=== PATIENT | female | born 2000 | race Caucasian/White ===

== ENCOUNTER 2021-04-22 08:32 | Outpatient (RCR) | payer OTHER, SELFPAY ==
[2021-04-22 09:15] VITALS: BP 111/53; PULSE 95
== END 2021-05-01 10:15 | disposition home or self-care (01) ==
LOC: ANHOBOP 08:32
PROVIDERS: Referring Provider Obstetrics & Gynecology; Visit Provider Obstetrics & Gynecology
DX: O24.419 Gestational diabetes mellitus in pregnancy, unspecified control (principal); Z3A.38 38 weeks gestation of pregnancy
CPT/HCPCS: 59025

== ENCOUNTER 2021-04-24 10:55 | Inpatient (IN) | payer OTHER, SELFPAY ==
[2021-04-24] VITALS (23 sets, daily range): BP systolic 79–155; BP diastolic 45–93; PULSE 64–90; TEMP 36.7–37; BMI 42.5
[2021-04-24 12:07] LABS: Basophils Percent Auto 0.3 % (0.2-1.2); Eosinophils Absolute Auto 0.1 K/mm3 (0-0.3); Eosinophils Percent Auto 0.6 % (0-4.4); Hematocrit 31.8 % (37.0-47.0); Immature Granulocyte Absolute 0.12 K/mm3 (0.00-0.031); Lymphocytes Absolute Auto 2.47 K/mm3 (0.9-3.2); Lymphocytes Percent Auto 19.7 % (18.3-44.2); Mean Corpuscular HGB Conc 31.4 g/dl (32-36); Mean Corpuscular Volume 85.9 fl (80-100); Mean Platelet Volume 12.2 fl (7.4-10.4); Monocytes Absolute Auto 0.6 K/mm3 (0.1-0.6); Monocytes Percent Auto 4.9 % (2.6-8.5); Neutrophils Absolute Auto 9.2 K/mm3 (1.3-6.7); Neutrophils Percent Auto 73.5 % (45.5-73.1); Platelet Count Result 354 k/mm3 (150-375); Red Cell Distribution Width 14.5 % (11.5-14.5); White Blood Count 12.6 K/mm3 (4.5-10.0)
[2021-04-24] MEDS: OXYTOCIN 30 UNITS/NS 500 ML 30 UNITS/500 ML BAG 6 UNITS IV CONT (12:09)
[2021-04-24] MEDS: LACTATED RINGERS 1,000 ML 125 ML IV CONT ×2 (12:10→23:45)
--- NOTE | 2021-04-24 12:26 | LDADM ---
This patient, Verónica Tariq, was admitted to Labor/Delivery/Recovery 108 on 04/24/21 at 10:55. Plans for labor, pain management and were discussed with patient. Patient/family oriented to hospital policies and general routines including ID bracelet, bed and alarms, visiting hours, pain management, procedures, bathroom and other care routines, personal items, smoking policy, room service/diet and guest tray routines, infant security routines, and visiting hours. Patient/Family are encouraged to report perceived risks to care and to ask questions if they do not understand what they are told or what they should do. See OBIX for further documentation.
[2021-04-24 13:09] LABS: Glucose Point of Care 74 mg/dl (65-105)
[2021-04-24 17:15] LABS: Glucose Point of Care 75 mg/dl (65-105)
--- NOTE | 2021-04-24 17:30 | WPDANESEPP ---
Anes - Eval Pre Procedure Procedure: labor epidural Date/Time: 04/24/21 17:30 Surgeon: doreen Preop Diagnosis: pain during labor Pre Op Diagnosis: iol Patient Data Age: 20 Gender: F Height: 1.73 m Weight: 127 kg Last Vital Signs Temp 37.0 C 04/24/21 12:30 Pulse 75 04/24/21 17:00 BP 79/57 L 04/24/21 17:00 Allergies Allergy/AdvReac Type Severity Reaction Status Date / Time No Known Allergies Allergy Mild Verified 04/01/21 12:35 Home Medications Medication Instructions Recorded Confirmed Type ferrous sulfate 142 mg PO DAILY 04/01/21 04/01/21 History prenat.vits,venkat,egx-wixs-gdvew 1 tablet PO DAILY 04/01/21 04/01/21 History [ #2] insulin NPH isoph U-100 human 25 unit SUBCUT BID 04/24/21 04/24/21 History [Humulin N NPH U-100 Insulin] Laboratory Tests 04/24/21 04/24/21 04/24/21 11:58 11:58 11:58 WBC 12.6 K/mm3 H K/mm3 (4.5-10.0) RBC 3.70 M/mm3 L M/mm3 (4.2-5.4) Hgb 10.0 g/dL L g/dL (12.0-15.0) Hct 31.8 % L % (37.0-47.0) MCV 85.9 fl fl (80-100) MCH 27.0 pg pg (26-34) MCHC 31.4 g/dl L g/dl (32-36) RDW 14.5 % % (11.5-14.5) Plt Count 354 k/mm3 k/mm3 (150-375) MPV 12.2 fl H fl (7.4-10.4) Immature Gran % (Auto) 1.0 % H % (0-0.5) Neut % (Auto) 73.5 % H % (45.5-73.1) Lymph % (Auto) 19.7 % % (18.3-44.2) Craven % (Auto) 4.9 % % (2.6-8.5) Eos % (Auto) 0.6 % % (0-4.4) Baso % (Auto) 0.3 % % (0.2-1.2) Lymph # (Auto) 2.47 K/mm3 K/mm3 (0.9-3.2) Craven # (Auto) 0.6 K/mm3 K/mm3 (0.1-0.6) Eos # (Auto) 0.1 K/mm3 K/mm3 (0-0.3) Baso # (Auto) 0.0 K/mm3 K/mm3 (0.0-0.1) Abs Immat Gran (auto) 0.12 K/mm3 H K/mm3 (0.00-0.031) Absolute Neuts (auto) 9.2 K/mm3 H K/mm3 (1.3-6.7) Absolute Nucleated RBC 0.0 K/mm3 K/mm3 (0.0-0.012) Nucleated RBC % 0.0 % % (0.0-0.2) POC Capillary Glucose RPR Pending Blood Type O Positive Antibody Screen Negative 04/24/21 04/24/21 13:06 17:11 WBC RBC Hgb Hct MCV MCH MCHC RDW Plt Count MPV Immature Gran % (Auto) Neut % (Auto) Lymph % (Auto) Craven % (Auto) Eos % (Auto) Baso % (Auto) Lymph # (Auto) [place] # (Auto) Eos # (Auto) Baso # (Auto) Abs Immat Gran (auto) Absolute Neuts (auto) Absolute Nucleated RBC Nucleated RBC % POC Capillary Glucose 74 mg/dl mg/dl 75 mg/dl mg/dl (65-105) (65-105) RPR Blood Type Antibody Screen Patient hx anesthesia problems: none Family hx anesthesia problems: none [facility] Past Medical History Medical History (Updated 04/24/21 @ 17:31 by Violetta Modi CRNA) Intrauterine Morbid obesity with BMI of 40.0-44.9, adult Family History Family History (Updated 04/01/21 @ 14:16 by Jimmy Saucedo RN) Father Type 2 diabetes mellitus Mother Anemia Grandparent Type 2 diabetes mellitus Chronic obstructive pulmonary disease Pancreatic cancer Social History Social History Smoking status: Light tobacco smoker Tobacco type: cigarettes Second hand tobacco smoke exposure: Yes Substance use: never Spiritual care concerns: No Exam Day of Procedure 04/24/21 17:30
[2021-04-24 19:34] LABS: Glucose Point of Care 90 mg/dl (65-105)
[2021-04-24] MEDS: fentaNYL CITRATE INJ (*CRX) 100 MCG/2 ML VIAL 50 MCG IV PUSH (20:58)
[2021-04-24 21:42] LABS: Glucose Point of Care 77 mg/dl (65-105)
[2021-04-24] MEDS: fentaNYL CITRATE INJ (*CRX) 100 MCG/2 ML VIAL IV PUSH (22:41)
[2021-04-25] VITALS (168 sets, daily range): BP systolic 60–149; BP diastolic 31–125; PULSE 25–154; RESP 16–18; TEMP 36.7–37.7; O2SAT 78–100
[2021-04-25 00:53] LABS: Glucose Point of Care 94 mg/dl (65-105)
[2021-04-25] MEDS: LACTATED RINGERS 1,000 ML 125 ML IV CONT ×2 (01:22→03:52)
[2021-04-25] MEDS: ONDANSETRON INJ 4 MG/2 ML VIAL IV PUSH (03:50)
[2021-04-25 03:57] LABS: Glucose Point of Care 100 mg/dl (65-105)
[2021-04-25 06:21] LABS: Glucose Point of Care 98 mg/dl (65-105)
--- NOTE | 2021-04-25 08:15 | PM.OBPRVD ---
OB - Delivery Note Procedure Delivery date: 04/25/21 Procedure: events: Gestational Diabetes Intrapartal events: None Induction method: AROM and per pitocin protocol Delivery monitor: internal FHT and internal uterine Route of delivery: Laceration Description: Perineal - 2nd Degree and Vaginal - 2nd Degree Delivery repair: vicryl Quantitative Blood Loss (ml): 210 Anesthesia type: Epidural Disposition: floor [place] Baby Date of : 04/25/21 Time of : 07:53 Weeks of gestation at delivery: 39 gender: Male Weight (pounds): 7 presentation: vertex score one minute: 9 score ten minutes: 9
[2021-04-25] MEDS: OXYTOCIN 30 UNITS/NS 500 ML 30 UNITS/500 ML BAG 125 UNITS IV CONT (08:44)
[2021-04-25] MEDS: BENZOCAINE 20% AER SPR (*SP) 56 GM CAN 1 SPRAY TOPICAL (10:10)
[2021-04-25] MEDS: WITCH HAZEL 40 PADS 1 PAD TOPICAL (10:10)
[2021-04-25] MEDS: IBUPROFEN 600 MG TABLET PO ×2 (10:12→19:37)
--- NOTE | 2021-04-25 10:40 | PC.NURSE ---
Patient transferred to post room #282 via wheelchair. Support person present. Oriented to unit, room, information board, rooming in, admission packet and security measures. Patient verbalizes understanding.
--- NOTE | 2021-04-25 12:15 | PC.NURSE ---
Mother called out for assist with feeding, reporting did not latch for first feeding and was bottle fed. is able to freely thrust tongue past gum ridge and flange both lips, he does keep tongue up and not drop. Skin is intact on both nipples, no redness and bruising noted. Reviewed infant feeding cues, frequencies, duration of feedings, feeding elimination flow sheet, and signs of adequate intake. Demonstrated stimulation techniques to wake for feeding. Assisted with to breast. Reviewed positioning/alignment in football, holding breast in ?C? hold and guided asymmetrical latch on. Discussed rational for each. Several attempts made before infant was able to latch correctly. Reviewed signs of a correct latch, effective nursing and suck swallow ratio. nursed eagerly, with steady draws for a short burst and would release nipple and was sucking his tongue with nipple under tongue. Several time infant latched repeating short bursts and releasing latch. Reviewed the difference of effective vs ineffective nursing. Offered and explained the nipple shield. Mother is willing to attempt with shield. Discussed nipple shield precautions and possible complications. Instructions given on application and cleaning of shield. Patient able to return demonstration on proper application of shield. Discussed the need to initiate pumping if infant continues to nurse with the shield. Patient verbalizes understanding. With shield in place infant was able to latch correctly and made some effort to suckle on shield. Short bursts of suckling in 15 minutes of attempt. Feeding options discussed, mother will supplement 15 mls after each feeding until is able to latch and maintain effective suckling for 10-15 minutes. Nipple care reviewed of lanolin after feedings, warm compresses as needed. Instructed mother to call out for RN assistance if she is unable to latch for feeding or she has discomfort with nursing. Instructed feeding should be initiated three hours from start of last feeding or if feeding cues are noted before. Mother voiced understanding of information shared.
--- NOTE | 2021-04-25 13:00 | PC.NURSE ---
Breast pump provided due to nipple shield use/ineffective feeding. Instructions given on breast pump care and usage, pumping schedule, nipple care, and collection and storage of breast milk. Encouraged [id number], breast massage and manual expression to stimulate supply. Assessed patient for correct flange size, placement and draw. Patient verbalizes and demonstrates understanding of instructions.
[2021-04-26 04:05] VITALS: BP 111/55; PULSE 82; RESP 18; TEMP 36.6; O2SAT 100
[2021-04-26 05:04] LABS: Hematocrit 25.8 % (37.0-47.0); Hemoglobin 8.2 g/dL (12.0-15.0)
--- NOTE | 2021-04-26 07:53 | PM.OBPNVD ---
OB - PN: Subj Subjective Date/time seen: 04/26/21 07:53 Patient comments: no complaints, pain well controlled, incisional pain, tolerating diet and flatus present OB - PN: Obj Data Labs CBC & Chem 7: 04/26/21 04:30 Labs: Laboratory Results - last 24 hr 04/26/21 04:30 Hgb 8.2 L Hct 25.8 L OB - PN A/P Plan day: 2 Plan: routine care Comments: POD#2 LTCS - no problems, Time Spent With Patient Time: Total time spent is greater than 50% in coordination of care (as documented) at patient's floor/unit and/or counseling patient: Exam Const: General: comfortable, no acute distress and alert Resp: Effort & Inspection: normal respiratory effort Auscultation: no crackles, no rales and no rhonchi Cardio: Rate: regular rate Heart sounds: no click, no murmurs and no rubs GI: Inspection: non-distended GI Palp: No Tenderness to palpation present (GI) Auscultation: normal bowel sounds Other: Incision - CDI Extrem: General: normal to inspection, no pedal edema and no calf tenderness
[2021-04-26] MEDS: MULTIVIT/MIN/PREN/FOL AC/IRON TABLET 1 TAB PO (08:11)
[2021-04-26] MEDS: DOCUSATE SODIUM 100 MG CAPSULE PO ×2 (08:11→16:55)
[2021-04-26] MEDS: IBUPROFEN 600 MG TABLET PO ×2 (08:11→19:42)
[2021-04-26 08:25] VITALS: BP 126/55; PULSE 65; RESP 16; TEMP 36.8; O2SAT 100
--- NOTE | 2021-04-26 09:51 | WPDANLDPN2 ---
Anes-Prog Note L&D Date/Time: 04/26/21 09:51 Comfortable throughout: labor and delivery Neuraxial method: epidural Epidural/Spinal procedure site: clean & non-tender Neuro status: Neuro function grossly intact. Cardiovascular status: normal Respiratory status: normal Airway patency: baseline Mental status: baseline Post-Op hydration status: normal Vital Signs: Last Vital Signs Temp 36.8 C 04/26/21 08:25 Pulse 65 04/26/21 08:25 Resp 16 04/26/21 08:25 BP 126/55 L 04/26/21 08:25 Pulse Ox 100 04/26/21 08:25 Pain score (VAS): 08/26 Post-procedural complaints: none Patient feedback: Patient satisfied with anesthetic care.
--- NOTE | 2021-04-26 09:55 | PC.NURSE ---
Consult with pt., mother reports has had issues with latching and has decided to pump and bottle feed. Discussed infants may have issued first few days with latching, if she is interested in suggested she continue to attempt each feeding then pump and bottle feed. Mother states she does not wish to attempt to breast. . Mother has a pump set up at bedside and states she has not been pumping regularly. Discussed stimulation of milk supply and suggested to pump after each feeding. Instructions given on breast pump care and usage, pumping schedule, nipple care, and collection and storage of breast milk. Encouraged [id number], breast massage and manual expression to stimulate supply. Assessed patient for correct flange size, placement and draw. Patient verbalizes and demonstrates understanding of instructions.
[2021-04-26 10:40] LABS: Rapid Plasma Reagin Non-Reactive (NonReactive)
[2021-04-26] MEDS: POLYSACCHARIDE IRON COMPLEX 150 MG CAPSULE PO (16:55)
[2021-04-26 19:15] VITALS: BP 108/58; PULSE 88; RESP 18; TEMP 36.8; O2SAT 99
--- NOTE | 2021-04-26 19:45 | PC.NURSE ---
Patient viewed the discharge video Mother & Baby Care, The First Two Weeks online. Patient was given the opportunity and encouraged to ask questions. Patient verbalized understanding of information shared and has been given the mother/baby guide for home reference.
[2021-04-27 07:00] VITALS: BP 107/61; PULSE 84; RESP 18; TEMP 36.9
--- NOTE | 2021-04-27 07:33 | PCCCNOTE ---
Care Coordination Consult: Met with pt. today who reports she lives at home with NEIL Mendez and her grandparents. This is her first child, also first child for Andrea. Pt. has recently moved to this area from [place] and does not have a PMD, a list of PMD's and a clinic list was provided to her. Pt. plans to follow up with Dr. Gaston at discharge. Has all necessary equipment for the baby including a crib, carseat, clothing, bottles, and diapers. She plans to supplement breast feeding with bottle feeding. Was interested in WIC information, provided information as well. Pt. reports she has been diagnosed with PTSD, depression, and anxiety but has not been managing her diagnosis with any medication. Was offered a list of behavior health services in the area to establish if needed and she declined. Pt. anticipates discharge Thursday. Denies any further case management needs.
[2021-04-27] MEDS: IBUPROFEN 600 MG TABLET PO (10:33)
[2021-04-27] MEDS: MULTIVIT/MIN/PREN/FOL AC/IRON TABLET 1 TAB PO (10:33)
[2021-04-27] MEDS: DOCUSATE SODIUM 100 MG CAPSULE PO (10:33)
[2021-04-27] MEDS: POLYSACCHARIDE IRON COMPLEX 150 MG CAPSULE PO (10:34)
--- NOTE | 2021-04-27 13:35 | P.DS_ITS ---
DS: Admitting Diagnosis Discharge Date 04/27/2021 Admitting Diagnosis term DS: Discharge Diagnosis Discharge Diagnosis (1) Term delivered: Code(s): O80 - Encounter for full-term uncomplicated delivery Status: Acute OB - DS: Summary OB Procedures : None OB Procedures Intrapartum: Spontaneous Vag Delivery OB Procedures: : None Peripartum Data Delivery Method: Natural Vaginal Time Spent with Patient Time attestation: Total time spent providing and/or coordinating discharge services: Discharge Plan Discharge Discharging Clinician: Britney Gaston Patient Disposition: Home, Self-Care Activity: pelvic rest Diet: regular Patient Instructions: Antibiotic Form, How to Stop Smoking (GEN) Stand Alone Forms: General Discharge Information Follow-up/Referrals: Britney Gaston MD [Physician] - Discharge Medications: Continued #2 Tablet 1 tablet PO DAILY RF: 0 ferrous sulfate 142 mg (45 mg iron) Tablet Extended Release 142 mg PO DAILY RF: 0 Humulin N NPH U-100 Insulin 100 unit/mL Suspension 25 unit SUBCUT BID RF: 0 Date of admission: 04/24/21 10:55 Primary Care Provider: PHYSICIAN,ORNAMENTAL METAL WORKER HELPER Admitting Provider: Britney Gaston Attending physician on admission: Britney Gaston Condition: Stable
--- NOTE | 2021-04-27 13:35 | PM.OBPNVD ---
OB - PN: Subj Subjective Date/time seen: 04/27/21 13:35 Patient comments: no complaints, pain well controlled and tolerating diet OB - PN: Obj Data Labs CBC & Chem 7: 04/26/21 04:30 OB - PN A/P Plan day: 2 Plan: routine care and discharge home Time Spent With Patient Time: Total time spent is greater than 50% in coordination of care (as documented) at patient's floor/unit and/or counseling patient: Exam Const: General: comfortable and no acute distress Resp: Effort & Inspection: normal respiratory effort Auscultation: no rales, no rhonchi and no wheezes Cardio: Rate: regular rate Heart sounds: no click, no murmurs and no rubs GI: GI Palp: Yes Soft to palpation and No Tenderness to palpation present (GI) Auscultation: normal bowel sounds Extrem: General: normal to inspection, no pedal edema and no calf tenderness
--- NOTE | 2021-04-27 15:14 | PC.NURSE ---
Self care and infant care discharge instructions given to pt. including follow up visit date and time. Pt. verbalized understanding. No questions or concerns voiced. Very pleasant. Anxious for discharge.
== END 2021-04-27 16:20 | disposition home or self-care (01) | DRG 807 ==
LOC: ANHLDR 10:58 → ANHOB2 04-25 10:55
PROVIDERS: Admitting Provider Obstetrics & Gynecology; Visit Provider Obstetrics & Gynecology
DX: O24.429 Gestational diabetes mellitus in childbirth, unspecified control (principal); Z37.0 Single live birth; Z3A.39 39 weeks gestation of pregnancy; O36.8330 Maternal care for abnormalities of the fetal heart rate or rhythm, third trimester, not applicable or unspecified; O70.1 Second degree perineal laceration during delivery; O99.214 Obesity complicating childbirth; E66.01 Morbid (severe) obesity due to excess calories
CPT/HCPCS: 36415; 82948; 85014; 85018; 85025; 86592; 86850; 86900; 86901; A9270; J2405; J2590; J2795; J3010; J7120

== ENCOUNTER 2021-05-02 13:03 | Emergency (ER) | payer OTHER, SELFPAY ==
--- NOTE | ~2021-05-02 | US_ITS ---
EXAMINATION: US pelvic complete EXAM DATE: 05/02/2021 13:56 INDICATION: bleeding. TECHNIQUE: Pelvic transabdominal sonogram was performed. There are multiple grayscale and Doppler im ages available for interpretation. There is no prior study for comparison. FINDINGS: Uterus measures 13.1 x 7.4 x 9.8 cm, and is morphologically normal. There is mildly hetero geneous endometrial echogenicity with normal thickness of 11 mm. There is no free pelvic fluid. Right adnexa: The ovary measures 2.7 x 1.9 x 2.0 cm and is morphologically normal. Ovarian vascular f low confirmed. Left adnexa: The ovary measures 3.1 x 2.5 x 2.1 cm and is morphologically normal. Ovarian vascular fl ow confirmed. IMPRESSION: Mildly heterogeneous but endometrium with normal thickness. Probably within normal limits for recent status but follow-up if indicated clinically. Reviewed, dictated and finalized at location B. IMPRESSION: Mildly heterogeneous but endometrium with normal thickness. Probabl y within normal limits for recent status but follow-up if indicated clinically.
[2021-05-02 13:07] VITALS: BP 146/80; PULSE 124; RESP 20; TEMP 37.2; O2SAT 100
--- NOTE | 2021-05-02 13:35 | ED.GENADULT ---
HPI - General Adult General Chief complaint: Vaginal Bleeding Stated complaint: VAGINAL BLEEDING, S/P DELIVERY 1 WK Time Seen by Provider: 05/02/21 13:32 Source: RN notes reviewed History of Present Illness HPI narrative: Patient presents emergency department from home for vaginal bleeding. Patient states that she had a vaginal delivery by Dr. Gaston approximately 1 week today she states that approximate hour ago she passed a large blood clot and has been having vaginal bleeding since that time she notes mild lower abdominal cramping with the symptoms she denies any fevers or chills chest pain shortness of breath or any other symptoms denies any other complications with the Related Data Home Medications Medication Instructions Recorded Confirmed ferrous sulfate 142 mg PO DAILY 04/01/21 04/01/21 prenat.vits,venkat,pkr-mwmb-bpwun 1 tablet PO DAILY 04/01/21 04/01/21 Humulin N NPH U-100 Insulin 25 unit SUBCUT BID 04/24/21 04/24/21 Allergies Allergy/AdvReac Type Severity Reaction Status Date / Time No Known Allergies Allergy Mild Verified 05/02/21 14:07 Review of Systems Review of Systems: Gen.: Denies fevers or chills ENT: Denies congestion Respiratory: Denies shortness of breath or cough CV: Denies chest pain or palpitations GI: Reports lower abdominal cramping. Denies nausea, emesis or diarrhea see HPI Musculoskeletal: Denies back pain or muscle pain Neuro: Denies numbness, tingling, weakness or focal weakness Skin: Denies rash Except as documented, all other systems reviewed and negative [facility] Past Medical History Medical History Intrauterine Morbid obesity with BMI of 40.0-44.9, adult Family History Family History (Updated 04/01/21 @ 14:16 by Jimmy Saucedo RN) Father Type 2 diabetes mellitus Mother Anemia Grandparent Type 2 diabetes mellitus Chronic obstructive pulmonary disease Pancreatic cancer Social History Social History Smoking status: Light tobacco smoker Tobacco type: cigarettes Second hand tobacco smoke exposure: Yes Substance use: never Spiritual care concerns: No Exam Narrative: APPEARANCE: No acute distress, nontoxic, resting in bed EYES: EOMI HEENT: Normocephalic, atraumatic, OMM RESPIRATORY: No respiratory distress Clear to auscultation bilaterally with no rhonchi wheezing or rales. CARDIOVASCULAR: Regular rate and rhythm without murmurs rubs or gallops. ABDOMINAL: Soft, nontender, nondistended, no rebound or guarding MUSCULOSKELETAl: Moves all extremities. No clubbing, cyanosis or edema. NEURO: Awake and alert. Following commands, speech normal, no focal deficits SKIN:: Warm, dry. No rashes lesions or abrasions PSYCHIATRIC: Normal affect/mood, Course Course Emergency Course: Reviewed old records Called discussed with Dr. Gaston. Recommends no pelvic exam at this time. Agrees with plan for discharge to follow-up as an outpatient Patient states bleeding is improved in ED Discussed with patient results of workup and diagnosis. Discussed need for follow-up with primary care, proper use of medication, and reasons to return to the emergency department. Patient understands and agrees to current treatment plan Vital Signs Vital signs: Vital Signs Temperature 99 F 05/02/21 13:07 Pulse Rate 124 H 05/02/21 13:07 Respiratory Rate 05/02/21 13:07 Blood Pressure 146/80 H 05/02/21 13:07 Pulse Oximetry 100 05/02/21 13:07 Temperature 99 F 05/02/21 13:07 Pulse Rate 124 H 05/02/21 13:07 Respiratory Rate 05/02/21 13:07 Blood Pressure 146/80 H 05/02/21 13:07 Pulse Oximetry 100 05/02/21 13:07 Medical Decision Making Vital Signs Vital Signs: Vital Signs Temperature 99 F 05/02/21 13:07 Pulse Rate 124 H 05/02/21 13:07 Respiratory Rate 05/02/21 13:07 Blood Pressure 146/80 H 05/02/21 13:07 Pulse Oxi
[2021-05-02 14:23] LABS: Basophils Absolute Auto 0.1 K/mm3 (0.0-0.1); Basophils Percent Auto 0.4 % (0.2-1.2); Eosinophils Absolute Auto 0.2 K/mm3 (0-0.3); Eosinophils Percent Auto 1.5 % (0-4.4); Hematocrit 31.8 % (37.0-47.0); Hemoglobin 9.9 g/dL (12.0-15.0); Immature Granulocyte Absolute 0.16 K/mm3 (0.00-0.031); Immature Granulocyte Percent A 1.4 % (0-0.5); Lymphocytes Absolute Auto 2.86 K/mm3 (0.9-3.2); Lymphocytes Percent Auto 24.2 % (18.3-44.2); Mean Corpuscular HGB Conc 31.1 g/dl (32-36); Mean Corpuscular Volume 90.1 fl (80-100); Mean Platelet Volume 11.4 fl (7.4-10.4); Monocytes Absolute Auto 0.7 K/mm3 (0.1-0.6); Monocytes Percent Auto 5.7 % (2.6-8.5); Neutrophils Absolute Auto 7.9 K/mm3 (1.3-6.7); Neutrophils Percent Auto 66.8 % (45.5-73.1); Platelet Count Result 373 k/mm3 (150-375); Red Blood Count 3.53 M/mm3 (4.2-5.4); Red Cell Distribution Width 14.8 % (11.5-14.5); White Blood Count 11.8 K/mm3 (4.5-10.0)
[2021-05-02 14:39] LABS: Alanine Aminotransferase 15 U/L (4-35); Alkaline Phosphatase 117 U/L (45-116); Anion Gap 9 mmol/L (8-16); Aspartate Amino Transferase 23 U/L (14-36); Bilirubin,Total 0.1 mg/dL (0.2-1.3); Blood Urea Nitrogen 15 mg/dL (8-21); Calcium 9.5 mg/dL (8.9-10.7); Carbon Dioxide 27 mmol/L (22-30); Chloride 103 mmol/L (98-107); Estimated CRCL calculation 119 ml/min; Estimated Glomerular Filt Rate > 60; Glucose 94 mg/dL (65-110); Potassium 3.9 mmol/L (3.4-5.0); Sodium 139 mmol/L (134-143)
[2021-05-02] MEDS: SODIUM CHLORIDE 0.9% IV 1,000 ML 999 ML IV CONT (14:58)
[2021-05-02 15:51] VITALS: BP 130/72; PULSE 84; RESP 16; O2SAT 100
== END 2021-05-02 16:25 | disposition home or self-care (01) ==
PROVIDERS: Emergency Medicine; Emergency Provider Emergency Medicine
DX: O72.2 Delayed and secondary postpartum hemorrhage (principal); O99.335 Smoking (tobacco) complicating the puerperium; F17.210 Nicotine dependence, cigarettes, uncomplicated; O99.215 Obesity complicating the puerperium; E66.01 Morbid (severe) obesity due to excess calories
CPT/HCPCS: 36415; 76856; 80053; 85025; 86850; 86900; 86901; 96361; 96374; 99284; J0131; J7030

== ENCOUNTER 2021-07-03 23:48 | Emergency (ER) | payer OTHER, SELFPAY ==
--- NOTE | ~2021-07-03 | CT_ITS ---
EXAMINATION: CT brain wo con DATE: 07/04/2021 00:30 INDICATION: Unresponsiveness. Altered mental state. Neck pain. TECHNIQUE: Computed tomography (CT) of the head was performed without intravenous contrast. The mA wa s adjusted according to patient size. Iterative reconstruction technique was employed. Exam dose: 60 5.33 mGy-cm total exam DLP. COMPARISON: None FINDINGS: No intracranial mass lesion or hemorrhage or cerebrovascular accident. No midline shift or mass effect. Normal panchal-white matter differentiation. Normal ventricular size. No subdural or epidur al hematoma. There is some soft tissue thickening of the ethmoid air cells on the right. Small mucous retention cy st and minimal mucoperiosteal thickening of the right maxillary sinus. The paranasal sinuses and mast oid air cells are otherwise unremarkable. No fracture or bone destruction of the cranial vault. IMPRESSION: No significant intracranial abnormality Reviewed, dictated and finalized at Location A. Reviewed, dictated and finalized at location A. 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
--- NOTE | ~2021-07-03 | CT_ITS ---
EXAMINATION: CT cervical spine wo con DATE: 07/04/2021 00:30 INDICATION: Neck pain TECHNIQUE: Computed tomography (CT) of the cervical spine was performed without intravenous contrast. Automated exposure control and iterative reconstruction technique were employed. Exam dose: 411.10 mGy-cm total exam DLP. COMPARISON: None FINDINGS: There is reversal of cervical curvature which may be due to muscle spasm. No fracture or dislocation or locked facet or prevertebral soft tissue swelling. Cervical interspaces are preserved. Nonspecific patchy groundglass density in the included apical areas. IMPRESSION: Reversal cervical curvature; no fracture or dislocation or locked facet Nonspecific patchy groundglass lung density in the lung apices Reviewed, dictated and finalized at Location [facility]. Reviewed, dictated and finalized at location A. HT KITCHEN MANAGER
[2021-07-03 23:53] VITALS: BP 116/61; PULSE 97; RESP 15; TEMP 36.9; O2SAT 100
[2021-07-04] VITALS (60 sets, daily range): BP systolic 87–136; BP diastolic 50–76; PULSE 62–105; RESP 8–26; TEMP 36.7; O2SAT 92–100
--- NOTE | 2021-07-04 00:12 | PC.NURSE ---
Poison control contacted. Pt reports she ingested approx 10-12 hydroxyzine of an unknown dosage approx 1 hour. Per EDUARDO Ravi it peaks at 1-3 hours. Anticholinergic effects, prolonged QT, agitation and sedation. She suggests checking a mag level, and to rule out Tylenol and salicylate. She will fax over management information.
--- NOTE | 2021-07-04 00:16 | ECG_ITS ---
Measurements Intervals [place] Rate: 91 P: 46 RI: 154 QRS: 95 QRSD: 83 T: 55 QT: 348 QTc: 430 Interpretive Statements SINUS RHYTHM WITH SINUS ARRHYTHMIA RIGHT AXIS DEVIATION BASELINE ARTIFACT- I, II, III, AVR, AVL, AVF, V1-V6 BORDERLINE ECG Electronically Signed On 07-04-2021 6:06:28 SENIOR PROJECT ENGINEER by Luis Rosado D.O.
--- NOTE | 2021-07-04 00:17 | ED.GENADULT ---
HPI - General Adult General Chief complaint: Overdose Stated complaint: not feeling right Time Seen by Provider: 07/04/21 00:07 Source: patient, family and EMS Mode of arrival: EMS Limitations: no limitations History of Present Illness HPI narrative: Patient is a 20-year-old female brought in by EMS after being found unresponsive in front of her house by her . Family states that her administered Narcan and eventually reversed her symptom. Upon arrival to the emergency room patient's alert awake and oriented x4. Patient states that she took a handful of hydroxyzine, approximately 10 to 12 pills tonight, secondary to suicide attempt. Patient admits to feeling depressed lately. Patient has a history of depression. Denies any history of suicide times in the past. Patient recently gave 2 months ago. Denies any homicidal ideation. Related Data Home Medications Medication Instructions Recorded Confirmed ferrous sulfate 142 mg PO DAILY 04/01/21 04/01/21 prenat.vits,venkat,fzl-cpqt-bywal 1 tablet PO DAILY 04/01/21 04/01/21 Humulin N NPH U-100 Insulin 25 unit SUBCUT BID 04/24/21 04/24/21 Allergies Allergy/AdvReac Type Severity Reaction Status Date / Time No Known Allergies Allergy Mild Verified 07/04/21 00:47 Review of Systems Review of Systems: All systems reviewed & are unremarkable except as noted in HPI and below Constitutional: Constitutional: Denies body ache(s), Denies chills, Denies excessive sweating, Denies fatigue, Denies fever(s), Denies headache(s), Denies lethargy, Denies malaise, Denies weakness and Denies weight loss Eyes: Eyes: Denies blurry vision, Denies change in vision and Denies loss of vision ENT: Denies dizziness, Denies ear discharge, Denies headache(s), Denies lip swelling, Denies epistaxis, Denies nasal congestion, Denies neck pain, Denies throat swelling and Denies tongue swelling Cardiovascular: Cardiovascular: Denies chest pain, Denies chest pain at rest, Denies chest pain with activity, Denies diaphoresis, Denies rapid heart rate, Denies edema, Denies irregular heart rhythm, Denies lightheadedness, Denies palpitations, Denies dyspnea and Denies dyspnea on exertion Respiratory: Respiratory: Denies chest congestion, Denies cough, Denies hemoptysis, Denies dyspnea and Denies dyspnea on exertion Gastrointestinal: Gastrointestinal: Denies abdominal pain, Denies melena, Denies hematochezia, Denies diarrhea, Denies nausea, Denies vomiting and Denies hematemesis Musculoskeletal: Musculoskeletal: Denies abnormal gait, Denies deformity, Denies joint swelling, Denies limited range of motion, Denies neck pain and Denies numbness Neurologic: Denies Abnormal speech present, Denies abnormal gait, Denies confusion, Denies dizziness, Denies headache(s), Denies focal weakness, Denies loss of vision, Denies numbness, Denies Other visual disturbances, Denies Sensory deficit (Neuro) and Denies weakness Psychiatric: Psychiatric: Denies confusion, Denies auditory hallucinations and Denies homicidal ideation Endocrine: Endocrine: Denies cold intolerance, Denies excessive sweating, Denies fatigue, Denies heat intolerance and Denies palpitations Hematologic/Lymphatic: Hematologic/Lymphatic: Denies easy bleeding and Denies easy bruising Allergic/Immunologic: Allergic/Immunologic: Denies lip swelling, Denies throat swelling and Denies tongue swelling PMFSH Past Medical History Medical History Intrauterine Morbid obesity with BMI of 40.0-44.9, adult Family History Family History Father Type 2 diabetes mellitus Mother Anemia Grandparent Type 2 diabetes mellitus Chronic obstructive pulmonary disease Pancreatic cancer Social History Social History Smoking status: Light tobacco smoker Tobacco type: cigarettes Second hand t
--- NOTE | 2021-07-04 00:22 | PC.NURSE ---
pt to CT at this time.
[2021-07-04 00:27] LABS: Basophils Absolute Auto 0.1 K/mm3 (0.0-0.1); Basophils Percent Auto 0.6 % (0.2-1.2); Eosinophils Absolute Auto 0.4 K/mm3 (0-0.3); Eosinophils Percent Auto 2.6 % (0-4.4); Hematocrit 33.6 % (37.0-47.0); Hemoglobin 10.3 g/dL (12.0-15.0); Immature Granulocyte Absolute 0.07 K/mm3 (0.00-0.031); Immature Granulocyte Percent A 0.4 % (0-0.5); Lymphocytes Percent Auto 10.6 % (18.3-44.2); Mean Corpuscular HGB Conc 30.7 g/dl (32-36); Mean Corpuscular Hemoglobin 25.8 pg (26-34); Monocytes Absolute Auto 0.8 K/mm3 (0.1-0.6); Monocytes Percent Auto 5.2 % (2.6-8.5); Neutrophils Percent Auto 80.6 % (45.5-73.1); Platelet Count Result 340 k/mm3 (150-375); White Blood Count 16.1 K/mm3 (4.5-10.0)
[2021-07-04] MEDS: SODIUM CHLORIDE 0.9% IV 1,000 ML 999 ML IV CONT (00:33)
[2021-07-04 00:38] LABS: Acetaminophen < 10 ug/mL (10-30); Ethanol < 10 mg/dL (<10); Salicylate < 1.0 mg/dL (2-20)
[2021-07-04 00:39] LABS: Alanine Aminotransferase 29 U/L (4-35); Albumin Level 4.4 g/dL (3.7-5.6); Alkaline Phosphatase 65 U/L (45-116); Anion Gap 10 mmol/L (8-16); Aspartate Amino Transferase 39 U/L (14-36); Bilirubin,Total 0.4 mg/dL (0.2-1.3); Blood Urea Nitrogen 6 mg/dL (8-21); Calcium 9.1 mg/dL (8.9-10.7); Carbon Dioxide 25 mmol/L (22-30); Chloride 101 mmol/L (98-107); Estimated CRCL calculation 111 ml/min; Estimated Glomerular Filt Rate > 60; Glucose 129 mg/dL (65-110); Magnesium 1.7 mg/dL (1.6-2.3); Potassium 3.8 mmol/L (3.4-5.0); Sodium 136 mmol/L (134-143)
[2021-07-04 02:15] LABS: Amphetamine Screen Urine Negative (Negative); Barbiturate Screen Urine Negative (Negative); Benzodiazepines Screen Urine Negative (Negative); Cannabinoid Screen Urine Negative (Negative); Cocaine Screen Urine Negative (Negative); Methadone Screen Urine Negative (Negative); Opiate Screen Urine Negative (Negative); Phencyclidine Screen Urine Negative (Negative)
--- NOTE | 2021-07-04 02:16 | PC.NURSE ---
Per Tito, pt reports to her that she took 4-5 hydrocodone and that she did not want to kill herself. EDP made aware and pt is now going to be an involuntary admit.
[2021-07-04 02:56] LABS: EDCOVIDSCREEN Negative (Negative)
--- NOTE | 2021-07-04 03:24 | PC.NURSE ---
poison control called for update and this RN updated them on patient's condition.
--- NOTE | 2021-07-04 03:28 | PC.NURSE ---
Head and neck CT results normal. c-collar removed from pt.
--- NOTE | 2021-07-04 05:06 | PC.NURSE ---
Assumed care of pt, pt is resting on stretcher w/ equal chest rise and fall, pt is alert to verbal stimuli. Pt on tele monitor w/ VSS. Grandmother at bedside. Sitter remains at bedside.
--- NOTE | 2021-07-04 08:11 | PC.NURSE ---
Spoke with pt and family. Pt denies taking any pills last night and denies being suicidal. States I was out of my head when I talked to the counselor last night
--- NOTE | 2021-07-04 08:55 | PC.NURSE ---
Spoke with [facility] regarding pt is now voluntarily being admitted. They will have someone from crisis return call.
--- NOTE | 2021-07-04 09:49 | PC.NURSE ---
Patricia at [facility] reports that [facility] is reviewing chart and will call us.
--- NOTE | 2021-07-04 10:38 | PC.NURSE ---
Chart faxed to [facility].
--- NOTE | 2021-07-04 11:54 | PC.NURSE ---
EKG and CT reports faxed to [facility].
--- NOTE | 2021-07-04 12:52 | PC.NURSE ---
Pt refusing to go to [facility] due to distance. Pt informed that there are no beds at any facilities closer to this area. Grandmother at bedside on speaker phone with pt's significant other cursing and saying that they will not let her go there. Pt requesting to do outpatient treatment. Pt informed that her attempt at suicide last evening does not allow her for outpt treatment. Pt spoke with Patricia from [facility] on the phone and still refuses to go.
--- NOTE | 2021-07-04 13:08 | PC.NURSE ---
ERP in to speak with pt and family.
--- NOTE | 2021-07-04 13:56 | PC.NURSE ---
Approached pt again regarding transfer. Grandmother at bedside refusing for pt to go to [facility]. This nurse explained that it was up to the pt what we do because she is an adult. Grandmother cursing and yelling at nurse while pointing her finger to nurse. Grandmother refers to this nurse as head bitch and ERP as a prick . Pt says nothing and sits on the stretcher.
--- NOTE | 2021-07-04 16:00 | PC.NURSE ---
This nurse and ER director Donna in room to notify pt that an ambulance was on the way to pick pt up. Grandmother at bedside still refusing to have pt taken to facility this far away. Spoke with family at length explaining why this is necessary for proper treatment and that this is the only facility that has open beds.
--- NOTE | 2021-07-04 17:40 | PC.NURSE ---
After putting pt on EMS stretcher EMS received a phone call from their facilities maintenance supervisor stating that because the pt is A&0 x4 that pt can not be made to go to the facility. Pt returned to her pt room.
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
--- NOTE | 2021-07-04 19:01 | PC.NURSE ---
Voluntary admission form faxed to [facility].
--- NOTE | 2021-07-04 19:34 | PC.NURSE ---
spoke to Patricia from [facility], the current plan is to run a PCR tomorrow morning and send the patient to [facility] pending clearance. Patricia to call [facility] and have them hold a bed for her for tomorrow
--- NOTE | 2021-07-04 20:40 | PC.NURSE ---
chart faxed to [facility]
--- NOTE | 2021-07-05 04:46 | PC.NURSE ---
Called [facility] and cancelled transport scheduled for Thursday at 1:00 p.m. to [facility] in [place], [place].
[2021-07-05 07:35] VITALS: BP 126/70; PULSE 70; RESP 18; TEMP 36.6; O2SAT 97
--- NOTE | 2021-07-05 08:25 | PC.NURSE ---
Patient updated on plan of care. Pending COVID swab, patient agrees to be transported to [facility] for further psychiatric evaluation.
[2021-07-05 16:37] LABS: SARS-CoV-2 RNA PCR Negative
--- NOTE | 2021-07-05 18:39 | PC.NURSE ---
Still awaiting COVID swab result. Patient resting comfortably in bed.
[2021-07-05 19:14] VITALS: BP 135/78; PULSE 69; RESP 16; O2SAT 99
--- NOTE | 2021-07-05 19:44 | PC.NURSE ---
Care of pt assumed. Pt is calm and cooperative at this time. Susan from [facility] called for a pt update. This RN informed Susan that we are still waiting for PCR results and will call back when results are available. [phone]
--- NOTE | 2021-07-05 20:15 | PC.NURSE ---
Spoke with Aislinn, the call coordinator for [facility] to inform her of the negative PCR result. She requests sending over new updated chart, lab results, face sheet, and voluntary paperwork. She states that someone will be in contact with me regarding a room for this pt.
--- NOTE | 2021-07-05 20:22 | PC.NURSE ---
Updated chart and requested information faxed to [facility] at this time.
--- NOTE | 2021-07-06 01:17 | PC.NURSE ---
Spoke with Ben from [facility] who is requesting a new voluntary admit sheet and to reassess the pt. Pt has been re assessed over the phone at this time. New voluntary admit sheet faxed to [facility].
--- NOTE | 2021-07-06 01:19 | PC.NURSE ---
Number received from Ben at [facility] to call nurse to nurse report.
[2021-07-06 01:35] LABS: Glucose Point of Care 105 mg/dl (65-105)
--- NOTE | 2021-07-06 01:40 | PC.NURSE ---
called [facility] to request transport. ETA [id number]
--- NOTE | 2021-07-06 01:44 | PC.NURSE ---
Nurse to nurse report called to [facility]. EMS ETA around 0330.
--- NOTE | 2021-07-06 01:47 | PC.NURSE ---
called [facility] to request transport. [facility] accepted. ETA 35-40 minutes. cancelled [facility].
[2021-07-06 02:58] VITALS: BP 121/73; PULSE 61; RESP 16; O2SAT 99
== END 2021-07-06 02:32 ==
PROVIDERS: Emergency Provider Emergency Medicine
DX: T43.592A Poisoning by other antipsychotics and neuroleptics, intentional self-harm, initial encounter (principal); F32.A Depression, unspecified; Z20.822 Contact with and (suspected) exposure to COVID-19; E66.01 Morbid (severe) obesity due to excess calories; F17.210 Nicotine dependence, cigarettes, uncomplicated; Z79.4 Long term (current) use of insulin; R94.31 Abnormal electrocardiogram [ECG] [EKG]
CPT/HCPCS: 36415; 51701; 70450; 72125; 80053; 80307; 81025; 82948; 83735; 84443; 85025; 87426; 93005; 96360; 99285; C9803; J7030; U0003; U0005

== ENCOUNTER 2022-03-14 10:24 | Emergency (ER) | payer OTHER, SELFPAY ==
[2022-03-14 10:36] VITALS: BP 133/77; PULSE 96; RESP 18; TEMP 36.6; O2SAT 100
--- NOTE | 2022-03-14 11:08 | ED.FEMALEGU ---
HPI - Female Genitourinary General Chief complaint: Urogenital-Female Stated complaint: UTI Time Seen by Provider: 03/14/22 11:14 Source: patient and RN notes reviewed Mode of arrival: ambulatory Limitations: no limitations History of Present Illness HPI Narrative: 21-year-old female presents with concern for urinary tract infection. She reports several day history of frequency, burning, abdominal cramping, feeling feverish, bilateral mild back pain Reports she has been taking Azo without relief. She denies body aches, chills, sweats. MD elicited complaint: UTI Related Data Allergies Allergy/AdvReac Type Severity Reaction Status Date / Time No Known Allergies Allergy Mild Verified 03/14/22 10:44 Review of Systems Review of Systems: CONSTITUTIONAL: Denies malaise, chills, sweats. Reports feeling feverish CARDIOVASCULAR: Denies chest pain, palpitations, or edema. RESPIRATORY: Denies cough or dyspnea. GASTROINTESTINAL: Denies abdominal pain, nausea, vomiting, diarrhea GENITOURINARY: Reports dysuria, frequency, urgency, suprapubic pressure, flank pain SKIN: Denies rash or itching. MUSCULOSKELETAL: Reports bilateral lower back pain. Denies myalgia. All systems reviewed & are unremarkable except as noted in HPI and below PMFSH Past Medical History Medical History Intrauterine Morbid obesity with BMI of 40.0-44.9, adult Family History Family History Father Type 2 diabetes mellitus Mother Anemia Grandparent Type 2 diabetes mellitus Chronic obstructive pulmonary disease Pancreatic cancer Social History Social History Smoking status: Light tobacco smoker Tobacco type: cigarettes Second hand tobacco smoke exposure: Yes Substance use: never Substance use type: unknown Spiritual care concerns: No Comments At time of signature, agree with nursing past medical, surgical, social and family history. There is no relevant family history pertinent to the presenting complaint Exam Narrative: GENERAL: Well-appearing, well-nourished, and in no acute distress. HEAD: Normocephalic. EYES: PERRLA, conjunctivae clear. NECK: Supple. No lymphadenopathy CHEST: Clear to auscultation. No respiratory distress. HEART: Regular rate and rhythm. ABDOMEN: Mild left upper quadrant and suprapubic tenderness soft, nondistended, normal active bowel sounds, no palpable or pulsatile masses, no guarding. No CVA tenderness SKIN: Warm, dry, no rash. NEURO: Alert and oriented x3. PSYCH: Normal mood and affect Course Course Emergency Course: Patient is aware of diagnosis, understands and agrees to treatment plan. Anticipatory guidance given. Patient agrees to follow-up as directed and is aware of reasons to seek care at the emergency department. Portions of this record may have been created with voice recognition software Level of Care: Express Care Visit Vital Signs Vital signs: Vital Signs Temperature 97.9 F 03/14/22 10:36 Pulse Rate 96 03/14/22 10:36 Respiratory Rate 18 03/14/22 10:36 Blood Pressure 133/77 03/14/22 10:36 Pulse Oximetry 100 03/14/22 10:36 Oxygen Delivery Room Air 03/14/22 10:36 Temperature 97.9 F 03/14/22 10:36 Pulse Rate 96 03/14/22 10:36 Respiratory Rate 18 03/14/22 10:36 Blood Pressure 133/77 03/14/22 10:36 Pulse Oximetry 100 03/14/22 10:36 Oxygen Delivery Room Air 03/14/22 10:36 Reviewed. MDM - Female Genitourinary MDM Narrative Medical decision making narrative: Exam findings and UA show no acute concerns or changes; patient is non-toxic appearing and is in no distress. Patient is appropriate for outpatient treatment and follow-up. Differential Diagnosis Differential diagnosis: Likely urinary tract infection and cystitis Lab Data Labs: Urine Glucose
== END 2022-03-14 11:20 | disposition home or self-care (01) ==
PROVIDERS: Emergency Provider Nurse Practitioner
DX: R35.0 Frequency of micturition (principal); R30.0 Dysuria; R10.9 Unspecified abdominal pain; R50.9 Fever, unspecified; M54.6 Pain in thoracic spine
CPT/HCPCS: 81003; 87077; 87086; 87186; 99213; G0463

== ENCOUNTER 2022-04-22 10:49 | Emergency (ER) | payer OTHER, SELFPAY ==
[2022-04-22 10:59] VITALS: BP 132/82; PULSE 91; RESP 16; TEMP 36.3; O2SAT 100
--- NOTE | 2022-04-22 11:15 | ED.NAVMDI ---
HPI - Nausea/Vomiting/Diarrhea General Chief complaint: Nausea/Vomiting/Diarrhea Stated complaint: body aches/chills/fever/abd/diarrhea Time Seen by Provider: 04/22/22 11:15 Source: patient and RN notes reviewed Mode of arrival: ambulatory Limitations: no limitations History of Present Illness HPI Narrative: 21 y/o female presented for c/o n/v/d muscle aches, fever/chills for 4 days. Endorses last emesis and loose stool yesterday. Unable to tolerate food today due to nausea. Not taking anything for symptoms. Denies sick contacts. LMP 3 weeks. Smokes 1ppd, snorts Fentanyl last used 2 days ago. Related Data Home Medications Medication Instructions Recorded Confirmed No Home Medications 04/22/22 04/22/22 Allergies Allergy/AdvReac Type Severity Reaction Status Date / Time No Known Allergies Allergy Mild Verified 04/22/22 10:51 Review of Systems Review of Systems: CONSTITUTIONAL: reports body aches, fever, chills ENT: Denies rhinorrhea, congestion CARDIOVASCULAR: Denies chest pain, palpitations, or edema. RESPIRATORY: Denies cough or dyspnea. GASTROINTESTINAL: Endorses nausea, vomiting, diarrhea. Denies abdominal pain, hematochezia, melena, hematemesis GENITOURINARY: Denies dysuria, hematuria, or CVA tenderness. SKIN: Denies rash, itching, or wounds. MUSCULOSKELETAL: Denies back pain, joint pain, or myalgia. NEUROLOGIC: Denies headache, numbness, tingling, or weakness. All systems reviewed & are unremarkable except as noted in HPI and below PMFSH Past Medical History Medical History Intrauterine Morbid obesity with BMI of 40.0-44.9, adult Family History Family History Father Type 2 diabetes mellitus Mother Anemia Grandparent Type 2 diabetes mellitus Chronic obstructive pulmonary disease Pancreatic cancer Social History Social History Smoking status: Light tobacco smoker Tobacco type: cigarettes Second hand tobacco smoke exposure: Yes Substance use: never Substance use type: unknown Spiritual care concerns: No Comments At time of signature, I have reviewed and agree with nursing past medical, surgical, social and family history unless otherwise noted. Please see nursing chart for further information. There is no relevant family history pertinent to the presenting complaint Exam Narrative: GENERAL: ill-appearing, no acute distress. EYES: EOMI. Conjunctivae normal. ENT: Mucous membranes pink and moist. CHEST: No respiratory distress. Clear to auscultation. HEART: Regular rate and rhythm. No murmur appreciated. Normal peripheral pulses. ABDOMEN: abd soft, nondistended, normal active bowel sounds. generalized tender abdomen, no guarding SKIN: Warm, dry, no rash. Capillary refill normal. Normal skin turgor. NEURO: No focal deficits. Alert and oriented x3. PSYCH: flat affect. Course Course Emergency Course: Patient is aware of diagnosis, understands and agrees to treatment plan. Anticipatory guidance given. Portions of this record may have been created with voice recognition software Level of Care: Express Care Visit Vital Signs Vital signs: Vital Signs Temperature 97.3 F L 04/22/22 10:59 Pulse Rate 91 04/22/22 10:59 Respiratory Rate 16 04/22/22 10:59 Blood Pressure 132/82 04/22/22 10:59 Pulse Oximetry 100 04/22/22 10:59 Oxygen Delivery Room Air 04/22/22 10:59 Temperature 97.3 F L 04/22/22 10:59 Pulse Rate 91 04/22/22 10:59 Respiratory Rate 16 04/22/22 10:59 Blood Pressure 132/82 04/22/22 10:59 Pulse Oximetry 100 04/22/22 10:59 Oxygen Delivery Room Air 04/22/22 10:59 MDM - Nausea/Vomiting/Diarrhea MDM Narrative Medical decision making narrative: Preg negative. Pt given Zofran. She denied significant improvement. Her grandmother arrived
--- NOTE | 2022-04-22 11:28 | PC.NURSE ---
in br to obtain ua spec.
[2022-04-22] MEDS: ONDANSETRON HCL ODT 4 MG TABLET SUBLINGUAL (11:32)
--- NOTE | 2022-04-22 11:44 | PC.NURSE ---
\is here with stated spouse and aware spouse is to be transferred to er for further evaluation d/t different sx. spouse requested estrellita rosario to notify of status and pt requested to go in room with spouse before transferring to er. is now in room.
--- NOTE | 2022-04-22 11:53 | PC.NURSE ---
grandmother at bedside.
== END 2022-04-22 11:55 | disposition left against medical advice (07) ==
LOC: EXPCOLL 10:52
PROVIDERS: Emergency Provider Nurse Practitioner Family
DX: R11.2 Nausea with vomiting, unspecified (principal); F17.210 Nicotine dependence, cigarettes, uncomplicated; F11.90 Opioid use, unspecified, uncomplicated
CPT/HCPCS: 81025; 99213; A9270; G0463

== ENCOUNTER 2022-04-22 12:17 | Emergency (ER) | payer OTHER, SELFPAY ==
[2022-04-22] VITALS (7 sets, daily range): BP systolic 116–134; BP diastolic 67–76; PULSE 68–103; RESP 14–16; TEMP 36.4; O2SAT 97–100
--- NOTE | ~2022-04-22 | CT_ITS ---
EXAMINATION: CT abdomen pelvis w con DATE: 04/22/2022 16:00 INDICATION: diffuse abdominal pain with n/v TECHNIQUE: Computed tomography (CT) of the abdomen and pelvis was performed with 100 mL Omnipaque-350 intravenous contrast. Automated exposure control and iterative reconstruction technique were employe d. The dose-length product was 368.90 mGy-cm. COMPARISON: None. FINDINGS: Lower thorax: Unremarkable Liver: Mildly enlarged. Biliary/Gallbladder: Gallbladder is normal. No bile duct dilation. Pancreas: No mass or duct dilation. Spleen: Mildly enlarged. Adrenals:No mass. Kidneys: No mass, stone, or hydronephrosis. GI tract: No small or large bowel dilation. Normal appendix. Mesentery/Peritoneum: No ascites, mass, or free air. Retroperitoneum: No mass. Pelvis: Pelvic organs are within normal limits. Soft Tissues: Soft tissues and body wall unremarkable. Bones: No acute osseous finding. IMPRESSION: Mild hepatosplenomegaly. Otherwise, no acute abdominopelvic process detected Reviewed, dictated and finalized at location K.
[2022-04-22 12:32] LABS: Basophils Percent Auto 0.3 % (0.2-1.2); Eosinophils Percent Auto 0.1 % (0-4.4); Hematocrit 43.5 % (37.0-47.0); Immature Granulocyte Absolute 0.02 K/mm3 (0.00-0.031); Immature Granulocyte Percent A 0.3 % (0-0.5); Lymphocytes Absolute Auto 1.69 K/mm3 (0.9-3.2); Lymphocytes Percent Auto 21.5 % (18.3-44.2); Mean Corpuscular HGB Conc 32.2 g/dl (32-36); Mean Corpuscular Hemoglobin 27.7 pg (26-34); Mean Corpuscular Volume 86.1 fl (80-100); Mean Platelet Volume 11.5 fl (7.4-10.4); Monocytes Absolute Auto 0.3 K/mm3 (0.1-0.6); Monocytes Percent Auto 3.3 % (2.6-8.5); Neutrophils Absolute Auto 5.9 K/mm3 (1.3-6.7); Neutrophils Percent Auto 74.5 % (45.5-73.1); Platelet Count Result 256 k/mm3 (150-375); Red Blood Count 5.05 M/mm3 (4.2-5.4); Red Cell Distribution Width 14.5 % (11.5-14.5); White Blood Count 7.9 K/mm3 (4.5-10.0)
[2022-04-22 12:52] LABS: Alanine Aminotransferase 13 U/L (6-35); Albumin Level 4.8 g/dL (3.5-5.1); Alkaline Phosphatase 64 U/L (38-126); Anion Gap 16 mmol/L (8-16); Aspartate Amino Transferase 29 U/L (14-36); Bilirubin,Total 1.1 mg/dL (0.2-1.3); Blood Urea Nitrogen 12 mg/dL (7-17); Calcium 9.8 mg/dL (8.4-10.2); Carbon Dioxide 21 mmol/L (22-30); Chloride 103 mmol/L (98-107); Estimated CRCL calculation 107 ml/min; Estimated Glomerular Filt Rate > 60; Glucose 104 mg/dL (65-110); Potassium 3.9 mmol/L (3.4-5.0); Sodium 140 mmol/L (137-145)
--- NOTE | 2022-04-22 14:23 | ED.FEVER ---
HPI - Fever General Chief Complaint: Fever Stated Complaint: fever, chills, dehydration Time Seen by Provider: 04/22/22 13:37 History of Present Illness HPI Narrative: 21-year-old female presenting to the emergency department for evaluation of diffuse lower abdominal pain. Patient states she began having the symptoms yesterday. Patient does report nausea vomiting and diarrhea. Patient states she has also been running a low-grade fever at home. Related Data Allergies Allergy/AdvReac Type Severity Reaction Status Date / Time No Known Allergies Allergy Mild Verified 04/22/22 10:51 Review of Systems Review of Systems: CONSTITUTIONAL: Denies fever, chills, or sweats. EYES: Denies visual changes, redness, or discharge. ENT: Denies rhinorrhea, congestion, sore throat, or otalgia. CARDIOVASCULAR: Denies chest pain, palpitations, or edema. RESPIRATORY: Denies cough or dyspnea. GASTROINTESTINAL: See HPI GENITOURINARY: Denies dysuria or hematuria. SKIN: Denies rash or itching. MUSCULOSKELETAL: Denies back pain, joint pain, or myalgia. NEUROLOGIC: Denies headache, numbness, or weakness. [facility] Past Medical History Medical History Intrauterine Morbid obesity with BMI of 40.0-44.9, adult Family History Family History Father Type 2 diabetes mellitus Mother Anemia Grandparent Type 2 diabetes mellitus Chronic obstructive pulmonary disease Pancreatic cancer Social History Social History Smoking status: Light tobacco smoker Tobacco type: cigarettes Second hand tobacco smoke exposure: Yes Substance use: never Substance use type: unknown Spiritual care concerns: No Exam Narrative: APPEARANCE: Well appearing, no pain, no distress, well-nourished. HEAD: normocephalic, atraumatic. EYES: PERRLA/EOMI, conjunctivae clear. NOSE: Normal no drainageTHROAT: Pharynx clear, no exudate. NECK: Supple. No adenopathy, no masses. RESPIRATORY: Airway patent, respirations nonlabored. Clear to auscultation bilaterally, no rales, rhonchi, wheezing. CARDIOVASCULAR: Regular rate and rhythm without murmurs rubs or gallops. ABDOMINAL: Soft, nondistended, normal bowel sounds, left upper quadrant and bilateral lower abdominal pain MUSCULOSKELETAL: Moves all extremities. Strength/ROM intact, No edema, No calf tenderness. NEURO: Alert. Cranial nerves II through XII intact. Grossly intact SKIN: Warm, dry. Normal Color Course Course Emergency Course: Patient was afebrile with no leukocytosis. CMP within normal limits. No significant abnormalities on her CMP. UA showed no evidence of urinary tract infection. Patient did have elevated ketones but she was treated with IV fluids. Patient was negative for influenza, and COVID. Patient was updated on the results of her work-up. All questions and concerns were addressed. Patient was well-appearing at time of discharge. Vital Signs Vital signs: Vital Signs Temperature 97.5 F L 04/22/22 12:21 Pulse Rate 103 H 04/22/22 12:21 Respiratory Rate 14 04/22/22 12:21 Blood Pressure 125/76 04/22/22 12:21 Pulse Oximetry 100 04/22/22 12:21 Oxygen Delivery Room Air 04/22/22 12:21 Temperature 97.5 F L 04/22/22 12:21 Pulse Rate 68 04/22/22 17:26 Respiratory Rate 16 04/22/22 17:26 Blood Pressure 134/67 04/22/22 17:26 Pulse Oximetry 98 04/22/22 17:26 Oxygen Delivery Room Air 04/22/22 12:21 MDM - Fever Lab Data Attestation: I reviewed the patient's lab results. Result diagrams: 04/22/22 12:25 04/22/22 12:25 Labs: Lab Results 04/22/22 04/22/22 04/22/22 Range/Units 12:25 12:25 14:05 WBC 7.9 (4.5-10.0) K/mm3 RBC 5.05 (4.2-5.4) M/mm3 Hgb 14.0 D (12.0-15.0) g/dL Hct 43.5 (37.0-47.0) % MCV 86.1 (80-100) fl MCH 27.7 (
[2022-04-22] MEDS: SODIUM CHLORIDE 0.9% IV 1,000 ML 999 ML IV CONT (14:36)
[2022-04-22] MEDS: ONDANSETRON INJ 4 MG/2 ML VIAL IV PUSH (14:36)
[2022-04-22 14:47] LABS: Influenza A QL RT-PCR Negative (Negative); Influenza B QL RT-PCR Negative (Negative); SARS-CoV-2 RNA PCR Negative
[2022-04-22 17:07] LABS: Appearance Urine Slightly Cloudy (Clear); Bilirubin Urine 2+ (Negative); Color Urine Yellow (Yellow); Glucose Urine UA Negative (Negative); Ketones Urine 3+ mg/dL (Negative); Leukocyte Esterase Ur Negative LEU/UL (Negative); Nitrate Urine Negative (Negative); Protein Urine 1+ mg/dL (Negative); Specific Grav Ur 1.015 (1.001-1.035); Urobilinogen Urine 0.2 mg/dL (<2.0)
[2022-04-22 17:09] LABS: Add Urine Microscopic? YES; Blood Urine Trace-Intact (Negative)
[2022-04-22 17:14] LABS: RBC Urine 0-2 /hpf (0-2)
[2022-04-22 17:15] LABS: Squamous Epithelial Cell Urine Few /hpf (Few)
[2022-04-22 17:16] LABS: Bacteria Urine Trace /hpf
== END 2022-04-22 17:27 | disposition home or self-care (01) ==
PROVIDERS: Emergency Provider Emergency Medicine
DX: R10.30 Lower abdominal pain, unspecified (principal); R11.2 Nausea with vomiting, unspecified; Z20.822 Contact with and (suspected) exposure to COVID-19; E66.01 Morbid (severe) obesity due to excess calories; Z68.25 Body mass index [BMI] 25.0-25.9, adult; F17.210 Nicotine dependence, cigarettes, uncomplicated
CPT/HCPCS: 36415; 74177; 80053; 81001; 81025; 85025; 87502; 96361; 96374; 99213; 99284; A9270; C9803; G0463; J2405; J7030; Q9967; U0003; U0005

== ENCOUNTER 2024-07-12 19:19 | Emergency (ER) | payer BC, MEDICAID, SELFPAY ==
--- NOTE | ~2024-07-12 | XR_ITS ---
EXAMINATION: XR chest 2V Exam Date/Time: 07/12/2024 19:46 [facility] HISTORY: cp Comparison: None. RESULT: Lines, tubes, and devices: None. Lungs and pleura: Clear. Cardiomediastinal silhouette: Normal. Other: No acute osseous or upper abdominal finding. IMPRESSION: No acute cardiopulmonary process. Reviewed, dictated and finalized at location [facility]
--- NOTE | 2024-07-12 19:20 | ECG_ITS ---
Test Date: 2024-07-12 19:41:51 Measurements Intervals [place] Rate: 71 P: 18 NH: 150 QRS: 52 QRSD: 75 T: 24 QT: 389 QTc: 425 Interpretive Statements SINUS RHYTHM BASELINE ARTIFACT- II, III, AVL, AVF NORMAL ECG No previous ECG available for comparison Electronically Signed On 07-13-2024 06:15:24 [employer]EARCH AND DEVELOPMENT TESTER by Luis Rosado D.O.
[2024-07-12 19:21] VITALS: BP 150/90; PULSE 78; RESP 18; TEMP 36.3; O2SAT 100
--- NOTE | 2024-07-12 19:36 | ED_ITS ---
HPI - Chest Pain General Chief Complaint: Chest Pain Stated Complaint: epigastric pain/chest pain Time Seen by Provider: 07/12/24 19:30 Focused HPI: Patient is a 23-year-old female who presents to the ER with complaints of midsternal chest pain. She reports the chest pain started today and is worse when she lays flat. Pt also endorses shortness of breath. She denies any recent sick contacts. Patient has taken Tums, Zantac, and omeprazole but reports she has had no relief from her symptoms. Patient is tearful upon arrival to the ER. She denies any recent fevers, lower extremity swelling or coughing. GENERAL: Well-appearing, well-nourished, and in no acute distress. HEAD: Normocephalic, atraumatic. CHEST: Clear to auscultation. ?No respiratory distress. HEART: Regular rate and rhythm.? NEURO: ?Alert and oriented x3. Patient screened in triage and initial orders placed.? ?Additional care and disposition to be based upon?diagnostic testing and treatment. Related Data Home Medications Medication Instructions Recorded Confirmed No Home Medications 07/13/24 07/13/24 Allergies Allergy/AdvReac Type Severity Reaction Status Date / Time No Known Allergies Allergy Mild Verified 07/13/24 10:06 [facility] Past Medical History Medical History Intrauterine Morbid obesity with BMI of 40.0-44.9, adult Surgical History Surgical History No pertinent past surgical history Family History Family History Father Type 2 diabetes mellitus Mother Anemia Grandparent Type 2 diabetes mellitus Chronic obstructive pulmonary disease Pancreatic cancer Social History Social History Smoking status: Former smoker Tobacco type: cigarettes and e-cigarettes/vaping Second hand tobacco smoke exposure: Yes Additional smoking assessment comments: quit smoking cigarettes; vapes daily Alcohol intake: current Drinks per week: 6 Substance use: never Substance use type: unknown Do You Feel Safe in your Home?: Yes Lack of Transportation: No Lack of Food: Never True Current Housing: I Have Housing Concerned About Future Housing: No Difficulty Paying Gas/Electric Bills: No Difficulty Paying for Meds: No Currently Unemployed: No Education: High School Diploma/GED Difficulty w/ Childcare or Family Care: No Spiritual care concerns: No Course Vital Signs Vital signs: Vital Signs Temperature 36.3 C L 07/12/24 19:21 Pulse Rate 78 07/12/24 19:21 Respiratory Rate 18 07/12/24 19:21 Blood Pressure 150/90 H 07/12/24 19:21 Pulse Oximetry 100 07/12/24 19:21 Oxygen Delivery Room Air 07/12/24 19:21 Temperature 36.3 C L 07/12/24 19:21 Pulse Rate 78 07/12/24 19:21 Respiratory Rate 18 07/12/24 19:21 Blood Pressure 150/90 H 07/12/24 19:21 Pulse Oximetry 100 07/12/24 19:21 Oxygen Delivery Room Air 07/12/24 19:21 MDM - Chest Pain Lab Data 07/12/24 19:45 07/12/24 19:45 Labs: Lab Results 07/12/24 Range/Units 19:45 WBC 7.3 (4.5-10.0) K/mm3 RBC 3.99 L (4.2-5.4) M/mm3 Hgb 10.6 L D (12.0-15.0) g/dL Hct 34.4 L (37.0-47.0) % MCV 86.2 (80-100) fl MCH 26.6 (26-34) pg MCHC 30.8 L (32-36) g/dl RDW 14.6 H (11.5-14.5) % Plt Count 263 (150-375) k/mm3 MPV 11.0 H (7.4-10.4) fl Immature Gran % (Auto) 0.4 (0-0.5) % Neut % (Auto) 42.7 L (45.5-73.1) % Lymph % (Auto) 46.7 H (18.3-44.2) % [place] % (Auto) 7.3 (2.6-8.5) % Eos % (Auto) 2.5 (0-4.4) % Baso % (Auto) 0.4 (0.2-1.2) % Lymph # (Auto) 3.39 H (0.9-3.2) K/mm3 [place] # (Auto) 0.5 (0.1-0.6) K/mm3 Eos # (Auto) 0.2 (0-0.3) K/mm3 Baso # (Auto) 0.0 (0.0-0.1) K/mm3 Abs Immat Gran (auto) 0.03 (0.00-0.031) K/mm3 Absolute Neuts (auto) 3.1 (1.3-6.7) K/mm3 Absolute Nucleated RBC 0.000 (0.0-0.012) K/mm3 Nucleated RBC % 0.0 (0.0-0.2) % PT 13.0 (11.1-14.7) Seconds INR 1.0 APTT 29.9 (22.3-36.8) Seconds D-Dimer < 0.27 (<0.48) ug/mL Sodium 135 L (137-145) mmol/L Potassium 4.2 (3.4-5.0) mmol/L Chloride 103 (98-107) mmol/L Carbon Dioxide 28 (22-30) mmol/L Anion Gap 4 (4-12) mmol/L BUN 18 H (7-17) mg/dL Creatinine 0.80 (0.7-1.0) mg/dL Estim Creat Clear Calc 121 ml/min Estimated GFR > 60 (59 - ) Glucose 104 (65-110) mg/dL Calcium 8.8 (8.4-10.2) mg/dL Total Bilirubin 0.5 (0.2-1.3) mg/dL AST 24 (14-36) U/L ALT 12 (6-35) U/L Alkaline Phosphatase 64 (38-126) U/L Troponin I < 0.012 (0.000-0.034) ng/mL NT-Pro-B Natriuret Pep 191 H (19.9-100) pg/mL Total Protein 8.0 (6.3-8.2) g/dL Albumin 4.1 (3.5-5.1) g/dL Lipase 64 (23-300) U/L Influenza A (RT-PCR) Negative (Negative) Influenza B (RT-PCR) Negative (Negative) RSV (RT-PCR) Negative (Negative) SARS-CoV-2 RNA (RT-PCR) Negative (Negative) Discharge Plan Discharge Clinical Impression: Biliary colic, Chest pain Patient Disposition: Elopement After Seen by Prov Condition: Stable Instructions: Abdominal Pain (ED) Prescriptions: No Action No Home Medications Follow-up/Referrals: PHYSICIAN,SPANISH SPEAKING NANNY [Primary Care Provider] - Time of Disposition: 14:51
[2024-07-12 19:57] LABS: Basophils Percent Auto 0.4 % (0.2-1.2); Eosinophils Absolute Auto 0.2 K/mm3 (0-0.3); Eosinophils Percent Auto 2.5 % (0-4.4); Hematocrit 34.4 % (37.0-47.0); Hemoglobin 10.6 g/dL (12.0-15.0); Immature Granulocyte Absolute 0.03 K/mm3 (0.00-0.031); Immature Granulocyte Percent A 0.4 % (0-0.5); Lymphocytes Absolute Auto 3.39 K/mm3 (0.9-3.2); Lymphocytes Percent Auto 46.7 % (18.3-44.2); Mean Corpuscular HGB Conc 30.8 g/dl (32-36); Mean Corpuscular Hemoglobin 26.6 pg (26-34); Mean Corpuscular Volume 86.2 fl (80-100); Monocytes Absolute Auto 0.5 K/mm3 (0.1-0.6); Monocytes Percent Auto 7.3 % (2.6-8.5); Neutrophils Absolute Auto 3.1 K/mm3 (1.3-6.7); Neutrophils Percent Auto 42.7 % (45.5-73.1); Platelet Count Result 263 k/mm3 (150-375); Red Blood Count 3.99 M/mm3 (4.2-5.4); Red Cell Distribution Width 14.6 % (11.5-14.5); White Blood Count 7.3 K/mm3 (4.5-10.0)
[2024-07-12 20:08] LABS: Alanine Aminotransferase 12 U/L (6-35); Albumin Level 4.1 g/dL (3.5-5.1); Alkaline Phosphatase 64 U/L (38-126); Anion Gap 4 mmol/L (4-12); Aspartate Amino Transferase 24 U/L (14-36); Bilirubin,Total 0.5 mg/dL (0.2-1.3); Blood Urea Nitrogen 18 mg/dL (7-17); Calcium 8.8 mg/dL (8.4-10.2); Carbon Dioxide 28 mmol/L (22-30); Chloride 103 mmol/L (98-107); Estimated CRCL calculation 121 ml/min; Estimated Glomerular Filt Rate > 60; Glucose 104 mg/dL (65-110); Lipase 64 U/L (23-300); Potassium 4.2 mmol/L (3.4-5.0); Sodium 135 mmol/L (137-145)
[2024-07-12 20:09] LABS: Partial Thromboplastin Time 29.9 Seconds (22.3-36.8)
[2024-07-12 20:16] LABS: NT Pro B Type Natriuretic Pept 191 pg/mL (19.9-100)
[2024-07-12 20:18] LABS: Troponin I < 0.012 ng/mL (0.000-0.034)
[2024-07-12 20:28] LABS: D Dimer < 0.27 ug/mL (<0.48)
[2024-07-12 20:32] LABS: Influenza A QL RT-PCR Negative (Negative); Influenza B QL RT-PCR Negative (Negative); RSV RNA, RT-PCR Negative (Negative); SARS-CoV-2 RNA PCR Negative (Negative)
--- NOTE | 2024-07-12 21:27 | PC.NURSE ---
Pt ambulatory to triage desk stating she was going to leave d/t waiting time. Pt educated on risks of leaving and informed to return to nearest emergency facility if sx persist or worsened. Pt aox4 upon departure and ambulatory out of department.
== END 2024-07-12 21:20 | disposition left against medical advice (07) ==
PROVIDERS: Emergency Medicine; Emergency Provider Registered Nurse
DX: R07.2 Precordial pain (principal); K80.50 Calculus of bile duct without cholangitis or cholecystitis without obstruction; Z20.822 Contact with and (suspected) exposure to COVID-19; F17.290 Nicotine dependence, other tobacco product, uncomplicated
CPT/HCPCS: 36415; 71046; 80053; 83690; 83880; 84484; 85025; 85380; 85610; 85730; 87637; 93005; 99284

== ENCOUNTER 2024-07-13 01:14 | Observation (INO) | payer BC, MEDICAID, SELFPAY ==
[2024-07-13] VITALS (19 sets, daily range): BP systolic 114–148; BP diastolic 51–99; PULSE 60–96; RESP 12–20; TEMP 36.1–36.7; O2SAT 96–100; BMI 35.9
--- NOTE | ~2024-07-13 | CT_ITS ---
EXAMINATION: CT abdomen pelvis w con DATE: 07/13/2024 03:19 INDICATION: Abdominal pain. TECHNIQUE: Computed tomography (CT) of the abdomen and pelvis was performed with 100 mL Omnipaque 350 intravenous contrast. Automated exposure control and iterative reconstruction technique were employe d. The dose-length product was 1477.98 mGy-cm. COMPARISON: CT abdomen and pelvis 04/22/2022 FINDINGS: The visualized portions of the lung bases are clear without pneumonia or pleural effusion. The heart size is normal. No pericardial effusion. The liver is normal. There is chronic mild splenom egaly, which may be secondary to obesity. The gallbladder is distended and contains gallstones. Gallb ladder wall thickening is noted. The pancreas, adrenal glands, and kidneys are normal. There are no d ilated loops of bowel. The appendix is normal. There are no pathologically enlarged lymph nodes. Ther e is no free intraperitoneal fluid. There is mild thoracic and lumbar spondylosis. IMPRESSION: 1. Acute cholecystitis. Reviewed, dictated and finalized at location [facility]. [employer] IMPRESSION: 1. Acute cholecystitis.
--- NOTE | ~2024-07-13 | US_ITS ---
EXAMINATION: US right upper quadrant DATE: 07/13/2024 09:01 INDICATION: Right upper quadrant abdominal pain. Acute cholecystitis. TECHNIQUE: Multiple grayscale and Doppler ultrasound images of the abdomen were obtained. COMPARISON: CT abdomen and pelvis 07/13/2024 FINDINGS: The visualized portions of the head and body of the pancreas are normal. The liver is jesus manuel l without focal lesion. There is normal flow in main portal vein. The gallbladder is distended and co ntains gallstones. Gallbladder wall thickening is noted. There is a positive sonographic Saucedo sign. The common duct is normal and measures 5 mm. IMPRESSION: 1. Acute cholecystitis. Reviewed, dictated and finalized at location [facility]. [facility] IMPRESSION: 1. Acute cholecystitis.
[2024-07-13 01:40] LABS: Basophils Percent Auto 0.4 % (0.2-1.2); Eosinophils Absolute Auto 0.1 K/mm3 (0-0.3); Eosinophils Percent Auto 1.2 % (0-4.4); Hematocrit 34.8 % (37.0-47.0); Immature Granulocyte Absolute 0.04 K/mm3 (0.00-0.031); Immature Granulocyte Percent A 0.4 % (0-0.5); Lymphocytes Absolute Auto 2.75 K/mm3 (0.9-3.2); Lymphocytes Percent Auto 25.1 % (18.3-44.2); Mean Corpuscular HGB Conc 31.6 g/dl (32-36); Mean Corpuscular Hemoglobin 26.7 pg (26-34); Mean Corpuscular Volume 84.5 fl (80-100); Mean Platelet Volume 10.7 fl (7.4-10.4); Monocytes Absolute Auto 0.6 K/mm3 (0.1-0.6); Monocytes Percent Auto 5.1 % (2.6-8.5); Neutrophils Absolute Auto 7.4 K/mm3 (1.3-6.7); Neutrophils Percent Auto 67.8 % (45.5-73.1); Platelet Count Result 281 k/mm3 (150-375); Red Blood Count 4.12 M/mm3 (4.2-5.4); Red Cell Distribution Width 14.7 % (11.5-14.5)
[2024-07-13 01:50] LABS: Alanine Aminotransferase 13 U/L (6-35); Albumin Level 4.3 g/dL (3.5-5.1); Alkaline Phosphatase 72 U/L (38-126); Anion Gap 5 mmol/L (4-12); Aspartate Amino Transferase 24 U/L (14-36); Bilirubin,Total 0.7 mg/dL (0.2-1.3); Blood Urea Nitrogen 15 mg/dL (7-17); Calcium 8.9 mg/dL (8.4-10.2); Carbon Dioxide 25 mmol/L (22-30); Chloride 101 mmol/L (98-107); Estimated CRCL calculation 137 ml/min; Estimated Glomerular Filt Rate > 60; Glucose 118 mg/dL (65-110); Lipase 72 U/L (23-300); Potassium 4.5 mmol/L (3.4-5.0); Sodium 131 mmol/L (137-145)
[2024-07-13 02:42] LABS: BEDSIDEPREGUCG Negative (Negative)
[2024-07-13 02:49] LABS: Add Urine Microscopic? YES; Appearance Urine Clear (Clear); Bacteria Urine Rare /hpf; Bilirubin Urine Negative (Negative); Blood Urine Negative (Negative); Color Urine Yellow (Yellow); Glucose Urine UA Negative (Negative); Ketones Urine Negative (Negative); Leukocyte Esterase Ur 1+ LEU/UL (Negative); Nitrate Urine Negative (Negative); Non Pathogenic Casts 0-2; Protein Urine Negative (Negative); RBC Urine 0-2 /hpf (0-2); Specific Grav Ur 1.022 (1.001-1.035); Squamous Epithelial Cell Urine Occasional /hpf (Few); Urobilinogen Urine 0.2 mg/dL (<2.0)
[2024-07-13] MEDS: HYDROmorphone HCL INJ (*CRX) 1 MG/ML SYR IV PUSH ×4 (03:08→12:03)
--- NOTE | 2024-07-13 03:33 | ED_ITS ---
HPI - General Adult General Chief complaint: Abdominal Pain Stated complaint: epigastric/chest pain Time Seen by Provider: 07/13/24 03:00 History of Present Illness HPI narrative: Patient is a 23-year-old female who presents emergency department with chief complaint of abdominal pain. Patient reports that she started having severe pain in the right upper quadrant has had nausea and vomiting. Patient reports the pain started earlier this afternoon and reports the pain radiates to her back the patient reports pain is sharp reports worse with inspiration and moving. Patient reports no prior abdominal surgical history Related Data Allergies Allergy/AdvReac Type Severity Reaction Status Date / Time No Known Allergies Allergy Mild Verified 07/13/24 01:15 Review of Systems Review of Systems: A 10 system review of systems was completed on the patient and is negative except for what is stated in the HPI. Nursing and ancillary documentation was reviewed. [facility] Past Medical History Medical History Intrauterine Morbid obesity with BMI of 40.0-44.9, adult Family History Family History Father Type 2 diabetes mellitus Mother Anemia Grandparent Type 2 diabetes mellitus Chronic obstructive pulmonary disease Pancreatic cancer Social History Social History Smoking status: Light tobacco smoker Tobacco type: cigarettes Second hand tobacco smoke exposure: Yes Substance use: never Substance use type: unknown Spiritual care concerns: No Exam Narrative: GENERAL: Well-appearing, well-nourished, and in no acute distress. HEAD: Normocephalic, atraumatic. EYES: PERRLA and EOMI. ENT: Nares clear, no rhinorrhea or epistaxis. Mucous membranes moist. NECK: Supple. CHEST: Clear to auscultation. No respiratory distress. HEART: Regular rate and rhythm. No murmur heard. Normal peripheral pulses. ABDOMEN: Soft, tenderness to palpation in the epigastric and right upper quadrant, nondistended, normal active bowel sounds. EXTREMITIES: Normal range of motion. No edema. SKIN: Warm, dry, no rash. NEURO: No focal deficits. Alert and oriented x3. PSYCH: Normal mood and affect. Course Vital Signs Vital signs: Vital Signs Temperature 36.4 C L 07/13/24 01:15 Pulse Rate 73 07/13/24 01:15 Respiratory Rate 18 07/13/24 01:15 Blood Pressure 145/99 H 07/13/24 01:15 Pulse Oximetry 100 07/13/24 01:15 Oxygen Delivery Room Air 07/13/24 01:15 Temperature 36.6 C 07/13/24 03:25 Pulse Rate 69 07/13/24 03:25 Respiratory Rate 16 07/13/24 03:25 Blood Pressure 138/77 07/13/24 03:25 Pulse Oximetry 100 07/13/24 03:25 Oxygen Delivery Room Air 07/13/24 01:15 Medical Decision Making MDM Narrative Medical decision making narrative: Differential diagnosis includes intra-abdominal infection, diverticulitis, colitis, cholecystitis Laboratory studies were obtained on the patient showed white count 11.0 electrolytes showed normal liver enzymes normal renal function lipase was normal CT scan of the abdomen pelvis showed distended gallbladder with cholelithiasis wall edema unable to exclude cholecystitis Patient has required several doses of pain control in the emergency department The case was discussed with surgery who will admit the patient and ultrasound in the morning Vital Signs Vital Signs: Vital Signs Temperature 36.4 C L 07/13/24 01:15 Pulse Rate 73 07/13/24 01:15 Respiratory Rate 18 07/13/24 01:15 Blood Pressure 145/99 H 07/13/24 01:15 Pulse Oximetry 100 07/13/24 01:15 Oxygen Delivery Room Air 07/13/24 01:15 Temperature 36.6 C 07/13/24 03:25 Pulse Rate 69 07/13/24 03:25 Respiratory Rate 16 07/13/24 03:25 Blood Pressure 138/77 07/13/24 03:25 Pulse Oximetry 100 07/13/24 03:25 Oxygen Delivery Room Air 07/13/24 01:15 Lab Data 07/13/24 01:35 07/13/24 01:35 Labs: Lab Results 07/13/24 07/13/24 07/13/24 Range/Units 01:35 02:36 02:40 WBC 11.0 H (4.5-10.0) K/mm3 RBC 4.12 L (4.2-5.4) M/mm3 Hgb 11.0 L (12.0-15.0) g/dL Hct 34.8 L (37.0-47.0) % MCV 84.5 (80-100) fl MCH 26.7 (26-34) pg MCHC 31.6 L (32-36) g/dl RDW 14.7 H (11.5-14.5) % Plt Count 281 (150-375) k/mm3 MPV 10.7 H (7.4-10.4) fl Immature Gran % (Auto) 0.4 (0-0.5) % Neut % (Auto) 67.8 (45.5-73.1) % Lymph % (Auto) 25.1 (18.3-44.2) % [place] % (Auto) 5.1 (2.6-8.5) % Eos % (Auto) 1.2 (0-4.4) % Baso % (Auto) 0.4 (0.2-1.2) % Lymph # (Auto) 2.75 (0.9-3.2) K/mm3 [place] # (Auto) 0.6 (0.1-0.6) K/mm3 Eos # (Auto) 0.1 (0-0.3) K/mm3 Baso # (Auto) 0.0 (0.0-0.1) K/mm3 Abs Immat Gran (auto) 0.04 H (0.00-0.031) K/mm3 Absolute Neuts (auto) 7.4 H (1.3-6.7) K/mm3 Absolute Nucleated RBC 0.000 (0.0-0.012) K/mm3 Nucleated RBC % 0.0 (0.0-0.2) % Sodium 131 L (137-145) mmol/L Potassium 4.5 (3.4-5.0) mmol/L Chloride 101 (98-107) mmol/L Carbon Dioxide 25 (22-30) mmol/L Anion Gap 5 (4-12) mmol/L BUN 15 (7-17) mg/dL Creatinine 0.70 (0.7-1.0) mg/dL Estim Creat Clear Calc 137 ml/min Estimated GFR > 60 (59 - ) Glucose 118 H (65-110) mg/dL Calcium 8.9 (8.4-10.2) mg/dL Total Bilirubin 0.7 (0.2-1.3) mg/dL AST 24 (14-36) U/L ALT 13 (6-35) U/L Alkaline Phosphatase 72 (38-126) U/L Total Protein 8.0 (6.3-8.2) g/dL Albumin 4.3 (3.5-5.1) g/dL Lipase 72 (23-300) U/L Urine Color Yellow (Yellow) Urine Appearance Clear (Clear) Urine pH 6.0 (5.0-9.0) Ur Specific [place] 1.022 (1.001-1.035) Urine Protein Negative (Negative) mg/dL Urine Glucose (UA) Negative (Negative) mg/dL Urine Ketones Negative (Negative) mg/dL Ur Blood (Man) Negative (Negative) Urine Nitrate Negative (Negative) Urine Bilirubin Negative (Negative) Urine Urobilinogen 0.2 (<2.0) mg/dL Leukocyte Esterase Rfl 1+ H (Negative) BARBARA/UL Urine RBC 0-2 (0-2) /hpf Urine WBC 11-20 H (0-3) /hpf Ur Squamous Epith Cells Occasional (Few) /hpf Urine Bacteria Rare /hpf Urine Casts 0-2 POC Urine HCG, Qual Negative (Negative) Discharge Plan Discharge Clinical Impression: Biliary colic, Right upper quadrant abdominal pain Patient Disposition: Still a Patient Condition: Stable Instructions: Antibiotic Form Prescriptions: No Action ondansetron 4 mg tablet,disintegrating 4 mg PO Q8H PRN (Reason: nausea and vomiting) Qty: 14 0RF Follow-up/Referrals: PHYSICIAN,CNC MACHINIST [Primary Care Provider] - Time of Disposition: 04:57
[2024-07-13] MEDS: SODIUM CHLORIDE 0.9% IV 1,000 ML 125 ML IV CONT (05:09)
--- NOTE | 2024-07-13 05:29 | PC.NURSE ---
Patient admission completed with patient; grandmother at bedside. Patient denies past SI attempt and denies any thoughts of self harm at present. Patient denies taking home medications. Admission report provided to EDUARDO Walls.
--- NOTE | 2024-07-13 05:31 | ADMGEN ---
This patient, Verónica Tariq, was admitted to Medical Room 252-. Patient/family oriented to hospital policies and general routines including ID bracelet, bed and alarms, visiting hours, pain management, procedures, bathroom and other care routines, personal items, smoking policy, room service/diet, and visiting hours. Information on how to activate the Rapid Response Team has been discussed. Patient/Family are encouraged to report perceived risks to care and to ask questions if they do not understand what they are told or what they should do.
--- NOTE | 2024-07-13 10:06 | P.HP_ITS ---
H&P: HPI History of Present Illness Date/Time: 07/13/24 10:06 Chief Complaint: Right upper quadrant abdominal pain Narrative: This is a 23-year-old woman who presented to the ED for evaluation of right upper quadrant abdominal pain x1 day. She reports mild episodes of right upper quadrant pain intermittently in the past, which typically resolves spontaneously or with ibuprofen. Yesterday, she had a sudden onset of epigastric abdominal pain within a few hours after eating fried fish, cheeseburger, and fries. Her pain radiated into her mid back and over the next few hours localized into the right upper quadrant. She had associated nausea and vomiting. Her pain progressively got worse and she tried multiple modalities to help relieve her pain, which failed. She tried antacids, ibuprofen, Tylenol, aspirin, cold and warm compresses. She eventually came into the ER last last night. She was afebrile and vital signs stable. Labs showed a white blood cell count of 7300, normal LFTs, and troponin negative. EKG negative for any acute ischemic changes. CT scan of the abdomen and pelvis showed evidence of acute cholecystitis with gallstones noted on CT. Right upper quadrant ultrasound ordered this morning, which also shows acute calculous cholecystitis. Her pain persisted in the ER despite analgesics. She has been admitted for surgical evaluation. No previous abdominal surgeries. Review of Systems Review of Systems: All systems reviewed & are unremarkable except as noted in HPI and below PMFSH Past Medical History Medical History (Updated 07/13/24 @ 10:12 by VIELKA Camarillo) Intrauterine Morbid obesity with BMI of 40.0-44.9, adult Surgical History Surgical History No pertinent past surgical history Family History Family History Father Type 2 diabetes mellitus Mother Anemia Grandparent Type 2 diabetes mellitus Chronic obstructive pulmonary disease Pancreatic cancer Social History Social History Smoking status: Former smoker Tobacco type: cigarettes and e-cigarettes/vaping Second hand tobacco smoke exposure: Yes Additional smoking assessment comments: quit smoking cigarettes; vapes daily Alcohol intake: current Drinks per week: 6 Substance use: never Substance use type: unknown Do You Feel Safe in your Home?: Yes Lack of Transportation: No Lack of Food: Never True Current Housing: I Have Housing Concerned About Future Housing: No Difficulty Paying Gas/Electric Bills: No Difficulty Paying for Meds: No Currently Unemployed: No Education: High School Diploma/GED Difficulty w/ Childcare or Family Care: No Spiritual care concerns: No Meds Home Medications and Allergies Home Medications Medication Instructions Recorded Confirmed Type No Home Medications 07/13/24 07/13/24 History Allergies Allergy/AdvReac Type Severity Reaction Status Date / Time No Known Allergies Allergy Mild Verified 07/13/24 10:06 Vital Signs Vital Signs - 24 hr 07/13/24 01:15 07/13/24 01:39 07/13/24 03:25 Temperature 97.5 F L 98.1 F 97.9 F Pulse Rate 73 70 69 Respiratory Rate 18 18 16 Blood Pressure 145/99 H 148/88 H 138/77 Pulse Oximetry 100 97 100 Oxygen Delivery Room Air 07/13/24 05:18 07/13/24 05:39 07/13/24 08:32 Temperature 97.4 F L 97.6 F Pulse Rate 71 68 Respiratory Rate 12 14 14 Blood Pressure 122/90 131/77 Pulse Oximetry 98 99 99 Oxygen Delivery Room Air Exam Const: General: comfortable and no acute distress Nutritional Appearance: overweight Orientation/consciousness: patient oriented x3 HENMT: Head: normocephalic and atraumatic Ears: hearing grossly normal bilaterally Mouth: Yes moist mucous membranes Eyes: General: appearance normal, both eyes and all related structures Pupils: Equal, round and reactive pupils present Neck: Neck: normal visual inspection and full ROM Resp: Effort & Inspection: no respiratory distress Auscultation: clear to auscultation bilaterally Cardio: Rate: regular rate Rhythm: regular rhythm Heart sounds: S1 normal heart sound present and S2 normal heart sound present Peripheral pulses: Peripheral pulses 2+ throughout GI: Inspection: non-distended GI Palp: Yes Soft to palpation, Yes Tenderness to palpation present (GI) (Right upper quadrant), Yes Guarding due to palpation present (GI) (Right upper quadrant), Yes No hepatosplenomegaly present and No Rebound tenderness present Auscultation: normal bowel sounds Skin: General skin exam: normal color Neuro: General: moves all extremities and no focal motor deficits Speech: normal speech Motor exam (neuro): 5/5 motor strength present throughout Extrem: General: normal to inspection and no edema Psych: Mental Status: mental status grossly normal Attitude: cooperative Insight: Good insight present (Psych) Judgement: Good judgement present (Psych) H&P: Results Labs Labs: Short CBC 07/13/24 Range/Units 01:35 WBC 11.0 H (4.5-10.0) K/mm3 Hgb 11.0 L (12.0-15.0) g/dL Hct 34.8 L (37.0-47.0) % Plt Count 281 (150-375) k/mm3 BMP 07/13/24 01:35 Sodium 131 L Potassium 4.5 Chloride 101 Carbon Dioxide 25 BUN 15 Creatinine 0.70 Glucose 118 H Calcium 8.9 Liver Function 07/13/24 Range/Units 01:35 Total Bilirubin 0.7 (0.2-1.3) mg/dL AST 24 (14-36) U/L ALT 13 (6-35) U/L Alkaline Phosphatase 72 (38-126) U/L Albumin 4.3 (3.5-5.1) g/dL Urine 07/13/24 Range/Units 02:36 Urine Color Yellow (Yellow) Urine Appearance Clear (Clear) Urine pH 6.0 (5.0-9.0) Ur Specific [place] 1.022 (1.001-1.035) Urine Protein Negative (Negative) mg/dL Urine Glucose (UA) Negative (Negative) mg/dL Imaging CT scan - abdomen: Radiologist's impression: ITS Impressions Abdomen/Pelvis CT 07/13/24 06:14 IMPRESSION: 1. Acute cholecystitis. Upper Quadrant Ultrasound 07/13/24 09:01 IMPRESSION: 1. Acute cholecystitis. Assessment and Plan Assessment and plan (1) Acute calculous cholecystitis: Code(s): K80.00 - Calculus of gallbladder with acute cholecystitis without obstruction Status: Acute Assessment and Plan: * Workup c/w acute calculous cholecystitis. She also likely has an element of chronic cholecystitis. Discussed nonoperative vs surgical treatment options with the patient in detail. We discussed the option of a laparoscopic cholecystectomy by Dr. Maynard under general anesthesia. Description of the p rocedure, risks, benefits, expected outcomes, and expected recovery were discussed. We discussed the risks of bile leak and bile duct injury, liver/bowel injury, bleeding, and infection. Also discussed the possibility of having to convert to an open procedure if necessary. * The patient continues to have RUQ pain and wishes to proceed with surgery. Will keep her NPO with IV fluids and analgesics as needed. * Proceed to the OR today for cholecystectomy (2) Tobacco abuse: Code(s): Z72.0 - Tobacco use Status: Acute Assessment and Plan: * Encouraged cessation Plan I have discussed the patient's case and plan of care with Dr. Maynard.
--- NOTE | 2024-07-13 12:15 | WPDHPUPDATE1 ---
History and Physical Update Update Date/Time: 07/13/24 12:15 History and Physical has been reviewed, including an updated exam of the patient. There are NO changes in the patient's condition. Risks, benefits, and alternatives have been discussed and questions answered. Patient agrees to proceed with procedure.
--- NOTE | 2024-07-13 13:30 | PC.NURSE ---
To OR via wheelchair. Family at bedside.
[2024-07-13] MEDS: LACTATED RINGERS 1,000 ML 30 ML IV CONT ×2 (13:50→15:35)
--- NOTE | 2024-07-13 14:06 | P.PNAN_ITS ---
Anes - Initial Pre Proc Eval Procedure: Operation Date: 07/13/24 15:00 Proposed Procedures p Laparoscopic Cholecystectomy - Vanessa Maynard MD Date/Time: 07/13/24 14:06 Surgeon: Vanessa Maynard MD Pre Op Diagnosis: Biliary colic, Right upper quadrant abdominal pain Patient Data Age: 23 Gender: F Height: 1.7 m Weight: 104 kg Last Vital Signs Temp 97.8 F 07/13/24 13:50 Pulse 67 07/13/24 13:50 Resp 18 07/13/24 13:50 BP 119/65 07/13/24 13:50 Pulse Ox 99 07/13/24 13:50 O2 Del Method Room Air 07/13/24 13:50 Allergies Allergy/AdvReac Type Severity Reaction Status Date / Time No Known Allergies Allergy Mild Verified 07/13/24 10:06 Home Medications Medication Instructions Recorded Confirmed Type No Home Medications 07/13/24 07/13/24 History Laboratory Tests 07/13/24 07/13/24 07/13/24 01:35 02:36 02:40 WBC 11.0 H K/mm3 (4.5-10.0) RBC 4.12 L M/mm3 (4.2-5.4) Hgb 11.0 L g/dL (12.0-15.0) Hct 34.8 L % (37.0-47.0) MCV 84.5 fl (80-100) MCH 26.7 pg (26-34) MCHC 31.6 L g/dl (32-36) RDW 14.7 H % (11.5-14.5) Plt Count 281 k/mm3 (150-375) MPV 10.7 H fl (7.4-10.4) Immature Gran % (Auto) 0.4 % (0-0.5) Neut % (Auto) 67.8 % (45.5-73.1) Lymph % (Auto) 25.1 % (18.3-44.2) [place] % (Auto) 5.1 % (2.6-8.5) Eos % (Auto) 1.2 % (0-4.4) Baso % (Auto) 0.4 % (0.2-1.2) Lymph # (Auto) 2.75 K/mm3 (0.9-3.2) [place] # (Auto) 0.6 K/mm3 (0.1-0.6) Eos # (Auto) 0.1 K/mm3 (0-0.3) Baso # (Auto) 0.0 K/mm3 (0.0-0.1) Abs Immat Gran (auto) 0.04 H K/mm3 (0.00-0.031) Absolute Neuts (auto) 7.4 H K/mm3 (1.3-6.7) Absolute Nucleated RBC 0.000 K/mm3 (0.0-0.012) Nucleated RBC % 0.0 % (0.0-0.2) Sodium 131 L mmol/L (137-145) Potassium 4.5 mmol/L (3.4-5.0) Chloride 101 mmol/L (98-107) Carbon Dioxide 25 mmol/L (22-30) Anion Gap 5 mmol/L (4-12) BUN 15 mg/dL (7-17) Creatinine 0.70 mg/dL (0.7-1.0) Estim Creat Clear Calc 137 ml/min Estimated GFR > 60 (59 - ) Glucose 118 H mg/dL (65-110) Calcium 8.9 mg/dL (8.4-10.2) Total Bilirubin 0.7 mg/dL (0.2-1.3) AST 24 U/L (14-36) ALT 13 U/L (6-35) Alkaline Phosphatase 72 U/L (38-126) Total Protein 8.0 g/dL (6.3-8.2) Albumin 4.3 g/dL (3.5-5.1) Lipase 72 U/L (23-300) Urine Color Yellow (Yellow) Urine Appearance Clear (Clear) Urine pH 6.0 (5.0-9.0) Ur Specific [place] 1.022 (1.001-1.035) Urine Protein Negative mg/dL (Negative) Urine Glucose (UA) Negative mg/dL (Negative) Urine Ketones Negative mg/dL (Negative) Ur Blood (Man) Negative (Negative) Urine Nitrate Negative (Negative) Urine Bilirubin Negative (Negative) Urine Urobilinogen 0.2 mg/dL (<2.0) Leukocyte Esterase Rfl 1+ H BARBARA/UL (Negative) Urine RBC 0-2 /hpf (0-2) Urine WBC 11-20 H /hpf (0-3) Ur Squamous Epith Cells Occasional /hpf (Few) Urine Bacteria Rare /hpf Urine Casts 0-2 POC Urine HCG, Qual Negative (Negative) Blood Type Antibody Screen 07/13/24 10:50 WBC RBC Hgb Hct MCV MCH MCHC RDW Plt Count MPV Immature Gran % (Auto) Neut % (Auto) Lymph % (Auto) [place] % (Auto) Eos % (Auto) Baso % (Auto) Lymph # (Auto) [place] # (Auto) Eos # (Auto) Baso # (Auto) Abs Immat Gran (auto) Absolute Neuts (auto) Absolute Nucleated RBC Nucleated RBC % Sodium Potassium Chloride Carbon Dioxide Anion Gap BUN Creatinine Estim Creat Clear Calc Estimated GFR Glucose Calcium Total Bilirubin AST ALT Alkaline Phosphatase Total Protein Albumin Lipase Urine Color Urine Appearance Urine pH Ur Specific [place] Urine Protein Urine Glucose (UA) Urine Ketones Ur Blood (Man) Urine Nitrate Urine Bilirubin Urine Urobilinogen Leukocyte Esterase Rfl Urine RBC Urine WBC Ur Squamous Epith Cells Urine Bacteria Urine Casts POC Urine HCG, Qual Blood Type O Positive Antibody Screen Negative Patient hx anesthesia problems: none Family hx anesthesia problems: none Results Review: All pre-operative results and documents have been reviewed as part of the pre- operative evaluation. FOR[facility]LY [facility] Past Medical History Medical History Intrauterine Morbid obesity with BMI of 40.0-44.9, adult Surgical History Surgical History No pertinent past surgical history Family History Family History Father Type 2 diabetes mellitus Mother Anemia Grandparent Type 2 diabetes mellitus Chronic obstructive pulmonary disease Pancreatic cancer Social History Social History Smoking status: Former smoker Tobacco type: cigarettes and e-cigarettes/vaping Second hand tobacco smoke exposure: Yes Additional smoking assessment comments: quit smoking cigarettes; vapes daily Alcohol intake: current Drinks per week: 6 Substance use: never Substance use type: unknown Do You Feel Safe in your Home?: Yes Lack of Transportation: No Lack of Food: Never True Current Housing: I Have Housing Concerned About Future Housing: No Difficulty Paying Gas/Electric Bills: No Difficulty Paying for Meds: No Currently Unemployed: No Education: High School Diploma/GED Difficulty w/ Childcare or Family Care: No Spiritual care concerns: No Anes - Eval Final PreProcedure Day of Procedure 07/13/24 14:06 Patient weight: obese Heart: regular rate and rhythm Lungs: clear to auscultation Airway: Mallampati scale class II Neurological: alert and oriented Last oral intake: >/= 8 hours ASA classification: II Emergent: no Anesthetic plan: proceed Anesthesia type and monitoring: general ETT and standard monitoring Results Review: All pre-operative results and documents have been reviewed as part of the pre- operative evaluation. Smoker, 10 pack years, now vapes, most recently 2-3 days ago. Informed Consent: The patient's anesthetic plan and its attendant risks and benefits were discussed with the patient/family/POA. Questions were solicited and answers provided to the satisfaction of the patient/family/POA.
[2024-07-13] MEDS: ACETAMINOPHEN 500 MG TABLET 1000 MG PO (14:10)
[2024-07-13] MEDS: ceFAZolin 2 GM/D5W 50 ML 2 GM/50 ML BAG IVPB (14:36)
[2024-07-13] MEDS: BUPIVACAINE/EPINEPHRINE 0.5% 50 ML VIAL 30 ML INFILTRATE (15:02)
[2024-07-13] MEDS: diphenhydrAMINE HCl INJ 50 MG/ML VIAL 12.5 MG IV PUSH (15:53)
[2024-07-13] MEDS: fentaNYL CITRATE INJ (*CRX) 100 MCG/2 ML VIAL 25 MCG IV PUSH ×2 (15:55→16:02)
--- NOTE | 2024-07-13 15:55 | W.PM.PROC2 ---
Procedure Note - Detailed Date of Procedure 07/13/24 Pre-op Diagnosis Acute cholecystitis, cholelithiasis Post-op Diagnosis Same Procedure Performed Laparoscopic cholecystectomy Surgeon Vanessa Maynard MD Anesthesia General and Local Indications 23-year-old female presenting to the emergency department complaining of severe right upper quadrant, epigastric abdominal pain. Workup including imaging significant for cholecystitis, cholelithiasis. Findings acute cholecystitis with cholelithiasis Description of Procedure The patient was taken to the operating room placed in the supine position. After adequate induction of general anesthesia, the patient was prepped and draped in normal sterile fashion. A time-out was then performed to verify the patient's identity as well as the procedure being performed. I then made a 5 mm incision in the infraumbilical region. Through this, a Veress needle was placed into the peritoneal cavity and CO2 gas was then insufflated. After adequate pneumoperitoneum was achieved, the Veress needle was removed and a 5 mm optiview trocar was placed through this incision under direct visualization. I then placed the laparoscope through this trocar site and under direct visualization placed a further 12 mm subxiphoid port as well as 2 additional 5 mm ports in the right upper abdomen. The gallbladder was then identified and was noted to be inflamed, distended, and full of gallstones. Given the amount of inflammation and distention, the gallbladder was decompressed. At this point, the patient was noted to have some hydrops cholecystitis. I was then able to place a grasper at the dome of the gallbladder and this was retracted anterior and cephalad up over the liver. A 2nd retractor was then placed at the infundibulum and retracted laterally, this allowed visualization of the triangle of Calot. I then was able to visualize the cystic duct in its entirety from its proximal insertion into the gallbladder, to its distal junction with the common hepatic/common bile duct junction. At this point, I carefully skeletonized the proximal cystic duct with the [place] dissector. I then clipped and transected the proximal cystic duct. Next I visualized the cystic artery. Again the artery was skeletonized, clipped, and transected. I then used the Bovie cautery to take down the peritoneal attachments of the gallbladder off the liver bed. This was somewhat difficult given the amount of inflammation in the posterior space. Once the gallbladder specimen was completely detached, an endo-pouch was placed through the 12 mm port site. I then placed the gallbladder specimen into the Endo pouch and removed the endo-pouch from the 12 mm port site. The specimen will now be sent to pathology for further review. I then copiously irrigated the right upper quadrant. Hemostasis was noted in the liver bed, the clips were noted to be in good position on both the cystic duct stump and the cystic artery stump. No other pathology was noted in the right upper quadrant. I then moved the laparoscope to the subxiphoid port. No iatrogenic injury or other pathology was noted in the lower abdomen. I then closed the 12 mm trocar site under direct visualization using the Irshi cone and 0 Vicryl suture. At this point, the abdomen was desufflated and all ports removed. All port sites were then closed with 4.O Monocryl subcuticular sutures. Dermabond was placed on each incision. The patient tolerated the procedure well, was extubated in the operating room postoperative and will be transferred to the recovery room in stable condition Estimated Blood Loss 10 Drains No Packing No Pathology Yes Complications No immediate complications Condition Stable Disposition PACU [facility] Billing Surgery - Charge Forward: Surgery Billing
[2024-07-13] MEDS: HYDROmorphone HCL INJ (*CRX) 1 MG/ML SYR 0.25 MG IV PUSH (16:12)
[2024-07-13] MEDS: KETOROLAC 15 MG/ML VIAL (*BKC) IV PUSH (16:51)
--- NOTE | 2024-07-13 17:15 | PC.NURSE ---
Returned from OR via stretcher. Family at bedside.
[2024-07-13] MEDS: HYDROmorphone HCL INJ (*CRX) 1 MG/ML SYR 0.5 MG IV PUSH ×2 (19:50→23:51)
[2024-07-14] VITALS: BP 136/67; PULSE 79; RESP 18; TEMP 36.3; O2SAT 100
[2024-07-14] MEDS: HYDROmorphone HCL INJ (*CRX) 1 MG/ML SYR 0.5 MG IV PUSH ×5 (03:57→21:41)
[2024-07-14 04:00] VITALS: BP 124/61; PULSE 70; RESP 18; TEMP 36.2; O2SAT 100
[2024-07-14] MEDS: HYDROcodone/acetaminophen (*CRX) 5-325 MG TABLET 1 TAB PO ×2 (08:13→12:27)
[2024-07-14] MEDS: ONDANSETRON INJ 4 MG/2 ML VIAL IV PUSH ×2 (08:16→18:04)
[2024-07-14 08:39] LABS: Basophils Percent Auto 0.4 % (0.2-1.2); Eosinophils Percent Auto 0.4 % (0-4.4); Hematocrit 33.2 % (37.0-47.0); Hemoglobin 10.3 g/dL (12.0-15.0); Immature Granulocyte Absolute 0.02 K/mm3 (0.00-0.031); Immature Granulocyte Percent A 0.3 % (0-0.5); Lymphocytes Absolute Auto 2.11 K/mm3 (0.9-3.2); Lymphocytes Percent Auto 29.3 % (18.3-44.2); Mean Corpuscular Volume 86.9 fl (80-100); Monocytes Absolute Auto 0.5 K/mm3 (0.1-0.6); Monocytes Percent Auto 6.8 % (2.6-8.5); Neutrophils Absolute Auto 4.5 K/mm3 (1.3-6.7); Neutrophils Percent Auto 62.8 % (45.5-73.1); Platelet Count Result 233 k/mm3 (150-375); Red Blood Count 3.82 M/mm3 (4.2-5.4); Red Cell Distribution Width 14.7 % (11.5-14.5); White Blood Count 7.2 K/mm3 (4.5-10.0)
[2024-07-14 09:02] LABS: Alanine Aminotransferase 21 U/L (6-35); Alkaline Phosphatase 107 U/L (38-126); Anion Gap 7 mmol/L (4-12); Aspartate Amino Transferase 60 U/L (14-36); Bilirubin,Total 1.2 mg/dL (0.2-1.3); Blood Urea Nitrogen 7 mg/dL (7-17); Calcium 8.6 mg/dL (8.4-10.2); Carbon Dioxide 28 mmol/L (22-30); Chloride 101 mmol/L (98-107); Estimated CRCL calculation 135 ml/min; Estimated Glomerular Filt Rate > 60; Glucose 103 mg/dL (65-110); Potassium 3.9 mmol/L (3.4-5.0); Sodium 136 mmol/L (137-145)
--- NOTE | 2024-07-14 09:41 | P.DS_ITS ---
DS: Admitting Diagnosis Discharge Date July 14, 2024 Admitting Diagnosis Acute cholecystitis secondary to cholelithiasis DS: Discharge Diagnosis Discharge Diagnosis (1) Acute calculous cholecystitis: Code(s): K80.00 - Calculus of gallbladder with acute cholecystitis without obstruction Status: Acute Assessment and Plan: Postop day 1 status post laparoscopic cholecystectomy. Doing well. Can discharge home later today home after tolerating solid food. DS: Summary Hospital Course Reason for hospitalization: Acute cholecystitis due to gallstones. Hospital Course: Patient was admitted [facility] with a history of severe right upper quadrant abdominal pain after eating fried foods. Workup in the emergency room showed acute cholecystitis secondary to gallstones on CT scan. She was admitted to the hospital and given IV antibiotics. She was then taken to the operating room she underwent uncomplicated laparoscopic cholecystectomy. Post surgically in the recovery room she was doing well. She was then transferred to surgical floor for routine postoperative care. Will on surgical floor pain was well controlled with the combination of IV and oral pain medications. No nausea or vomiting. Tolerated clear liquids today after surgery and then was advanced to solid food which she tolerated. She was then discharged home in improved condition with instructions to follow-up Dr. Maynard in the office in 1 to 2 weeks. Discharge instructions for activity and diet are as per Dr. Maynard's discharge instructions. Status at Discharge Functional status at discharge: independent ambulation Overall status at discharge: patient is back to baseline Time Spent with Patient Time attestation: Total time spent providing and/or coordinating discharge services: Time spent: Less than 30 minutes Exam GI: Other: Abdomen is soft and nondistended. Port site incisions healing well. No redness or drainage. Expected mild tenderness to palpation around just the port sites. Prior right upper quadrant tenderness the area the gallbladder has resolved. DS: Data Data Completed and Pending Pending studies at discharge: Pending at discharge 07/13/24 14:58 Surgical [PTH] Routine Labs on day of discharge: Labs from last 24 hours 07/14/24 07/13/24 08:32 10:50 WBC 7.2 RBC 3.82 L Hgb 10.3 L Hct 33.2 L MCV 86.9 MCH 27.0 MCHC 31.0 L RDW 14.7 H Plt Count 233 MPV 11.0 H Immature Gran % (Auto) 0.3 Neut % (Auto) 62.8 Lymph % (Auto) 29.3 [place] % (Auto) 6.8 Eos % (Auto) 0.4 Baso % (Auto) 0.4 Lymph # (Auto) 2.11 [place] # (Auto) 0.5 Eos # (Auto) 0.0 Baso # (Auto) 0.0 Abs Immat Gran (auto) 0.02 Absolute Neuts (auto) 4.5 Absolute Nucleated RBC 0.000 Nucleated RBC % 0.0 Sodium 136 L Potassium 3.9 Chloride 101 Carbon Dioxide 28 Anion Gap 7 BUN 7 D Creatinine 0.70 Estim Creat Clear Calc 135 Estimated GFR > 60 Glucose 103 Calcium 8.6 Total Bilirubin 1.2 AST 60 H ALT 21 Alkaline Phosphatase 107 Total Protein 8.0 Albumin 4.0 Blood Type O Positive Antibody Screen Negative Discharge Plan Discharge Attending physician on discharge: Vanessa Maynard Discharging Clinician: Vanessa Maynard Patient Disposition: Home, Self-Care Activity: may shower and as tolerated Diet: as tolerated Wound Care Instructions: incision open to air Discharge Instructions: DISCHARGE INSTRUCTION SHEET FOR HERNIA, GALLBLADDER AND APPENDIX SURGERIES DR. MAYNARD PATIENT TO TAKE HOME 1. May shower in 24 hours, no soaking in bath x 2weeks. 2. Call office for: * Wound increasingly painful or bleeding * Vomiting * Fever of greater than 101 degrees 3. If no bowel movement for three days, take 1 oz. (30 ml) Milk of Magnesia or MiraLax 17g 1 to 2 times daily. 4. No heavy lifting > 10-15 pounds x 6 weeks for hernia repairs and 2 weeks for laparoscopic cholecystectomy or appendectomy. 5. No driving for 3 days or while taking narcotic pain medications. 6. Ice to surgical site for 48 hours (30 min on, then 30 min off). 7. Up walking 10-30 minutes three times per day. 8. Resume previous home medications. 9. Follow-up 10-14 days in office for wound check or as previously scheduled. ([phone]) 10. Oral pain medications prescription to be sent to pharmacy. Take Tylenol 500mg every 6 hours and Ibuprofen 600mg every 6 hours for the first 2 days, then as needed. 11. NUTRITION: Start out by drinking fluids and increase your diet as tolerated. If you experience nausea, try dry toast, crackers, and 7-UP. If nausea or vomiting persists, contact your surgeon?s office. 12. Gallbladders-Low Fat Diet for 2 weeks (send care note of low fat diet) 13. Inguinal Hernias-wear scrotal support for 48 hours 14. Abdominal Hernias-if sent home with abdominal binder, wear for the first 2 weeks (may remove to shower or at night to sleep). Revised 08/2020 Patient Instructions: Antibiotic Form Stand Alone Forms: General Discharge Information Follow-up/Referrals: Vanessa Maynard MD [Physician] - 2 Weeks Discharge Medications: New hydrocodone-acetaminophen 5-325 mg tablet 1 tablet PO Q6H PRN (Reason: pain) Qty: 30 0RF Date of admission: 07/13/24 04:55 Primary Care Provider: PHYSICIAN,HYDRO OPERATOR Admitting Provider: Vanessa Maynard Attending physician on admission: Vanessa Maynard Condition: Stable
--- NOTE | 2024-07-14 09:59 | WPDANESPN ---
Anes - Prog Note Post-Op Date/Time: 07/14/24 09:59 Cardiovascular status: normal Respiratory status: normal Airway patency: baseline Mental status: baseline Post-Op hydration status: normal Vital Signs: Last Vital Signs Temp 36.2 C L 07/14/24 04:00 Pulse 70 07/14/24 04:00 Resp 18 07/14/24 04:00 BP 124/61 07/14/24 04:00 Pulse Ox 100 07/14/24 04:00 O2 Del Method Room Air 07/13/24 20:00 O2 Flow Rate 8 07/13/24 16:05 Pain Score (VAS): 10/24 I/O: Intake & Output 07/13/24 07/14/24 07/14/24 23:59 07:59 15:59 Intake Total 750 200 Balance 750 200 Laboratory Tests 07/14/24 08:32 07/14/24 08:32 07/13/24 07/14/24 10:50 08:32 WBC 7.2 RBC 3.82 L Hgb 10.3 L Hct 33.2 L MCV 86.9 MCH 27.0 MCHC 31.0 L RDW 14.7 H Plt Count 233 MPV 11.0 H Immature Gran % (Auto) 0.3 Neut % (Auto) 62.8 Lymph % (Auto) 29.3 [place] % (Auto) 6.8 Eos % (Auto) 0.4 Baso % (Auto) 0.4 Lymph # (Auto) 2.11 [place] # (Auto) 0.5 Eos # (Auto) 0.0 Baso # (Auto) 0.0 Abs Immat Gran (auto) 0.02 Absolute Neuts (auto) 4.5 Absolute Nucleated RBC 0.000 Nucleated RBC % 0.0 Sodium 136 L Potassium 3.9 Chloride 101 Carbon Dioxide 28 Anion Gap 7 BUN 7 D Creatinine 0.70 Estim Creat Clear Calc 135 Estimated GFR > 60 Glucose 103 Calcium 8.6 Total Bilirubin 1.2 AST 60 H ALT 21 Alkaline Phosphatase 107 Total Protein 8.0 Albumin 4.0 Blood Type O Positive Antibody Screen Negative Microbiology 07/13/24 02:36 Urine Clean Catch Urine Culture - Final Post-procedural complaints: nausea Patient Feedback: Patient satisfied with anesthetic care.
[2024-07-14 10:25] VITALS: BP 125/60; PULSE 76; RESP 16; TEMP 36.2; O2SAT 100
[2024-07-14 14:18] VITALS: BP 123/54; PULSE 84; RESP 16; TEMP 36.5; O2SAT 100
[2024-07-14] MEDS: KETOROLAC 30 MG/ML VIAL (*BKC) IV PUSH (17:20)
[2024-07-14] MEDS: polyethylene glycoL 3350 17 GM POWD.PACK PO (18:24)
[2024-07-15] MEDS: HYDROcodone/acetaminophen (*CRX) 5-325 MG TABLET 1 TAB PO ×3 (02:38→12:20)
[2024-07-15 04:52] VITALS: BP 118/70; PULSE 67; RESP 18; TEMP 36.7; O2SAT 100
[2024-07-15] MEDS: polyethylene glycoL 3350 17 GM POWD.PACK PO (07:47)
[2024-07-15 09:50] VITALS: O2SAT 100
[2024-07-15 10:19] VITALS: BP 107/50; PULSE 76; RESP 16; TEMP 36.6; O2SAT 100
--- NOTE | 2024-07-15 11:40 | WPDPN ---
Progress Note: A&P Assessment and Plan (1) Acute calculous cholecystitis: Code(s): K80.00 - Calculus of gallbladder with acute cholecystitis without obstruction Status: Acute Assessment and Plan: Patient was initially going to be discharged yesterday but complained of having some worsening pain after I saw her. She was then kept in the hospital for another day and given pain medication as needed. Today she feels much better and feels that she can be discharged home without need for any IV pain medications. She tolerated regular diet. Abdominal exam is benign. Subjective Date/time seen: 07/15/24 11:40 Interval history: Patient is feeling well today. No longer need any IV pain medications. Tolerating diet. Exam GI: Other: Abdomen is soft and nondistended. Port site incisions are healing well. No redness or drainage. Final expected soreness around the incisions. Objective Data Vital Signs Vital Signs: Vital Signs - 24 hr 07/14/24 14:18 07/14/24 20:00 07/15/24 04:52 Temperature 36.5 C 36.7 C Pulse Rate 84 67 Respiratory Rate 16 18 Blood Pressure 123/54 L 118/70 Pulse Oximetry 100 100 Oxygen Delivery Room Air Fraction of Inspired Oxygen 07/15/24 07:53 07/15/24 10:19 07/15/24 09:50 Temperature 36.6 C Pulse Rate 76 Respiratory Rate 16 Blood Pressure 107/50 L Pulse Oximetry 100 100 Oxygen Delivery Room Air Room Air Fraction of Inspired Oxygen 21 Intake/Output Intake/Output: Intake & Output 07/12/24 07/13/24 07/14/24 07/15/24 23:59 23:59 23:59 23:59 Intake Total 1766.6 740 360 Balance 1766.6 740 360 Meds/Results Medications: Active Medications Generic Name Dose Route Start Last Admin Trade Name Freq PRN Reason Stop Dose Admin Hydrocodone Bitart/Acetaminophen 1 tab 07/13/24 17:04 07/15/24 07:47 Hydrocodone/Acetaminophen (*Crx) 5-325 Mg Tablet PO 1 tab Q4H PRN Administration Pain Rated 4-6 Hydromorphone HCl 0.5 mg 07/13/24 17:04 07/14/24 21:41 Hydromorphone Hcl Inj (*Crx) 1 Mg/Ml Syr IV PUSH 0.5 mg Q3H PRN Administration Pain Rated 7-10 Ketorolac Tromethamine 30 mg 07/14/24 14:10 07/14/24 17:20 Ketorolac 30 Mg/Ml Vial (*Bkc) IV PUSH 30 mg Q12HR PRN Administration Pain Rated 4-6 Ondansetron HCl 4 mg 07/13/24 04:54 07/14/24 18:04 Ondansetron Inj 4 Mg/2 Ml Vial IV PUSH 4 mg Q4H PRN Administration Nausea Polyethylene Glycol 17 gm 07/14/24 18:13 07/15/24 07:47 Polyethylene Glycol 3350 17 Gm Powd.Pack PO 17 gm QAM ARIELA Administration Radiology Results: ITS Impressions Abdomen/Pelvis CT 07/13/24 06:14 IMPRESSION: 1. Acute cholecystitis. Upper Quadrant Ultrasound 07/13/24 09:01 IMPRESSION: 1. Acute cholecystitis.
--- NOTE | 2024-07-15 11:44 | WPDAMENDMENT ---
Record Amendment Report Amendment Initial discharge summary was dated for July 14, 2024. However patient had some pain after she was seen and discharged was retained in the hospital for additional day. Her official date of discharge now was July 15, 2024. All other documentation and postoperative instructions are unchanged. Refer to my progress note of July 15, 2024 for exam details of the additional night of admission.
== END 2024-07-15 13:05 | disposition home or self-care (01) ==
LOC: ANHED 04:57 → ANH2MED 09:02
PROVIDERS: Admitting Provider Surgery; Emergency Provider Emergency Medicine; Visit Provider Surgery
PROC: 0FT44ZZ Resection of Gallbladder, Percutaneous Endoscopic Approach (ICD-10-PCS; CPT 47562; principal; 2024-07-13 15:00)
DX: K80.10 Calculus of gallbladder with chronic cholecystitis without obstruction (principal); K82.1 Hydrops of gallbladder; R52 Pain, unspecified; E66.9 Obesity, unspecified; Z68.35 Body mass index [BMI] 35.0-35.9, adult; F17.210 Nicotine dependence, cigarettes, uncomplicated
CPT/HCPCS: 47562; 36415; 74177; 76705; 80053; 81001; 81025; 83690; 85025; 86850; 86900; 86901; 87086; 88304; 96374; 96375; 99285; A9270; G0378; J0690; J1100; J1171; J1200; J1885; J2250; J2405; J2704; J3010; J7030; J7120; Q9967

== ENCOUNTER 2024-08-01 04:09 | Inpatient (IN) | payer BC, MEDICAID, SELFPAY ==
[2024-08-01] VITALS (14 sets, daily range): BP systolic 103–141; BP diastolic 61–106; PULSE 58–128; RESP 11–25; TEMP 36.6–36.7; O2SAT 97–100; BMI 34.9
--- NOTE | ~2024-08-01 | XR_ITS ---
EXAMINATION: XR ERCP DATE: 08/02/2024 12:13 INDICATION: Choledocholithiasis. TECHNIQUE: 3 spot fluoroscopic images of the right upper quadrant were obtained during endoscopic ret rograde cholangiopancreatography (ERCP). Fluoroscopy exposure time was 105 seconds. COMPARISON: MRCP 08/01/24 FINDINGS: The endoscope is in the second portion of the duodenum. There are surgical clips from cali cystectomy. There is contrast opacification of the common duct. Images demonstrate balloon sweeping o f the common duct. IMPRESSION: 1. Balloon sweeping of the common duct. Please refer to the ERCP procedure note for additional detail s. Reviewed, dictated and finalized at location A. 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 Balloon sweeping of the common duct. Please refer to the ERCP procedure note for additional details.
--- NOTE | ~2024-08-01 | CT_ITS ---
CT of the Abdomen and Pelvis: Indication: Pain, status post recent left-sided cholecystectomy Technique: 2.5 mm axial scans were obtained through the abdomen and pelvis following intravenous adm inistration of 100 cc of Omnipaque 350. Dose reduction technique was used on this scan by utilizing a utomated exposure control and iterative reconstruction technique. The dose-length product (DLP) was 1 045.85 mGy-cm. Comparison: 07/13/2024 Findings: Scans through the lung bases are unremarkable. The liver, pancreas, adrenals and kidneys are within normal limits. Dilated common bile duct is proba ashu related to prior cholecystectomy. Spleen is mildly enlarged, measuring 14.2 cm in length. No evid ence of aortic aneurysm. No lymphadenopathy. No bowel obstruction or bowel wall thickening. There is no evidence to suggest acute appendicitis. Images through the pelvis were performed. Urinary bladder unremarkable. No pelvic mass seen. No ascit es. Impression: No acute abnormality. Mildly dilated common bile duct is probably related to prior cholecystectomy. Splenomegaly, of uncertain etiology. Reviewed, dictated and finalized at location . 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 Mildly dilated common bile duct is probably related to pr ior cholecystectomy. Splenomegaly, of uncertain etiology.
--- NOTE | ~2024-08-01 | MR_ITS ---
EXAMINATION: MR MRCP wo/w con/w 3D wo ind DATE: 08/02/2024 08:32 INDICATION: Right upper cord and abdominal pain. Retained gallstone. TECHNIQUE: Magnetic resonance imaging (MRI) of the abdomen was performed without and with 20 mL Multi anita intravenous contrast. Sequences included coronal T2-weighted SS-FSE, coronal T2-weighted FS SS- FSE, coronal T2-weighted FS FIESTA, axial T2-weighted FS FIESTA, axial T2-weighted FIESTA, sagittal T 2-weighted SS-FSE, axial T1-weighted dual-echo FSPGR, axial T2-weighted SS-FSE, axial T1-weighted LAV A, axial T2-weighted STIR FSE. Thick-slab T2-weighted FRFSE-XL images were obtained for magnetic reso nance cholangiopancreatography (MRCP). Rotating maximum intensity projection 3-D reconstructions of t he volumetric data were created by the technologist. Postcontrast sequences included a time course of axial T1-weighted LAVA. COMPARISON: CT dated 08/01/2024 FINDINGS: ABDOMEN MRI: Heart size is normal. No pericardial or pleural effusion. Magnetic field artifact associated with cho lecystectomy clips the gallbladder fossa. Liver, pancreas, bilateral adrenal glands and kidneys are n ormal. Splenomegaly measuring up to 15.3 cm. Visualized portions of bowels are unremarkable. No patho logically enlarged abdominal lymphadenopathy. Bones are unremarkable. ABDOMEN MRCP: There is a mobile 6 mm stone which changes position within the mid to distal common bile duct. Border line dilation of the common bile duct which measures up to 6 mm with 9 mm dilation of the proximal co mmon hepatic duct. No dilation of the intrahepatic biliary tree or of the main pancreatic duct. IMPRESSION: 1. 6 mm, mobile and likely intermittently obstructing gallstone within the common bile duct with dila tion of the common hepatic duct to 9 mm. Reviewed, dictated and finalized at location A. OLE MANAGER IMPRESSION: 1. 6 mm, mobile and likely intermittently obstructing gallstone within the comm on bile duct with dilation of the common hepatic duct to 9 mm.
--- NOTE | 2024-08-01 04:33 | ED.ABDPAIN ---
HPI - Abdominal Pain General Chief Complaint: Abdominal Pain Stated Complaint: gal bladder surgery issue bile thing Time Seen by Provider: 08/01/24 04:19 History of Present Illness HPI narrative: 23-year-old female presenting to the emergency department for evaluation of epigastric abdominal pain. Patient underwent a laparoscopic cholecystectomy procedure at [facility] General surgery on 07/13/2024. She presents today as she is having epigastric pain and discomfort as well as nauseousness and vomiting for the last 2-3 days. She states she has been retching and having multiple episodes of emesis that is clear. Denies any chest pain shortness a breath. Endorses but epigastric pain and back pain. States it feels similar to the time she had her gallbladder attacks. Patient denies any history of GERD or any kind of pancreas issues such as pancreatitis or significant drinking history. She denies any new injuries or illnesses. Her surgery was uncomplicated she was discharged home after several days and pain control here in the hospital. Patient otherwise has been recovering well and her port sites are clean, dry, intact without any signs of infection. Related Data Home Medications ?Medication ?Instructions ?Recorded ?Confirmed ?Last Taken ?Type No Home Medications 07/20/24 07/20/24 Unknown History Allergies Allergy/AdvReac Type Severity Reaction Status Date / Time No Known Allergies Allergy Mild Verified 07/20/24 10:10 Review of Systems Review of Systems: As reviewed above in HPI [facility] Past Medical History Medical History Intrauterine Morbid obesity with BMI of 40.0-44.9, adult Surgical History Surgical History History of laparoscopic cholecystectomy 07/13/[address] Vanessa Maynard No pertinent past surgical history Family History Family History Father Type 2 diabetes mellitus Mother Anemia Grandparent Type 2 diabetes mellitus Chronic obstructive pulmonary disease Pancreatic cancer Social History Social History Smoking status: Former smoker Tobacco type: cigarettes and e-cigarettes/vaping Second hand tobacco smoke exposure: Yes Additional smoking assessment comments: quit smoking cigarettes; vapes daily Alcohol intake: current Drinks per week: 6 Substance use: never Substance use type: unknown Do You Feel Safe in your Home?: Yes Lack of Transportation: No Lack of Food: Never True Current Housing: I Have Housing Concerned About Future Housing: No Difficulty Paying Gas/Electric Bills: No Difficulty Paying for Meds: No Currently Unemployed: No Education: High School Diploma/GED Difficulty w/ Childcare or Family Care: No Spiritual care concerns: No Exam Narrative: GENERAL: Retching, tearful, uncomfortable appearing HEAD: [Normocephalic, atraumatic.] EYES: [PERRLA and EOMI.] ENT: Nares clear, no rhinorrhea or epistaxis. Mucous membranes moist. NECK: Supple. CHEST: [Clear to auscultation. No respiratory distress.] HEART: [Regular rate and rhythm]. No murmur heard. [Normal peripheral pulses.] ABDOMEN: [Soft, nondistended], [nontender], [No rigidity or guarding] no signs of peritonitis. Laparoscopic port sites are clean, dry, intact without any drainage or overlying skin changes EXTREMITIES: Normal range of motion. [No edema.] SKIN: Warm, dry, no rash. NEURO: [No focal deficits]. Alert and oriented [x3.] Course Vital Signs Vital signs: Vital Signs Temperature 36.7 C 08/01/24 04:11 Pulse Rate 102 H 08/01/24 04:11 Respiratory Rate 19 08/01/24 04:11 Blood Pressure 141/88 H 08/01/24 04:11 Pulse Oximetry 100 08/01/24 04:11 Oxygen Delivery Room Air 08/01/24 04:11 Temperature 36.7 C 08/01/24 04:11 Pulse Rate 58 L 08/01/24 07:19 Respiratory Rate 13 08/01/24 07:19 Blood Pressure 108/62 08/01/24 07:19 Pulse Oximetry 100 08/01/24 07:19 Oxygen Delivery Room Air 08/01/24 04:11 MDM - Abdominal Pain MDM Narrative Medical decision making narrative: 23-year-old female that is status post laparoscopic cholecystectomy for acute cholecystitis 3 weeks prior. Presents to the emergency room today with nausea vomiting epigastric pain and retching. She is uncomfortable appearing but not in any acute distress, her abdomen is very soft nontender nondistended and has no signs of active infection or any kind of hernias. No incisional hernias or signs of peritonitis. She does retch several times during the examination but does not vomit. No diarrhea, fever, chills. No other recent injuries or illnesses. Patient did states several days after procedure for IV pain control. Considerations presently a for gastritis, pancreatitis, retained gallstone, less likely bile leak or new intra-abdominal process such as appendicitis. Will obtain laboratory studies including CBC, CMP, lipase, lactic acid, PT, PTT, urinalysis and test. She was provided haloperidol for her retching and nausea and vomiting. She was also given Dilaudid for pain control as well as a fluid bolus of lactated Ringer. Patient was re-evaluated for medications as significant improvement her nausea vomiting abdominal pain. Her laboratory studies are concerning as she has a significant rise in her liver function panel including ALT AST and alk-phos in the 500s. Total bilirubin also elevated 1.7. Her CT scan shows a common bile duct dilatation of 1.2 cm. No acute abscess formation or any other concerning features. I discussed the case with General surgery over the phone and informed them of patient's LFTs and imaging results with my concern for potential retained gallstone in the bile duct system. I discussed this with the family members as well in her plans will be to keep the patient admitted to medicine and have GI consult as well as MRCP evaluation. I spoke to Gastroenterology Dr. Whitley over the phone who agreed for MRCP evaluation and will be on consult. Patient's other workup does show a urinary tract infection she was started on Rocephin. Otherwise no leukocytosis, anemia at baseline. Normal platelets. Electrolyte panel within normal limits, normal renal function panel. Negative lactic acid. Spoke to Dr. Pizarro the hospitalist who accepted the patient to admission to the hospital after we went over patient's imaging studies, laboratory assessment and plan of care with MRCP and GI evaluation. Medical Records Attestation: I reviewed the patient's medical records. Lab Data Attestation: I reviewed the patient's lab results. 08/01/24 04:41 08/01/24 04:41 Labs: Lab Results 08/01/24 08/01/24 08/01/24 Range/Units 04:41 04:49 05:19 WBC 8.8 (4.5-10.0) K/mm3 RBC 4.21 (4.2-5.4) M/mm3 Hgb 11.5 L (12.0-15.0) g/dL Hct 36.1 L (37.0-47.0) % MCV 85.7 (80-100) fl MCH 27.3 (26-34) pg MCHC 31.9 L (32-36) g/dl RDW 14.6 H (11.5-14.5) % Plt Count 379 H D (150-375) k/mm3 MPV 12.4 H (7.4-10.4) fl Immature Gran % (Auto) 0.3 (0-0.5) % Neut % (Auto) 64.1 (45.5-73.1) % Lymph % (Auto) 27.6 (18.3-44.2) % [place] % (Auto) 6.4 (2.6-8.5) % Eos % (Auto) 1.1 (0-4.4) % Baso % (Auto) 0.5 (0.2-1.2) % Lymph # (Auto) 2.43 (0.9-3.2) K/mm3 [place] # (Auto) 0.6 (0.1-0.6) K/mm3 Eos # (Auto) 0.1 (0-0.3) K/mm3 Baso # (Auto) 0.0 (0.0-0.1) K/mm3 Abs Immat Gran (auto) 0.03 (0.00-0.031) K/mm3 Absolute Neuts (auto) 5.6 (1.3-6.7) K/mm3 Absolute Nucleated RBC 0.000 (0.0-0.012) K/mm3 Nucleated RBC % 0.0 (0.0-0.2) % PT 12.9 (11.1-14.7) Seconds INR 0.9 APTT 25.4 (22.3-36.8) Seconds Sodium 137 (137-145) mmol/L Potassium 4.1 (3.4-5.0) mmol/L Chloride 104 (98-107) mmol/L Carbon Dioxide 24 (22-30) mmol/L Anion Gap 9 (4-12) mmol/L BUN 14 D (7-17) mg/dL Creatinine 0.80 (0.7-1.0) mg/dL Estim Creat Clear Calc 118 ml/min Estimated GFR > 60 (59 - ) Glucose 154 H (65-110) mg/dL Lactic Acid 1.2 (0.7-2.0) mmol/L Calcium 9.2 (8.4-10.2) mg/dL Total Bilirubin 1.7 H (0.2-1.3) mg/dL AST 406 H (14-36) U/L ALT 501 H (6-35) U/L Alkaline Phosphatase 561 H (38-126) U/L Total Protein 9.0 H (6.3-8.2) g/dL Albumin 4.6 (3.5-5.1) g/dL Lipase 87 (23-300) U/L Urine Color Dark yellow (Yellow) Urine Appearance Cloudy H (Clear) Urine pH 5.5 (5.0-9.0) Ur Specific [place] 1.019 (1.001-1.035) Urine Protein 1+ H (Negative) mg/dL Urine Glucose (UA) Negative (Negative) mg/dL Urine Ketones Negative (Negative) mg/dL Ur Blood (Man) Negative (Negative) Urine Nitrate Negative (Negative) Urine Bilirubin 2+ H (Negative) Urine Urobilinogen 4.0 H (<2.0) mg/dL Leukocyte Esterase Rfl 3+ H (Negative) BARBARA/UL Urine RBC 3-5 H (0-2) /hpf Urine WBC >100 H (0-3) /hpf Ur Squamous Epith Cells Moderate (Few) /hpf Urine Bacteria 2+ H /hpf Urine Casts 0-2 POC Urine HCG, Qual (Negative) Blood Type O Positive Antibody Screen Negative 08/01/24 Range/Units 05:20 WBC (4.5-10.0) K/mm3 RBC (4.2-5.4) M/mm3 Hgb (12.0-15.0) g/dL Hct (37.0-47.0) % MCV (80-100) fl MCH (26-34) pg MCHC (32-36) g/dl RDW (11.5-14.5) % Plt Count (150-375) k/mm3 MPV (7.4-10.4) fl Immature Gran % (Auto) (0-0.5) % Neut % (Auto) (45.5-73.1) % Lymph % (Auto) (18.3-44.2) % [place] % (Auto) (2.6-8.5) % Eos % (Auto) (0-4.4) % Baso % (Auto) (0.2-1.2) % Lymph # (Auto) (0.9-3.2) K/mm3 [place] # (Auto) (0.1-0.6) K/mm3 Eos # (Auto) (0-0.3) K/mm3 Baso # (Auto) (0.0-0.1) K/mm3 Abs Immat Gran (auto) (0.00-0.031) K/mm3 Absolute Neuts (auto) (1.3-6.7) K/mm3 Absolute Nucleated RBC (0.0-0.012) K/mm3 Nucleated RBC % (0.0-0.2) % PT (11.1-14.7) Seconds INR APTT (22.3-36.8) Seconds Sodium (137-145) mmol/L Potassium (3.4-5.0) mmol/L Chloride (98-107) mmol/L Carbon Dioxide (22-30) mmol/L Anion Gap (4-12) mmol/L BUN (7-17) mg/dL Creatinine (0.7-1.0) mg/dL Estim Creat Clear Calc ml/min Estimated GFR (59 - ) Glucose (65-110) mg/dL Lactic Acid (0.7-2.0) mmol/L Calcium (8.4-10.2) mg/dL Total Bilirubin (0.2-1.3) mg/dL AST (14-36) U/L ALT (6-35) U/L Alkaline Phosphatase (38-126) U/L Total Protein (6.3-8.2) g/dL Albumin (3.5-5.1) g/dL Lipase (23-300) U/L Urine Color (Yellow) Urine Appearance (Clear) Urine pH (5.0-9.0) Ur Specific [place] (1.001-1.035) Urine Protein (Negative) mg/dL Urine Glucose (UA) (Negative) mg/dL Urine Ketones (Negative) mg/dL Ur Blood (Man) (Negative) Urine Nitrate (Negative) Urine Bilirubin (Negative) Urine Urobilinogen (<2.0) mg/dL Leukocyte Esterase Rfl (Negative) BARBARA/UL Urine RBC (0-2) /hpf Urine WBC (0-3) /hpf Ur Squamous Epith Cells (Few) /hpf Urine Bacteria /hpf Urine Casts POC Urine HCG, Qual Negative (Negative) Blood Type Antibody Screen Imaging Data Attestation: I personally reviewed and interpreted this imaging study as follows: Radiologist's impression: ITS Impressions Abdomen/Pelvis CT 08/01/24 06:23 Impression: No acute abnormality. Mildly dilated common bile duct is probably related to prior cholecystectomy. Splenomegaly, of uncertain etiology. Discharge Plan Discharge Clinical Impression: Abdominal pain, Common bile duct dilation, LFT elevation, History of laparoscopic cholecystectomy Patient Disposition: Still a Patient Condition: Stable Instructions: Antibiotic Form Patient Language: Persian Prescriptions: No Action No Home Medications Follow-up/Referrals: UNKNOWN,DOCTOR [Primary Care Provider] - Time of Disposition: 07:09
[2024-08-01] MEDS: LACTATED RINGERS 1,000 ML 999 ML IV CONT (04:35)
[2024-08-01] MEDS: HALOPERIDOL LACTATE 5 MG/ML VIAL IV PUSH (04:35)
[2024-08-01] MEDS: HYDROmorphone HCL INJ (*CRX) 1 MG/ML SYR 0.5 MG IV PUSH ×5 (04:35→20:57)
[2024-08-01 04:56] LABS: Basophils Percent Auto 0.5 % (0.2-1.2); Eosinophils Absolute Auto 0.1 K/mm3 (0-0.3); Eosinophils Percent Auto 1.1 % (0-4.4); Hematocrit 36.1 % (37.0-47.0); Hemoglobin 11.5 g/dL (12.0-15.0); Immature Granulocyte Absolute 0.03 K/mm3 (0.00-0.031); Immature Granulocyte Percent A 0.3 % (0-0.5); Lymphocytes Absolute Auto 2.43 K/mm3 (0.9-3.2); Lymphocytes Percent Auto 27.6 % (18.3-44.2); Mean Corpuscular HGB Conc 31.9 g/dl (32-36); Mean Corpuscular Hemoglobin 27.3 pg (26-34); Mean Corpuscular Volume 85.7 fl (80-100); Mean Platelet Volume 12.4 fl (7.4-10.4); Monocytes Absolute Auto 0.6 K/mm3 (0.1-0.6); Monocytes Percent Auto 6.4 % (2.6-8.5); Neutrophils Absolute Auto 5.6 K/mm3 (1.3-6.7); Neutrophils Percent Auto 64.1 % (45.5-73.1); Platelet Count Result 379 k/mm3 (150-375); Red Blood Count 4.21 M/mm3 (4.2-5.4); Red Cell Distribution Width 14.6 % (11.5-14.5); White Blood Count 8.8 K/mm3 (4.5-10.0)
[2024-08-01 05:03] LABS: INR 0.9; Partial Thromboplastin Time 25.4 Seconds (22.3-36.8); Prothrombin Time 12.9 Seconds (11.1-14.7)
[2024-08-01 05:13] LABS: Lactic Acid Reflex 1.2 mmol/L (0.7-2.0)
[2024-08-01 05:22] LABS: BEDSIDEPREGUCG Negative (Negative)
[2024-08-01 05:30] LABS: Add Urine Microscopic? YES; Appearance Urine Cloudy (Clear); Bacteria Urine 2+ /hpf; Bilirubin Urine 2+ (Negative); Blood Urine Negative (Negative); Color Urine Dark Yellow (Yellow); Glucose Urine UA Negative (Negative); Ketones Urine Negative (Negative); Leukocyte Esterase Ur 3+ LEU/UL (Negative); Nitrate Urine Negative (Negative); Non Pathogenic Casts 0-2; Protein Urine 1+ mg/dL (Negative); Specific Grav Ur 1.019 (1.001-1.035); Squamous Epithelial Cell Urine Moderate /hpf (Few); WBC Urine >100 /hpf (0-3); pH Urine 5.5 (5.0-9.0)
[2024-08-01 05:37] LABS: Alanine Aminotransferase 501 U/L (6-35); Albumin Level 4.6 g/dL (3.5-5.1); Alkaline Phosphatase 561 U/L (38-126); Anion Gap 9 mmol/L (4-12); Aspartate Amino Transferase 406 U/L (14-36); Bilirubin,Total 1.7 mg/dL (0.2-1.3); Blood Urea Nitrogen 14 mg/dL (7-17); Calcium 9.2 mg/dL (8.4-10.2); Carbon Dioxide 24 mmol/L (22-30); Chloride 104 mmol/L (98-107); Estimated CRCL calculation 118 ml/min; Estimated Glomerular Filt Rate > 60; Glucose 154 mg/dL (65-110); Lipase 87 U/L (23-300); Potassium 4.1 mmol/L (3.4-5.0); Sodium 137 mmol/L (137-145)
--- NOTE | 2024-08-01 07:08 | PC.NURSE ---
This RN asked EDP about blood cultures. EDP stated he did not want to order blood cultures
[2024-08-01] MEDS: LACTATED RINGERS 1,000 ML 125 ML IV CONT (09:06)
--- NOTE | 2024-08-01 09:10 | ADMGEN ---
This patient, Verónica Tariq, was admitted to [facility] Surg Room 301-01. Patient/family oriented to hospital policies and general routines including ID bracelet, bed and alarms, visiting hours, pain management, procedures, bathroom and other care routines, personal items, smoking policy, room service/diet, and visiting hours. Information on how to activate the Rapid Response Team has been discussed. Patient/Family are encouraged to report perceived risks to care and to ask questions if they do not understand what they are told or what they should do.
--- NOTE | 2024-08-01 09:33 | P.CONGI_ITS ---
<Statement entered by Juice Castillo MD - 08/01/24 13:29> I, Juice Castillo MD, have provided a substantive portion of the care of this patient and discussed the patient with my Nurse Practitioner. I have reviewed any new relevant radiographic and laboratory results including medications. I agree with her documentation as noted below.?I personally performed the medical decision making and much of the history and exam for this encounter. briefly, she recently underwent lap cali without complications because chronic cholecystitis and cholelithiasis, here with new onset of severe upper abdominal pain, noted to have elevated liver enzymes, CT scan noted mild dilated bile duct but could be from post cholecystectomy. She is still having pain. Plan is to get MRCP to assess bile duct and decide if may need ercp, will follow along. Assessment and Plan Assessment and plan (1) LFT elevation: Code(s): R79.89 - Other specified abnormal findings of blood chemistry Status: Acute (2) Dilated cbd, acquired: Code(s): K83.8 - Other specified diseases of biliary tract Status: Acute (3) Epigastric pain: Code(s): R10.13 - Epigastric pain Status: Acute (4) Right upper quadrant abdominal pain: Code(s): R10.11 - Right upper quadrant pain Status: Acute (5) Nausea & vomiting: Qualifiers: Vomiting type: bilious vomiting Qualified Code(s): R11.14 - Bilious vomiting Code(s): R11.2 - Nausea with vomiting, unspecified Status: Inactive (6) Chronic anemia: Code(s): D64.9 - Anemia, unspecified Status: Acute Plan 1. Epigastric pain/RUQ pain/nausea/vomiting/elevated LFT's/dilated CBD: S/P laparoscopic cholecystectomy performed by Dr. Maynard 07/13/2024, pathology showed severe chronic cholecystitis with cholelithiasis. Patient presented to the ER with complaints for epigastric and RUQ pain since midnight. The pain was sharp and severe at times. Patient was groggy from after receiving pain medication so most of the subjective information was provided by the patients grandmother Irene who the patient also lives with. since her cholecystectomy she has been having intermittent episodes of nausea and vomiting typically after meals along with increased flatulence. Denies any recent change in bowel habits. No prior history of chronic LFT elevation. Following her cholecystectomy labs were done 07/14/2024 which showed normal LFTs except mildly elevated AST at 60. Labs today show total bilirubin 1.7, AST 406, ALT 501, alkaline phosphatase 561, albumin 4.6, lipase 87, lactic acid 1.2 , calcium 9.2. Nausea and vomiting has decreased Since admission the use of p.r.n. Zofran. CT scan today showed no acute abnormality. Mildly dilated common bile duct probably related to prior cholecystectomy and splenomegaly of uncertain etiology. Mild Splenomegaly also noted on prior imaging performed a few years ago. Pain has improved but not resolved with pain medications. DDX: Ductal dilation vs acute infectious/inflammatory condition vs bile leak * MRCP pending * continue to monitor LFT's * Continue supportive care with pain management and antiemetics * NPO * further recommendations to follow MRCP 2. Chronic anemia: Patient with chronic anemia dating back to 2020. On admission WBC is 9, HGB 12, HCT 36, MCV 86, platelets 379, INR 0.9. No signs of active GI bleeding. Patient has never had an EGD or colonoscopy. Unknown if this has ever been worked up or if the patient has a Hx of heavy menses. * Anemia work up ordered * Primary care team to continue monitoring H/H and transfuse as needed Thank you very much for allowing me to share in the care of this very nice patient This report may have been done utilizing a voice recognition system. Attempts have been made to correct errors. However, there may be uncorrected grammatical, spelling, and recognition errors present. GI Consult Note Consult date/time: 08/01/24 09:33 Reason for consult: Elevated LFT's HPI: This is a 23 year old female with PMSH of recent laparoscopic cholecystectomy but otherwise unremarkable medical surgical history. Patient presented to the ER today for complaints of epigastric and RUQ pain that was sharp and severe at times, this pain got worse after midnight. S/P Laparoscopic cholecystectomy performed July 13. GI consulted for elevated LFTs and CBD dilation. patient was accompanied by her grandmother Irene throughout the entire visit who the patient lives with and she provided most of the medical Hx. Patient started having severe sharp epigastric/right upper quadrant pain since midnight last night. Since her cholecystectomy she has been experiencing intermittent nausea and vomiting that is worse after meals along with increased flatulence. She is having a bowel movement every 2-3 days and has been taking supplemental fiber to help regulate bowels. She denies any bloating, odynophagia, dysphagia, reflux, regurgitation, early satiety, unexplained weight loss, appetite loss, diarrhea, hematochezia, or melena. She uses ibuprofen on an as-needed basis. Denies aspirin or anticoagulant use. Paternal grandmother had pancreatic cancer. patient denies alcohol use and uses electronic cigarettes. No known history of marijuana use. ENDOSCOPY HISTORY: EGD: Patient has never had an EGD COLONOSCOPY: Patient has never had a colonoscopy LABS AND STOOL STUDIES: Labs 08/01/2024: Sodium 137, potassium 4.1, BUN 14, creatinine 0.80, GFR > 60. BC is 9, HGB 12, HCT 36, MCV 86, platelets 379, INR 0.9 Total bilirubin 1.7, AST 406, ALT 501, alkaline phosphatase 561, albumin 4.6. Lactic acid 1.2, calcium 9.2, lipase 87. Labs 07/14/2024: Total bilirubin 1.2, AST 60, ALT 21, alkaline phosphatase 107. IMAGING: CT abd/pelvis w/contrast 08/01/2024 Findings: Scans through the lung bases are unremarkable. The liver, pancreas, adrenals and kidneys are within normal limits. Dilated common bile duct is probably related to prior cholecystectomy. Spleen is mildly enlarged, measuring 14.2 cm in length. No evidence of aortic aneurysm. No lymphadenopathy. No bowel obstruction or bowel wall thickening. There is no evidence to suggest acute appendicitis. Images through the pelvis were performed. Urinary bladder unremarkable. No pelvic mass seen. No ascites. Impression: No acute abnormality. Mildly dilated common bile duct is probably related to prior cholecystectomy. Splenomegaly, of uncertain etiology. Abdominal Ultrasound 07/13/2024 IMPRESSION: 1. Acute cholecystitis. CT abd/pelvis w/contrast 07/13/2024 IMPRESSION: 1. Acute cholecystitis. CT abd/pelvis w/contrast 04/22/2022 IMPRESSION: Mild hepatosplenomegaly. Otherwise, no acute abdominopelvic process detected Review of Systems 2 Constitutional: Constitutional: Reports as per HPI ENT: Reports as per HPI Cardiovascular: Cardiovascular: Reports as per HPI, Denies chest pain and Denies dyspnea Respiratory: Respiratory: Denies cough and Denies dyspnea Gastrointestinal: Gastrointestinal: Reports as per HPI Musculoskeletal: Musculoskeletal: Reports as per HPI Integumentary/Breasts: Skin/Breast: Reports as per HPI Psychiatric: Psychiatric: Reports as per HPI Endocrine: Endocrine: Reports no additional endocrine complaints Hematologic/Lymphatic: Hematologic/Lymphatic: Reports no additional hematologic/lymphatic complaints [facility] Past Medical History Medical History Intrauterine Morbid obesity with BMI of 40.0-44.9, adult Surgical History Surgical History History of laparoscopic cholecystectomy 07/13/[address] Vanessa Maynard No pertinent past surgical history Family History Family History Father Type 2 diabetes mellitus Mother Anemia Grandparent Type 2 diabetes mellitus Chronic obstructive pulmonary disease Pancreatic cancer Social History Social History Smoking status: Former smoker Second hand tobacco smoke exposure: Yes Additional smoking assessment comments: quit smoking cigarettes; vapes daily Alcohol intake: current Drinks per week: 6 Substance use: never Do You Feel Safe in your Home?: Yes Lack of Transportation: No Lack of Food: Never True Current Housing: I Have Housing Concerned About Future Housing: No Difficulty Paying Gas/Electric Bills: No Difficulty Paying for Meds: No Currently Unemployed: No Education: High School Diploma/GED Difficulty w/ Childcare or Family Care: No Spiritual care concerns: No Meds Home Medications and Allergies Home Medications ?Medication ?Instructions ?Recorded ?Confirmed ?Type No Home Medications 07/20/24 07/20/24 History Allergies Allergy/AdvReac Type Severity Reaction Status Date / Time No Known Allergies Allergy Mild Verified 07/20/24 10:10 Vital Signs Vital Signs - 24 hr 08/01/24 04:11 08/01/24 04:14 08/01/24 04:15 Temperature 98.1 F Pulse Rate 102 H 100 91 Respiratory Rate 19 25 H 18 Blood Pressure 141/88 H Pulse Oximetry 100 99 100 Oxygen Delivery Room Air 08/01/24 04:30 08/01/24 04:31 08/01/24 04:45 Temperature Pulse Rate 128 H 117 H 93 Respiratory Rate 18 24 H 18 Blood Pressure 138/106 H Pulse Oximetry 100 100 97 Oxygen Delivery 08/01/24 05:00 08/01/24 05:20 08/01/24 07:19 Temperature Pulse Rate 66 73 58 L Respiratory Rate 11 L 13 13 Blood Pressure 108/62 Pulse Oximetry 99 99 100 Oxygen Delivery 08/01/24 07:50 08/01/24 08:04 08/01/24 08:21 Temperature 98 F 97.9 F Pulse Rate 67 82 75 Respiratory Rate 13 12 16 Blood Pressure 108/62 118/72 116/64 Pulse Oximetry 100 100 98 Oxygen Delivery Exam 2 Const: General: cooperative, healthy appearing, comfortable, no acute distress and well developed Orientation/consciousness: oriented to person, oriented to place, oriented to time and patient oriented x3 HENMT: Head: normal to inspection, normocephalic and atraumatic Mouth: Yes Normal oral and palatal mucosa present and Yes moist mucous membranes Eyes: General: appearance normal, both eyes and all related structures C onjunctivae: conjunctivae normal Sclera: sclerae normal Pupils: Equal, round and reactive pupils present Neck: Neck: normal visual inspection Chest: Chest palpation & inspection: normal inspection of the chest Resp: Effort & Inspection: normal respiratory effort and able to speak in complete sentences Auscultation: clear to auscultation bilaterally Cardio: Jugular venous distension: no JVD Rate: regular rate Rhythm: r egular rhythm Heart sounds: S1 normal heart sound present and S2 normal heart sound present GI: Inspection: normal to inspection GI Palp: Yes Tenderness to palpation present (GI) (upper abdominal tenderness with mild palpation), Yes Guarding due to palpation present (GI) and Yes No hepatosplenomegaly present Auscultation: normal bowel sounds Rectal Exam: deferred Skin: General skin exam: normal color and no rashes or lesions noted Neuro: General: oriented to person, oriented to place, oriented to time and patient oriented x3 Cranial nerves: Yes Equal, round and reactive pupils present Speech: normal speech Extrem: General: normal to inspection and no clubbing, cyanosis or edema Psych: Appearance: grossly normal and well kempt Affect: normal affect Results Labs 08/01/24 04:41 08/01/24 04:41 Labs: Short CBC 08/01/24 Range/Units 04:41 WBC 8.8 (4.5-10.0) K/mm3 Hgb 11.5 L (12.0-15.0) g/dL Hct 36.1 L (37.0-47.0) % Plt Count 379 H D (150-375) k/mm3 BMP 08/01/24 04:41 Sodium 137 Potassium 4.1 Chloride 104 Carbon Dioxide 24 BUN 14 D Creatinine 0.80 Glucose 154 H Calcium 9.2 Liver Function 08/01/24 Range/Units 04:41 Total Bilirubin 1.7 H (0.2-1.3) mg/dL AST 406 H (14-36) U/L ALT 501 H (6-35) U/L Alkaline Phosphatase 561 H (38-126) U/L Albumin 4.6 (3.5-5.1) g/dL Urine 08/01/24 Range/Units 05:19 Urine Color Dark yellow (Yellow) Urine Appearance Cloudy H (Clear) Urine pH 5.5 (5.0-9.0) Ur Specific [place] 1.019 (1.001-1.035) Urine Protein 1+ H (Negative) mg/dL Urine Glucose (UA) Negative (Negative) mg/dL
--- NOTE | 2024-08-01 11:19 | PM.IMHP ---
H&P: HPI History of Present Illness Date/Time: 08/01/24 11:19 Chief Complaint: Abdominal pain nausea vomiting Narrative: 23-year-old female presenting to the emergency department for evaluation of epigastric abdominal pain. Patient underwent a laparoscopic cholecystectomy procedure at [facility] General surgery on 07/13/2024. She presents today as she is having epigastric pain and discomfort as well as nauseousness and vomiting for the last 2-3 days. She states she has been retching and having multiple episodes of emesis that is clear. Denies any chest pain shortness a breath. Endorses but epigastric pain and back pain. States it feels similar to the time she had her gallbladder attacks. Patient denies any history of GERD or any kind of pancreas issues such as pancreatitis or significant drinking history. She denies any new injuries or illnesses. Her surgery was uncomplicated she was discharged home after several days and pain control here in the hospital. Patient otherwise has been recovering well and her port sites are clean, dry, intact without any signs of infection. Review of Systems Review of Systems: - CONSTITUTIONAL: Denies weight loss, fever and chills. - HEENT: Denies changes in vision and hearing - RESPIRATORY: Denies SOB and cough. - CV: Denies palpitations and CP. - GI: Reports abdominal pain, nausea, vomiting and denies diarrhea. - : Denies dysuria and urinary frequency. - MSK: Denies myalgia and joint pain. - SKIN: Denies rash and pruritus. - NEUROLOGICAL: Denies headache and syncope. - PSYCHIATRIC: Denies recent changes in mood. Denies anxiety and depression. [facility] Past Medical History Medical History Intrauterine Morbid obesity with BMI of 40.0-44.9, adult Surgical History Surgical History History of laparoscopic cholecystectomy 07/13/[address] Vanessa Maynard No pertinent past surgical history Family History Family History Father Type 2 diabetes mellitus Mother Anemia Grandparent Type 2 diabetes mellitus Chronic obstructive pulmonary disease Pancreatic cancer Social History Social History Smoking status: Former smoker Second hand tobacco smoke exposure: Yes Additional smoking assessment comments: quit smoking cigarettes; vapes daily Alcohol intake: current Drinks per week: 6 Substance use: never Do You Feel Safe in your Home?: Yes Lack of Transportation: No Lack of Food: Never True Current Housing: I Have Housing Concerned About Future Housing: No Difficulty Paying Gas/Electric Bills: No Difficulty Paying for Meds: No Currently Unemployed: No Education: High School Diploma/GED Difficulty w/ Childcare or Family Care: No Spiritual care concerns: No Meds Home Medications and Allergies Home Medications ?Medication ?Instructions ?Recorded ?Confirmed ?Type No Home Medications 07/20/24 07/20/24 History Allergies Allergy/AdvReac Type Severity Reaction Status Date / Time No Known Allergies Allergy Mild Verified 07/20/24 10:10 Vital Signs Vital Signs - 24 hr 08/01/24 04:11 08/01/24 04:14 08/01/24 04:15 Temperature 98.1 F Pulse Rate 102 H 100 91 Respiratory Rate 19 25 H 18 Blood Pressure 141/88 H Pulse Oximetry 100 99 100 Oxygen Delivery Room Air 08/01/24 04:30 08/01/24 04:31 08/01/24 04:45 Temperature Pulse Rate 128 H 117 H 93 Respiratory Rate 18 24 H 18 Blood Pressure 138/106 H Pulse Oximetry 100 100 97 Oxygen Delivery 08/01/24 05:00 08/01/24 05:20 08/01/24 07:19 Temperature Pulse Rate 66 73 58 L Respiratory Rate 11 L 13 13 Blood Pressure 108/62 Pulse Oximetry 99 99 100 Oxygen Delivery 08/01/24 07:50 08/01/24 08:04 08/01/24 08:21 Temperature 98 F 97.9 F Pulse Rate 67 82 75 Respiratory Rate 13 12 16 Blood Pressure 108/62 118/72 116/64 Pulse Oximetry 100 100 98 Oxygen Delivery Exam Narrative: GENERAL: The patient is well developed, not in acute distress HEENT: Nonicteric sclerae, PERRLA, EOMI. Oropharynx clear. Moist mucous membranes. Conjunctivae appear well perfused. CHEST: Chest wall is nontender. HEART: Regular rate and rhythm without murmur, rubs, or gallops LUNGS: Clear to auscultation bilaterally. no respiratory distress ABDOMEN: Soft, positive bowel sounds, tender epigastric and right upper quadrant surgical incision sites are clean dry and intact, no organomegaly. SKIN: No rash, no excessive bruising, petechiae, or purpura. NEUROLOGIC: Cranial nerves II-XII intact, alert and oriented x 3, no gross motor deficits EXTREMITIES: no edema, cyanosis or clubbing H&P: Results Labs Labs: Short CBC 08/01/24 Range/Units 04:41 WBC 8.8 (4.5-10.0) K/mm3 Hgb 11.5 L (12.0-15.0) g/dL Hct 36.1 L (37.0-47.0) % Plt Count 379 H D (150-375) k/mm3 BMP 08/01/24 04:41 Sodium 137 Potassium 4.1 Chloride 104 Carbon Dioxide 24 BUN 14 D Creatinine 0.80 Glucose 154 H Calcium 9.2 Liver Function 08/01/24 Range/Units 04:41 Total Bilirubin 1.7 H (0.2-1.3) mg/dL AST 406 H (14-36) U/L ALT 501 H (6-35) U/L Alkaline Phosphatase 561 H (38-126) U/L Albumin 4.6 (3.5-5.1) g/dL Urine 08/01/24 Range/Units 05:19 Urine Color Dark yellow (Yellow) Urine Appearance Cloudy H (Clear) Urine pH 5.5 (5.0-9.0) Ur Specific Crucible 1.019 (1.001-1.035) Urine Protein 1+ H (Negative) mg/dL Urine Glucose (UA) Negative (Negative) mg/dL Assessment and Plan Assessment and plan (1) Dilated cbd, acquired: Code(s): K83.8 - Other specified diseases of biliary tract Status: Acute (2) Epigastric pain: Code(s): R10.13 - Epigastric pain Status: Acute (3) History of laparoscopic cholecystectomy: Code(s): Z90.49 - Acquired absence of other specified parts of digestive tract Status: Acute (4) LFT elevation: Code(s): R79.89 - Other specified abnormal findings of blood chemistry Status: Acute Plan 23-year-old female presenting to the emergency department for evaluation of epigastric abdominal pain. Patient underwent a laparoscopic cholecystectomy procedure at [facility] surgery on 07/13/2024. She presents today as she is having epigastric pain and discomfort as well as nauseousness and vomiting for the last 2-3 days. She states she has been retching and having multiple episodes of emesis that is clear. Denies any chest pain shortness a breath. Endorses but epigastric pain and back pain. States it feels similar to the time she had her gallbladder attacks. Patient denies any history of GERD or any kind of pancreas issues such as pancreatitis or significant drinking history. She denies any new injuries or illnesses. Her surgery was uncomplicated she was discharged home after several days and pain control here in the hospital. Patient otherwise has been recovering well and her port sites are clean, dry, intact without any signs of infection. Line ED evaluation vitals were stable. Laboratory workup revealed elevated AST ALT and alkaline phosphatase T4 106 ALT 501 Gerardo phosphorus 561 with bilirubin total of 1.7. Lipase was normal at 87. Analysis revealed the UTI. CT abdomen pelvis showed no acute abnormality. Mildly dilated common bile duct probably related to prior cholecystectomy. Splenomegaly of uncertain etiology. MRCP has been ordered to further evaluate elevated LFTs GI has been consulted. Place on PPI analgesics and antiemetics remain NPO IV fluids UTI ceftriaxone follow urine culture Recent cholecystectomy Chronic anemia continue to monitor no signs of bleeding DVT Prophylaxis SCDs Code status full code Hospitalist [facility] Advance Care Plan I have confirmed that the patient's Advanced Care Plan is present, code status is documented, or surrogate decision maker is listed in patient medical record.: Yes Medication Reconciliation I have utilized all available resources to obtain, update and review the patients current medications (includes all prescriptions, OTC, herbals, cannabis, and nutritional supplements).: Yes
[2024-08-01 11:48] LABS: Iron 47 ug/dL (37-170)
[2024-08-01 11:59] LABS: Percent Iron Saturation 10 % (20-50)
--- NOTE | 2024-08-01 13:34 | P.CONGS_ITS ---
Assessment and Plan Assessment and plan (1) LFT elevation: Code(s): R79.89 - Other specified abnormal findings of blood chemistry Status: Acute Assessment and Plan: ? CBD stone, agree c MRCP, NPO for now History of Present Illness Consult details Consult date: 08/01/24 Reason for consult: abdominal pain Requesting physician: Abrahna Willis MD Narrative: The patient is a 23-year-old female presenting to the emergency department complaining epigastric right upper quadrant pain. Patient reports the episode started acutely and was severe and constant in nature. She reports associated nausea and bloating. Of note, the patient underwent cholecystectomy on 07/13 for severe cholecystitis, cholelithiasis. Patient reports that she has been having intermittent symptoms since surgery although not as severe or constant. Review of Systems 2 Review of Systems: All systems reviewed & are unremarkable except as noted in HPI and below PMFSH Past Medical History Medical History Intrauterine Morbid obesity with BMI of 40.0-44.9, adult Surgical History Surgical History History of laparoscopic cholecystectomy 07/13/[address] Vanessa Maynard No pertinent past surgical history Family History Family History Father Type 2 diabetes mellitus Mother Anemia Grandparent Type 2 diabetes mellitus Chronic obstructive pulmonary disease Pancreatic cancer Social History Social History Smoking status: Former smoker Second hand tobacco smoke exposure: Yes Additional smoking assessment comments: quit smoking cigarettes; vapes daily Alcohol intake: current Drinks per week: 6 Substance use: never Do You Feel Safe in your Home?: Yes Lack of Transportation: No Lack of Food: Never True Current Housing: I Have Housing Concerned About Future Housing: No Difficulty Paying Gas/Electric Bills: No Difficulty Paying for Meds: No Currently Unemployed: No Education: High School Diploma/GED Difficulty w/ Childcare or Family Care: No Spiritual care concerns: No Meds Home Medications and Allergies Home Medications ?Medication ?Instructions ?Recorded ?Confirmed ?Type No Home Medications 07/20/24 07/20/24 History Allergies Allergy/AdvReac Type Severity Reaction Status Date / Time No Known Allergies Allergy Mild Verified 07/20/24 10:10 Vital Signs Vital Signs - 24 hr 08/01/24 04:11 08/01/24 04:14 08/01/24 04:15 Temperature 36.7 C Pulse Rate 102 H 100 91 Respiratory Rate 19 25 H 18 Blood Pressure 141/88 H Pulse Oximetry 100 99 100 Oxygen Delivery Room Air 08/01/24 04:30 08/01/24 04:31 08/01/24 04:45 Temperature Pulse Rate 128 H 117 H 93 Respiratory Rate 18 24 H 18 Blood Pressure 138/106 H Pulse Oximetry 100 100 97 Oxygen Delivery 08/01/24 05:00 08/01/24 05:20 08/01/24 07:19 Temperature Pulse Rate 66 73 58 L Respiratory Rate 11 L 13 13 Blood Pressure 108/62 Pulse Oximetry 99 99 100 Oxygen Delivery 08/01/24 07:50 08/01/24 08:04 08/01/24 08:21 Temperature 36.6 C 36.6 C Pulse Rate 67 82 75 Respiratory Rate 13 12 16 Blood Pressure 108/62 118/72 116/64 Pulse Oximetry 100 100 98 Oxygen Delivery 08/01/24 09:00 Temperature Pulse Rate Respiratory Rate Blood Pressure Pulse Oximetry Oxygen Delivery Room Air Exam 2 Const: General: cooperative, no acute distress, tired appearing, uncomfortable and obese Resp: Auscultation: clear to auscultation bilaterally Cardio: Rate: regular rate Rhythm: regular rhythm GI: Inspection: normal to inspection, distended and incision GI Palp: Yes abdominal tenderness, Yes Soft to palpation, Yes Tenderness to palpation present (GI), No Guarding due to palpation present (GI) and No Rigid due to palpation Results Labs 08/01/24 04:41 08/01/24 04:41 Labs: Abnormal lab results 08/01/24 08/01/24 08/01/24 Range/Units 04:41 05:19 11:06 Hgb 11.5 L (12.0-15.0) g/dL Hct 36.1 L (37.0-47.0) % MCHC 31.9 L (32-36) g/dl RDW 14.6 H (11.5-14.5) % Plt Count 379 H D (150-375) k/mm3 MPV 12.4 H (7.4-10.4) fl Glucose 154 H (65-110) mg/dL % Saturation 10 L (20-50) % Total Bilirubin 1.7 H (0.2-1.3) mg/dL AST 406 H (14-36) U/L ALT 501 H (6-35) U/L Alkaline Phosphatase 561 H (38-126) U/L Total Protein 9.0 H (6.3-8.2) g/dL Urine Appearance Cloudy H (Clear) Urine Protein 1+ H (Negative) mg/dL Urine Bilirubin 2+ H (Negative) Urine Urobilinogen 4.0 H (<2.0) mg/dL Leukocyte Esterase Rfl 3+ H (Negative) BARBARA/UL Urine RBC 3-5 H (0-2) /hpf Urine WBC >100 H (0-3) /hpf Urine Bacteria 2+ H /hpf Diabetes panel 08/01/24 Range/Units 04:41 Sodium 137 (137-145) mmol/L Potassium 4.1 (3.4-5.0) mmol/L Chloride 104 (98-107) mmol/L Carbon Dioxide 24 (22-30) mmol/L BUN 14 D (7-17) mg/dL Creatinine 0.80 (0.7-1.0) mg/dL Glucose 154 H (65-110) mg/dL Calcium 9.2 (8.4-10.2) mg/dL AST 406 H (14-36) U/L ALT 501 H (6-35) U/L Alkaline Phosphatase 561 H (38-126) U/L Total Protein 9.0 H (6.3-8.2) g/dL Albumin 4.6 (3.5-5.1) g/dL Calcium panel 08/01/24 Range/Units 04:41 Calcium 9.2 (8.4-10.2) mg/dL Albumin 4.6 (3.5-5.1) g/dL Pituitary panel 08/01/24 Range/Units 04:41 Sodium 137 (137-145) mmol/L Potassium 4.1 (3.4-5.0) mmol/L Chloride 104 (98-107) mmol/L Carbon Dioxide 24 (22-30) mmol/L BUN 14 D (7-17) mg/dL Creatinine 0.80 (0.7-1.0) mg/dL Glucose 154 H (65-110) mg/dL Calcium 9.2 (8.4-10.2) mg/dL Adrenal panel 08/01/24 Range/Units 04:41 Sodium 137 (137-145) mmol/L Potassium 4.1 (3.4-5.0) mmol/L Chloride 104 (98-107) mmol/L Carbon Dioxide 24 (22-30) mmol/L BUN 14 D (7-17) mg/dL Creatinine 0.80 (0.7-1.0) mg/dL Glucose 154 H (65-110) mg/dL Calcium 9.2 (8.4-10.2) mg/dL Total Bilirubin 1.7 H (0.2-1.3) mg/dL AST 406 H (14-36) U/L ALT 501 H (6-35) U/L Alkaline Phosphatase 561 H (38-126) U/L Total Protein 9.0 H (6.3-8.2) g/dL Albumin 4.6 (3.5-5.1) g/dL All other labs normal. Imaging Abdomen CT scan report/results: report reviewed and image reviewed
[2024-08-01 13:55] LABS: Hepatitis B Surface Antigen Negative (Negative)
[2024-08-01 14:01] LABS: HAV RESULT Negative (Negative); Hepatitis B Core IgM Result Negative (Negative)
[2024-08-01 14:13] LABS: Hepatitis C Virus Antibody Negative (Negative)
[2024-08-01 16:02] LABS: Folic Acid 11.9 ng/mL (2.76->20)
[2024-08-02] VITALS (11 sets, daily range): BP systolic 103–126; BP diastolic 49–84; PULSE 60–76; RESP 13–25; TEMP 36.3–36.5; O2SAT 97–100
[2024-08-02] MEDS: LACTATED RINGERS 1,000 ML 125 ML IV CONT ×3 (02:02→23:06)
[2024-08-02] MEDS: HYDROmorphone HCL INJ (*CRX) 1 MG/ML SYR 0.5 MG IV PUSH ×4 (05:12→23:08)
[2024-08-02 06:16] LABS: Basophils Percent Auto 0.5 % (0.2-1.2); Eosinophils Absolute Auto 0.1 K/mm3 (0-0.3); Eosinophils Percent Auto 2.8 % (0-4.4); Hemoglobin 9.9 g/dL (12.0-15.0); Immature Granulocyte Absolute 0.01 K/mm3 (0.00-0.031); Immature Granulocyte Percent A 0.2 % (0-0.5); Immature Platelet Fraction Pct 11.1 % (0.9-11.2); Lymphocytes Absolute Auto 1.98 K/mm3 (0.9-3.2); Lymphocytes Percent Auto 46.3 % (18.3-44.2); Mean Corpuscular HGB Conc 30.9 g/dl (32-36); Mean Corpuscular Hemoglobin 27.8 pg (26-34); Mean Corpuscular Volume 89.9 fl (80-100); Mean Platelet Volume 13.4 fl (7.4-10.4); Monocytes Absolute Auto 0.3 K/mm3 (0.1-0.6); Neutrophils Absolute Auto 1.9 K/mm3 (1.3-6.7); Neutrophils Percent Auto 43.2 % (45.5-73.1); Platelet Count Result 216 k/mm3 (150-375); Red Blood Count 3.56 M/mm3 (4.2-5.4); Red Cell Distribution Width 14.6 % (11.5-14.5); White Blood Count 4.3 K/mm3 (4.5-10.0)
[2024-08-02 06:24] LABS: Albumin Level 3.8 g/dL (3.5-5.1); Alkaline Phosphatase 397 U/L (38-126); Anion Gap 4 mmol/L (4-12); Aspartate Amino Transferase 261 U/L (14-36); Blood Urea Nitrogen 8 mg/dL (7-17); Calcium 8.7 mg/dL (8.4-10.2); Carbon Dioxide 27 mmol/L (22-30); Chloride 105 mmol/L (98-107); Estimated CRCL calculation 133 ml/min; Estimated Glomerular Filt Rate > 60; Glucose 89 mg/dL (65-110); Potassium 4.5 mmol/L (3.4-5.0); Sodium 136 mmol/L (137-145)
[2024-08-02 06:34] LABS: Alanine Aminotransferase 428 U/L (6-35)
[2024-08-02] MEDS: LACTATED RINGERS 1,000 ML 150 ML IV CONT (10:36)
--- NOTE | 2024-08-02 10:54 | P.PNAN_ITS ---
Anes - Initial Pre Proc Eval Procedure: Operation Date: 08/02/24 12:00 Proposed Procedures p Endoscopic Retro Cholangiopancreatogram - Juice Castillo MD Date/Time: 08/02/24 10:54 Surgeon: Yasir Gallowya MD Pre Op Diagnosis: Abdominal pain common bile duct dilation LFT eleva Patient Data Age: 23 Gender: F Height: 1.7 m Weight: 101.4 kg Last Vital Signs Temp 36.4 C 08/02/24 10:25 Pulse 68 08/02/24 10:25 Resp 20 08/02/24 10:25 BP 126/59 L 08/02/24 10:25 Pulse Ox 99 08/02/24 10:25 O2 Del Method Room Air 08/02/24 10:25 Allergies Allergy/AdvReac Type Severity Reaction Status Date / Time No Known Allergies Allergy Mild Verified 08/02/24 10:20 Home Medications ?Medication ?Instructions ?Recorded ?Confirmed ?Type No Home Medications 07/20/24 07/20/24 History Laboratory Tests 08/01/24 08/01/24 08/01/24 04:41 11:03 11:06 WBC RBC Hgb Hct MCV MCH MCHC RDW Plt Count MPV Immature Gran % (Auto) Neut % (Auto) Lymph % (Auto) Lanier % (Auto) Eos % (Auto) Baso % (Auto) Lymph # (Auto) Lanier # (Auto) Eos # (Auto) Baso # (Auto) Abs Immat Gran (auto) Absolute Neuts (auto) Absolute Nucleated RBC Nucleated RBC % % Immature Plt Fraction Sodium Potassium Chloride Carbon Dioxide Anion Gap BUN Creatinine Estim Creat Clear Calc Estimated GFR Glucose Calcium Magnesium Iron 47 ug/dL (37-170) TIBC 448 ug/dL (261-462) % Saturation 10 L % (20-50) Ferritin 35.70 ng/mL (6.24-137) Total Bilirubin AST ALT Alkaline Phosphatase Total Protein Albumin Vitamin B12 871.0 pg/mL (239-931) Folate 11.9 ng/mL (2.76->20) Hepatitis A IgM Ab Negative (Negative) Hep Bs Antigen Negative (Negative) Hep B Core IgM Ab Negative (Negative) Hepatitis C Ab Screen Negative (Negative) 08/02/24 05:32 WBC 4.3 L K/mm3 (4.5-10.0) RBC 3.56 L M/mm3 (4.2-5.4) Hgb 9.9 L g/dL (12.0-15.0) Hct 32.0 L % (37.0-47.0) MCV 89.9 fl (80-100) MCH 27.8 pg (26-34) MCHC 30.9 L g/dl (32-36) RDW 14.6 H % (11.5-14.5) Plt Count 216 k/mm3 (150-375) MPV 13.4 H fl (7.4-10.4) Immature Gran % (Auto) 0.2 % (0-0.5) Neut % (Auto) 43.2 L % (45.5-73.1) Lymph % (Auto) 46.3 H % (18.3-44.2) Lanier % (Auto) 7.0 % (2.6-8.5) Eos % (Auto) 2.8 % (0-4.4) Baso % (Auto) 0.5 % (0.2-1.2) Lymph # (Auto) 1.98 K/mm3 (0.9-3.2) Lanier # (Auto) 0.3 K/mm3 (0.1-0.6) Eos # (Auto) 0.1 K/mm3 (0-0.3) Baso # (Auto) 0.0 K/mm3 (0.0-0.1) Abs Immat Gran (auto) 0.01 K/mm3 (0.00-0.031) Absolute Neuts (auto) 1.9 K/mm3 (1.3-6.7) Absolute Nucleated RBC 0.000 K/mm3 (0.0-0.012) Nucleated RBC % 0.0 % (0.0-0.2) % Immature Plt Fraction 11.1 % (0.9-11.2) Sodium 136 L mmol/L (137-145) Potassium 4.5 mmol/L (3.4-5.0) Chloride 105 mmol/L (98-107) Carbon Dioxide 27 mmol/L (22-30) Anion Gap 4 mmol/L (4-12) BUN 8 D mg/dL (7-17) Creatinine 0.70 mg/dL (0.7-1.0) Estim Creat Clear Calc 133 ml/min Estimated GFR > 60 (59 - ) Glucose 89 mg/dL (65-110) Calcium 8.7 mg/dL (8.4-10.2) Magnesium 2.0 mg/dL (1.6-2.3) Iron TIBC % Saturation Ferritin Total Bilirubin 1.0 mg/dL (0.2-1.3) AST 261 H U/L (14-36) ALT 428 H U/L (6-35) Alkaline Phosphatase 397 H U/L (38-126) Total Protein 7.0 g/dL (6.3-8.2) Albumin 3.8 g/dL (3.5-5.1) Vitamin B12 Folate Hepatitis A IgM Ab Hep Bs Antigen Hep B Core IgM Ab Hepatitis C Ab Screen Patient hx anesthesia problems: none Family hx anesthesia problems: none Results Review: All pre-operative results and documents have been reviewed as part of the pre- operative evaluation. [facility] Past Medical History Medical History (Updated 08/02/24 @ 10:54 by Fernando Garcia MD) Obesity Intrauterine Surgical History Surgical History History of laparoscopic cholecystectomy 07/13/[address] Vanessa Maynard No pertinent past surgical history Family History Family History Father Type 2 diabetes mellitus Mother Anemia Grandparent Type 2 diabetes mellitus Chronic obstructive pulmonary disease Pancreatic cancer Social History Social History Smoking status: Former smoker Second hand tobacco smoke exposure: Yes Additional smoking assessment comments: quit smoking cigarettes; vapes daily Alcohol intake: current Drinks per week: 6 Substance use: never Do You Feel Safe in your Home?: Yes Lack of Transportation: No Lack of Food: Never True Current Housing: I Have Housing Concerned About Future Housing: No Difficulty Paying Gas/Electric Bills: No Difficulty Paying for Meds: No Currently Unemployed: No Education: High School Diploma/GED Difficulty w/ Childcare or Family Care: No Spiritual care concerns: No Anes - Eval Final PreProcedure Day of Procedure 08/02/24 10:54 Patient weight: obese Heart: regular rate and rhythm Lungs: clear to auscultation Airway: Mallampati scale class II Neurological: alert and oriented Last oral intake: >/= 8 hours ASA classification: II Emergent: no Anesthetic plan: proceed Anesthesia type and monitoring: general ETT and standard monitoring Results Review: All pre-operative results and documents have been reviewed as part of the pre- operative evaluation. Informed Consent: The patient's anesthetic plan and its attendant risks and benefits were discussed with the patient/family/POA. Questions were solicited and answers provided to the satisfaction of the patient/family/POA.
--- NOTE | 2024-08-02 11:06 | PM.PNGS ---
Progress Note: A&P Assessment and Plan (1) Choledocholithiasis: Code(s): K80.50 - Calculus of bile duct without cholangitis or cholecystitis without obstruction Status: Acute Assessment and Plan: MRCP reviewed, labs and exam improved, ERCP today Subjective Subjective Date/Time Seen: 08/02/24 11:06 Interval history: feels ok, pain improved Review of Systems Review of Systems: All systems reviewed & are unremarkable except as noted in HPI and below Exam Const: General: cooperative, comfortable and no acute distress Resp: Auscultation: clear to auscultation bilaterally Cardio: Rate: regular rate Rhythm: regular rhythm GI: Inspection: normal to inspection and non-distended GI Palp: Yes abdominal tenderness and Yes Soft to palpation Objective Data Vital Signs Vital Signs: Vital Signs - 24 hr 08/01/24 14:00 08/01/24 21:22 08/02/24 05:57 Temperature 36.6 C 36.6 C 36.3 C L Pulse Rate 63 64 75 Respiratory Rate 18 20 20 Blood Pressure 103/63 135/61 123/75 Pulse Oximetry 98 100 100 Oxygen Delivery 08/02/24 08:00 08/02/24 08:32 08/02/24 10:25 Temperature 36.4 C Pulse Rate 68 Respiratory Rate 20 Blood Pressure 126/59 L Pulse Oximetry 100 97 99 Oxygen Delivery Room Air Room Air Room Air Intake/Output Intake/Output: Intake & Output 07/30/24 07/31/24 08/01/24 08/02/24 23:59 23:59 23:59 23:59 Intake Total 2049 Balance 2049 Meds/Results Medications: Active Medications Generic Name Dose Route Start Last Admin Trade Name Freq PRN Reason Stop Dose Admin Acetaminophen 650 mg 08/01/24 07:19 Acetaminophen 325 Mg Tablet PO Q4H PRN Mild Pain (1-3) or Fever Hydrocodone Bitart/Acetaminophen 1 tab 08/01/24 07:19 Hydrocodone/Acetaminophen (*Crx) 5-325 Mg Tablet PO Q4H PRN Pain Rated 4-6 Hydromorphone HCl 0.5 mg 08/01/24 07:19 08/02/24 08:44 Hydromorphone Hcl Inj (*Crx) 1 Mg/Ml Syr IV PUSH 0.5 mg Q4H PRN Administration Pain Rated 7-10 Lactated Ringer's 1,000 mls @ 125 mls/hr 08/01/24 07:30 08/02/24 02:02 Lr - Lactated Ringers Iv IV CONT 125 mls/hr .Q8H ARIELA Administration Ceftriaxone Sodium 1 gm in 50 mls @ 100 mls/hr 08/02/24 09:00 08/02/24 08:44 Rocephin 1 Gm/Ns 50 Ml IVPB 100 mls/hr Q24H ARIELA Administration Lactated Ringer's 1,000 mls @ 150 mls/hr 08/02/24 10:25 08/02/24 10:36 Lr - Lactated Ringers Iv IV CONT 150 mls/hr .Q6H40M ARIELA Administration Ketorolac Tromethamine 30 mg 08/01/24 07:19 Ketorolac 30 Mg/Ml Vial (*Bkc) IV PUSH 08/06/24 07:18 Q6H PRN Pain Rated 4-6 Ondansetron HCl 4 mg 08/01/24 07:19 Ondansetron Inj 4 Mg/2 Ml Vial IV PUSH Q4H PRN Nausea Radiology Results: ITS Impressions Abdomen/Pelvis CT 08/01/24 06:23 Impression: No acute abnormality. Mildly dilated common bile duct is probably related to prior cholecystectomy. Splenomegaly, of uncertain etiology. MRCP 08/02/24 08:42 IMPRESSION: 1. 6 mm, mobile and likely intermittently obstructing gallstone within the common bile duct with dilation of the common hepatic duct to 9 mm. Labs Labs: Laboratory Results - last 24 hr 08/01/24 08/01/24 08/01/24 04:41 11:03 11:06 WBC RBC Hgb Hct MCV MCH MCHC RDW Plt Count MPV Immature Gran % (Auto) Neut % (Auto) Lymph % (Auto) [place] % (Auto) Eos % (Auto) Baso % (Auto) Lymph # (Auto) [place] # (Auto) Eos # (Auto) Baso # (Auto) Abs Immat Gran (auto) Absolute Neuts (auto) Absolute Nucleated RBC Nucleated RBC % % Immature Plt Fraction Sodium Potassium Chloride Carbon Dioxide Anion Gap BUN Creatinine Estim Creat Clear Calc Estimated GFR Glucose Calcium Magnesium Iron 47 TIBC 448 % Saturation 10 L Ferritin 35.70 Total Bilirubin AST ALT Alkaline Phosphatase Total Protein Albumin Vitamin B12 871.0 Folate 11.9 Hepatitis A IgM Ab Negative Hep Bs Antigen Negative Hep B Core IgM Ab Negative Hepatitis C Ab Screen Negative 08/02/24 05:32 WBC 4.3 L RBC 3.56 L Hgb 9.9 L Hct 32.0 L MCV 89.9 MCH 27.8 MCHC 30.9 L RDW 14.6 H Plt Count 216 MPV 13.4 H Immature Gran % (Auto) 0.2 Neut % (Auto) 43.2 L Lymph % (Auto) 46.3 H [place] % (Auto) 7.0 Eos % (Auto) 2.8 Baso % (Auto) 0.5 Lymph # (Auto) 1.98 [place] # (Auto) 0.3 Eos # (Auto) 0.1 Baso # (Auto) 0.0 Abs Immat Gran (auto) 0.01 Absolute Neuts (auto) 1.9 Absolute Nucleated RBC 0.000 Nucleated RBC % 0.0 % Immature Plt Fraction 11.1 Sodium 136 L Potassium 4.5 Chloride 105 Carbon Dioxide 27 Anion Gap 4 BUN 8 D Creatinine 0.70 Estim Creat Clear Calc 133 Estimated GFR > 60 Glucose 89 Calcium 8.7 Magnesium 2.0 Iron TIBC % Saturation Ferritin Total Bilirubin 1.0 AST 261 H ALT 428 H Alkaline Phosphatase 397 H Total Protein 7.0 Albumin 3.8 Vitamin B12 Folate Hepatitis A IgM Ab Hep Bs Antigen Hep B Core IgM Ab Hepatitis C Ab Screen
[2024-08-02] MEDS: INDOMETHACIN 50 MG SUPP.RECT RECTAL (11:47)
--- NOTE | 2024-08-02 15:15 | PM.IMPN ---
Progress Note: A&P Assessment and Plan (1) Dilated cbd, acquired: Code(s): K83.8 - Other specified diseases of biliary tract Status: Acute (2) Epigastric pain: Code(s): R10.13 - Epigastric pain Status: Acute (3) History of laparoscopic cholecystectomy: Code(s): Z90.49 - Acquired absence of other specified parts of digestive tract Status: Acute (4) LFT elevation: Code(s): R79.89 - Other specified abnormal findings of blood chemistry Status: Acute Plan 23-year-old female presenting to the emergency department for evaluation of epigastric abdominal pain. Patient underwent a laparoscopic cholecystectomy procedure at [facility] on 07/13/2024. She presents today as she is having epigastric pain and discomfort as well as nauseousness and vomiting for the last 2-3 days. She states she has been retching and having multiple episodes of emesis that is clear. Denies any chest pain shortness a breath. Endorses but epigastric pain and back pain. States it feels similar to the time she had her gallbladder attacks. Patient denies any history of GERD or any kind of pancreas issues such as pancreatitis or significant drinking history. She denies any new injuries or illnesses. Her surgery was uncomplicated she was discharged home after several days and pain control here in the hospital. Patient otherwise has been recovering well and her port sites are clean, dry, intact without any signs of infection. Line ED evaluation vitals were stable. Laboratory workup revealed elevated AST ALT and alkaline phosphatase T4 106 ALT 501 Gerardo phosphorus 561 with bilirubin total of 1.7. Lipase was normal at 87. Analysis revealed the UTI. CT abdomen pelvis showed no acute abnormality. Mildly dilated common bile duct probably related to prior cholecystectomy. Splenomegaly of uncertain etiology. MRCP revealed 6 mm mobile and likely into obstructing gallstone within the common bile duct with dilatation of the common hepatic duct to 9 mm. She underwent ERCP with findings of stone impacted within the major papilla S. speaking to her tummy was performed. Stone extraction was performed. UTI ceftriaxone follow urine culture which is growing E coli sensitivity pending Recent cholecystectomy Chronic anemia continue to monitor no signs of bleeding DVT Prophylaxis SCDs Code status full code Subjective Date/time seen: 08/02/24 15:15 Interval history: She is seen after ERCP. Doing well. Eating well. No abdominal pain nausea vomiting Review of Systems Review of Systems: All systems reviewed & are unremarkable except as noted in HPI and below Exam Narrative: GENERAL: The patient is well developed, not in acute distress HEENT: Nonicteric sclerae, PERRLA, EOMI. Oropharynx clear. Moist mucous membranes. Conjunctivae appear well perfused. CHEST: Chest wall is nontender. HEART: Regular rate and rhythm without murmur, rubs, or gallops LUNGS: Clear to auscultation bilaterally. no respiratory distress ABDOMEN: Soft, positive bowel sounds, nontender, surgical incision sites are clean dry and intact, no organomegaly. SKIN: No rash, no excessive bruising, petechiae, or purpura. NEUROLOGIC: Cranial nerves II-XII intact, alert and oriented x 3, no gross motor deficits EXTREMITIES: no edema, cyanosis or clubbing Objective Data Vital Signs Vital Signs: Vital Signs - 24 hr 08/01/24 21:22 08/02/24 05:57 08/02/24 08:00 Temperature 97.9 F 97.4 F L Pulse Rate 64 75 Respiratory Rate 20 20 Blood Pressure 135/61 123/75 Pulse Oximetry 100 100 100 Oxygen Delivery Room Air 08/02/24 08:32 08/02/24 10:25 08/02/24 12:11 Temperature 97.6 F 97.3 F L Pulse Rate 68 60 Respiratory Rate 20 13 Blood Pressure 126/59 L 103/49 L Pulse Oximetry 97 99 100 Oxygen Delivery Room Air Room Air Room Air 08/02/24 12:21 08/02/24 12:31 08/02/24 12:41 Temperature Pulse Rate 71 71 69 Respiratory Rate 25 H 20 22 H Blood Pressure 108/84 114/69 104/61 Pulse Oximetry 100 100 100 Oxygen Delivery Room Air Room Air Room Air 08/02/24 12:51 08/02/24 13:01 Temperature Pulse Rate 62 61 Respiratory Rate 23 H 23 H Blood Pressure 112/73 117/60 Pulse Oximetry 100 100 Oxygen Delivery Room Air Room Air Intake/Output Intake/Output: Intake & Output 07/30/24 07/31/24 08/01/24 08/02/24 23:59 23:59 23:59 23:59 Intake Total 2049 999 Balance 2049 999 Meds/Results Medications: Active Medications Generic Name Dose Route Start Last Admin Trade Name Freq PRN Reason Stop Dose Admin Acetaminophen 650 mg 08/01/24 07:19 Acetaminophen 325 Mg Tablet PO Q4H PRN Mild Pain (1-3) or Fever Hydrocodone Bitart/Acetaminophen 1 tab 08/01/24 07:19 Hydrocodone/Acetaminophen (*Crx) 5-325 Mg Tablet PO Q4H PRN Pain Rated 4-6 Hydromorphone HCl 0.5 mg 08/01/24 07:19 08/02/24 13:26 Hydromorphone Hcl Inj (*Crx) 1 Mg/Ml Syr IV PUSH 0.5 mg Q4H PRN Administration Pain Rated 7-10 Lactated Ringer's 1,000 mls @ 125 mls/hr 08/01/24 07:30 08/02/24 14:02 Lr - Lactated Ringers Iv IV CONT Not Given .Q8H ARIELA Ceftriaxone Sodium 1 gm in 50 mls @ 100 mls/hr 08/02/24 09:00 08/02/24 08:44 Rocephin 1 Gm/Ns 50 Ml IVPB 100 mls/hr Q24H ARIELA Administration Ketorolac Tromethamine 30 mg 08/01/24 07:19 Ketorolac 30 Mg/Ml Vial (*Bkc) IV PUSH 08/06/24 07:18 Q6H PRN Pain Rated 4-6 Ondansetron HCl 4 mg 08/01/24 07:19 Ondansetron Inj 4 Mg/2 Ml Vial IV PUSH Q4H PRN Nausea Radiology Results: ITS Impressions Abdomen/Pelvis CT 08/01/24 06:23 Impression: No acute abnormality. Mildly dilated common bile duct is probably related to prior cholecystectomy. Splenomegaly, of uncertain etiology. MRCP 08/02/24 08:42 IMPRESSION: 1. 6 mm, mobile and likely intermittently obstructing gallstone within the common bile duct with dilation of the common hepatic duct to 9 mm. Labs Labs: Laboratory Results - last 24 hr 08/01/24 08/02/24 04:41 05:32 WBC 4.3 L RBC 3.56 L Hgb 9.9 L Hct 32.0 L MCV 89.9 MCH 27.8 MCHC 30.9 L RDW 14.6 H Plt Count 216 MPV 13.4 H Immature Gran % (Auto) 0.2 Neut % (Auto) 43.2 L Lymph % (Auto) 46.3 H [place] % (Auto) 7.0 Eos % (Auto) 2.8 Baso % (Auto) 0.5 Lymph # (Auto) 1.98 [place] # (Auto) 0.3 Eos # (Auto) 0.1 Baso # (Auto) 0.0 Abs Immat Gran (auto) 0.01 Absolute Neuts (auto) 1.9 Absolute Nucleated RBC 0.000 Nucleated RBC % 0.0 % Immature Plt Fraction 11.1 Sodium 136 L Potassium 4.5 Chloride 105 Carbon Dioxide 27 Anion Gap 4 BUN 8 D Creatinine 0.70 Estim Creat Clear Calc 133 Estimated GFR > 60 Glucose 89 Calcium 8.7 Magnesium 2.0 Total Bilirubin 1.0 AST 261 H ALT 428 H Alkaline Phosphatase 397 H Total Protein 7.0 Albumin 3.8 Vitamin B12 871.0 Folate 11.9
[2024-08-03 06:07] VITALS: BP 130/68; PULSE 67; RESP 20; TEMP 36.4; O2SAT 99
[2024-08-03 07:10] LABS: Basophils Percent Auto 0.5 % (0.2-1.2); Eosinophils Absolute Auto 0.1 K/mm3 (0-0.3); Eosinophils Percent Auto 2.3 % (0-4.4); Hematocrit 30.2 % (37.0-47.0); Hemoglobin 9.4 g/dL (12.0-15.0); Immature Granulocyte Absolute 0.01 K/mm3 (0.00-0.031); Immature Granulocyte Percent A 0.3 % (0-0.5); Immature Platelet Fraction Pct 8.4 % (0.9-11.2); Lymphocytes Absolute Auto 2.03 K/mm3 (0.9-3.2); Lymphocytes Percent Auto 51.8 % (18.3-44.2); Mean Corpuscular HGB Conc 31.1 g/dl (32-36); Mean Corpuscular Hemoglobin 27.6 pg (26-34); Mean Corpuscular Volume 88.6 fl (80-100); Mean Platelet Volume 12.9 fl (7.4-10.4); Monocytes Absolute Auto 0.3 K/mm3 (0.1-0.6); Monocytes Percent Auto 7.4 % (2.6-8.5); Neutrophils Absolute Auto 1.5 K/mm3 (1.3-6.7); Neutrophils Percent Auto 37.7 % (45.5-73.1); Platelet Count Result 233 k/mm3 (150-375); Red Blood Count 3.41 M/mm3 (4.2-5.4); Red Cell Distribution Width 14.5 % (11.5-14.5); White Blood Count 3.9 K/mm3 (4.5-10.0)
[2024-08-03 07:15] LABS: Alanine Aminotransferase 286 U/L (6-35); Albumin Level 3.7 g/dL (3.5-5.1); Alkaline Phosphatase 295 U/L (38-126); Anion Gap 6 mmol/L (4-12); Aspartate Amino Transferase 110 U/L (14-36); Bilirubin,Total 0.6 mg/dL (0.2-1.3); Blood Urea Nitrogen 6 mg/dL (7-17); Calcium 8.9 mg/dL (8.4-10.2); Carbon Dioxide 28 mmol/L (22-30); Chloride 104 mmol/L (98-107); Estimated CRCL calculation 133 ml/min; Estimated Glomerular Filt Rate > 60; Glucose 85 mg/dL (65-110); Magnesium 1.8 mg/dL (1.6-2.3); Sodium 138 mmol/L (137-145)
[2024-08-03] MEDS: LACTATED RINGERS 1,000 ML 125 ML IV CONT (07:28)
[2024-08-03 08:00] VITALS: O2SAT 99
[2024-08-03] MEDS: SULFAMETHOXAZOLE/TRIMETHOPRIM 800/160 MG DS TABLET 1 TAB PO (08:50)
--- NOTE | 2024-08-03 11:29 | P.PNGS_ITS ---
Progress Note: A&P Assessment and Plan (1) Choledocholithiasis: Code(s): K80.50 - Calculus of bile duct without cholangitis or cholecystitis without obstruction Status: Acute Assessment and Plan: s/p removal and ERCP, doing well, ok to dc home from surgical standpoint, f/u prn Subjective Subjective Date/Time Seen: 08/03/24 11:29 Interval history: feels much better, [place] diet, no further pain Review of Systems Review of Systems: All systems reviewed & are unremarkable except as noted in HPI and below Exam Const: General: cooperative, comfortable and no acute distress Resp: Auscultation: clear to auscultation bilaterally Cardio: Rate: regular rate Rhythm: regular rhythm GI: Inspection: normal to inspection Objective Data Vital Signs Vital Signs: Vital Signs - 24 hr 08/02/24 12:11 08/02/24 12:21 08/02/24 12:31 Temperature 36.3 C L Pulse Rate 60 71 71 Respiratory Rate 13 25 H 20 Blood Pressure 103/49 L 108/84 114/69 Pulse Oximetry 100 100 100 Oxygen Delivery Room Air Room Air Room Air 08/02/24 12:41 08/02/24 12:51 08/02/24 13:01 Temperature Pulse Rate 69 62 61 Respiratory Rate 22 H 23 H 23 H Blood Pressure 104/61 112/73 117/60 Pulse Oximetry 100 100 100 Oxygen Delivery Room Air Room Air Room Air 08/02/24 22:06 08/03/24 06:07 08/03/24 08:00 Temperature 36.5 C 36.4 C Pulse Rate 76 67 Respiratory Rate 20 20 Blood Pressure 110/66 130/68 Pulse Oximetry 100 99 99 Oxygen Delivery Room Air Intake/Output Intake/Output: Intake & Output 07/31/24 08/01/24 08/02/24 08/03/24 23:59 23:59 23:59 23:59 Intake Total 2049 3459 1736 Output Total Balance 20499 1736 Meds/Results Medications: Active Medications Generic Name Dose Route Start Last Admin Trade Name Freq PRN Reason Stop Dose Admin Acetaminophen 650 mg 08/01/24 07:19 Acetaminophen 325 Mg Tablet PO Q4H PRN Mild Pain (1-3) or Fever Hydrocodone Bitart/Acetaminophen 1 tab 08/01/24 07:19 Hydrocodone/Acetaminophen (*Crx) 5-325 Mg Tablet PO Q4H PRN Pain Rated 4-6 Hydromorphone HCl 0.5 mg 08/01/24 07:19 08/02/24 23:08 Hydromorphone Hcl Inj (*Crx) 1 Mg/Ml Syr IV PUSH 0.5 mg Q4H PRN Administration Pain Rated 7-10 Ondansetron HCl 4 mg 08/01/24 07:19 Ondansetron Inj 4 Mg/2 Ml Vial IV PUSH Q4H PRN Nausea Trimethoprim/Sulfamethoxazole 1 tab 08/03/24 09:00 08/03/24 08:50 Sulfamethoxazole/Trimethoprim 800/160 Mg Ds Tablet PO 08/05/24 21:01 1 tab Q12HR ARIELA Administration Radiology Results: ITS Impressions Abdomen/Pelvis CT 08/01/24 06:23 Impression: No acute abnormality. Mildly dilated common bile duct is probably related to prior cholecystectomy. Splenomegaly, of uncertain etiology. MRCP 08/02/24 08:42 IMPRESSION: 1. 6 mm, mobile and likely intermittently obstructing gallstone within the common bile duct with dilation of the common hepatic duct to 9 mm. Endo Retro Cholangiopancreatogram 08/02/24 15:49 IMPRESSION: 1. Balloon sweeping of the common duct. Please refer to the ERCP procedure note for additional details. Labs Labs: Laboratory Results - last 24 hr 08/03/24 05:51 WBC 3.9 L RBC 3.41 L Hgb 9.4 L Hct 30.2 L MCV 88.6 MCH 27.6 MCHC 31.1 L RDW 14.5 Plt Count 233 MPV 12.9 H Immature Gran % (Auto) 0.3 Neut % (Auto) 37.7 L Lymph % (Auto) 51.8 H [place] % (Auto) 7.4 Eos % (Auto) 2.3 Baso % (Auto) 0.5 Lymph # (Auto) 2.03 [place] # (Auto) 0.3 Eos # (Auto) 0.1 Baso # (Auto) 0.0 Abs Immat Gran (auto) 0.01 Absolute Neuts (auto) 1.5 Absolute Nucleated RBC 0.000 Nucleated RBC % 0.0 % Immature Plt Fraction 8.4 Sodium 138 Potassium 4.0 Chloride 104 Carbon Dioxide 28 Anion Gap 6 BUN 6 L Creatinine 0.70 Estim Creat Clear Calc 133 Estimated GFR > 60 Glucose 85 Calcium 8.9 Magnesium 1.8 Total Bilirubin 0.6 AST 110 H ALT 286 H Alkaline Phosphatase 295 H Total Protein 7.0 Albumin 3.7
--- NOTE | 2024-08-03 12:16 | WPDGIPROGNO ---
Progress Note: A&P Assessment and Plan (1) Choledocholithiasis: Code(s): K80.50 - Calculus of bile duct without cholangitis or cholecystitis without obstruction Status: Acute Assessment and Plan: treated with ercp, no complications liver enzymes already trending down, this can be checked again by pcp in few more weeks, if remain elevated then we can see her again in office she can go home, low fat diet (2) Right upper quadrant abdominal pain: Code(s): R10.11 - Right upper quadrant pain Status: Acute Assessment and Plan: resolved (3) LFT elevation: Code(s): R79.89 - Other specified abnormal findings of blood chemistry Status: Acute Subjective Date/time seen: 08/03/24 12:16 Interval history: ercp with successful removal of stone, she denies any more pain and tolerated diet she is ready to go home later today Review of Systems Review of Systems: All systems reviewed & are unremarkable except as noted in HPI and below Exam Const: General: comfortable and no acute distress HENMT: Face/Nose/Sinus: Normal nares present Eyes: General: appearance normal, both eyes and all related structures Neck: Neck: no JVD Resp: Auscultation: clear to auscultation bilaterally Cardio: Rate: regular rate Rhythm: regular rhythm GI: Inspection: non-distended GI Palp: Yes Soft to palpation and No Tenderness to palpation present (GI) Auscultation: normal bowel sounds Skin: General skin exam: normal color Neuro: Speech: normal speech Motor exam (neuro): 5/5 motor strength present throughout Extrem: General: normal to inspection Psych: Mental Status: mental status grossly normal Objective Data Vital Signs Vital Signs: Vital Signs - 24 hr 08/02/24 12:21 08/02/24 12:31 08/02/24 12:41 Temperature Pulse Rate 71 71 69 Respiratory Rate 25 H 20 22 H Blood Pressure 108/84 114/69 104/61 Pulse Oximetry 100 100 100 Oxygen Delivery Room Air Room Air Room Air 08/02/24 12:51 08/02/24 13:01 08/02/24 22:06 Temperature 97.7 F Pulse Rate 62 61 76 Respiratory Rate 23 H 23 H 20 Blood Pressure 112/73 117/60 110/66 Pulse Oximetry 100 100 100 Oxygen Delivery Room Air Room Air 08/03/24 06:07 08/03/24 08:00 Temperature 97.6 F Pulse Rate 67 Respiratory Rate 20 Blood Pressure 130/68 Pulse Oximetry 99 99 Oxygen Delivery Room Air Intake/Output Intake/Output: Intake & Output 07/31/24 08/01/24 08/02/24 08/03/24 23:59 23:59 23:59 23:59 Intake Total 2049 3460 1736 Output Total 1 Balance 2049 3459 1736 Meds/Results Medications: Active Medications Generic Name Dose Route Start Last Admin Trade Name Freq PRN Reason Stop Dose Admin Acetaminophen 650 mg 08/01/24 07:19 Acetaminophen 325 Mg Tablet PO Q4H PRN Mild Pain (1-3) or Fever Hydrocodone Bitart/Acetaminophen 1 tab 08/01/24 07:19 Hydrocodone/Acetaminophen (*Crx) 5-325 Mg Tablet PO Q4H PRN Pain Rated 4-6 Hydromorphone HCl 0.5 mg 08/01/24 07:19 08/02/24 23:08 Hydromorphone Hcl Inj (*Crx) 1 Mg/Ml Syr IV PUSH 0.5 mg Q4H PRN Administration Pain Rated 7-10 Ondansetron HCl 4 mg 08/01/24 07:19 Ondansetron Inj 4 Mg/2 Ml Vial IV PUSH Q4H PRN Nausea Trimethoprim/Sulfamethoxazole 1 tab 08/03/24 09:00 08/03/24 08:50 Sulfamethoxazole/Trimethoprim 800/160 Mg Ds Tablet PO 08/05/24 21:01 1 tab Q12HR ARIELA Administration Radiology Results: ITS Impressions Abdomen/Pelvis CT 08/01/24 06:23 Impression: No acute abnormality. Mildly dilated common bile duct is probably related to prior cholecystectomy. Splenomegaly, of uncertain etiology. MRCP 08/02/24 08:42 IMPRESSION: 1. 6 mm, mobile and likely intermittently obstructing gallstone within the common bile duct with dilation of the common hepatic duct to 9 mm. Endo Retro Cholangiopancreatogram 08/02/24 15:49 IMPRESSION: 1. Balloon sweeping of the common duct. Please refer to the ERCP procedure note for additional details. Labs Labs: Laboratory Results - last 24 hr 08/03/24 05:51 WBC 3.9 L RBC 3.41 L Hgb 9.4 L Hct 30.2 L MCV 88.6 MCH 27.6 MCHC 31.1 L RDW 14.5 Plt Count 233 MPV 12.9 H Immature Gran % (Auto) 0.3 Neut % (Auto) 37.7 L Lymph % (Auto) 51.8 H [place] % (Auto) 7.4 Eos % (Auto) 2.3 Baso % (Auto) 0.5 Lymph # (Auto) 2.03 [place] # (Auto) 0.3 Eos # (Auto) 0.1 Baso # (Auto) 0.0 Abs Immat Gran (auto) 0.01 Absolute Neuts (auto) 1.5 Absolute Nucleated RBC 0.000 Nucleated RBC % 0.0 % Immature Plt Fraction 8.4 Sodium 138 Potassium 4.0 Chloride 104 Carbon Dioxide 28 Anion Gap 6 BUN 6 L Creatinine 0.70 Estim Creat Clear Calc 133 Estimated GFR > 60 Glucose 85 Calcium 8.9 Magnesium 1.8 Total Bilirubin 0.6 AST 110 H ALT 286 H Alkaline Phosphatase 295 H Total Protein 7.0 Albumin 3.7
--- NOTE | 2024-08-03 13:18 | P.DS_ITS ---
DS: Admitting Diagnosis Discharge Date 08/03/24 Admitting Diagnosis Abdominal pain. DS: Discharge Diagnosis Discharge Diagnosis (1) Choledocholithiasis: Code(s): K80.50 - Calculus of bile duct without cholangitis or cholecystitis without obstruction Status: Acute (2) Dilated cbd, acquired: Code(s): K83.8 - Other specified diseases of biliary tract Status: Acute (3) Epigastric pain: Code(s): R10.13 - Epigastric pain Status: Acute (4) History of laparoscopic cholecystectomy: Code(s): Z90.49 - Acquired absence of other specified parts of digestive tract Status: Acute (5) LFT elevation: Code(s): R79.89 - Other specified abnormal findings of blood chemistry Status: Acute (6) Leukopenia: Code(s): D72.819 - Decreased white blood cell count, unspecified Status: Acute (7) Chronic anemia: Code(s): D64.9 - Anemia, unspecified Status: Acute (8) Splenomegaly: Code(s): R16.1 - Splenomegaly, not elsewhere classified Status: Acute DS: Summary Hospital Course Reason for hospitalization: 23yo healthy female who is s/p laparoscopic cholecystectomy that presented to the emergency department for evaluation of epigastric abdominal pain. Please see H&P for details. Hospital Course: In the ED, her vital signs were stable. Laboratory workup revealed elevated AST, ALT, TBili and alkaline phosphatase. Lipase was normal. UA was concerning for UTI and UCx grew EColi that was relatively samuel-sensitive. Glucose was elevated but normal on re-check so probably related to stress response. Bedside test was negative. CT abdomen pelvis showed no acute abnormality but with a mildly dilated common bile duct and splenomegaly of uncertain etiology. No lymphadenopathy noted. CBC was normal except for anemia with Hgb 11.5. WBC was normal with normal differential but repeat values showing leukopenia with rightward shift. Monospot negative. Hepatitis panel negative. B12 and folate levels normal. Iron studies showing normal iron and TIBC but with low saturation at 10% with ferritin low-normal at 36. MRCP revealed 6 mm mobile and likely intermittently obstructing gallstone within the common bile duct with dilatation of the common hepatic duct to 9 mm. She underwent ERCP with findings of stone impacted within the major papilla and noted was edematous. A sphincterotomy was performed and bile duct was dilated. Stones were present in the CBD and were extracted with balloon catheter. Cholangiogram showed no more stones and no bile duct leak. She toelrated the procedure well. She was treated with ceftriaxone for the UTI and changed to oral abx once sensitivities known. She was tolerating a low-fat diet. She did well and was able to be discharged home on 08/03/24. Status at Discharge Cognitive/behavioral status at discharge: stable. Time Spent with Patient Time attestation: Total time spent providing and/or coordinating discharge services: 34 minutes Time spent: Greater than 30 minutes Exam Narrative: AF 97.6 130/68 67 20 99% ra Gen - NARD Chest - CTA bilaterally, nml RR CV - RRR S1/S2 Abd - Soft, NT/ND, Positive BS, No HSM Ext - No pedal edema Neuro - Alert and oriented. Nonfocal exam. Psych - Nml mood and affect Skin - Warm and dry DS: Data Data Completed and Pending Labs on day of discharge: Labs from last 24 hours 08/03/24 05:51 WBC 3.9 L RBC 3.41 L Hgb 9.4 L Hct 30.2 L MCV 88.6 MCH 27.6 MCHC 31.1 L RDW 14.5 Plt Count 233 MPV 12.9 H Immature Gran % (Auto) 0.3 Neut % (Auto) 37.7 L Lymph % (Auto) 51.8 H [place] % (Auto) 7.4 Eos % (Auto) 2.3 Baso % (Auto) 0.5 Lymph # (Auto) 2.03 [place] # (Auto) 0.3 Eos # (Auto) 0.1 Baso # (Auto) 0.0 Abs Immat Gran (auto) 0.01 Absolute Neuts (auto) 1.5 Absolute Nucleated RBC 0.000 Nucleated RBC % 0.0 % Immature Plt Fraction 8.4 Sodium 138 Potassium 4.0 Chloride 104 Carbon Dioxide 28 Anion Gap 6 BUN 6 L Creatinine 0.70 Estim Creat Clear Calc 133 Estimated GFR > 60 Glucose 85 Calcium 8.9 Magnesium 1.8 Total Bilirubin 0.6 AST 110 H ALT 286 H Alkaline Phosphatase 295 H Total Protein 7.0 Albumin 3.7 Discharge Plan Discharge Attending physician on discharge: Steve Alvarez Consulting providers: Juice Castillo Discharging Clinician: Steve Alvarez Anticipated Discharge Date/Time: 08/03/24 13:37 Patient Disposition: Home, Self-Care Activity: as tolerated and other - see discharge instructions Diet: low fat Discharge Instructions: Do not participate in high intensity physical activity until seen by your doctor Please complete your antibiotic course even if you are starting to feel well. Contact your doctor or call 911 and come to the Emergency Room if you have abdominal pain, fevers or other worrisome symptoms. Follow-up with your primary care provider in 1-2 weeks. Please call for appointment. -- Talk with your doctor about having a repeat scan to assess the size of the spleen Thank you for using [facility] for your health care needs. Patient Instructions: Antibiotic Form Patient Language: Maori Stand Alone Forms: General Discharge Information, Work/School Release IP Follow-up/Referrals: UNKNOWN,DOCTOR [Primary Care Provider] - Discharge Medications: New ferrous sulfate 325 mg (65 mg iron) tablet 325 mg PO DAILY Qty: 30 0RF ciprofloxacin HCl 250 mg tablet 250 mg PO Q12H Qty: 5 0RF Continued No Home Medications Other Ambulatory Orders: Complete Blood Count with Diff (Routine) Timeframe: 2 Weeks Location: Determined by Patient Ordered By: Steve Alvarez Comprehensive Metabolic Panel (Routine) Timeframe: 2 Weeks Location: Determined by Patient Ordered By: Steve Alvarez Date of admission: 08/01/24 07:26 Primary Care Provider: UNKNOWN,DOCTOR Admitting Provider: Yasir Galloway Attending physician on admission: Yasir Galloway Condition: Stable Hospitalist MIPS Heart Failure (Exclusion) Patient has history of Heart Transplant or Left Ventricular Assistive Device?: No IF YES, STOP HERE Heart Failure (Qualifier) Patient has current or prior documentation of LVEF less than or equal to 40%, or mod/servere depressed LVSF?: No IF NO, STOP HERE
[2024-08-03 13:43] LABS: Monoscreen Negative (Negative); Negative Monotest Control Negative (Negative); Positive Monotest Control Positive (Positive)
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
--- OUTSIDE RECORDS SUMMARY | 2024-08-06 11:50 | XMS_ITS | Encounter Summary ---
Author Organization [facility] Address [address] [place] [address] Care Team Providers Care Electrical Calibrator Name Role Phone Mamie Hill MD Primary Care Provider [phone] Chrissie Dos Santos RN Unavailable Unavailable Reason for Visit * Reason Comments Initial Visit Encounter Details Date Type Department Care Team (Late st Contact Info) Description 10/19/2020 1:30 PM REFERRAL SPECIALIST visit [facility] Medical [facility] - DIRECTOR MOBILE [address] [place] [address] Hilary Brizuela DO [address] [place] [id number] GA: 12w0d Social History Tobacco Use Types Packs/Day Years Used Date Smoking Tobacco: Former Cigarettes 0.5 10.1 S tarted: 06/2014 Smokeless Tobacco: Never Comments:quit with Alcohol Use Standard Drinks/Week Comments No 0 (1 standard drink = 0.6 oz pur e alcohol) Comments Yes Sex and Gender Information Value Date Recorded Sex Assigned at Not on file Gender Identity Not on file Sexual Orientation Not on file COVID-19 Exposure Response Date Recorded In the last month, have you been in contact with someone who was confirmed or suspected to have Coronavirus / COVID-19? No / Unsure 10/19/2020 1:25 PM REFERRAL SPECIALIST documented as of this encounter Last Filed Vital Signs Vital Sign Reading Time Taken Comments Blood Pressure 120/70 10/19/2020 1:32 PM REFERRAL SPECIALIST Pulse - - Temperature - - Respiratory Rate - - Oxygen Saturation - - Inhaled Oxygen Concentration - - Weight 102.5 kg (226 lb) 10/19/2020 1:32 PM REFERRAL SPECIALIST Height - - Body Mass Index 35.4 09/21/2020 11:07 AM REFERRAL SPECIALIST documented in this encounter Progress Notes * Hilary Brizuela DO - 10/19/2020 1:46 PM CST ROUTINE CARE : Baby active, doing well. NO VB, LOF or cramping. lab - wnl Dizzy spell - while standing more than 30 min, supportive care RRAL SPECIALIST documented in this encounter Plan of Treatment Not on file documented as of this encounter Visit Diagnoses Diagnosis Obesity affecting , antepartum (HCC)- Primary 12 weeks gestation of (HCC) state, incidental Supervision of normal first , antepartum (HCC) documented in this encounter Care Teams Electrical Calibrator Relationship Specialty Start Date End Date Mamie Hill MD [address] [place] [address] PCP - General Family Medicine 12/09/18 Chrissie Dos Santos, RN Registered Nurse 04/15/19 documented as of this encounter
--- OUTSIDE RECORDS SUMMARY | 2024-08-06 11:50 | XMS_ITS | Encounter Summary ---
Author Organization [facility] Address [address] [facility] [place] [address] Care Team Providers Care Quality Assurance Practice Manager Name Role Phone Mamie Hill MD Primary Care Provider [phone] Chrissie Dos Santos RN Unavailable Unavailable Reason for Visit * Reason Onset Date Comments Scheduling 01/23/2023 Encounter Details Date Type Department Care Team (Late st Contact Info) Description 01/23/2023 Telephone [facility] - CONSTRUCTION IRONWORKER HELPER [address] [place] [address] Addy BrizuelapablitoDO tracy [address] [place] [phone] Scheduling Social History Tobacco Use Types Packs/Day Years Used Date Smoking Tobacco: Former Cigarettes 0.5 10.1 S tarted: 06/2014 Smokeless Tobacco: Never Comments:quit with Alcohol Use Standard Drinks/Week Comments No 0 (1 standard drink = 0.6 oz pur e alcohol) PHQ-2 Answer Date Recorded PHQ2 TOTAL SCORE 0 12/14/2020 Sex and Gender Information Value Date Recorded Sex Assigned at Not on file Gender Identity Not on file Sexual Orientation Not on file documented as of this encounter Miscellaneous Notes * Telephone Encounter - Kiana Arauz MA - 01/23/2023 3:31 PM CDT Attempted to reach Verónica Tariq to schedule appointment for annual Well Woman Exam. Unable to leave message, mailed letter to home address. documented in this encounter Plan of Treatment Not on file documented as of this encounter Visit Diagnoses Not on filedocumented in this encounter Care Teams Quality Assurance Practice Manager Relationship Specialty Start Date End Date Mamie Hill MD [address] [phone] PCP - General Family Medicine 12/09/18 Chrissie Dos Santos, RN Registered Nurse 04/15/19 documented as of this encounter
--- OUTSIDE RECORDS SUMMARY | 2024-08-06 11:50 | XMS_ITS | Encounter Summary ---
Author Organization [facility] Address [address] [place] [address] Care Team Providers Care Insole And Heel Stiffener Name Role Phone Mamie Hill MD Primary Care Provider [phone] Chrissie Dos Santos RN Unavailable Unavailable Reason for Visit * Reason Comments Routine Visit No issues or comp laints. Encounter Details Date Type Department Care Team (Late st Contact Info) Description 12/14/2020 3:30 PM CDT visit [facility] Medical [facility] - AEROLOGIST [address] [place] [address] Hilary Brizuela, DO [address] [place] [id number] GA: [id number] Social History Tobacco Use Types Packs/Day Years Used Date Smoking Tobacco: Former Cigarettes 0.5 10.1 S tarted: 06/2014 Smokeless Tobacco: Never Comments:quit with Alcohol Use Standard Drinks/Week Comments No 0 (1 standard drink = 0.6 oz pur e alcohol) PHQ-2 Answer Date Recorded PHQ2 TOTAL SCORE 0 12/14/2020 Comments Yes Sex and Gender Information Value Date Recorded Sex Assigned at Not on file Gender Identity Not on file Sexual Orientation Not on file COVID-19 Exposure Response Date Recorded In the last month, have you been in contact with someone who was confirmed or suspected to have Coronavirus / COVID-19? No / Unsure 11/16/2020 2:16 PM CDT documented as of this encounter Last Filed Vital Signs Vital Sign Reading Time Taken Comments Blood Pressure 122/70 12/14/2020 3:47 PM CDT Pulse - - Temperature - - Respiratory Rate - - Oxygen Saturation - - Inhaled Oxygen Concentration - - Weight 111.1 kg (245 lb) 12/14/2020 3:47 PM CDT Height 170.2 cm (5' 7 ) 12/14/2020 3:47 PM CDT Body Mass Index 38.37 12/14/2020 3:47 PM CDT documented in this encounter Progress Notes * Hilary Brizuela DO - 12/14/2020 4:14 PM CDT ROUTINE CARE : Baby active, doing well. NO VB, LOF or cramping. Cont ASA documented in this encounter Plan of Treatment Not on file documented as of this encounter Visit Diagnoses Diagnosis Supervision of normal first , antepartum (HCC)- Primary 20 weeks gestation of (HCC) state, incidental documented in this encounter Care Teams Insole And Heel Stiffener Relationship Specialty Start Date End Date Mamie Hill MD [address] [place] [phone] PCP - General Family Medicine 12/09/18 Chrissie Dos Santos, RN Registered Nurse 04/15/19 documented as of this encounter
--- OUTSIDE RECORDS SUMMARY | 2024-08-06 11:50 | XMS_ITS | Encounter Summary ---
Author Organization [facility] Address [address] [facility] [place] [address] Care Team Providers Care Revival Clerk Name Role Phone Mamie Hill MD Primary Care Provider [phone] Reason for Visit * Reason Comments Imm Inj Encounter Details Date Type Department Care Team (Latest Contact Info) Description 01/25/2019 1:00 PM CDT Clinical Support [facility] - Family Medicine [address] [place] [id number] Encounter for initial prescription of injectable contraceptive ; Bladder infection Social History Tobacco Use Types Packs/Day Years Used Date Smoking Tobacco: Every Day Cigarettes 0.5 10.1 Started: 06/2014 Smokeless Tobacco: Never Alcohol Use Standard Drinks/Week Comments No 0 (1 standard drink = 0.6 oz pur e alcohol) Sex and Gender Information Value Date Recorded Sex Assigned at Not on file Gender Identity Not on file Sexual Orientation Not on file documented as of this encounter Progress Notes * Volodymyr De La O - 01/25/2019 1:33 PM CDT While patient was here, mom and patient stated that patient is having frequency/urgency with urination, pressure, she is urinating very little, no temp, no low back pain, clear discharge, no itching.I did do a urine dip with collecting cx to send out. Patient states that she has been taking AZO caps as well as Cran Caps. * Volodymyr De La O - 01/25/2019 1:23 PM CDT Patient here for a urine dip to r/o after her HCG blood test. Test was negative. Denies unprotected intercourse. Depo was given. Educated that patient needs to make sure she stays in her window of getting her Depo shots to stay on track. Verbalized understanding. documented in this encounter Miscellaneous Notes * Addendum Note - Volodymyr De La O - 01/25/2019 1:54 PM CDTAddended by: VOLODYMYR DE LA O on: 01/25/2019 01:54 PM Modules accepted: Orders * Addendum Note - Volodymyr De La O - 01/25/2019 1:44 PM CDTAddended by: VOLODYMYR DE LA O on: 01/25/2019 01:44 PM Modules accepted: Orders documented in this encounter Plan of Treatment Not on file documented as of this encounter Procedures Procedure Name Priority Date/Time Associated Diagnosis Comments CULTURE URINE Routine 01/25/2019 1:54 PM CDT Bladder infection URINALYSIS - POINT OF CARE (IP) [facility] Routine 01/25/2019 Bladder infection HCG URINE QUALITATIVE - POINT OF CARE (AMB) Routine 01/25/2019 Encounter for initial prescription of injectable contraceptive documented in this encounter Results * CULTURE URINE (01/25/2019 1:54 PM CDT) Urine Culture Routine Final report [facility] INSURANCE BILL Result 1 [facility] INSURANCE BILL Comment: Mixed urogenital terry Less than 10,000 colonies/mL Urine URINE SPECIMEN OBTAINED BY CLEAN CATCH PROCEDURE / Unknown 01/25/2019 1:54 PM CDT 01/25/2019 Narrative Resulting Agency Comment Lab Testing performed at: [facility] ??[facility] [id number] Mamie Hill MD LAB - MICROBIOLOGY O RDERABLES [facility] INSURANCE BILL [address] [place] [address] * URINALYSIS - POINT OF CARE (IP) [facility] (01/25/2019) Color UA POCT Arline Appearance UA POCT Clear Glucose UA Negative Negative Bilirubin UA POCT Negative Negative Ketone UA Negative Negative Specific [place] UA POCT 1.015 1.015 - 1.025 Blood UA POCT Negative Negative pH UA POCT 6.5 4.0 - 8.0 pH Protein UA POCT Negative Negative Urobilinogen UA 0.2 0.2, 1.0 Nitrite UA POCT Negative Negative Leukocyte UA Negative Negative QC Verified Yes Yes Urine URINE / Unknown 01/25/2019 Mamie Hill MD LAB - POINT OF CARE ORDERABLES * HCG URINE QUALITATIVE - POINT OF CARE (AMB) (01/25/2019) HCG Qual Urine Negative Negative QC Verified Yes Yes Urine URINE / Unknown 01/25/2019 Mamie Hill MD LAB - POINT OF CARE ORDERABLES documented in this encounter Visit Diagnoses Diagnosis Encounter for initial prescription of injectable contraceptive- Primary General counseling for initiation of other contraceptive measures Bladder infection Cystitis, unspecified documented in this encounter Administered Medications Inactive Administered Medications - up to 3 most recent administrations Medication Order MAR Action Action Date Dose Rate Site medroxyPROGESTERone (DEPO-PROVERA) prefilled syringe 150 mg 150 mg, Intramuscular, ONCE, 1 dose, On Thu01/25/19 at 1400, Shake well before using. $ Given 01/25/2019 1:31 PM CDT 150 mg Right Deltoid documented in this encounter Care Teams Revival Clerk Relationship Specialty Start Date End Date Mamie Hill MD [address] [phone] PCP - General Family Medicine 12/09/18 documented as of this encounter
--- OUTSIDE RECORDS SUMMARY | 2024-08-06 11:50 | XMS_ITS | Encounter Summary ---
Author Organization [facility] Address [address] [facility] [place] [address] Care Team Providers Care Artificial Flower Maker Name Role Phone Mamie Hill MD Primary Care Provider Chrissie Dos Santos RN Unavailable Unavailable Encounter Details Date Type Department Care Team (Latest Contact Info) Description 09/13/2020 Travel Social History Tobacco Use Types Packs/Day Years [...] have Coronavirus / COVID-19? No / Unsure 09/13/2020 11:38 AM ENGINEER BOOSTER AND EXHAUSTER documented as of this encounter Plan of Treatment Not on file documented as of this encounter Visit Diagnoses Not on filedocumented in this encounter Care Teams Artificial Flower Maker Relationship Specialty Start Date End Date Mamie Hill MD [address] [phone] PCP - General Family Medicine 12/09/18 Chrissie Dos Santos, RN Registered Nurse 04/15/19 documented as of this encounter
--- OUTSIDE RECORDS SUMMARY | 2024-08-06 11:50 | XMS_ITS | Encounter Summary ---
Author Organization [facility] Address [address] [place] [address] Care Team Providers Care Clam Digger Name Role Phone Mamie Hill MD Primary Care Provider [phone] Encounter Details Date Type Department Care Team (Late st Contact Info) Description 01/12/2019 Orders Only [facility] - Family Medicine [address] [place] [address] Mamie Hill MD [address] [place] [phone] Encounter for initial prescription of injectable contraceptive Social History Tobacco Use Types Packs/Day Years [...] on file documented as of this encounter Plan of Treatment Not on file documented as of this encounter Procedures Procedure Name Priority Date/Time Associated Diagnosis Comments HCG BETA BLOOD QUANTITATIVE Routine 01/12/2019 11:17 AM CDT Encounter for initial prescription of injectable contraceptive documented in this encounter Results * HCG BETA BLOOD QUANTITATIVE (01/12/2019 11:17 AM CDT) hCG Value <1.20 mIU/mL [facility] INSURANCE BILL Comment: ? hCG Reference Range, mIU/mL: ? Males ? 0-2.0 ? Non Females ? 0-6.0 ? Perimenopausal Females ages 41-55* ?0-7.7 ? Postmenopausal Females age >55* ? 0-14 ? Females, Weeks after Last Menstrual Period ?0.2-1 week ? 5-50 ?1 - 2 weeks ?50-500 ?2 - 3 weeks ?100-5000 ?3 - 4 weeks ?500-10,000 ?4 - 5 weeks ?1000-50,000 ?5 - 6 weeks ?10,000-100,000 ?6 - 8 weeks ?15,000-200,000 ?2 - 3 months ? 10,000-100,000 ?Trophoblastic Disease ?>100,000 *In higher than expected hCG in females > age 40, a serum FSH >20 IU/L makes unlikely. Blood BLOOD SPECIMEN / Unknown 01/12/2019 11:17 AM CDT 01/12/2019 Narrative Resulting Agency Comment Lab Testing performed at: [facility] [address] ?? [place] [id number] Mamie Hill MD LAB - CHEMISTRY JESSA VELAZQUEZ [facility] INSURANCE BILL [address] [place] [address] documented in this encounter Visit Diagnoses Diagnosis Encounter for initial prescription of injectable contraceptive General counseling for initiation of other contraceptive measures documented in this encounter Care Teams Clam Digger Relationship Specialty Start Date End Date Mamie Hill MD [address] [phone] PCP - General Family Medicine 12/09/18 documented as of this encounter
--- OUTSIDE RECORDS SUMMARY | 2024-08-06 11:50 | XMS_ITS | Encounter Summary ---
Author Organization [facility] Address [address] [facility] [place] [address] Care Team Providers Care Customer Project Manager Name Role Phone Mamie Hill MD Primary Care Provider [phone] Chrissie Dos Santos RN Unavailable Unavailable Encounter Details Date Type Department Care Team (Latest Contact Info) Description 11/16/2020 Travel Social History Tobacco Use Types Packs/Day [...] PM CDT documented as of this encounter Plan of Treatment Not on file documented as of this encounter Visit Diagnoses Not on filedocumented in this encounter Care Teams Customer Project Manager Relationship Specialty Start Date End Date Mamie Hill MD [address] [phone] PCP - General Family Medicine 12/09/18 Chrissie Dos Santos, RN Registered Nurse 04/15/19 documented as of this encounter
--- OUTSIDE RECORDS SUMMARY | 2024-08-06 11:50 | XMS_ITS | Encounter Summary ---
Author Organization [facility] Address [address] [place] [address] Care Team Providers Care Glucose And Syrup Weigher Name Role Phone Mamie Hill MD Primary Care Provider [phone] Chrissie Dos Santos RN Unavailable Unavailable Reason for Visit * Reason Comments Contraceptive management General Close to Pre-DM, dis cuss metformin Menstrual Problem Encounter Details Date Type Department Care Team (Late st Contact Info) Description 04/15/2019 7:00 AM CDT Office Visit [facility] Medical [facility] - Family Medicine [address] [facility] [place] [address] Gloria Herrera PA [address] [place] [phone] Menorrhagia with regular cycle (Primary Dx); Pre-diabetes; Encounter for initial prescription of contraceptive pills; Anxiety; Severe obesity (BMI >= 40) ([facility]) Social History Tobacco Use Types Packs/Day Years Used Date Smoking Tobacco: Every Day Cigarettes 0.5 10.1 Started: 06/2014 Smokeless Tobacco: Never Tobacco Cessation:Ready to Q uit: No; Counseling Given: Yes Alcohol Use Standard Drinks/Week Comments No 0 (1 standard drink = 0.6 oz pur e alcohol) Sex and Gender Information Value Date Recorded Sex Assigned at Not on file Gender Identity Not on file Sexual Orientation Not on file documented as of this encounter Last Filed Vital Signs Vital Sign Reading Time Taken Comments Blood Pressure 102/82 04/15/2019 7:16 AM CDT Pulse 78 04/15/2019 7:16 AM CDT Temperature 36.8 ??C (98.2 ??F) 04/15/2019 7:16 AM CD T Respiratory Rate - - Oxygen Saturation 98% 04/15/2019 7:16 AM CDT Inhaled Oxygen Concentration - - Weight 112.4 kg (247 lb 12. 8 oz) 04/15/2019 7:16 AM CDT Height 167.6 cm (5' 6 ) 04/15/2019 7:16 AM CDT Body Mass Index 40 04/15/2019 7:16 AM CDT Body Mass Index Percentile 99.22% 04/15/2019 7:1 6 AM CDT Growth Chart: CDC (Girls, 2- 20 Years) documented in this encounter Progress Notes * Gloria Herrera PA - 04/15/2019 7:03 AM CDT Verónica Tariq is a 18 year old female Chief Complaint Patient presents with ??? Contraceptive management ??? General Close to Pre-DM, discuss metformin ??? Menstrual Problem Here with step-mom regarding menstrual problem. Step mom called yesterday: What is the reason for call? Patient's mom (Zuleyka) called. Verónica has been on her cycle on and off for 2 weeks. She has been bleeding through the super plus tampons. Clotting is very pad. She has been to the [place] ER about 2 weeks ago. They said is was a huge clots. Verónica would like to changeher control form the depo shot to control pills. Pt's last Depo injection was done here on 01/25/19. Also follows at [facility], was prescribed 3 medications yesterday, has not started them yet. Had A1C of 5.6, advised needed follow up, that was near pre diabetic Has FH diabetes on father's side. Has been with dad and step mom since about November Finished on line high school program Currently not working or going to school due to anxiety issues Had very poor nutrition and eating habits for years prior to living with dad Food not available a lot of the time and would binge eat when food available. Had heavy clots as above, periods were not heavy in the past, and were regular Sexually active. Used condoms prior to depo, but has only had one depo shot. Has not had CBC, had other labs through psych No results for input(s): HGBA1C, A1C, [id number], EAG in the last [id number] hours. Past Medical History: Diagnosis Date ??? Bipolar 1 disorder ??? MDD (major depressive disorder) Past Surgical History: Procedure Laterality Date ??? NEGATIVE SURGICAL HISTORY Family History Problem Relation Age of Onset ??? Diabetes - Type 2 Father ??? Cancer - Pancreatic Paternal Grandmother ??? Diabetes - Type 2 Paternal Grandmother ??? COPD - Chronic Obstructive Pulmonary Disease Paternal Grandmother Past Medical History: Diagnosis Date ??? Bipolar 1 disorder ??? MDD (major depressive disorder) There is no problem list on file for this patient. Current Outpatient Medications on File Prior to Visit Medication Sig Dispense Refill ??? DULoxetine (CYMBALTA) 30 MG capsule Take 30 mg by mouth once daily 30mg daily for 14 days, thenincrease to 60mg ??? hydrOXYzine hcl (ATARAX) 25 MG tablet Take 25 mg by mouth 4 times daily as needed for Itching ??? traZODone (DESYREL) 150 MG tablet Take 150 mg by mouth at bedtime No current facility-administered medications on file prior to visit. BP 102/82 (BP SITE: LEFT ARM, BP POSITION: SITTING, BP CUFF SIZE: 12) Pulse 78 Temp 98.2 ??F (36.8 ??C) (Oral) Ht 1.676 m (5' 6 ) Wt 112.4 kg (247 lb 12.8 oz) SpO2 98% BMI 40 kg/m2 General appearance: alert, well appearing, and in no distress. Anxious Step mom does most of the talking for her. CVS exam: normal rate, regular rhythm, normal S1, S2, no murmurs, rubs, clicks or gallops. Chest: clear to auscultation, no wheezes, rales or rhonchi, symmetric air entry. Abdomen- obese, non tender Exam of extremities: no pedal edema, no clubbing or cyanosis Neurological exam reveals alert, oriented, normal speech, no focal findings or movement disorder noted. ASSESSMENT/PLAN: Menorrhagia with regular cycle - Plan: norgestimate-ethinyl estradiol (ORTHO- CYCLEN; MONONESSA; PREVIFEM; SPRINTEC) 0.25-35 MG-MCG tablet, CBC WITH DIFFERENTIAL Pre-diabetes - Plan: metFORMIN ER 24hr (GLUCOPHAGE XR) 500 MG tablet, COMPREHENSIVE METABOLIC PANEL Encounter for initial prescription of contraceptive pills - Plan: norgestimate- ethinyl estradiol (ORTHO-CYCLEN; MONONESSA; PREVIFEM; SPRINTEC) 0.25-35 MG-MCG tablet Anxiety Severe obesity (BMI >= 40) - Plan: metFORMIN ER 24hr (GLUCOPHAGE XR) 500 MG tablet Will need follow up A1C, lipids in 3 months Discussed need for other forms of contraception for first month. F/U with PCP documented in this encounter Plan of Treatment Not on file documented as of this encounter Procedures Procedure Name Priority Date/Time Associated Diagnosis Comments CBC W AUTO DIFFERENTIAL Routine 04/15/2019 8:05 AM CDT Menorrhagia with regular cycle COMPREHENSIVE METABOLIC PANEL Routine 04/15/2019 8:05 AM CDT Pre-diabetes documented in this encounter Results * COMPREHENSIVE METABOLIC PANEL (04/15/2019 8:05 AM CDT) Glucose 104 74 - 106 mg/dL [facility] INSURANCE BILL BUN 11 7 - 18.7 mg/dL [facility] INSURANCE BILL Creatinine 0.89 0.55 - 1.02 mg/dL [facility] INSURANCE BILL Sodium 137 136 - 145 mmol/L [facility] INSURANCE BILL Potassium 4.8 3.5 - 5.1 mmol/L [facility] INSURANCE BILL Chloride 104 98 - 107 mmol/L [facility] INSURANCE BILL CO2 23 20 - 28 mmol/L [facility] INSURANCE BILL Calcium 10.2 8.4 - 10.2 mg/dL [facility] INSURANCE BILL Protein Total 8.2 6.4 - 8.3 gm/dL [facility] INSURANCE BILL Albumin 4.4 3.4 - 5.0 gm/dL [facility] INSURANCE BILL Bilirubin Total 0.5 0.2 - 1.0 mg/dL [facility] INSURANCE BILL Alkaline Phosphatase 84 40 - 150 U/L [facility] INSURANCE BILL AST 20 5 - 34 U/L [facility] INSURANCE BILL ALT 23 13 - 61 U/L [facility] INSURANCE BILL Comment:FASTING Blood BLOOD SPECIMEN / Unknown 04/15/2019 8:05 AM CDT 04/15/2019 Narrative Resulting Agency Comment Lab Testing performed at: [facility] [address] ?? [facility] [id number] Gloria REED LAB - CHEMISTRY JESSA VELAZQUEZ [facility] INSURANCE BILL [address] [place] [address] * (ABNORMAL) CBC WITH DIFFERENTIAL (04/15/2019 8:05 AM CDT) WBC 11.0 4.5 - 11.0 x10E9/L [facility] INSURANCE BILL RBC 4.73 4.10 - 5.10 x10E12/L [facility] INSURANCE BILL Hemoglobin 12.8 12.0 - 16.0 gm/dL [facility] INSURANCE BILL Hematocrit 43.4 36.0 - 47.0 % [facility] INSURANCE BILL MCV 91.8 78.0 - 102.0 fl [facility] INSURANCE BILL MCH 27.1 25.0 - 35.0 pg [facility] INSURANCE BILL MCHC 29.5(L) 31.0 - 37.0 gm/dL [facility] INSURANCE BILL RDW 13.6 11.5 - 14.0 % [facility] INSURANCE BILL Platelet Count 398 100 - 400 x10E9/L [facility] INSURANCE BILL Comment:MPV FL BLOOD ([facility]) 1 2.3 fl 6.0-9.5 H Granulocytes % 65.0 31.0 - 78.0 % [facility] INSURANCE BILL Lymphocytes % 27.3 13.0 - 54.0 % [facility] INSURANCE BILL Monocytes % 5.0 4.0 - 13.0 % [facility] INSURANCE BILL Eosinophils % 1.6 0.0 - 8.0 % [facility] INSURANCE BILL Basophils % 0.6 % [facility] INSURANCE BILL Granulocytes Absolute 7.15 1.4 - 8.58 x10E9/L [facility] INSURANCE BILL Lymphocytes Absolute 3.01 0.59 - 5.94 x10E9/L [facility] INSURANCE BILL Monocytes Absolute 0.55 0.18 - 1.43 x10E9/L [facility] INSURANCE BILL Eosinophils Absolute 0.18 0 - 0.88 x10E9/L [facility] INSURANCE BILL Basophils Absolute 0.07 0 - 0.22 x10E9/L [facility] INSURANCE BILL Immature Granulocytes 0.5 % [facility] INSURANCE BILL Immature Granulocytes Absolute 0.05 0 - 0.11 x10E9/L [facility] INSURANCE BILL nRBC 0 /100 WBC [facility] INSURANCE BILL Comment:FASTING Blood BLOOD SPECIMEN / Unknown 04/15/2019 8:05 AM CDT 04/15/2019 Narrative Resulting Agency Comment Lab Testing performed at: [facility] [address] ?? [facility] [id number] Gloria REED LAB - HEMATOLOGY ORD ERABLES [facility] INSURANCE BILL [address] [place] [address] documented in this encounter Visit Diagnoses Diagnosis Menorrhagia with regular cycle- Primary Excessive or frequent menstruation Pre-diabetes Other abnormal glucose Encounter for initial prescription of contraceptive pills General counseling for prescription of oral contraceptives Anxiety Anxiety state, unspecified Severe obesity (BMI >= 40) (HCC) Morbid obesity documented in this encounter Care Teams Glucose And Syrup Weigher Relationship Specialty Start Date End Date Mamie Hill MD [address] [phone] PCP - General Family Medicine 12/09/18 Chrissie Dos Santos, RN Registered Nurse 04/15/19 documented as of this encounter
--- OUTSIDE RECORDS SUMMARY | 2024-08-06 11:50 | XMS_ITS | Encounter Summary ---
Author Organization [facility] Address [address] [place] [address] Care Team Providers Care Beef Lugger Name Role Phone Mamie Hill MD Primary Care Provider [phone] Chrissie Dos Santos RN Unavailable Unavailable Reason for Visit * Reason Comments Confirmation Of Encounter Details Date Type Department Care Team (Late st Contact Info) Description 09/11/2020 1:00 PM POSTAL SUPERINTENDENT Office Visit [facility] Medical [facility] - Family Medicine [address] [facility] [place] [address] Mamie Hill MD [address] [facility] [place] [address] Less than 8 weeks gestation of (HCC) (Primary Dx); Irregular menses Social History Tobacco Use Types Packs/Day Years [...] have Coronavirus / COVID-19? No / Unsure 08/31/2020 1:39 PM POSTAL SUPERINTENDENT documented as of this encounter Last Filed Vital Signs Vital Sign Reading Time Taken Comments Blood Pressure 138/76 09/11/2020 1:12 PM POSTAL SUPERINTENDENT Pulse - - Temperature 36.4 ??C (97.5 ??F) 09/11/2020 1:12 PM CS T Respiratory Rate - - Oxygen Saturation - - Inhaled Oxygen Concentration - - Weight 99.6 kg (219 lb 9.6 oz) 09/11/2020 1:12 P M POSTAL SUPERINTENDENT Height 167.6 cm (5' 6 ) 09/11/2020 1:12 PM POSTAL SUPERINTENDENT Body Mass Index 35.44 09/11/2020 1:12 PM POSTAL SUPERINTENDENT documented in this encounter Progress Notes * Mamie Hill MD - 09/11/2020 1:16 PM CST S: Verónica Tariq is a 20 year old female who presents today for acute visit for concerns of . Pt states that her last menses started 07/27/20. Has not had a period since. Pt was actively tryingto get . Pt took one 09/01/20 and it was positive and then 2 days ago she took another one and it was positive. Pt states she has duron some nausea in the morning. No bleeding. Pt states family and significant other is aware and happy as well. Very supportive Review of Systems - History obtained from the patient General ROS: negative for - chills, fatigue or fever Respiratory ROS: no cough, shortness of breath, or wheezing Cardiovascular ROS: no chest pain or dyspnea on exertion Gastrointestinal ROS: positive for - nausea Musculoskeletal ROS: negative for - joint stiffness Social History Socioeconomic History ??? Marital status: Single Spouse name: Not on file ??? Number of children: Not on file ??? Years of education: Not on file ??? Highest education level: Not on file Occupational History ??? Not on file Social Needs ??? Financial resource strain: Not on file ??? Food insecurity Worry: Not on file Inability: Not on file ??? Transportation needs Medical: Not on file Non-medical: Not on file Tobacco Use ??? Smoking status: Current Every Day Smoker Packs/day: 0.50 Start date: 06/2014 ??? Smokeless tobacco: Never Used Substance and Sexual Activity ??? Alcohol use: No ??? Drug use: Yes Types: Marijuana Comment: hx crack use ??? Sexual activity: Yes Partners: Male control/protection: Condom Lifestyle ??? Physical activity Days per week: Not on file Minutes per session: Not on file ??? Stress: Not on file Relationships ??? Social connections Talks on phone: Not on file Gets together: Not on file Attends temple service: Not on file Active member of club or organization: Not on file Attends meetings of clubs or organizations: Not on file Relationship status: Not on file ??? Intimate partner violence Fear of current or ex partner: Not on file Emotionally abused: Not on file Physically abused: Not on file Forced sexual activity: Not on file Other Topics Concern ??? Not on file Social History Narrative ??? Not on file Current Outpatient Medications Medication ??? Vit-DSS-Fe Cbn-FA ( AD PO) No current facility-administered medications for this visit. Labs: Urine hcg Physical Exam: BP 138/76 (BP SITE: LEFT ARM, BP POSITION: SITTING, BP CUFF SIZE: 12) Temp 97.5 ??F (36.4 ??C) (Temporal) Ht 1.676 m (5' 6 ) Wt 99.6 kg (219 lb 9.6 oz) BMI 35.44 kg/m2 GEN: well appearing, obese female in NAD HEENT: PERRL, normal conjunctivae, eyelids normal, external ears wnl, patent nares, m.m.m, CV: RRR no m.r.g RESP: CTAB, no wheezes, rales, or rhonchi, normal respiratory effort GI: soft NT/ND EXT: no c/c/e SKIN: normal, no lesions/rashes PSYCH: appropriate insight and judgement, AAOx3 Assessment and Plan: 1. Less than 8 weeks gestation of Comment: test here positive, discussed with pt, she is taking PNV. Discussed to eat well,good rest, referred to correctional sergeant, pt desires female OB - AMB REFERRAL TO OB-RADIOLOGIC TECHNOLOGY TEACHER; Future 2. Irregular menses - AMB REFERRAL TO OB-RADIOLOGIC TECHNOLOGY TEACHER; Future AL SUPERINTENDENT documented in this encounter Miscellaneous Notes * Addendum Note - Ranjana Majano, NURY - 09/11/2020 1:31 PM CSTAddended by: RANJANA MAJANO on: 09/11/2020 01:31 PM Modules accepted: Orders AL SUPERINTENDENT documented in this encounter Plan of Treatment Not on file documented as of this encounter Procedures Procedure Name Priority Date/Time Associated Diagnosis Comments HCG URINE QUALITATIVE - POINT OF CARE (AMB) STL Routine 09/11/2020 1:30 PM POSTAL SUPERINTENDENT Irregular menses documented in this encounter Results * (ABNORMAL) HCG URINE QUALITATIVE - POINT OF CARE (AMB) STL (09/11/2020 1:30 PM POSTAL SUPERINTENDENT) HCG Qual Urine Positive(A) Negative [facility] [place] HCG Urine QC NEG present NEGATIVE - POSITIVE [facility] HCG Urine QC POS present NEGATIVE - POSITIVE [facility] Expiration Date 06/16/2021 [facility] Lot # [id number] [facility] Urine URINE / Unknown 09/11/2020 1 :30 PM POSTAL SUPERINTENDENT Mamie Hill MD LAB - POINT OF CARE ORDERABLES MAKSIM HUFF [address] [address] [phone] documented in this encounter Visit Diagnoses Diagnosis Less than 8 weeks gestation of (HCC)- Primary state, incidental Irregular menses Irregular menstrual cycle documented in this encounter Care Teams Beef Lugger Relationship Specialty Start Date End Date Mamie Hill MD [address] [facility] [place] [address] PCP - General Family Medicine 12/09/18 Chrissie Dos Santos, RN Registered Nurse 04/15/19 documented as of this encounter
--- OUTSIDE RECORDS SUMMARY | 2024-08-06 11:50 | XMS_ITS | Encounter Summary ---
Author Organization [facility] Address [address] [place] [address] Care Team Providers Care Heavy Equipment Service Technician Name Role Phone Mamie Hill MD Primary Care Provider Reason for Visit * Reason Onset Date Comments Contraceptive management 01/13/2019 Encounter Details Date Type Department Care Team (Late st Contact Info) Description 01/13/2019 Telephone [facility] - Family Medicine [address] [facility] [place] [address] Mamie Hill MD [address] [facility] [place] [address] Contraceptive management Social History Tobacco Use Types Packs/Day Years [...] encounter Miscellaneous Notes * Telephone Encounter - Jessie Greer - 01/13/2019 1:31 PM CDT Patient's step mom notified that medication was sent to pharmacy. appt made for tomorrow. * Telephone Encounter - Donna Obando MA - 01/13/2019 12:35 PM CDT Step Mom calling and would like to get started on Depo Provera. BHCG Negative 01/14/2019 Needs script sent to [facility] today so she can come in. On the last days of her cycle now. Appt scheduled for nurse visit 01/14/2019 Pended medication documented in this encounter Plan of Treatment Not on file documented as of this encounter Visit Diagnoses Not on filedocumented in this encounter Care Teams Heavy Equipment Service Technician Relationship Specialty Start Date End Date Mamie Hill MD [address] [place] [phone] PCP - General Family Medicine 12/09/18 documented as of this encounter
--- OUTSIDE RECORDS SUMMARY | 2024-08-06 11:50 | XMS_ITS | Encounter Summary ---
Author Organization [facility] Address [address] [facility] [place] [address] Care Team Providers Care Bark Grinder Name Role Phone Mamie Hill MD Primary Care Provider [phone] Chrissie Dos Santos RN Unavailable Unavailable Reason for Visit * Reason Comments Refill Request Encounter Details Date Type Department Care Team (Late st Contact Info) Description 05/24/2019 Refill [facility] - Family Medicine [address] [place] [address] Gloria Herrera PA [address] [facility] [place] [phone] Refill Request Social History Tobacco Use Types Packs/Day Years [...] encounter Miscellaneous Notes * Telephone Encounter - Sloane Otto - 05/24/2019 10:19 AM CDT Mamie Hill MD Last Office Visit with PCP-(Mamie Hill MD): 12/09/18 Last Fill date for requested medication: 04/15/19 Next office visit with Mamie Hill MD: Visit date not found Other information: documented in this encounter Plan of Treatment Not on file documented as of this encounter Visit Diagnoses Diagnosis Menorrhagia with regular cycle Excessive or frequent menstruation Encounter for initial prescription of contraceptive pills General counseling for prescription of oral contraceptives documented in this encounter Care Teams Bark Grinder Relationship Specialty Start Date End Date Mamie Hill MD [address] [place] [phone] PCP - General Family Medicine 12/09/18 Chrissie Dos Santos, RN Registered Nurse 04/15/19 documented as of this encounter
--- OUTSIDE RECORDS SUMMARY | 2024-08-06 11:50 | XMS_ITS | Encounter Summary ---
Author Organization [facility] Address [address] [place] [address] Care Team Providers Care Asbestos Siding Installer Name Role Phone Mamie Hill MD Primary Care Provider [phone] Chrissie Dos Santos RN Unavailable Unavailable Encounter Details Date Type Department Care Team (Latest Contact Info) Description 12/14/2020 Travel Social History Tobacco Use Types Packs/Day [...] on filedocumented in this encounter Care Teams Asbestos Siding Installer Relationship Specialty Start Date End Date Mamie Hill MD [address] [place] [address] PCP - General Family Medicine 12/09/18 Chrissie Dos Santos, RN Registered Nurse 04/15/19 documented as of this encounter
--- OUTSIDE RECORDS SUMMARY | 2024-08-06 11:50 | XMS_ITS | Encounter Summary ---
Author Organization [facility] Address [address] [facility] [address] Care Team Providers Care Alteration Workroom Supervisor Name Role Phone Mamie Hill MD Primary Care Provider [phone] Chrissie Dos Santos RN Unavailable Unavailable Reason for Visit * Reason Comments Routine Visit Encounter Details Date Type Department Care Team (Late st Contact Info) Description 11/16/2020 2:15 PM CDT visit [facility] Medical [facility] - OPERATIONS SUPERVISOR [address] [place] [address] Hilary Brizuela DO [address] [place] [phone] GA: 16w0d Social History Tobacco Use Types Packs/Day Years [...] Sign Reading Time Taken Comments Blood Pressure 118/70 11/16/2020 2:29 PM CDT Pulse - - Temperature - - Respiratory Rate - - Oxygen Saturation - - Inhaled Oxygen Concentration - - Weight 106.1 kg (234 lb) 11/16/2020 2:29 PM CDT Height - - Body Mass Index 36.65 09/21/2020 11:07 AM TELETYPESETTER MONITOR documented in this encounter Progress Notes * Hilary Brizuela DO - 11/16/2020 3:16 PM CDT ROUTINE CARE : Doing well. NO VB, LOF or cramping. ROUND LIGAMENT PAIN documented in this encounter Plan of Treatment Scheduled Orders Name Type Priority Associated Diagnoses Orde r Schedule ALPHA FETOPROTEIN BLOOD MATERNAL QUAD PANEL Lab Routine Supervision of normal first , antepartum (HCC) 16 weeks gestation of (HCC) Ordered: 11/16/2020 documented as of this encounter Results * SONOGRAM - COMPLETE (12/14/2020 2:19 PM CDT) Anatomical Region Laterality Modality Other 12/14/2020 2:19 PM CDT Narrative 12/14/2020 4:05 PM CDT ? [facility] ? MATERNAL MEDICINE ?FAX: Mar. Name: ?VERÓNICA GORDON No: ?[id number] Study Date: ?? 12/14/2020 ??2:19pm , Age: ? 2000, 20 Pregnancies: ?? 1 Height: ? 67 in Weight: ? 220 lb LMP: ?07/27/2020 GA by LMP: ?20w0d GA by US: ? 20w6d ?? FREEDOM: 04/27/2021 GA Selected: ??20w0d (LMP) FREEDOM: ?05/03/2021 Referring MD: Hilary Brizuela DO Services Host: ??Taylor Marsh RDMS CPT4: ? 37462,[address] BMI: ?34.45 Hist/Ind: ? anatomic survey ?Class I obesity MEASUREMENTS & AGE ? GROWTH EVALUATION Measurement ??GA ? Range ? Srce %for GA Ratios ----- ---- ------- BPD ??4.8 cm 20w3d (76y9o-07a3w) Hadl BPD 69% FL/BPD 0.73 HC ??17.9 cm 20w2d (58u9l-26h1l) Hadl HC ??57% FL/AC ??0.23 AC ??15.0 cm 20w2d (56q5f-45a0h) Hadl AC ??52% HC/AC ??1.19 (1.06 - 1.24) FL ?? 3.5 cm 21w0d (16u9o-22s0y) Hadl FL ??76% CI ? 0.75 (0.70 - 0.86) HL ?? 3.5 cm 21w6d (47x2l-82x2c) Manuelito HL ??80% Cere 2.2 cm 21w0d (84c1y-86x1b) Hill Cere75% GA for sonogram 20w6d (57b8h-44v0f) ?? Weight Estimate: based on (HL,BPD,HC,AC,FL,Cere) Avg ??Weight: 362 gm (309-415gm) Hadloc ? : 0lbs, 12oz ? Normal: 331 gm (248-414gm) Hadloc ? Wt% ? 77% for 20w0d Cervix: ??Length: 3.2 cm ??Approach: transvaginal ??Funneling: not present Heart Rate: 146 bpm Amniotic Fluid Index: 06.7cm (Deepest Pocket) EVAL, PLACENTA Presentation: breech Umbilical Cord: 3 Vessels Placenta: anterior Heart Rate: 146 bpm Amniotic Fluid Volume: normal Anatomy!Normal!Abnormal!Suboptimal!Prev. Seen!Comments Cranium ?! ?? x ??! ?! ?! ?! Mdl (CSP/Thal! ?? x ??! ?! ?! ?! Ventricles ?? ! ?? x ??! ?! ?! ?! Choroid Plexu! ?? x ??! ?! ?! ?! Cerebellum ?? ! ?? x ??! ?! ?! ?! Cerebellar Ve! ?? x ??! ?! ?! ?! Cisterna M. ??! ?? x ??! ?! ?! ?! Nuchal Fold ??! ?? x ??! ?! ?! ?! Orbits ? ! ?? x ??! ?! ?! ?! Profile ?! ?! ?! ? x ?! ?!Imaging of the ?chin is suboptimal Nasal Bone ?? ! ?? x ??! ?! ?! ?! Lip ?! ?? x ??! ?! ?! ?! Maxilla ?! ?! ?! ? x ?! ?! Mandible ? ! ?! ?! ? x ?! ?! Neck ? ! ?! ?! ? x ?! ?! Spine ?! ?? x ??! ?! ?! ?! Lungs ?! ?! ?! ? x ?! ?! 4 Chamber Hea! ?! ?! ? x ?! ?! LVOT ? ! ?! ?! ? x ?! ?! RVOT ? ! ?! ?! ? x ?! ?! 3 Vessel View! ?! ?! ? x ?! ?! 3 Vessel Trac! ?! ?! ? x ?! ?! Cross-over ?? ! ?! ?! ? x ?! ?! Ductal Arch ??! ?! ?! ? x ?! ?! Aortic Arch ??! ?? x ??! ?! ?! ?! Caval View ?? ! ?? x ??! ?! ?! ?! Situs ?! ?? x ??! ?! ?! ?! Diaphragm ?! ?? x ??! ?! ?! ?! Stomach ?! ?? x ??! ?! ?! ?! Liver ?! ?? x ??! ?! ?! ?! Bowel ?! ?? x ??! ?! ?! ?! Kidneys ?! ?? x ??! ?! ?! ?! Bladder ?! ?? x ??! ?! ?! ?! 3 Vessel Cord! ?? x ??! ?! ?! ?! Cord In! ?? x ??! ?! ?! ?! Upper Extremi! ?! ?! ? x ?! ?! Hands ?! ?! ?! ? x ?! ?! Lower Extremi! ?? x ??! ?! ?! ?! Feet ? ! ?? x ??! ?! ?! ?! External Marlene! ?? x ??! ?! ?! ?!Male Placental Cor! ?? x ??! ?! ?! ?! CLINICAL SUMMARY Study Number: 1 ?? IMPRESSION: 1) Abdul gestation, 20w0d. ?? 2) Biometry is consistent with the LMP -based FREEDOM of 05/03/2021. 3) No abnormalities were detected on anatomic survey. ?? 4) Imaging of a portion of the anatomy (see table above) was suboptimal secondary to positioning. ?? 5) Transvaginal ultrasound reveals a minimum cervical length of 3.2 cm. ?? NOTE: The patient was advised that ultrasound does not allow detection of all structural or chromosomal abnormalities. ?? RECOMMEND: Follow up ultrasound in 4 weeks to complete the anatomic survey and reevaluate growth Thank you for allowing us the opportunity to care for your patient. Janiya Stevens MD <Electronic Signature> ??12/14/2020 04:04pm Hilary WHATLEY ORDERABLES documented in this encounter Visit Diagnoses Diagnosis Obesity affecting , antepartum (HCC)- Primary Supervision of normal first , antepartum ([facility]) 16 weeks gestation of ([facility]) state, incidental Supervision of normal first , antepartum (HCC) Obesity affecting , antepartum ([facility]) Screening, , for anatomic survey ([facility]) Encounter for anatomic survey Encounter for screening for malformations ([facility]) 20 weeks gestation of ([facility]) state, incidental documented in this encounter Care Teams Alteration Workroom Supervisor Relationship Specialty Start Date End Date Mamie Hill MD [address] [place] [phone] PCP - General Family Medicine 12/09/18 Chrissie Dos Santos, RN Registered Nurse 04/15/19 documented as of this encounter
--- OUTSIDE RECORDS SUMMARY | 2024-08-06 11:50 | XMS_ITS | Encounter Summary ---
Author Organization [facility] Address [address] [place] [address] Care Team Providers Care Spanish Teacher Name Role Phone Mamie Hill MD Primary Care Provider [phone] Chrissie Dos Santos RN Unavailable Unavailable Reason for Visit * Radiology Services (Routine) - Closed Specialty Diagnoses / Procedures Referred By Yanet t Referred To Contact Diagnoses Absence of menstruation Procedures OB LESS THAN 14 WKS W Hilary Pardo, [address] [place] [address] Referral ID Status Reason Start Date Expiration Date Visits Re quested Visits Authorized [id number] Closed 09/20/2020 09/20/2021 1 1 Encounter Details Date Type Department Care Team (Latest Contact Info) Description 09/21/2020 10:20 AM SIGHTER Ancillary Procedure [facility] Medical [facility] - LITHOGRAPHIC PHOTOGRAPHER [address] [place] [address] Absence of menstruation Social History Tobacco Use Types Packs/Day Years [...] have Coronavirus / COVID-19? No / Unsure 09/21/2020 10:12 AM SIGHTER documented as of this encounter Plan of Treatment Not on file documented as of this encounter Procedures Procedure Name Priority Date/Time Associated Diagnosis Comments US OB LESS THAN 14 WKS W TRANSVAG Routine 09/21/2020 10:51 AM SIGHTER Absence of menstruation documented in this encounter Results * US OB LESS THAN 14 WKS W TRANSVAG (09/21/2020 10:51 AM SIGHTER) Anatomical Region Laterality Modality Abdomen Ultrasound Study GA Study Date Study FREEDOM Working FREEDOM (Source) Feta l Weight (Method) Narrative 09/24/2020 9:42 AM SIGHTER [facility] Department of LITHOGRAPHIC PHOTOGRAPHER Obstetric Ultrasound, Early Pt. Name: Verónica Tariq : ??2000 : No obstetric history on file. Exam Date: ??09/21/2020 LMP: ?? 07/27/2020 Study Number: 1 Reason for Exam: ??Confirm viability Admitted Attorneys: ??No ?? Transabdominal ultrasound: ??Yes Transvaginal ultrasound: ??Yes ?? Gestational age by (LMP): ? 8 wks 0 days; ??FREEDOM: ??05/03/2021 GA (by today's ultrasound): ?? 8 wks 3 days; ??FREEDOM: ??04/30/2021 CRL: ??1.91 cm Gestational Sac: ??3.30 ??cm Yolk Sac: 0.56 cm FHT seen: ??Yes, 178 bpm ? Number of Fetuses: ??1 ? Uterine Orientation: ?? Anteverted Uterine Size: ??9.11 x 6.42 x 7.56 cm. ? Fibroids: ??None Ovaries: ?? Right: ??3.55 x 2.85 x 3.50 cm Left: ??2.88 x 2.08 x 2.54 cm Fluid in Cul de Sac: none ?? Assigned FREEDOM: 05/03/2021, based off LMP Speech And Language Assistant Comments: ??A single IUP with yolk sac is identified; CRL=8w3d, HRG=191 bpm. No evidence of subchorionic hemorrhage. No free fluid or adnexal mass. Both maternal ovaries are identified. Patient LMP is consistent with CRL. FREEDOM by LMP is 05/03/2021. Physician Impression: ??Transabdominal : ??Single viable IUP. ??FHR 178 BPM. ?? Transvaginal : Single viable IUP. ?? Speech And Language Assistant: ?? Elizabeth Camara, RDMS Interpreted By: ??Hilary Brizuela, DO Hilary Brizuela DO US ORDERABLES documented in this encounter Visit Diagnoses Diagnosis Absence of menstruation documented in this encounter Care Teams Spanish Teacher Relationship Specialty Start Date End Date Mamie Hill MD [address] [place] [phone] PCP - General Family Medicine 12/09/18 Chrissie Dos Santos, RN Registered Nurse 04/15/19 documented as of this encounter
--- OUTSIDE RECORDS SUMMARY | 2024-08-06 11:50 | XMS_ITS | Referral Summary ---
Author Organization [facility] Address [address] [place] [address] Care Team Providers Care Green Plumber Name Role Phone Mamie Hill MD Primary Care Provider [phone] Chrissie Dos Santos RN Unavailable Unavailable Source Comments [facility],non-owned Affiliates and Associated Physician Practices is amultiple site organization consisting of ambulatory clinics and hospital sitesin [place], [place], [place] and [place]. This disclosure is being madepursuant to the Care Everywhere program and may not contain all information available regarding this patient. Last updated 18.[facility] Allergies No known active allergies Medications * Be aware that medications may not be up to date on this document. Alwaysverify current medications with the patient. Medication Sig Dispensed Refills Start Date End Date Status Vit-DSS-Fe Cbn-FA ( AD PO) Active MV-Min-Fe Fum-FA-DHA ( MULTIVITAMIN PLUS DHA) 27-0.8-250 MG CAPSIndications:Absenc e of menstruation Take 1 tablet by mouth once daily 90 capsule 3 09/21/2020 Active Calcium Carb-Cholecalciferol (CALCIUM-VITAMIN D) 500-400 MG-UNITIndications:Abs ence of menstruation Take 1 tablet by mouth once daily 90 tablet 2 09/21/2020 Active aspirin (ASPIRIN) 81 MG chew tablet Take 1 (one) tablet by mouth once daily 100 tablet 4 10/19/2020 Active Active Problems Problem Noted Date Diagnosed Date Screening, , for anatomic survey 12/14/2020 Obesity affecting , antepartum 10/20/19 21 Supervision of normal first , antepartu m 10/19/2020 Immunizations Name Administration Dates Next Due DTaP VACCINE IM (6wk-6yrs) 02/05/2007,,03/11/2002,01/12,2001 HEP A PEDS 2 DOSE 02/05/2007,09/27/2003 HEP B VACCINE, PED/ADOL 03/11/2002,2001, Hib,HISTORIC VACCINE 03/11/2002,01/12/2002,11/10 Human Papilloma Virus Clay valent Vaccine 08/26/2011 INFLUENZA 08/15/2003 INFLUENZA VACCINE, QUADR. (F LUZONE; FLULAVAL; FLUARIX; AFLURIA QUADRIVALENT; 6MO+), 0.5 ML (IIV4) 09/21/2020 MENINGOCOCCAL CONJUGATE (MCV4P) 03/21/2013 MMR 02/05/2007,09/13/2002 PNEUMOCOCCAL PCV7 CONJ, PEDS 08/15/2003, 05/10/2003,03/11/2002,01/12 POLIO IPV 02/05/2007, 3,01/12/2002,11/10 TDAP (7yrs+) 03/21/2013 VARICELLA 02/05/2007,09/13/2002 Social History Tobacco Use Types Packs/Day Years Used Date Smoking Tobacco: Former Cigarettes 0.5 10.1 S tarted: 06/2014 Smokeless Tobacco: Never Tobacco Cessation:Ready to Q uit: No; Counseling Given: Yes Comments:quit with Alcohol Use Standard Drinks/Week Comments No 0 (1 standard drink = 0.6 oz pur e alcohol) PHQ-2 Answer Date Recorded PHQ2 TOTAL SCORE 0 12/14/2020 Sex and Gender Information Value Date Recorded Sex Assigned at Not on file Gender Identity Not on file Sexual Orientation Not on file Last Filed Vital Signs Vital Sign Reading Time Taken Comments Blood Pressure 122/70 12/14/2020 3:47 PM CDT Pulse 78 04/15/2019 7:16 AM CDT Temperature 36.4 ??C (97.5 ??F) 09/11/2020 1:12 PM CS T Respiratory Rate - - Oxygen Saturation 98% 04/15/2019 7:16 AM CDT Inhaled Oxygen Concentration - - Weight 111.1 kg (245 lb) 12/14/2020 3:47 PM CDT Height 170.2 cm (5' 7 ) 12/14/2020 3:47 PM CDT Body Mass Index 38.37 12/14/2020 3:47 PM CDT Plan of Treatment Not on file Procedures Procedure Name Priority Date/Time Associated Diagnosis Comments CHLAMYDIA + GC + TRICH DNA AMPL Routine 09/21/2020 2:26 PM MAINTENANCE AND ENGINEERING MANAGER Absence of menstruation HEPATITIS C ANTIBODY Routine 09/21/2020 11:45 AM MAINTENANCE AND ENGINEERING MANAGER Absence of menstruation PROFILE W T PALLIDUM W HIV Routine 09/21/2020 11:45 AM MAINTENANCE AND ENGINEERING MANAGER Absence of menstruation from Last 3 Months or Most Recently Relevant to Health Maintenance Results * CHLAMYDIA + GC + TRICH DNA AMPL (09/21/2020 2:26 PM MAINTENANCE AND ENGINEERING MANAGER) Chlamydia trachomatis AFSHAN Negative Negative [facility] INSURANCE BILL GC DNA Probe Negative Negative [facility] INSURANCE BILL Trichomonas vaginalis by AFSHAN Negative Negative [facility] INSURANCE BILL Microbiology URINE / Unknown 09/21/2020 2 :26 PM MAINTENANCE AND ENGINEERING MANAGER 09/21/2020 Narrative Resulting Agency Comment Lab Testing performed at: [facility] ??[place] [id number] Hilary Brizuela DO LAB - MICROBIOLOGY O RDERABLES Performing Organization Address City/State/[facility] Co de Phone Number [facility] INSURANCE BILL [address] [place] [address] * (ABNORMAL) PROFILE W T PALLIDUM W HIV (09/21/2020 11:45 AM MAINTENANCE AND ENGINEERING MANAGER) Hepatitis B Virus Surface Antigen Negative Negative [facility] INSURANCE BILL T pallidum Antibody (TP-PA) Non Reactive Non Reactive [facility] INSURANCE BILL Rubella Antibody 2.42 Immune >0.99 index [facility] INSURANCE BILL Comment: ? Non-immune ? <0.90 ? Equivocal ??0.90 - 0.99 ? Immune ? >0.99 ABO O [facility] INSURANCE BILL Rh Type Positive [facility] INSURANCE BILL Comment: Please note: Prior records for this patient's ABO / Rh type are not available for additional verification. Antibody Screen Negative Negative [facility] INSURANCE BILL HIV Screen 4th Generation w Reflex Non Reactive Non Reactive [facility] INSURANCE BILL WBC 13.3(H) 3.4 - 10.8 x10E3/uL [facility] INSURANCE BILL RBC 4.03 3.77 - 5.28 x10E6/uL [facility] INSURANCE BILL Hemoglobin 11.9 11.1 - 15.9 g/dL [facility] INSURANCE BILL Hematocrit 35.5 34.0 - 46.6 % [facility] INSURANCE BILL MCV 88 79 - 97 fL [facility] INSURANCE BILL MCH 29.5 26.6 - 33.0 pg [facility] INSURANCE BILL MCHC 33.5 31.5 - 35.7 g/dL [facility] INSURANCE BILL RDW 14.8 11.7 - 15.4 % [facility] INSURANCE BILL Platelet Count 295 150 - 450 x10E3/uL [facility] INSURANCE BILL Granulocytes % 68 Not Estab. % [facility] INSURANCE BILL Lymphocytes % 26 Not Estab. % [facility] INSURANCE BILL Monocytes % 5 Not Estab. % [facility] INSURANCE BILL Eosinophils % 1 Not Estab. % [facility] INSURANCE BILL Basophils % 0 Not Estab. % [facility] INSURANCE BILL Immature Cells NOT NEEDED [facility] INSURANCE BILL Comment:Ancillary determined the test is not needed. Granulocytes Absolute 8.9(H) 1.4 - 7.0 x10E3/uL [facility] INSURANCE BILL Lymphocytes Absolute 3.5(H) 0.7 - 3.1 x10E3/uL [facility] INSURANCE BILL Monocytes Absolute 0.7 0.1 - 0.9 x10E3/uL [facility] INSURANCE BILL Eosinophils Absolute 0.2 0.0 - 0.4 x10E3/uL [facility] INSURANCE BILL Basophils Absolute 0.0 0.0 - 0.2 x10E3/uL [facility] INSURANCE BILL Immature Granulocytes 0 Not Estab. % [facility] INSURANCE BILL Immature Granulocytes Absolute 0.0 0.0 - 0.1 x10E3/uL [facility] INSURANCE BILL nRBC NOT NEEDED [facility] INSURANCE BILL Comment:Ancillary determined the test is not needed. Comment Hematology NOT NEEDED [facility] INSURANCE BILL Comment:Ancillary determined the test is not needed. Blood BLOOD SPECIMEN / Unknown 09/21/2020 11:45 AM MAINTENANCE AND ENGINEERING MANAGER 09/21/2020 Narrative Resulting Agency Comment Lab Testing performed at: [facility] ??[facility] [id number] Hilary Brizuela DO LAB - SEROLOGY ORDER TRACY Performing Organization Address City/[facility]/ZIP Co de Phone Number [facility] INSURANCE BILL [address] [place] [address] * HEPATITIS C ANTIBODY (09/21/2020 11:45 AM MAINTENANCE AND ENGINEERING MANAGER) Hepatitis C Antibody Non Reactive Non Reactive [facility] INSURANCE BILL Comment: Non Reactive - Antibodies to Hepatitis C virus (HCV) were no t detected, result does not exclude early acute HCV infection. Blood BLOOD SPECIMEN / Unknown 09/21/2020 11:45 AM MAINTENANCE AND ENGINEERING MANAGER 09/21/2020 Narrative Resulting Agency Comment Lab Testing performed at: [facility] [address] [place] [address] ??[facility] [id number] Hilary Brizuela DO LAB - CHEMISTRY ORDE RABLES Performing Organization Address City/[facility]/ZIP Co de Phone Number [facility] INSURANCE BILL [address] [place] [address] from Last 3 Months or Most Recently Relevant to Health Maintenance Care Teams Green Plumber Relationship Specialty Start Date End Date Mamie Hill MD [address] [phone] PCP - General Family Medicine 12/09/18 Chrissie Dos Santos, RN Registered Nurse 04/15/19
--- OUTSIDE RECORDS SUMMARY | 2024-08-06 11:50 | XMS_ITS | Encounter Summary ---
Author Organization [facility] Address [address] [place] [address] Care Team Providers Care Battery Parts Assembler Name Role Phone Mamie Hill MD Primary Care Provider [phone] Chrissie Dos Santos RN Unavailable Unavailable Reason for Visit * Reason Comments Ultrasound Encounter Details Date Type Department Care Team (Latest Contact Info) Description 01/11/2021 1:59 PM CDT - 01/11/2021 11:59 PM CDT Hospital Encounter [facility] at [facility] [address] [place] [address] Janiya Stevens MD [address] [address] Discharge Disposition: Home or Self Care Social History Tobacco Use Types Packs/Day Years [...] on file documented as of this encounter Medications at Time of Discharge Medication Sig Dispensed Refills Start Date End Date aspirin (ASPIRIN) 81 MG chew tablet Take 1 (one) tablet by mouth once daily 100 tablet 4 10/19/2020 Calcium Carb-Cholecalciferol (CALCIUM-VITAMIN D) 500-400 MG-UNITIndications:Absenc e of menstruation Take 1 tablet by mouth once daily 90 tablet 2 09/21/2020 MV-Min-Fe Fum-FA-DHA ( MULTIVITAMIN PLUS DHA) 27-0.8-250 MG CAPSIndications:Absence of menstruation Take 1 tablet by mouth once daily 90 capsule 3 09/21/2020 Vit-DSS-Fe Cbn-FA ( AD PO) documented as of this encounter Plan of Treatment Not on file documented as of this encounter Procedures Procedure Name Priority Date/Time Associated Diagnosis Comments SONOGRAM - COMPLETE Routine 01/11/2021 2 :42 PM CDT Screening, , for anatomic survey (HCC) Supervision of normal first , antepartum (HCC) documented in this encounter Results * SONOGRAM - COMPLETE (01/11/2021 2:42 PM CDT) Anatomical Region Laterality Modality Other 01/11/2021 2:42 PM CDT Narrative 01/11/2021 4:56 PM CDT ? [facility] ? - [facility] ? MATERNAL MEDICINE ?FAX: Pat. Name: ?VERÓNICA GORDON No: ?[id number] Study Date: ?? 01/11/2021 ??2:42pm , Age: ? 2000, 20 Pregnancies: ?? 1 Height: ? 67 in Weight: ? 220 lb LMP: ?07/27/2020 GA by LMP: ?24w0d GA by Base: ?? 24w0d ?? FREEDOM: 05/03/2021 GA by US: ? 25w0d ?? FREEDOM: 04/26/2021 GA Selected: ??24w0d (LMP) FREEDOM: ?05/03/2021 Referring MD: Hilary Brizuela DO Poultry Field Service Technician: ??Guera Hinson, SERJIO/MS CPT4: ? [address] BMI: ?34.45 Hist/Ind: ? Follow up anatomy screen ?Class I obesity MEASUREMENTS & AGE ? GROWTH EVALUATION Measurement ??GA ? Range ? Srce %for GA Ratios ----- ---- ------- BPD ??6.1 cm 24w4d (75e1q-93z4o) Hadl BPD 66% FL/BPD 0.74 (0.71 - 0.87) HC ??23.3 cm 25w3d (08z5h-18q6x) Hadl HC ??82% FL/AC ??0.21 (0.20 - 0.24) AC ??20.8 cm 25w2d (91f8t-84u9e) Hadl AC ??80% HC/AC ??1.12 (1.02 - 1.21) FL ?? 4.5 cm 24w5d (04w4x-01a9f) Hadl FL ??59% CI ? 0.73 (0.70 - 0.86) HL ?? 4.3 cm 25w6d (21a0w-26j3r) Manuelito HL ??81% GA for sonogram 25w0d (33z0n-16d0h) ?? Weight Estimate: based on (BPD,HC,AC,FL) Avg ?Weight: 765 gm (653-877gm) Hadloc ? : 1lbs, 10oz ? Normal: 671 gm (503-838gm) Hadloc ? Wt% ? 86% for 24w0d Heart Rate: 137 bpm Amniotic Fluid Index: 05.6cm (Deepest Pocket) EVAL, PLACENTA Presentation: cephalic Placenta: anterior Heart Rate: 137 bpm Anatomy!Normal!Abnormal!Suboptimal!Prev. Seen!Comments Cranium ?! ?! ?! ?! ? x ?! Mdl (CSP/Thal! ?! ?! ?! ? x ?! Ventricles ?? ! ?! ?! ?! ? x ?! Choroid Plexu! ?! ?! ?! ? x ?! Cerebellum ?? ! ?! ?! ?! ? x ?! Cerebellar Ve! ?! ?! ?! ? x ?! Cisterna M. ??! ?! ?! ?! ? x ?! Nuchal Fold ??! ?! ?! ?! ? x ?! Orbits ? ! ?! ?! ?! ? x ?! Profile ?! ?? x ??! ?! ?! ?! Nasal Bone ?? ! ?? x ??! ?! ?! ? x ?! Lip ?! ?! ?! ?! ? x ?! Maxilla ?! ?? x ??! ?! ?! ?! Mandible ? ! ?? x ??! ?! ?! ?! Neck ? ! ?? x ??! ?! ?! ?! Spine ?! ?! ?! ?! ? x ?! Lungs ?! ?? x ??! ?! ?! ?! 4 Chamber Hea! ?? x ??! ?! ?! ?! LVOT ? ! ?? x ??! ?! ?! ?! RVOT ? ! ?? x ??! ?! ?! ?! 3 Vessel View! ?? x ??! ?! ?! ?! 3 Vessel Trac! ?? x ??! ?! ?! ?! Cross-over ?? ! ?? x ??! ?! ?! ?! Ductal Arch ??! ?? x ??! ?! ?! ?! Aortic Arch ??! ?? x ??! ?! ?! ? x ?! Caval View ?? ! ?! ?! ?! ? x ?! Situs ?! ?! ?! ?! ? x ?! Diaphragm ?! ?! ?! ?! ? x ?! Stomach ?! ?? x ??! ?! ?! ? x ?! Liver ?! ?! ?! ?! ? x ?! Bowel ?! ?? x ??! ?! ?! ? x ?! Kidneys ?! ?? x ??! ?! ?! ? x ?! Bladder ?! ?? x ??! ?! ?! ? x ?! 3 Vessel Cord! ?! ?! ?! ? x ?! Cord In! ?! ?! ?! ? x ?! Upper Extremi! ?? x ??! ?! ?! ?! Hands ?! ?? x ??! ?! ?! ?! Lower Extremi! ?! ?! ?! ? x ?! Feet ? ! ?! ?! ?! ? x ?! External Marlene! ?! ?! ?! ? x ?! Placental Cor! ?! ?! ?! ? x ?! CLINICAL SUMMARY Study Number: 2 ?? IMPRESSION: 1) Abdul gestation, 24w0d 2) Biometry is consistent with appropriate growth 3) No abnormalities have been detected on the, now complete, anatomic survey NOTE: The patient was advised that ultrasound does not allow detection of all structural or chromosomal abnormalities. ?? RECOMMEND: ??Follow up ultrasound only if clinically indicated Thank you for allowing us the opportunity to care for your patient. Janiya Stevens MD <Electronic Signature> ??01/11/2021 04:55pm Janiya Stevens MD [facility] ORDERABLES documented in this encounter Visit Diagnoses Diagnosis Supervision of normal first , antepartum (HCC)- Primary Screening, , for anatomic survey ([facility]) Encounter for anatomic survey Obesity affecting , antepartum (HCC) Encounter for other screening follow-up (HCC) 24 weeks gestation of (HCC) state, incidental documented in this encounter Care Teams Battery Parts Assembler Relationship Specialty Start Date End Date Mamie Hill MD [address] [phone] PCP - General Family Medicine 12/09/18 Chrissie Dos Santos, RN Registered Nurse 04/15/19 documented as of this encounter
--- OUTSIDE RECORDS SUMMARY | 2024-08-06 11:50 | XMS_ITS | Patient Health Summary ---
Author Organization [facility] Address [address] [place] [address] Care Team Providers Care Crossband Layer Name Role Phone Mamie Hill MD Primary Care Provider [phone] Chrissie Dos Santos RN Unavailable Unavailable Note from [facility],non-owned Affiliates and Associated Physician Practices is amultiple site organization consisting of ambulatory clinics and hospital sitesin [place], [place], [place] and [place]. This disclosure is being madepursuant to the Care Everywhere program and may not contain all information available regarding this patient. Last updated 18.[facility] Allergies No known active allergies Medications * Be aware that medications may not be up to date on this document. Alwaysverify current medications with the patient. * Vit-DSS-Fe Cbn-FA ( AD PO) * MV-Min-Fe Fum-FA-DHA ( MULTIVITAMIN PLUS DHA) 27-0.8-250 MG CAPS(Started 09/21/2020) Take 1 tablet by mouth once daily 3 refills by 09/21/2021 * Calcium Carb-Cholecalciferol (CALCIUM-VITAMIN D) 500-400 MG-UNIT(Started 09/21/2020) Take 1 tablet by mouth once daily 2 refills by 09/21/2021 * aspirin (ASPIRIN) 81 MG chew tablet(Started 10/19/2020) Take 1 (one) tablet by mouth once daily 4 refills by 10/19/2021 Active Problems Problem Noted Date Diagnosed Date Screening, , for anatomic survey 12/14/2020 Obesity affecting , antepartum 03/05/20 21 Supervision of normal first , antepartu 10/19/2020 Immunizations * DTaP VACCINE IM (6wk-6yrs)(Given 02/05/2007, 05/10/2003, 03/11/2002, 01/12/2002, 2001) * HEP A PEDS 2 DOSE(Given 02/05/2007, 09/27/2003) * HEP B VACCINE, PED/ADOL(Given 03/11/2002, 2001, 2001) * Hib,HISTORIC VACCINE(Given 03/11/2002, 01/12/2002, 2001) * Human Papilloma Virus Quadrivalent Vaccine(Given 08/26/2011) * INFLUENZA(Given 08/15/2003) * INFLUENZA VACCINE, QUADR. (FLUZONE; FLULAVAL; FLUARIX; AFLURIA QUADRIVALENT; 6MO+), 0.5 ML (IIV4)(Given 09/21/2020) * MENINGOCOCCAL CONJUGATE (MCV4P)(Given 03/21/2013) * MMR(Given 02/05/2007, 09/13/2002) * PNEUMOCOCCAL PCV7 CONJ, PEDS(Given 08/15/2003, 05/10/2003, 03/11/2002, 01/12/2002) * POLIO IPV(Given 02/05/2007, 05/10/2003, 01/12/2002, 2001) * TDAP (7yrs+)(Given 03/21/2013) * VARICELLA(Given 02/05/2007, 09/13/2002) Social History Tobacco Use Types Packs/Day Years [...] Mass Index 38.37 12/14/2020 3:47 PM CDT Procedures * SONOGRAM - COMPLETE(Performed 01/11/2021) Performed for Screening, , for anatomic survey (HCC), Supervision of normal first , antepartum ([facility]) * SONOGRAM - COMPLETE(Performed 12/14/2020) Performed for Supervision of normal first , antepartum ([facility]) * CHLAMYDIA + GC + TRICH DNA AMPL(Performed 09/21/2020) Performed for Absence of menstruation * CULTURE URINE(Performed 09/21/2020) Performed for Absence of menstruation * HEMOGLOBIN A1C(Performed 09/21/2020) Performed for Absence of menstruation * HEPATITIS C ANTIBODY(Performed 09/21/2020) Performed for Absence of menstruation * PROFILE W T PALLIDUM W HIV(Performed 09/21/2020) Performed for Absence of menstruation * US OB LESS THAN 14 WKS W TRANSVAG(Performed 09/21/2020) Performed for Absence of menstruation * HCG URINE QUALITATIVE - POINT OF CARE (AMB) STL(Performed 09/11/2020) Performed for Irregular menses * COMPREHENSIVE METABOLIC PANEL(Performed 04/15/2019) Performed for Pre-diabetes * CBC W AUTO DIFFERENTIAL(Performed 04/15/2019) Performed for Menorrhagia with regular cycle * CULTURE URINE(Performed 01/25/2019) Performed for Bladder infection * URINALYSIS - POINT OF CARE (IP) [facility](Performed 01/25/2019) Performed for Bladder infection * HCG URINE QUALITATIVE - POINT OF CARE (AMB)(Performed 01/25/2019) Performed for Encounter for initial prescription of injectable contraceptive * HCG BETA BLOOD QUANTITATIVE(Performed 01/12/2019) Performed for Encounter for initial prescription of injectable contraceptive * LIPID PROFILE(Performed 12/23/2018) Performed for Lipid screening * CHLAMYDIA + GC AMPLIFIED PROBE(Performed 12/09/2018) Performed for Unprotected sex Results * SONOGRAM - COMPLETE (01/11/2021 2:42 PM CDT) Only the most recent of2 resultswithin the time period is included. Anatomical Region Laterality Modality Other 01/11/2021 2:42 PM CDT Narrative 01/11/2021 4:56 PM CDT ? [facility] ? - [facility] ? MATERNAL MEDICINE ?FAX: Pat. Name: ?VERÓNICA GORDON. No: ?[id number] Study Date: ?? 01/11/2021 ??2:42pm , Age: ? 2000, 20 Pregnancies: ?? 1 Height: ? 67 in Weight: ? 220 lb LMP: ?07/27/2020 GA by LMP: ?24w0d GA by Base: ?? 24w0d ?? FREEDOM: 05/03/2021 GA by US: ? 25w0d ?? FREEDOM: 04/26/2021 GA Selected: ??24w0d (LMP) FREEDOM: ?05/03/2021 Referring MD: Hilary Brizuela DO Civil Preparedness Coordinator: ??Guera Hinson RDMS/ CPT4: ? 28554 BMI: ?34.45 Hist/Ind: ? Follow up anatomy screen ?Class I obesity MEASUREMENTS & AGE ? GROWTH EVALUATION Measurement ??GA ? Range ? Srce %for GA Ratios ----- ---- ------- BPD ??6.1 cm 24w4d (20v5k-06m4w) Hadl BPD 66% FL/BPD 0.74 (0.71 - 0.87) HC ??23.3 cm 25w3d (04o1t-30k0x) Hadl HC ??82% FL/AC ??0.21 (0.20 - 0.24) AC ??20.8 cm 25w2d (63l9c-60f8g) Hadl AC ??80% HC/AC ??1.12 (1.02 - 1.21) FL ?? 4.5 cm 24w5d (23x3i-77f8q) Hadl FL ??59% CI ? 0.73 (0.70 - 0.86) HL ?? 4.3 cm 25w6d (95z9z-22u2j) Manuelito HL ??81% GA for sonogram 25w0d (35p3d-18a1n) ?? Weight Estimate: based on (BPD,HC,AC,FL) Avg ?Weight: 765 gm (653-877gm) Hadloc ? : 1lbs, 10oz ? Normal: 671 gm (503-238gm) Hadloc ? Wt% ? 86% for 24w0d [...] <Electronic Signature> ??01/11/2021 04:55pm Janiya Stevens MD [facility] ORDERABLES * CHLAMYDIA + GC + TRICH DNA AMPL (09/21/2020 2:26 PM HEAD TELLER) Chlamydia trachomatis AFSHAN Negative Negative [facility] INSURANCE BILL GC DNA Probe Negative Negative [facility] INSURANCE BILL Trichomonas vaginalis by AFSHAN Negative Negative [facility] INSURANCE BILL Microbiology URINE / Unknown 09/21/2020 2 :26 PM HEAD TELLER 09/21/2020 Narrative Resulting Agency Comment Lab Testing performed at: [address] ??[place] [phone] Hilary Brizuela DO LAB - MICROBIOLOGY O RDERABLES [facility] INSURANCE BILL [address] [place] [address] * CULTURE URINE (09/21/2020 2:26 PM HEAD TELLER) Only the most recent of2 resultswithin the time period is included. Urine Culture Routine Final report [facility] INSURANCE BILL Result 1 [facility] INSURANCE BILL Comment: Culture shows less than 10,000 colony forming units of bacteria per milliliter of urine. This colony count is not generally considered to be clinically significant. Urine URINE SPECIMEN OBTAINED BY CLEAN CATCH PROCEDURE / Unknown 09/21/2020 2:26 PM HEAD TELLER 09/21/2020 Narrative Resulting Agency Comment [facility]: [facility] [address] [place] [address] ??[facility] [phone] Hilary Brziuela DO LAB - MICROBIOLOGY O RDERABLES [facility] INSURANCE BILL [address] [place] [address] * (ABNORMAL) PROFILE W T PALLIDUM W HIV (09/21/2020 11:45 AM HEAD TELLER) Pathologist [facility] Hepatitis B Virus Surface Antigen Negative Negative [...] BLOOD SPECIMEN / Unknown 09/21/2020 11:45 AM HEAD TELLER 09/21/2020 Narrative Resulting Agency Comment Lab Testing performed at: [employer] [address] ??[facility] [phone] Hilary Brizuela DO LAB - SEROLOGY ORDER TRACY [facility] INSURANCE BILL [address] [place] [address] * HEMOGLOBIN A1C (09/21/2020 11:45 AM HEAD TELLER) Hemoglobin A1c 5.0 4.2 - 5.6 % [facility] INSURANCE BILL Comment: AVERAGE GLUCOSE MG/DL BLOOD ??97 ? mg/dL The following cutoff levels are recommended by [place] [employer]. A1c ??> 6.5% : considered as diabetes if two separate tests > 6.5% or in an appropriate clinical setting. A1c ??5.7% - 6.4% : considered as prediabetes (suggest increa sed risk for diabetes and cardiovascular disease) Control target level: ??Should be individualized. ??< 7 ??for g eneral (non-) , ??< 8% less stringent goal, ??< 6.5 ??more stringent g Hemoglobin A1c measurements are used as an aid in the diagno sis of diabetic mellitus, as an aid to identify patients who may be at the disease. ?? This method may yield falsely low results when fe maria isabel hemoglobin (HbF) exceeds 5% in the specimen. Blood BLOOD SPECIMEN / Unknown 09/21/2020 11:45 AM HEAD TELLER 09/21/2020 Narrative Resulting Agency Comment Lab Testing performed at: [address] [place] ?? [place] [id number] Hilary Brizuela DO LAB - CHEMISTRY ORDE RABLES [facility] INSURANCE BILL [address] [place] [address] * HEPATITIS C ANTIBODY (09/21/2020 11:45 AM HEAD TELLER) Hepatitis C Antibody Non Reactive Non Reactive [facility] INSURANCE BILL Comment: Non Reactive - Antibodies to Hepatitis C virus (HCV) were no t detected, result does not exclude early acute HCV infection. Blood BLOOD SPECIMEN / Unknown 09/21/2020 11:45 AM HEAD TELLER 09/21/2020 Narrative Resulting Agency Comment Lab Testing performed at: [facility] [address] [place] [address] ??[facility] [phone] Hilary Brizuela DO LAB - CHEMISTRY JESSA VELAZQUEZ [facility] INSURANCE BILL [address] [place] [address] * US OB LESS THAN 14 WKS W TRANSVAG (09/21/2020 10:51 AM HEAD TELLER) Anatomical Region Laterality Modality Abdomen Ultrasound Study GA Study Date Study FREEDOM Working FREEDOM (Source) Feta l Weight (Method) Narrative 09/24/2020 9:42 AM HEAD TELLER [facility] Medical Group Department of AIRPLANE FLIGHT ATTENDANT Obstetric Ultrasound, Early Pt. Name: Verónica Gordon : ??2000 : No obstetric history on file. Exam Date: ??09/21/2020 LMP: ?? 07/27/2020 Study Number: 1 Reason for Exam: ??Confirm viability Freight Coordinator: ??No ?? Transabdominal ultrasound: ??Yes Transvaginal ultrasound: [...] ?? Assigned FREEDOM: 05/03/2021, based off LMP Civil Preparedness Coordinator Comments: ??A single IUP with yolk sac is identified; CRL=8w3d, EBN=495 bpm. No evidence of subchorionic hemorrhage. No free fluid or adnexal mass. Both maternal ovaries are identified. Patient LMP is consistent with CRL. FREEDOM by LMP is 05/03/2021. Physician Impression: ??Transabdominal : ??Single viable IUP. ??FHR 178 BPM. ?? Transvaginal : Single viable IUP. ?? Civil Preparedness Coordinator: ?? Elizabeth Camara RDMS Interpreted By: ??Hilary Brizeula, DO Hilary Brizuela DO US ORDERABLES * (ABNORMAL) HCG URINE QUALITATIVE - POINT OF CARE (AMB) STL (09/11/2020 1:30 PM HEAD TELLER) HCG Qual Urine Positive(A) Negative [facility] HCG Urine QC NEG present NEGATIVE - POSITIVE [facility] HCG Urine QC POS present NEGATIVE - POSITIVE [facility] Expiration Date 06/16/2021 [facility] Lot # [id number] [facility] Urine URINE / Unknown 09/11/2020 1 :30 PM HEAD TELLER Mamie Hill MD LAB - POINT OF CARE ORDERABLES [facility] [address] [phone] * (ABNORMAL) CBC WITH DIFFERENTIAL (04/15/2019 8:05 [...] x10E9/L [facility] INSURANCE BILL Comment:MPV FL BLOOD ([facility]) 1 2.3 fl 6.0-9.5 H Granulocytes % [...] Resulting Agency Comment Lab Testing performed at: [facility] [address] [place] ?? [facility] [id number] [facility] LAB - HEMATOLOGY ORD ERABLES [facility] INSURANCE BILL [address] [place] [address] * COMPREHENSIVE METABOLIC PANEL (04/15/2019 8:05 AM [...] Resulting Agency Comment Lab Testing performed at: [address] ?? [facility] [phone] [facility] - CHEMISTRY JESSA VELAZQUEZ [facility] INSURANCE BILL [address] [place] [address] * URINALYSIS - POINT OF CARE (IP) [facility] (01/25/2019) Color UA POCT Arline Appearance UA POCT Clear Glucose UA Negative Negative Bilirubin UA POCT Negative Negative Ketone UA Negative Negative Specific [place] UA POCT 1.015 1.015 - 1.025 Blood [...] - POINT OF CARE ORDERABLES * HCG BETA BLOOD QUANTITATIVE (01/12/2019 11:17 [...] Resulting Agency Comment Lab Testing performed at: [facility] [address] ?? [place] [phone] Mamie Hill MD LAB - CHEMISTRY JESSA VELAZQUEZ Performing Organization Address [facility] de Phone Number [facility] INSURANCE BILL [address] [place] [address] * (ABNORMAL) LIPID PROFILE (12/23/2018 11:26 AM CDT) Cholesterol 136 <200 mg/dL [facility] INSURANCE BILL Triglycerides 129 <150 mg/dL [facility] INSURANCE BILL HDL Cholesterol 43 >40 mg/dL [facility] INSURANCE BILL VLDL Calculated 26(L) >=30 mg/dL [facility] INSURANCE BILL Comment:Not calculated LDL Calculated 67 <130 mg/dL [facility] INSURANCE BILL Comment: Not calculated FASTING Blood BLOOD SPECIMEN / Unknown 12/23/2018 11:26 AM CDT 12/23/2018 Narrative Resulting Agency Comment Lab Testing performed at: [facility] [address] ?? [place] [id number] Mamie Hill MD LAB - CHEMISTRY JESSA VELAZQUEZ Performing Organization Address [facility] de Phone Number [facility] INSURANCE BILL [address] [place] [address] * CHLAMYDIA + GC AMPLIFIED PROBE (12/09/2018 2:30 PM CDT) Chlamydia AFSHAN Urine Negative Negative [facility] INSURANCE BILL GC AFSHAN Urine Negative Negative [facility] INSURANCE BILL Microbiology URINE / Unknown 12/09/2018 2 :30 PM CDT 12/09/2018 Narrative Resulting Agency Comment [facility] [address] [facility] ??[facility] [id number] Mamie Hill MD LAB - MICROBIOLOGY O RDERABLES [facility] INSURANCE BILL [address] [place] [address] Care Teams Crossband Layer Relationship Specialty Start Date End Date Mamie Hill MD [address] [address] PCP - General Family Medicine 12/09/18 Chrissie Dos Santos, RN Registered Nurse 04/15/19
--- OUTSIDE RECORDS SUMMARY | 2024-08-06 11:50 | XMS_ITS | Encounter Summary ---
Author Organization [facility] Health Address [address] [facility] [place] [address] Care Team Providers Care Car Greaser Name Role Phone Mamie Hill MD Primary Care Provider [phone] Chrissie Dos Santos RN Unavailable Unavailable Encounter Details Date Type Department Care Team (Latest Contact Info) Description 09/21/2020 Travel Social History Tobacco Use Types Packs/Day [...] COVID-19? No / Unsure 09/21/2020 10:12 AM PEDIATRIC ORTHODONTIST documented as of this encounter Plan of Treatment Not on file documented as of this encounter Visit Diagnoses Not on filedocumented in this encounter Care Teams Car Greaser Relationship Specialty Start Date End Date Mamie Hill MD [address] [phone] PCP - General Family Medicine 12/09/18 Chrissie Dos Santos, RN Registered Nurse 04/15/19 documented as of this encounter
--- OUTSIDE RECORDS SUMMARY | 2024-08-06 11:50 | XMS_ITS | Encounter Summary ---
Author Organization [facility] Health Address [address] [facility] [place] [address] Care Team Providers Care Licensed Customs Broker Name Role Phone Mamie Hill MD Primary Care Provider [phone] Chrissie Dos Santos RN Unavailable Unavailable Encounter Details Date Type Department Care Team (Latest Contact Info) Description 10/19/2020 Travel Social History Tobacco Use Types Packs/Day [...] COVID-19? No / Unsure 10/19/2020 1:25 PM QUOTATION CHECKER documented as of this encounter Plan of Treatment Not on file documented as of this encounter Visit Diagnoses Not on filedocumented in this encounter Care Teams Licensed Customs Broker Relationship Specialty Start Date End Date Mamie Hill MD [address] [phone] PCP - General Family Medicine 12/09/18 Chrissie Dos Santos, RN Registered Nurse 04/15/19 documented as of this encounter
--- OUTSIDE RECORDS SUMMARY | 2024-08-06 11:50 | XMS_ITS | Encounter Summary ---
Author Organization [facility] Address [address] [facility] [place] [address] Care Team Providers Care Permastone Applicator Name Role Phone Mamie Hill MD Primary Care Provider [phone] Chrissie Dos Santos RN Unavailable Unavailable Reason for Referral * Radiology Services (Routine) - Closed Specialty Diagnoses / Procedures Referred By Yanet hogue Referred To Contact Diagnoses Absence of menstruation Procedures US OB LESS THAN 14 WKS W TRANSVAG Hilary Brizuela DO [address] [address] Referral ID Status Reason Start Date Expiration Date Visits Re quested Visits Authorized [id number] Closed 09/20/2020 09/20/2021 1 1 E SHOE EXAMINER Encounter Details Date Type Department Care Team (Late st Contact Info) Description 09/20/2020 Orders Only [facility] Medical Group - SENIOR AUDIT MANAGER [address] [address] Hilary Brizuela DO [address] [phone] Absence of menstruation Social History Tobacco Use [...] COVID-19? No / Unsure 09/21/2020 10:12 AM WHITE SHOE EXAMINER documented as of this encounter Plan of Treatment Not on file documented as of this encounter Results * US OB LESS THAN 14 WKS W TRANSVAG (09/21/2020 10:51 AM WHITE SHOE EXAMINER) Anatomical Region Laterality Modality Abdomen Ultrasound Study GA Study Date Study FREEDOM Working FREEDOM (Source) Feta l Weight (Method) Narrative 09/24/2020 9:42 AM WHITE SHOE EXAMINER [facility] Medical [facility] Department of SENIOR AUDIT MANAGER Obstetric Ultrasound, Early Pt. Name: Verónica Tariq : ??2000 : No obstetric history on file. Exam Date: ??09/21/2020 LMP: ?? 07/27/2020 Study Number: 1 Reason for Exam: ??Confirm viability Feeder Operator Automatic: ??No ?? Transabdominal ultrasound: ??Yes Transvaginal ultrasound: [...] ?? Assigned FREEDOM: 05/03/2021, based off LMP Cyber Incident Handler Comments: ??A single IUP with yolk sac is identified; CRL=8w3d, WYK=459 bpm. No evidence of subchorionic hemorrhage. No free fluid or adnexal mass. Both maternal ovaries are identified. Patient LMP is consistent with CRL. FREEDOM by LMP is 05/03/2021. Physician Impression: ??Transabdominal : ??Single viable IUP. ??FHR 178 BPM. ?? Transvaginal : Single viable IUP. ?? Cyber Incident Handler: ?? Elizabeth Camara, RDMS Interpreted By: ??Hilary Brizuela, DO Hilary Brizuela DO US ORDERABLES documented in this encounter Visit Diagnoses Diagnosis Absence of menstruation- Primary Absence of menstruation documented in this encounter Care Teams Permastone Applicator Relationship Specialty Start Date End Date Mamie Hill MD [address] [phone] PCP - General Family Medicine 12/09/18 Chrissie Dos Santos, RN Registered Nurse 04/15/19 documented as of this encounter
--- OUTSIDE RECORDS SUMMARY | 2024-08-06 11:50 | XMS_ITS | Encounter Summary ---
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 No / Unsure 09/21/2020 10:12 AM CLINIC ADMINISTRATOR documented as of this encounter Last Filed Vital Signs Vital Sign Reading Time Taken Comments Blood Pressure 122/78 09/21/2020 11:07 AM CLINIC ADMINISTRATOR Pulse - - Temperature - - Respiratory Rate - - Oxygen Saturation - - Inhaled Oxygen Concentration - - Weight 99.8 kg (220 lb) 09/21/2020 11:07 AM CLINIC ADMINISTRATOR Height 170.2 cm (5' 7 ) 09/21/2020 11:07 AM CLINIC ADMINISTRATOR Body Mass Index 34.46 09/21/2020 11:07 AM CLINIC ADMINISTRATOR documented in this encounter Progress Notes * Hilary Brizuela, - 09/21/2020 11:21 AM CST New OB Verónica Tariq is being seen today for her first obstetrical visit. She is a . She is at 8 weeks gestation Her obstetrical history is significant for negative. Pt considering genetic carrier testing. Patient considering CF Screening Relationship with FOB: Andrea Smith, 27 yo Menstrual cycle - regular I had a discussion with the patient of what to expect in . Verónica Tariq will see me every 4 weeks until 28 weeks, then she will start seeing me every 2 weeks until 36 weeks at which point she will see me weekly. If any concerns arise during , she will need to visit me more frequently. Basic labs including panel, HIV, cervical cultures,etc were discussed along with later labs including GCT and GBS. Verbal consent for HIV testing obtained after counseling pt. I reviewed the option for Quad screen, Sequential screen, or NIPT as a screening test for chromosomal abnormalities. I reviewed the need for Anatomy US at 18-20 weeks. Reviewed CF screen. LMP Patient's last menstrual period was 07/27/2020 (exact date). 8 weeks 0 days- FREEDOM of 05/03/2021 09/21/2020 8weeks 3days by US - FREEDOM of 04/30/2021 Final FREEDOM 05/03/2021 OB History 1 Para Term AB Living SAB TAB Ectopic Multiple Live Births Past Medical History: Diagnosis Date ??? Bipolar 1 disorder ??? MDD (major depressive disorder) Past Surgical History: Procedure Laterality Date ??? NEGATIVE SURGICAL HISTORY Family History Problem Relation Name Age of Onset ??? Diabetes - Type 2 Father ??? Cancer - Pancreatic Paternal Grandmother ??? Diabetes - Type 2 Paternal Grandmother ??? COPD - Chronic Obstructive Pulmonary Disease Paternal Grandmother Social History Socioeconomic History ??? Marital status: [...] on file Tobacco Use ??? Smoking status: Former Smoker Packs/day: 0.50 Start date: 06/2014 ??? Smokeless tobacco: Never Used ??? Tobacco comment: quit with Substance and Sexual Activity ??? Alcohol use: No ??? Drug use: Yes Types: Marijuana Comment: hx crack use ??? Sexual activity: Yes Partners: Male Comment: boyfriend - Andrea Lifestyle ??? Physical activity Days per week: Not on file Minutes per session: Not on file ??? Stress: Not on file Relationships ??? Social connections Talks on phone: Not on file Gets together: Not on file Attends cheondoism service: Not on file Active member of [...] Social History Narrative ??? Not on file sexually transmitted disease none ROS General: Denies fever, chills, weight loss HEENT: Denies headache, changes in vision Chest: Denies chest pain, palpitations Respiratory: Denies shortness of breath, cough GI: Denies diarrhea, constipation, c/o nausea, vomiting : Denies irregular bleeding, dysuria, dyspareunia Breast: Denies lumps, nipple discharge, c/o tenderness Endocrine: Denies hot flushes Musculoskeletal: Denies leg pain, edema Neurologic: Denies numbness/tingling in extremities Physical Exam BP 122/78 Ht 5' 7 Wt 220 lb BMI 34.46 kg/m2 Body mass index is 34.46 kg/m??. General: alert, cooperative, no distress Skin: Normal. and no rash or abnormalities Head: normocephalic, without trauma Dentition: normal dentition for age Abdomen: Pelvis: Extremities: extremities normal, atraumatic, no cyanosis or edema Neurologic: AOx3. Gait normal. Psychiatric: non focal Assessment: 1 and 8 weeks Encounter Diagnoses Name Primary? Need for influenza vaccination ??? Absence of menstruation Yes Plan: Initial labs drawn. vitamins and calcium ordered Mood stable - no medication since 08/2019 ASA - will start from 14 Orders Placed This Encounter ??? CULTURE URINE ??? CHLAMYDIA + GC + TRICH DNA AMPL ??? FLU VACCINE QUAD IIV4 SPLIT PF IM ??? PROFILE W T PALLIDUM W HIV ??? HEPATITIS C ANTIBODY ??? HEMOGLOBIN A1C ??? MV-Min-Fe Fum-FA-DHA ( MULTIVITAMIN PLUS DHA) 27-0.8-250 MG CAPS ??? Calcium Carb-Cholecalciferol (CALCIUM-VITAMIN D) 500-400 MG-UNIT Hilary Brizuela DO IC ADMINISTRATOR documented in this encounter Plan of Treatment Not on file documented as of this encounter Procedures Procedure Name Priority Date/Time Associated Diagnosis Comments CHLAMYDIA + GC + TRICH DNA AMPL Routine 09/21/2020 2:26 PM CLINIC ADMINISTRATOR Absence of menstruation CULTURE URINE Routine 09/21/2020 2:26 PM CLINIC ADMINISTRATOR Absence of menstruation PROFILE W T PALLIDUM W HIV Routine 09/21/2020 11:45 AM CLINIC ADMINISTRATOR Absence of menstruation HEMOGLOBIN A1C Routine 09/21/2020 11:45 AM CLINIC ADMINISTRATOR Absence of menstruation HEPATITIS C ANTIBODY Routine 09/21/2020 11:45 AM CLINIC ADMINISTRATOR Absence of menstruation documented in this encounter Results * CHLAMYDIA + GC + TRICH DNA AMPL (09/21/2020 2:26 PM CLINIC ADMINISTRATOR) Chlamydia trachomatis AFSHAN Negative Negative [facility] INSURANCE BILL GC DNA Probe Negative Negative [facility] INSURANCE BILL Trichomonas vaginalis by AFSHAN Negative Negative [facility] INSURANCE BILL Microbiology URINE / Unknown 09/21/2020 2 :26 PM CLINIC ADMINISTRATOR 09/21/2020 Narrative Resulting Agency Comment [facility] [place] ??David WARD [id number] Hilary Brizuela DO LAB - MICROBIOLOGY O RDERABLES [facility] INSURANCE BILL [address] [place] [address] * CULTURE URINE (09/21/2020 2:26 PM CLINIC ADMINISTRATOR) Pathologist [facility] Urine Culture Routine Final report [facility] BILL [facility] Comment: Culture shows less than 10,000 colony forming units of bacteria per milliliter of urine. This colony count is not generally considered to be clinically significant. Urine URINE SPECIMEN OBTAINED BY CLEAN CATCH PROCEDURE / Unknown 09/21/2020 2:26 PM CLINIC ADMINISTRATOR 09/21/2020 Narrative Resulting Agency Comment Lab Testing performed at: [facility] ??[facility] [id number] Hilary Brizuela LAB - MICROBIOLOGY O RDERABLES Performing Organization Address [facility] Co de Phone Number [facility] INSURANCE BILL [address] [place] [address] * HEMOGLOBIN A1C (09/21/2020 11:45 AM CLINIC ADMINISTRATOR) Pathologist [facility] Hemoglobin A1c 5.0 4.2 - 5.6 % [facility] INSURANCE BILL Comment: AVERAGE GLUCOSE MG/DL BLOOD ??97 ? mg/dL The following cutoff levels are recommended by [employer] [employer]. A1c ??> 6.5% : [...] BLOOD SPECIMEN / Unknown 09/21/2020 11:45 AM CLINIC ADMINISTRATOR 09/21/2020 Narrative Resulting Agency Comment Lab Testing performed at: [facility] [address] ?? [facility] [id number] Hilary Brizuela DO LAB - CHEMISTRY ORDJackie CAROLINE Performing Organization Address City/[facility]/ZIP Co de Phone Number [facility] INSURANCE BILL [address] [place] [address] * HEPATITIS C ANTIBODY (09/21/2020 11:45 AM CLINIC ADMINISTRATOR) Hepatitis C Antibody Non Reactive Non Reactive [facility] INSURANCE BILL Comment: Non Reactive - Antibodies to Hepatitis C virus (HCV) were no t detected, result does not exclude early acute HCV infection. Blood BLOOD SPECIMEN / Unknown 09/21/2020 11:45 AM CLINIC ADMINISTRATOR 09/21/2020 Narrative Resulting Agency Comment Lab Testing performed at: [facility] [address] [facility] ??[facility] [id number] Hilary Brizuela DO LAB - CHEMISTRY YOLISJackie CAROLINE Performing Organization Address City/[facility] Co de Phone Number [facility] INSURANCE BILL [address] [place] [address] * (ABNORMAL) PROFILE W T PALLIDUM W HIV (09/21/2020 11:45 AM CLINIC ADMINISTRATOR) Hepatitis B Virus Surface Antigen Negative Negative [...] BLOOD SPECIMEN / Unknown 09/21/2020 11:45 AM CLINIC ADMINISTRATOR 09/21/2020 Narrative Resulting Agency Comment Lab Testing performed at: [facility] [address] ??[facility] [id number] Hilary Brizuela DO LAB - SEROLOGY ORDER TRACY [facility] INSURANCE BILL [address] [place] [address] documented in this encounter Visit Diagnoses Diagnosis Absence of menstruation- Primary Need for influenza vaccination Need for prophylactic vaccination and inoculation against influenza documented in this encounter Care Teams Barrel Line Operator Relationship Specialty Start Date End Date Mamie Hill MD [address] [phone] PCP - General Family Medicine 12/09/18 Chrissie Dos Santos, RN Registered Nurse 04/15/19 documented as of this encounter
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
--- OUTSIDE RECORDS SUMMARY | 2024-08-06 11:50 | XMS_ITS | Encounter Summary ---
Author Organization [facility] Address [address] [place] [address] Care Team Providers Care Manager Operations And Procurement Name Role Phone Mamie Hill MD Primary Care Provider [phone] Reason for Visit * Reason Onset Date Comments Patient Requested Call 04/12/2019 Med Question 04/12/2019 Encounter Details Date Type Department Care Team (Late st Contact Info) Description 04/12/2019 Telephone [facility] - Family Medicine [address] [address] [place] [address] Mamie Hill MD [address] [place] [phone] Patient Requested Call; Med Question Social History Tobacco Use Types Packs/Day Years [...] * Telephone Encounter - Jessie Greer - 04/13/2019 12:17 PM CDT appt made for 04/15/19 with * Telephone Encounter - Mamie Hill MD - 04/13/2019 12:10 PM CDT We need to get her in [place] with someone here to discuss OCP options * Telephone Encounter - Radha Damian - 04/12/2019 1:07 PM CDT Pt's last Depo injection was done here on 01/25/19. What direction would you like to give? * Telephone Encounter - Lupe Torres - 04/12/2019 12:20 PM CDT Who is calling? Mother If other than self is caller listed on the HIPAA? yes What is the reason for call? Patient's mom (Zuleyka) called. Verónica has been on her cycle on and off for 2 weeks. She has been bleeding through the super plus tampons. Clotting is very pad. She has been to the [facility] about 2 weeks ago. They said is was a huge clots. Verónica would like to changeher control form the depo shot to control pills. Pharmacy verified. Expected Response from the Clinic? Mom requesting a call back. documented in this encounter Plan of Treatment Not on file documented as of this encounter Visit Diagnoses Not on filedocumented in this encounter Care Teams Manager Operations And Procurement Relationship Specialty Start Date End Date Mamie Hill MD [address] [phone] PCP - General Family Medicine 12/09/18 documented as of this encounter
--- OUTSIDE RECORDS SUMMARY | 2024-08-06 11:50 | XMS_ITS | Encounter Summary ---
Author Organization [facility] Address [address] [place] [address] Care Team Providers Care Internal Control Manager Name Role Phone Mamie Hill MD Primary Care Provider [phone] Reason for Visit * Reason Comments Establish Care Contraceptive management Encounter Details Date Type Department Care Team (Late st Contact Info) Description 12/09/2018 1:30 PM CDT Office Visit [facility] Medical [facility] - Family Medicine [address] [place] [place] [address] Mamie Hill MD [address] [place] [phone] Encounter for initial prescription of injectable contraceptive (Primary Dx); Mood disorder (HCC); Unprotected sex; Lipid screening Social History Tobacco Use Types Packs/Day Years Used Date Smoking Tobacco: Every Day Cigarettes 0.5 10.1 Started: 06/2014 Smokeless Tobacco: Never Tobacco Cessation:Counseling Given: Yes Alcohol Use Standard Drinks/Week Comments No 0 (1 standard drink = 0.6 oz pur e alcohol) Sex and Gender Information Value Date Recorded Sex Assigned at Not on file Gender Identity Not on file Sexual Orientation Not on file documented as of this encounter Last Filed Vital Signs Vital Sign Reading Time Taken Comments Blood Pressure 134/62 12/09/2018 1:34 PM CDT Pulse - - Temperature - - Respiratory Rate - - Oxygen Saturation - - Inhaled Oxygen Concentration - - Weight 114.2 kg (251 lb 12. 8 oz) 12/09/2018 1:34 PM CDT Height 167.6 cm (5' 6 ) 12/09/2018 1:34 PM CDT Body Mass Index 40.64 12/09/2018 1:34 PM CDT Body Mass Index Percentile 99.42% 12/09/2018 1:3 4 PM CDT Growth Chart: [facility] (Girls, 2- 20 Years) documented in this encounter Progress Notes * Mamie Hill MD - 12/09/2018 1:41 PM CDT New Patient H&P HPI: Verónica Tariq is a 18 year old female who presents today to establish care. her current concerns are establish care. she last saw a physician awhile ago. Father recently was given full custody of patient, mother does not have rights, can see mother if she wants. Mother cannot get medical information. 1. Bipolar/MDD: Pt is following with psychiatry in [place]. She is getting est with Geraldine here. Pt is following with counseling. They have been following her labs (TSH, LFTs, etc). They feel a lot of this was situational and dad now has custody. Pt is happy he has custody. They now feel ZOYA/MDD and feel meds may be switching. 2. Contraception: Pt has never been on control. Pt first started menses age 11-12. They are regular every 30 days. Pt is currently with 1 partner, boy. Pt has had 4 sexual partners. Pt last LMP was 2 weeks ago. Pt has not always used condoms every time. Pt has never been checked STD. Pt states with current partner using condoms 85% of the time. PMH: Past Medical History: Diagnosis Date ??? Bipolar 1 disorder ??? MDD (major depressive disorder) Family History: Family History Problem Relation Age of Onset ??? Diabetes - Type 2 Father ??? Cancer - Pancreatic Paternal Grandmother ??? Diabetes - Type 2 Paternal Grandmother ??? COPD - Chronic Obstructive Pulmonary Disease Paternal Grandmother Past Surgical History: Procedure Laterality Date ??? NEGATIVE SURGICAL HISTORY Social History Social History ??? Marital status: Single Spouse name: N/A ??? Number of children: N/A ??? Years of education: N/A Occupational History ??? Not on file. Social History Main Topics ??? Smoking status: Current Every Day Smoker Packs/day: 0.50 Start date: 06/2014 ??? Smokeless tobacco: Never Used ??? Alcohol use No ??? Drug use: Yes Special: Marijuana Comment: hx crack use ??? Sexual activity: Yes Partners: Male control/ protection: Condom Other Topics Concern ??? Not on file Social History Narrative ??? No narrative on file Pt is a smoker and smokes cigarettes. H/o of smoking crack but was 1-2 years ago. Last smoked marijuana 09/04-10/05. Not allowed to do thisin her father and step mothers home. Pt is going to school online, has month left and then graduating. Pt will be going to [place] after this. Current Outpatient Prescriptions Medication ??? lithium carbonate (LITHOTABS) 300 MG tablet No current facility-administered medications for this visit. Previous Physician: (Records have not been requested) Current Preventative Screening: Need vaccinations Current Specialist: Psychiatry Review of Systems - History obtained from the patient General ROS: negative for - chills, fatigue or fever Psychological ROS: positive for - mood swings Respiratory ROS: no cough, shortness of breath, or wheezing Cardiovascular ROS: no chest pain or dyspnea on exertion Gastrointestinal ROS: no abdominal pain, change in bowel habits, or black or bloody stools Musculoskeletal ROS: negative for - joint pain Physical Exam: BP 134/62 (BP SITE: RIGHT ARM, BP POSITION: SITTING, BP CUFF SIZE: 12) Ht 1.676 m (5' 6 ) Wt 114.2 kg (251 lb 12.8 oz) BMI 40.64 kg/m2 GEN: well appearing, obese female in NAD HEENT: PERRL, normal conjunctivae, eyelids normal, external ears wnl, patent nares, m.m.mnormal pharynx, supple neck, no lymphadenopathy, good dentition CV: RRR no m.r.g RESP: CTAB, no wheezes, rales, or rhonchi, normal respiratory effort GI: soft NT/ND EXT: no c/c/e SKIN: normal, no lesions/rashes PSYCH: appropriate insight and judgement, AAOx3 A/P: 1. Encounter for initial prescription of injectable contraceptive Comment: Discussed options including, OCPs, patch, DEPO, IUD, nexplanon. Pt wants to try Depo. Willget hcg blood x 2 and will start depo after next menses. Discussed with pt side effects to watch for. Discussed with patient that needs to always have partner wear condom with intercourse/STD risks, etc. Pt voiced understanding. Since she had unprotected sex will get Urine STD. All questions answered. - HCG BETA BLOOD QUANTITATIVE; Future 2. Mood disorder Comment: Cont with psychiatry, ? Bipolar, now looking at MDD/ZOYA per pt and step mother from specialist. ? If mood was related to environment she was in. Will see what they recommend regarding medical management 3. Unprotected sex - CHLAMYDIA + GC AMPLIFIED PROBE 4. Lipid screening - LIPID PROFILE documented in this encounter Plan of Treatment Not on file documented as of this encounter Procedures Procedure Name Priority Date/Time Associated Diagnosis Comments LIPID PROFILE Routine 12/23/2018 11:26 AM CDT Lipid screening CHLAMYDIA + GC AMPLIFIED PROBE Routine 12/09/2018 2:30 PM CDT Unprotected sex documented in this encounter Results * HCG [...] Resulting Agency Comment Lab Testing performed at: [facility] [address] ?? [facility] [phone] Mamie Hill MD LAB - CHEMISTRY JESSA VELAZQUEZ [facility] INSURANCE BILL [address] [place] [address] * (ABNORMAL) LIPID PROFILE (12/23/2018 11:26 AM [...] Resulting Agency Comment Lab Testing performed at: [facility] [address] ?? [place] [id number] Mamie Hill MD LAB - CHEMISTRY ORDE CAROLINE [facility] INSURANCE BILL [address] [place] [address] * CHLAMYDIA + GC AMPLIFIED PROBE (12/09/2018 2:30 PM CDT) Chlamydia AFSHAN Urine Negative Negative [facility] INSURANCE BILL GC AFSHAN Urine Negative Negative [facility] INSURANCE BILL Microbiology URINE / Unknown 12/09/2018 2 :30 PM CDT 12/09/2018 Narrative Resulting Agency Comment [facility]: [facility] [address] ??[place] [id number] Mamie Hill MD LAB - MICROBIOLOGY O RDERAEDDIE [facility] INSURANCE BILL [address] [place] [address] documented in this encounter Visit Diagnoses Diagnosis Encounter for initial prescription of injectable contraceptive- Primary General counseling for initiation of other contraceptive measures Mood disorder (HCC) Unspecified episodic mood disorder Unprotected sex Problems related to high-risk sexual behavior Lipid screening Screening for lipoid disorders documented in this encounter Care Teams Internal Control Manager Relationship Specialty Start Date End Date Mamie Hill MD [address] [phone] PCP - General Family Medicine 12/09/18 documented as of this encounter
--- OUTSIDE RECORDS SUMMARY | 2024-08-06 11:50 | XMS_ITS | Encounter Summary ---
Author Organization [facility] Address [address] [place] [address] Care Team Providers Care Collet Driller Name Role Phone Mamie Hill MD Primary Care Provider [phone] Chrissie Dos Santos RN Unavailable Unavailable Encounter Details Date Type Department Care Team (Latest Contact Info) Description 08/31/2020 Travel Social History Tobacco Use Types Packs/Day Years Used Date Smoking Tobacco: Never Assessed Sex and Gender Information Value Date Recorded Sex Assigned at Not on file Gender Identity Not on file Sexual Orientation Not on file COVID-19 Exposure Response Date Recorded In the last month, have you been in contact with someone who was confirmed or suspected to have Coronavirus / COVID-19? No / Unsure 08/31/2020 1:39 PM [facility] documented as of this encounter Plan of Treatment Not on file documented as of this encounter Visit Diagnoses Not on filedocumented in this encounter Care Teams Collet Driller Relationship Specialty Start Date End Date Mamie Hill MD [address] [place] [phone] PCP - General Family Medicine 12/09/18 Chrissie Dos Santos, RN Registered Nurse 04/15/19 documented as of this encounter
--- OUTSIDE RECORDS SUMMARY | 2024-08-06 11:50 | XMS_ITS | Encounter Summary ---
Author Organization [facility] Address [address] [place] [place] [address] Care Team Providers Care Party Host Name Role Phone Mamie Hill MD Primary Care Provider [phone] Chrissie Dos Santos RN Unavailable Unavailable Reason for Visit * Reason Comments Ultrasound Encounter Details Date Type Department Care Team (Latest Contact Info) Description 12/14/2020 2:00 PM CDT - 12/14/2020 11:59 PM CDT Hospital Encounter [facility] & Care at [facility] [address] [place] [address] Janiya Stevens MD [address] [address] Discharge Disposition: Home or Self Care Social [...] PM CDT documented as of this encounter Medications at [...] Associated Diagnosis Comments SONOGRAM - COMPLETE Routine 12/14/2020 2 :19 PM CDT Supervision of normal first , antepartum (HCC) documented in this encounter Results * SONOGRAM - COMPLETE (12/14/2020 2:19 PM CDT) Anatomical Region Laterality Modality Other 12/14/2020 2:19 PM CDT Narrative 12/14/2020 4:05 PM CDT ? [facility] ? MATERNAL MEDICINE ?FAX: Pat. Name: ?VERÓNICA GORDON No: ?[id number] Study Date: ?? 12/14/2020 ??2:19pm , Age: ? 2000, 20 Pregnancies: ?? 1 Height: ? 67 in Weight: ? 220 lb LMP: ?07/27/2020 GA by LMP: ?20w0d GA by US: ? 20w6d ?? FREEDOM: 04/27/2021 GA Selected: ??20w0d (LMP) FREEDOM: ?05/03/2021 Referring MD: Hilary Brizuela DO Garbage Person: ??Taylor Marsh RDMS CPT4: ? 19548,57107 BMI: ?34.45 Hist/Ind: ? anatomic survey ?Class I obesity MEASUREMENTS & AGE ? GROWTH EVALUATION Measurement ??GA ? Range ? Srce %for GA Ratios ----- ---- ------- BPD ??4.8 cm 20w3d (98o9x-38d8i) Hadl BPD 69% FL/BPD 0.73 HC ??17.9 cm 20w2d (85w9d-46n6m) Hadl HC ??57% FL/AC ??0.23 AC ??15.0 cm 20w2d (78b4t-59b9h) Hadl AC ??52% HC/AC ??1.19 (1.06 - 1.24) FL ?? 3.5 cm 21w0d (26y8r-08s1k) Hadl FL ??76% CI ? 0.75 (0.70 - 0.86) HL ?? 3.5 cm 21w6d (13g5i-74a5b) Manuelito HL ??80% Cere 2.2 cm 21w0d (43n4k-75j0x) Hill Cere75% GA for sonogram 20w6d (29r1o-88m0l) ?? Weight Estimate: based on (HL,BPD,HC,AC,FL,Cere) Avg [...] Janiya Stevens MD <Electronic Signature> ??12/14/2020 04:04pm Addypablitotracy Brizuela DO MFM ORDERABLES documented in this encounter Visit Diagnoses Diagnosis Supervision of normal first , antepartum (HCC) Obesity affecting , antepartum (HCC) Screening, , for anatomic survey (HCC) Encounter for anatomic survey Encounter for screening for malformations (HCC) 20 weeks gestation of (HCC) state, incidental documented in this encounter Care Teams Party Host Relationship Specialty Start Date End Date Mamie Hill MD [address] [phone] PCP - General Family Medicine 12/09/18 Chrissie Dos Santos, RN Registered Nurse 04/15/19 documented as of this encounter
--- OUTSIDE RECORDS SUMMARY | 2024-08-06 11:50 | XMS_ITS | Encounter Summary ---
Author Organization [facility] Address [address] [place] [address] Care Team Providers Care Compliance Review Specialist Name Role Phone Mamie Hill MD Primary Care Provider Chrissie Dos Santos RN Unavailable Unavailable Reason for Visit * Reason Onset Date Comments Psychiatric Problem 07/04/2021 Encounter Details Date Type Department Care Team (Late st Contact Info) Description 07/04/2021 Telephone AM BED PLANNING [address] [place] [address] Isabella Paige RN Psychiatric Problem Social History Tobacco Use Types Packs/Day Years [...] on filedocumented in this encounter Care Teams Compliance Review Specialist Relationship Specialty Start Date End Date Mamie Hill MD [address] [phone] PCP - General Family Medicine 12/09/18 Chrissie Dos Santos, RN Registered Nurse 04/15/19 documented as of this encounter
--- OUTSIDE RECORDS SUMMARY | 2024-08-06 11:50 | XMS_ITS | Clinical Summary ---
Author Organization [facility] Address [address] [place] [address] Care Team Providers Care Buckle Sewer Machine Name Role Phone Mamie Hill MD Primary Care Provider [phone] Chrissie Dos Santos RN Unavailable Unavailable Source Comments [facility],non-owned Affiliates and Associated Physician Practices is amultiple site organization consisting of ambulatory clinics and hospital sitesin [place], [place], [place] and [place]. This disclosure is being madepursuant to the Care Everywhere program and may not contain all information available regarding this patient. Last updated 18.[facility] [employer] Allergies No known active allergies Medications * [...] 02/05/2007, 3,01/12/2002,11/10 TDAP (7yrs+) 03/21/2013 VARICELLA 02/05/2007,09/13/2002 Family History Medical History Relation Name Comments Diabetes - Type 2 Father COPD - Chronic Obstructive Pulmonary Disease Paternal Grandmother Cancer - Pancreatic Paternal Grandmother Diabetes - Type 2 Paternal Grandmother Relation Name Status Comments Brother Alive Father Alive Maternal Grandfather Alive Maternal Grandmother Alive Mother Alive Paternal Grandfather Alive Paternal Grandmother Alive half-sister 1 Alive half-sister 2 Alive Social History Tobacco Use Types Packs/Day Years [...] 12/14/2020 3:47 PM CDT Plan of Treatment Health Maintenance Due Date Last Done Comments PAP SMEAR 2001 HPV VACCINE (2 - 2-dose series) 02/24/2012 08/26/2011 CHLAMYDIA/GONORRHEA SCREENING 09/21/2021 09/21/2020, 12/09/2018 DTAP/TDAP/TD VACCINES (7 - Td or Tdap) 03/21/2023 03/21/2013, 02/05/2007, 05/10/2003, Additional history exists DEPRESSION SCREENING 08/17/2023 COVID-19 VACCINE ( season) 2024 INFLUENZA VACCINE (#1) 2024 09/21/2020, 2002 ZOSTER VACCINE (1 of 2) 2051 HEPATITIS B VACCINE Completed 03/11/2002, 2001, 2001 HIB VACCINE Aged Out 03/11/2002, 12/16, 2001 No longer eligible based on patient's age to complete this topic PNEUMOCOCCAL VACCINE Completed 08/15/2003, 05/10/2003, 03/11/2002, Additional history exists MENINGOCOCCAL VACCINE Aged Out 03/21/2013 No ernesto haresh eligible based on patient's age to complete this topic HEPATITIS C SCREENING Completed 09/21/2020 HIV SCREENING Completed 09/21/2020 Procedures Procedure Name Priority Date/Time Associated Diagnosis Comments CHLAMYDIA + GC + TRICH DNA AMPL Routine 09/21/2020 2:26 PM RESIDENT MEDICAL OFFICER Absence of menstruation HEPATITIS C ANTIBODY Routine 09/21/2020 11:45 AM RESIDENT MEDICAL OFFICER Absence of menstruation PROFILE W T PALLIDUM W HIV Routine 09/21/2020 11:45 AM RESIDENT MEDICAL OFFICER Absence of menstruation from Last 3 Months or Most Recently Relevant to Health Maintenance Results * CHLAMYDIA + GC + TRICH DNA AMPL (09/21/2020 2:26 PM RESIDENT MEDICAL OFFICER) Chlamydia trachomatis AFSHAN Negative Negative [facility] INSURANCE BILL GC DNA Probe Negative Negative [facility] INSURANCE BILL Trichomonas vaginalis by AFSHAN Negative Negative [facility] INSURANCE BILL Microbiology URINE / Unknown 09/21/2020 2 :26 PM RESIDENT MEDICAL OFFICER 09/21/2020 Narrative Resulting Agency Comment Lab Testing performed at: [facility] ??[place] [id number] Hilary Brizuela DO LAB - MICROBIOLOGY O RDERABLES [facility] INSURANCE BILL [address] [place] [address] * (ABNORMAL) PROFILE W T PALLIDUM W HIV (09/21/2020 11:45 AM RESIDENT MEDICAL OFFICER) Hepatitis B Virus Surface Antigen Negative Negative [...] BLOOD SPECIMEN / Unknown 09/21/2020 11:45 AM RESIDENT MEDICAL OFFICER 09/21/2020 Narrative Resulting Agency Comment Lab Testing performed at: [facility] [address] [facility] ??[facility] [phone] Hilary Birzuela DO LAB - SEROLOGY ORDER TRACY [facility] INSURANCE BILL [address] [place] [address] * HEPATITIS C ANTIBODY (09/21/2020 11:45 AM RESIDENT MEDICAL OFFICER) Hepatitis C Antibody Non Reactive Non Reactive [facility] INSURANCE BILL Comment: Non Reactive - Antibodies to Hepatitis C virus (HCV) were no t detected, result does not exclude early acute HCV infection. Blood BLOOD SPECIMEN / Unknown 09/21/2020 11:45 AM RESIDENT MEDICAL OFFICER 09/21/2020 Narrative Resulting Agency Comment Lab Testing performed at: [facility] [address] [place] [address] ??[facility] [id number] Hilary Brizuela DO LAB - CHEMISTRY ORDE RABLES [facility] INSURANCE BILL [address] [place] [address] from Last 3 Months or Most Recently Relevant to Health Maintenance Care Teams Buckle Sewer Machine Relationship Specialty Start Date End Date Mamie Hill MD [address] [phone] PCP - General Family Medicine 12/09/18 Chrissie Dos Santos, RN Registered Nurse 04/15/19
--- OUTSIDE RECORDS SUMMARY | 2024-08-06 11:51 | XMS_ITS | Encounter Summary ---
Author Organization [facility] Address [address] [place] [address] Care Team Providers Care Stone Setter Apprentice Name Role Phone Unavailable Primary Care Provider Unavailabl e Encounter Details Date Type Department Care Team (Late st Contact Info) Description 04/19/2024 External Device Data [facility] ABSTRACTION Provider, Abstract NO ADDRESS ON FILE Social History Tobacco Use Types Packs/Day Years Used Date Smoking Tobacco: Every Day Cigarettes Smokeless Tobacco: Never Alcohol Use Standard Drinks/Week Comments Yes 14 (1 standard drink = 0.6 oz pu re alcohol) Sex and Gender Information Value Date Recorded Sex Assigned at Not on file Gender Identity Not on file Sexual Orientation Not on file documented as of this encounter Plan of Treatment Not on file documented as of this encounter Visit Diagnoses Not on filedocumented in this encounter
--- OUTSIDE RECORDS SUMMARY | 2024-08-06 11:51 | XMS_ITS | Data Portability ---
Author Organization [facility] [place] Address [address] [place] [address] [place] [address] Assessment No assessment recorded. Plan of Treatment Reminders Order Date Submit Date Provider Last Modified By Organization Details Last Modified Time Details Appointments None recorded. Lab urinalysis, dipstick 2023 024 [facility], [address], [address], [place], [address], 4 16:29:57 CMP, serum or plasma 2023 024 [facility] (Lab), [address], [place], [address], 4 07:08:59 lipid panel, blood 2023 024 [facility] (Lab), [address], [place], [address], 4 07:08:59 HbA1c (hemoglobin A1c), blood 2023 024 [facility] (Lab), [address], [place], [address], 4 07:08:58 CBC w/ auto diff 2023 024 [facility] (Lab), [address], [place], [address], 4 07:08:58 TSH, serum or plasma 2023 024 [facility] (Lab), [address], [place], [address], 4 07:09:00 25-hydroxyv itamin D2 + 25-hydroxyv itamin D3, QN, serum or plasma 2023 024 [facility] (Lab), [address], [place], [address], 4 07:09:00 Referral psychiatris t referral 2023 024 [facility], [address], [place], [address], 4 04:11:52 Procedures None recorded. Surgeries None recorded. Imaging non-stress test [address], [facility] [address], [place], [address], 1 18:09:01 non-stress test [address], [facility] [address], [place], [address], 1 20:47:29 Medication Orders Loestrin Fe 09/05 (28-Day) 1 mg-20 mcg (21)/75 mg (7) tablet 2020 021 [email or web address] [id number], [address], [place], [place], [id number], 4 16:01:03 Macrobid 100 mg capsule 2023 024 [facility] [facility], [facility] [address], [place], [address], 4 16:34:11 Slynd 4 mg (28) tablet 2023 024 [facility] [address] [facility], [address], [place], [address], 16:33:34 Patient TargetsNo targets recorded. Patient InstructionsNo instructions recorded. Reason for Referral Psychiatrist Referral for Ramesh rderline personality disorder Referring Physician: Anca Sadler, [employer]IMMER, Encounter Date: 03/01/2024 Results Created Date Observation Date Name Description Value Unit Range Abnormal Flag Note LastModifiedBy Organization Detail LastModifiedTime 04/04/20 21 04/04/2021 CULTU RE: GROUP B STREP SCREE N, REFLE X SUSCE PTIBI LITY result report SEE RESULT S BELOW Test: Cultu re: Group B Strep , Refle x Susce ptibi lity ([facility]/ [facility] ) Speci men Sourc e: Vagin a/Rec chanda Speci men Type: Vagin al/Re ctal Speci men Date: 2020 1:12 PM Resul t Date: 2020 1:35 PM Resul t Statu s: Final resul t Abnor mal: No Resul ting Lab: [facility] [address] [facility] [address] Tel: CULTU RE ----- ----- ----- --- No Group B strep isola alex at 2 days (cassie ctive broth enhan cemen t) Not Available [facility] (Lab) [address], [place], [address], 04/08/2021 14:38:11 03/01/20 24 03/01/2024 urina lysis , dipst ick Leukocytes ++ Not Available Trevor moscoso [address], [place], [address], 03/01/2024 16:26:03 03/01/20 24 03/01/2024 urina lysis , dipst ick Nitrite negati ve Not Available Henrique [address], [place], [address], 03/01/2024 16:26:03 03/01/20 24 03/01/2024 urina lysis , dipst ick Urobilinogen normal Not Available [facility] [address], [place], [address], 03/01/2024 16:26:03 03/01/20 24 03/01/2024 urina lysis , dipst ick Protein negati ve Not Available [place] [address], [place], [address], 03/01/2024 16:26:03 03/01/20 24 03/01/2024 urina lysis , dipst ick pH 5 Not Available [place] [address], [place], [address], 03/01/2024 16:26:03 03/01/20 24 03/01/2024 urina lysis , dipst ick Specific [place] 1.025 Not Available [facility] [address], [place], [address], 03/01/2024 16:26:03 03/01/20 24 03/01/2024 urina lysis , dipst ick Ketone negati ve Not Available [place] [address], [place], [address], 03/01/2024 16:26:03 03/01/20 24 03/01/2024 urina lysis , dipst ick Bilirubin negati ve Not Available [place] [address], [place], [address], 03/01/2024 16:26:03 03/01/20 24 03/01/2024 urina lysis , dipst ick Glucose normal Not Available [place] [address], [place], [address], 03/01/2024 16:26:03 03/08/20 24 03/08/2024 CBC W/DIF F WBC 8.0 10'3/ uL 3.5-10 .5 Not Available [facility] (Lab) [address], [place], [address], 03/09/2024 07:08:58 03/08/20 24 03/08/2024 CBC W/DIF F RBC 4.28 10'6/ uL (based on docume nted legal sex) 3.80-5 .20 Not Available [facility] (Lab) [address], [place], [address], 03/09/2024 07:08:58 03/08/20 24 03/08/2024 CBC W/DIF F HGB 11.1 g/dL (based on docume nted legal sex) 11.6-1 5.4 low Not Available [facility] (Lab) [address], [place], [address], 03/09/2024 07:08:58 03/08/20 24 03/08/2024 CBC W/DIF F HCT 36.6 % (based on docume nted legal sex) 34.0-4 5.0 Not Available [facility] (Lab) [address], [place], [address], 03/09/2024 07:08:58 03/08/20 24 03/08/2024 CBC W/DIF F MCV 85.5 fL 80.0-9 9.0 Not Available [facility] (Lab) [address], [place], [address], 03/09/2024 07:08:58 03/08/20 24 03/08/2024 CBC W/DIF F MCH 25.9 pg 27.0-3 4.0 low Not Available [facility] (Lab) [address] [facility], [place], [address], 03/09/2024 07:08:58 03/08/20 24 03/08/2024 CBC W/DIF F MCHC 30.3 g/dL 32.0-3 5.5 low Not Available [facility] (Lab) [address] [facility], [place], [address], 03/09/2024 07:08:58 03/08/20 24 03/08/2024 CBC W/DIF F RDW 14.6 % 11.0-1 5.0 Not Available [facility] (Lab) [address] [facility], [place], [address], 03/09/2024 07:08:58 03/08/20 24 03/08/2024 CBC W/DIF F plt 350 10'3/ uL 150-40 0 Not Available [facility] (Lab) [address] [facility], [place], [address], 03/09/2024 07:08:58 03/08/20 24 03/08/2024 CBC W/DIF F MPV 12.8 fL 8.8-12 .1 high Not Available [facility] (Lab) [address] [facility], [place], [address], 03/09/2024 07:08:58 03/08/20 24 03/08/2024 CBC W/DIF F NRBC's 0.0 % 0.0 Not Available [facility] (Lab) [address] [facility] [address], [place], [address], 03/09/2024 07:08:58 03/08/20 24 03/08/2024 CBC W/DIF F absolute NRBCs 0.0 10'3/ uL no refere nce range establ ished Not Available [facility] (Lab) [address] [facility], [place], [address], 03/09/2024 07:08:58 03/08/20 24 03/08/2024 CBC W/DIF F neutrophils 58.6 % 34.0-7 3.0 Not Available [facility] (Lab) [address] [facility], [place], [address], 03/09/2024 07:08:58 03/08/20 24 03/08/2024 CBC W/DIF F lymphocytes 32.5 % 15.0-5 0.0 Not Available [facility] (Lab) [address] [place], [address], 03/09/2024 07:08:58 03/08/20 24 03/08/2024 CBC W/DIF F monocytes 5.2 % 1.0-15 .0 Not Available [facility] (Lab) [address] [place], [address], 03/09/2024 07:08:58 03/08/20 24 03/08/2024 CBC W/DIF F eosinophils 2.0 % 0.0-8. 0 Not Available [facility] (Lab) [address], [place], [address], 03/09/2024 07:08:58 03/08/20 24 03/08/2024 CBC W/DIF F basophils 0.7 % 0.0-2. 0 Not Available [facility] (Lab) [address], [place], [address], 03/09/2024 07:08:58 03/08/20 24 03/08/2024 CBC W/DIF F immature granulocytes 1.0 % no define d refere nce range Not Available [facility] (Lab) [address], [place], [address], 03/09/2024 07:08:58 03/08/20 24 03/08/2024 CBC W/DIF F absolute neutrophils 4.7 10'3/ uL 1.5-8. 0 Not Available [facility] (Lab) [address] [place], [address], 03/09/2024 07:08:58 03/08/20 24 03/08/2024 CBC W/DIF F absolute lymphocytes 2.6 10'3/ uL 1.0-4. 0 Not Available [facility] (Lab) [address] [place], [address], 03/09/2024 07:08:58 03/08/20 24 03/08/2024 CBC W/DIF F absolute monocytes 0.4 10'3/ uL 0.2-1. 0 Not Available [facility] (Lab) [address] [facility], [place], [address], 03/09/2024 07:08:58 03/08/20 24 03/08/2024 CBC W/DIF F absolute eosinophils 0.2 10'3/ uL 0.0-0. 6 Not Available [facility] (Lab) [address] [facility], [place], [address], 03/09/2024 07:08:58 03/08/20 24 03/08/2024 CBC W/DIF F absolute basophils 0.1 10'3/ uL 0.0-0. 3 Not Available [facility] (Lab) [address] [facility], [place], [address], 03/09/2024 07:08:58 03/08/20 24 03/08/2024 CBC W/DIF F absolute immature granulocytes 0.1 10'3/ uL 0.00-0 .10 2023 3:50 AM: P indic ates parti al resul ts on a panel have been relea sed. Addit ional resul ts will follo w. 2023 3:50 AM: This resul t has been final verif ied. No addit ional or palma ed resul ts are expec alex. Not Available [facility] (Lab) [address], [place], [address], 03/09/2024 07:08:58 03/08/20 24 03/08/2024 HEMOG LOBIN A1C hemoglobin A1C 5.5 % 0-5.6 The Ameri can Diabe jocelynn Assoc iatio n recom mends that a prima ry goal of thera py teddy d be a HBA1C of < 7% and that physi cians shoul d reeva luate the treat ment regim en in patie nts with HBA1C value s consi stent ly > 8%. <5.7% Symone l 5.7 - 6.4% Incre ased risk for diabe jocelynn >=6.5 % Diagn ostic of diabe jocelynn <7.0% Goal of thera py >8.0% Actio n carly sted Not Available [facility] (Lab) [address], [place], [address], 03/09/2024 07:08:58 03/08/20 24 03/08/2024 LIPID PANEL ,AMA (LDL- CALC) total cholesterol 118 mg/dL 0-199 Not Available [facility] (Lab) [address] [place], [address], 03/09/2024 07:08:59 03/08/20 24 03/08/2024 LIPID PANEL ,AMA (LDL- CALC) triglyceride s 65 mg/dL 0-150 NCEP Refer ence Value s for Trigl yceri larry: Symone l: <150 mg/dL Borde rline High: 150 - 199 mg/dL High: 200 - 499 mg/dL Very High: >/= 500 mg/dL Not Available [facility] (Lab) [address] [place], [address], 03/09/2024 07:08:59 03/08/20 24 03/08/2024 LIPID PANEL ,AMA (LDL- CALC) HDL cholesterol 33 mg/dL >40 low Not Available [facility] (Lab) [address] [place], [address], 03/09/2024 07:08:59 03/08/20 24 03/08/2024 LIPID PANEL ,AMA (LDL- CALC) LDL cholesterol 71 mg/dL 0-99 Cutof f value s recom fernanod d by the Natio nal Huong stero l Educa tion Progr am: REGAN ABLE: Huong stero l <200 mg/dL LDL <100 mg/dL BORDE RLINE : Huong stero l 200-2 39 mg/dL LDL 101-1 59 mg/dL HIGHE R RISK: Huong stero l >240 mg/dL LDL >160 mg/dL , HDL <40 mg/dL Not Available [facility] (Lab) [address], [place], [address], 03/09/2024 07:08:59 03/08/2003/08/2024 LIPID PANEL ,AMA (LDL- CALC) non-HDL cholesterol 85 mg/dL no refere nce range A reaso nable goal for non-H DL huong stero l is one that is 30 mg/dL highe r than the LDL huong stero l goal. Not Available [facility] (Lab) [address], [place], [address], 03/09/2024 07:08:59 03/08/2003/08/2024 LIPID PANEL ,AMA (LDL- CALC) chol/HDL ratio 3.6 . 0.0-5. 0 On December 09, 2022, [facility] labor atori es palma ed the equat ion for calcu latin g estim ated low-d ensit y lipop rotei n-cho leste rol (LDL- C) from the Fried sultana equat ion to the Lashonda n/Hop kins equat ion. This new equat ion is only valid for lipid panel s with trigl yceri larry < 400 mg/dL . Sheebai es sai ghorta ed that this new equat ion will impro ve the accur acy of LDL-C , espec ially in scena yun when LDL-C ayaan ntrat ions are relat ively low (< 100 mg/dL ), trigl yceri larry are eleva alex, or patie nt is non-f astin g. Refer ences : - Lashonda benavidez, Lenny Oliva, Dav Crain , [facility] [place], Romario Santiago, Romario henry, Prabhakar foote , and Crhis Camacho . 2013. Comp ariso n of a Novel Metho d vs the Fried sultana Equat ion for Estim ating Low-D ensit y Lipop rotei n Huong stero l Level s from the Stand eileen Lipid Profi le. CHELSIE: The Journ al of the Ameri can Medic al Assoc iatio n 310 (19): 2060- . - Jimmy mcfarland V, Cheli J, Suzette ar A, Ari M, Rosales e R, Arin mcfarland E, Dalton foote RS, Doug SR, Lashonda n SS. Fast ing Versu s Nonfa sting and Low-D ensit y Lipop rotei n Huong stero l Accur acy. Circu latio n. 2017Aug 18;137 (1):1 0-19. Not Available [facility] (Lab) [address], [place], [address], 03/09/2024 07:08:59 03/08/20 24 03/08/2024 CMP(C OMPRE HENSI VE METAB OLIC PANEL ) sodium 138 mmol/ L 133-14 6 Not Available [facility] (Lab) [address], [place], [address], 03/09/2024 07:08:59 03/08/20 24 03/08/2024 CMP(C OMPRE HENSI VE METAB OLIC PANEL ) potassium 4.0 mmol/ L 3.5-5. 1 Not Available [facility] (Lab) [address], [place], [address], 03/09/2024 07:08:59 03/08/20 24 03/08/2024 CMP(C OMPRE HENSI VE METAB OLIC PANEL ) chloride 104 mmol/ L 98-107 Not Available [facility] (Lab) [address] [place], [address], 03/09/2024 07:08:59 03/08/20 24 03/08/2024 CMP(C OMPRE HENSI VE METAB OLIC PANEL ) carbon dioxide 28 mmol/ L 21-31 Not Available [facility] (Lab) [address], [place], [address], 03/09/2024 07:08:59 03/08/20 24 03/08/2024 CMP(C OMPRE HENSI VE METAB OLIC PANEL ) anion gap 6 mmol/ L 4-13 Not Available [facility] (Lab) [address], [place], [address], 03/09/2024 07:08:59 03/08/20 24 03/08/2024 CMP(C OMPRE HENSI VE METAB OLIC PANEL ) blood urea nitrogen 9 mg/dL 7-25 Not Available [facility] (Lab) [address], [place], [address], 03/09/2024 07:08:59 03/08/20 24 03/08/2024 CMP(C OMPRE HENSI VE METAB OLIC PANEL ) creatinine 0.73 mg/dL 0.60-1 .30 Not Available [facility] (Lab) [address], [place], [address], 03/09/2024 07:08:59 03/08/20 24 03/08/2024 CMP(C OMPRE HENSI VE METAB OLIC PANEL ) egfrcr (CKD-epi 2020) >90 mL/mi n/1.7 3_m2 >=60 Not Available [facility] (Lab) [address], [place], [address], 03/09/2024 07:08:59 03/08/20 24 03/08/2024 CMP(C OMPRE HENSI VE METAB OLIC PANEL ) calcium 9.1 mg/dL 8.3-10 .5 Not Available [facility] (Lab) [address], [place], [address], 03/09/2024 07:08:59 03/08/20 24 03/08/2024 CMP(C OMPRE HENSI VE METAB OLIC PANEL ) glucose 99 mg/dL 70-100 Not Available [facility] (Lab) [address], [place], [address], 03/09/2024 07:08:59 03/08/20 24 03/08/2024 CMP(C OMPRE HENSI VE METAB OLIC PANEL ) protein, total 6.9 g/dL 6.4-8. 3 Not Available [facility] (Lab) [address], [place], [address], 03/09/2024 07:08:59 03/08/20 24 03/08/2024 CMP(C OMPRE HENSI VE METAB OLIC PANEL ) albumin 3.8 g/dL 3.5-5. 0 Not Available [facility] (Lab) [address], [place], [address], 03/09/2024 07:08:59 03/08/20 24 03/08/2024 CMP(C OMPRE HENSI VE METAB OLIC PANEL ) ALT 8 units /L 9-43 low Not Available [facility] (Lab) [address], [place], [address], 03/09/2024 07:08:59 03/08/20 24 03/08/2024 CMP(C OMPRE HENSI VE METAB OLIC PANEL ) alkaline phosphatase 64 units /L 34-104 Not Available [facility] (Lab) [address], [place], [address], 03/09/2024 07:08:59 03/08/20 24 03/08/2024 CMP(C OMPRE HENSI VE METAB OLIC PANEL ) AST 10 units /L 13-39 low Not Available [facility] (Lab) [address], [place], [address], 03/09/2024 07:08:59 03/08/20 24 03/08/2024 CMP(C OMPRE HENSI VE METAB OLIC PANEL ) bilirubin, total 0.3 mg/dL 0.2-1. 2 Not Available [facility] (Lab) [address] [place], [address], 03/09/2024 07:08:59 03/08/20 24 03/08/2024 TSH, REFLE X FREE T4 TSH 1.73 uIU/m L 0.30-5 .33 Not Available [facility] (Lab) [address] [place], [address], 03/09/2024 07:08:59 03/08/20 24 03/08/2024 VITAM IN D, 25-OH (TOTA L D2/D3 ) vitamin D, 25-hydroxy, total 22.7 NG/mL 30.0-1 00.0 low Sugge stive of Defic iency : <20 ng/mL Sugge stive of Insuf ficie ncy: 20-29 ng/mL Sugge stive of Suffi cienc y: 30-10 0 ng/mL Sugge stive of Toxic ity: >150 ng/mL Not Available [facility] (Lab) [address], [place], [address], 03/09/2024 07:09:00 03/18/20 21 03/18/2021 non-s tress test No observ ation record ed. kailee [place] [facility] [address], [place], [address], 03/18/2021 10:56:27 03/21/20 21 03/21/2021 non-s tress test No observ ation record ed. kailee [place] [facility] [address], [place], [address], 03/21/2021 11:08:59 03/25/20 21 03/25/2021 non-s tress test No observ ation record ed. kailee [place] [facility] [address], [place], [address], 03/25/2021 11:05:45 03/29/20 21 03/29/2021 non-s tress test No observ ation record ed. kailee [place] [address], [place], [address], 03/29/2021 12:16:21 04/01/20 21 04/01/2021 non-s tress test No observ ation record ed. kailee [place] [address], [place], [address], 04/01/2021 11:22:58 04/04/20 21 04/04/2021 non-s tress test No observ ation record ed. kailee [place] [address], [place], [address], 04/04/2021 11:52:23 04/04/20 21 04/04/2021 US, obste tric, follo w-up No observ ation record ed. [email or web address] [place] [address], [place], [address], 04/04/2021 15:43:28 04/04/20 21 04/04/2021 US, obste tric, follo w-up No observ ation record ed. [email or web address] [address], [place], [address], 04/05/2021 10:42:18 04/08/20 21 04/08/2021 non-s tress test No observ ation record ed. [place] [address], [place], [address], 04/08/2021 17:49:17 04/11/20 21 04/11/2021 non-s tress test No observ ation record ed. [place] [address], [place], [address], 04/12/2021 09:03:51 04/15/20 21 04/15/2021 non-s tress test No observ ation record ed. kailee [place] [address], [place], [address], 04/15/2021 12:06:23 04/18/20 21 04/18/2021 non-s tress test No observ ation record ed. kailee [place] [address], [place], [address], 04/18/2021 12:02:09 04/22/2004/22/2021 non-s tress test No observ ation record ed. [email or web address] [facility] [address], [place], [address], 04/24/2021 09:53:57 Result Notes None recorded. Problems Name Problem SNOMED Code Status Onset Date Resolution Date Notes Provider Name and Address Organization Details Recorded Time Pregnanc y 39464745 Completed 202005/06/2021 Breonnavishal Sánchez ehl null, [facility] 16:55:42 Asthma 423967077 Completed Rescue mdi only 4x/wk Breonna Sánchez ehl null, [facility] 16:55:38 Gestatio nal diabetes mellitus 80939258 Completed 32wk ante testing Breonna Bohradhansti ehl null, [facility] 16:55:38 Gestatio nal diabetes mellitus 55688754 Active 32wk ante testing Breonna Bohnensti ehl null, [facility] 16:55:38 Maternal obesity complica ting pregnanc y, childbir th and the puerperi , antepart 79254650570 7 Active Breonna Bohnensti ehl null, [facility] 16:55:38 Asthma 699315261 Active Rescue mdi only 4x/wk Breonna Bohmaxiti ehl null, [facility] 16:55:38 Maternal obesity complica ting pregnanc y, childbir th and the puerperi , antepart [id number] 7 Completed Breonna Bohnensti ehl null, [facility] 16:55:38 Problem Notes None recorded. Procedures Surgical History None recorded. Imaging Results Imaging Date Name Status [facility] by [facility] Details LastModified Time 03/18/2021 non-stress test completed kailee [address], [place], [address], 03/18/2021 10:56:27 03/21/2021 non-stress test completed kailee [address], [place], [address], 03/21/2021 11:08:59 03/25/2021 non-stress test completed [address], [place], [address], 03/25/2021 11:05:45 03/29/2021 non-stress test completed kailee [address], [place], [address], 03/29/2021 12:16:21 04/01/2021 non-stress test completed kailee [address], [place], [address], 04/01/2021 11:22:58 04/04/2021 non-stress test completed kailee [address], [place], [address], 04/04/2021 11:52:23 04/04/2021 US, obstetric, follow-up completed [email or web address] [place] [address], [place], [address], 04/04/2021 15:43:28 04/04/2021 US, obstetric, follow-up completed [email or web address] [address], [place], [address], 04/05/2021 10:42:18 04/08/2021 non-stress test completed [email or web address] [address] [place], [place], [address], 04/08/2021 17:49:17 04/11/2021 non-stress test completed [place] [address], [place], [address], 04/12/2021 09:03:51 04/15/2021 non-stress test completed [address] [place], [place], [address], 04/15/2021 12:06:23 04/18/2021 non-stress test completed [email or web address] [place] [address] [address], [place], [address], 04/18/2021 12:02:09 04/22/2021 non-stress test completed [address], [place], [address], 04/24/2021 09:53:57 Procedure Notes None recorded. Medical Equipment None Reported. Allergies No known drug allergies Medications Name Sig Start Date Stop Date Status Note LastModified by Organization Details LastModified Time Loestrin Fe 09/05 (28-Day) 1 mg-20 mcg (21)/75 mg (7) tablet Take 1 tablet every day by oral route. 03/01 completed Not Available Not Available Not Available penicillin V potassium 500 mg tablet 03/01 completed Not Available Not Available Not Available nitrofuranto in monohydrate/ macrocrystal s 100 mg capsule TAKE 1 CAPSULE BY MOUTH EVERY 12 HOURS FOR 7 DAYS active Not Available Not Available No t Available calcium 07/09 completed Not Available Not Available Not Available 07/09 completed Not Available Not Available Not Available cholecalcife rol (vitamin D3) 1,250 mcg (50,000 unit) capsule Take 1 capsule every week by oral route. 2023 active Not Available Not Available Not Avai lable FeroSul 325 mg (65 mg iron) tablet 03/01 completed Not Available Not Available Not Available Slynd 4 mg (28) tablet Take 1 tablet every day by oral route. active Not Available Not Available No t Available Vitals Date Recorded Body height Body mass index (BMI) Percentile per age and sex Body mass index (BMI) Body weight Systolic blood pressure Diastolic blood pressure Provider Name and Address Organization Details Last Updated DateTime 1 170.18 cm 99 % 43.9 kg/m2 006258. 8636 g 135 mm[Hg] 83 mm[Hg] Mona Cornejo [facility] 1 12:03:19 Date Recorded Body height Body mass index (BMI) Percentile per age and sex Body mass index (BMI) Body weight Systolic blood pressure Diastolic blood pressure Provider Name and Address Organization Details Last Updated DateTime 1 170.18 cm 98 % 37.6 kg/m2 331956. 17 g 133 mm[Hg] 84 mm[Hg] Shirley Burks [facility] 1 11:55:16 Date Recorded Body height Body mass index (BMI) Body weight Systolic blood pressure Diastolic blood pressure Provider Name and Address Organization Details Last Updated DateTime 03/01/2024 170.18 cm 34.3 kg/m2 98136.73 g 132 mm[Hg] 87 mm[Hg] Terri Olivasen [facility] 4 16:00:36 Date Recorded Systolic blood pressure Diastolic blood pressure Provider Name and Address Organization Details Last Updated DateTime 04/15/2021 137 mm[Hg] 74 mm[Hg] Monroe Ashleyradha [facility] 04/15/2021 11:39:50 Social History Question Answer Notes LastModified by Organizat ion Details LastModified Time Tobacco Smoking Status Never Smoker Catrachita Baker [facility] 07/09/2021 11:49:06 Do You Have An Advance Directive? No Information n ot available 03/07/2021 What Is Your Level Of Alcohol Consumption? None Information not available 03/07/2021 Are You Blind Or Do You Have Difficulty Seeing? No Information n ot available 03/07/2021 What Is Your Level Of Caffeine Consumption? Occasional Information not available 03/07/2021 How Much Tobacco Do You Chew? None Information not available 03/07/2021 In The 14 Days Before Symptom Onset, Have You Had Close Contact With A Laboratory-confirm ed COVID-19 While That Case Was Ill? No Information n ot available 03/07/2021 In The 14 Days Before Symptom Onset, Have You Had Close Contact With A Person Who Is Under Investigation For COVID-19 While That Person Was Ill? No Information not available 03/07/2021 Have You Been To An Area Known To Be High Risk For COVID-19? No Information not available 03/07/2021 Are You Deaf Or Do You Have Serious Difficulty Hearing? No Information not available 03/07/2021 What Type Of Diet Are You Following? CARBOHYDRATE Information n ot available 03/07/2021 What Is The Highest Grade Or Level Of School You Have Completed Or The Highest Degree You Have Received? [id number] Information not available 03/07/2021 Are There Any Guns Present In Your Home? No Information not available 03/07/2021 Do You Use Protection During Sex? No Information not available 03/07/2021 Do You Use Your Seat Belt Or Car Seat Routinely? Yes Information not available 03/07/2021 Do You Have Smoke And Carbon Monoxide Detectors In Your Home? Yes Information not available 03/07/2021 How Much Tobacco Do You Smoke? No Information not available 03/07/2021 Do You Feel Stressed (tense, Restless, Nervous, Or Anxious, Or Unable To Sleep At Night)? [id number] Information not available 03/07/2021 Do You Use Any Illicit Or Recreational Drugs? No Information not available 03/07/2021 Do You Use Sunscreen Routinely? No Information not available 03/07/2021 Have You Used IV Drugs? No Information not available 03/07/2021 Sex: Unknown Functional Status Question Answer Note LastModified by Organizat ion Details LastModified Time Do you have difficulty walking or climbing stairs? No [email or web address] Information not available 02/29/2024 Are you able to walk? YESWOREST Information not available 03/07/2021 Are you able to care for yourself? Yes [email or web address] Information not available 02/29/2024 Do you have difficulty dressing or bathing? No [email or web address] Information not available 02/29/2024 What is your exercise level? Occasional Information not available 03/07/2021 Mental Status None recorded. Family History Relationship Description Onset Age of this Age Resolved Age Notes LastModified by Organization Details LastModified Time Mother Anemia Not available 02/15/2021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
--- OUTSIDE RECORDS SUMMARY | 2024-08-06 11:51 | XMS_ITS | Encounter Summary ---
Author Organization [employer] Address [address] [place] [address] Care Team Providers Care Supervisor [employer]plicating [employer] Name Role Phone Unavailable Primary Care Provider Unavailabl e Encounter Details Date Type Department Care Team (Late st Contact Info) Description 11/24/2023 External Device Data STL ABSTRACTION Provider, Abstract [...]
--- OUTSIDE RECORDS SUMMARY | 2024-08-06 11:51 | XMS_ITS | Encounter Summary ---
Author Organization [facility] Address [address] [place] [address] Care Team Providers Care Early Years Teacher Name Role Phone Unavailable Primary Care Provider Unavailabl e Reason for Visit * Radiology Services (Routine) - Closed Specialty Diagnoses / Procedures Referred By Contac t Referred To Contact Diagnoses Supervision of high risk , antepartum Procedures US OB FOLLOW UP PER FETUS Pat Murray[address] [place] [address] Referral ID Status Reason Start Date Expiration Date Visits Re quested Visits Authorized [id number] Closed 05/13/2023 06/12/2024 1 1 Encounter Details Date Type Department Care Team (Late st Contact Info) Description 05/14/2023 1:00 PM CDT Ancillary Procedure [facility] Maternal and Medicine [facility] [address] [facility] [address] [address] [place] [id number] Pat Murray[address] [place] [address] Social History Tobacco Use Types Packs/Day Years [...] as of this encounter Progress Notes * Adilene Up RN - 05/14/2023 2:23 PM CDT Care Team Delivery Planning Patient: Verónica Gordon E#: [id number] : 2000 OB: Dr. Banks EDC: 05/21/23 /Para: Diagnosis: Left lateral ventriculomegaly at 10.4 mm on 04/07/23 ultrasound Enlarged cisterna magna at 1.69cm on 04/07/23 ultrasound Estimated Weight: 3374g at 39w0d (45th percentile) Delivery Plan: With Dr. Banks at [facility] Anticipated admission nursery Full Term nursery follow up: Non urgent head imaging per Maternal Medicine after discharge to home. Consults completed: No consults completed As noted in 04/07/23 and 05/14/23 ultrasounds, non urgent head imaging is recommended by Maternal Medicine. Can be completed at [facility] if patient desires. This note routed to Dr. Banks. The [facility] Care Team can be contacted at [phone] for any questions. Adliene Up RN, BSN Care Family Service Caseworker [phone] documented in this encounter Plan of Treatment Not on file documented as of this encounter Procedures Procedure Name Priority Date/Time Associated Diagnosis Comments US OB FOLLOW UP PER FETUS Routine 05/14/2023 1:14 PM CDT Supervision of high risk , antepartum documented in this encounter Results * US OB FOLLOW UP PER FETUS (05/14/2023 1:14 PM CDT) Anatomical Region Laterality Modality Pelvis Ultrasound 05/14/2023 1:14 PM CDT Narrative 05/14/2023 2:01 PM CDT [facility] H/S FOLLOW UP GROWTH ----- Pat. Name: VERÓNICA GORDON Study Date: 05/14/2023 1:14pm Pat. NO: [id number] Referring ??MD: PAT GREGORY Site: [facility] [employer] Trainer: Zuleyka Mike : 2000 Age: 22 ----- INDICATION ----- Suspected Damage, Drugs Screening for Malformation Maternal Obesity (BMI<40) Complicating Late Care Asthma Complicating Tobacco Use Complicating , Cigarettes Anemia in CODING ----- Diagnoses ? Z3A.39: Weeks of gestation ?Z36: Screen for malformation ?O35.5XX0: Maternal care for (suspected) damage to fetus by drugs ?O09.33: Supervision of with insufficient care ?Z36.3: Encounter for screening for malformations ?O99.213: Obesity complicating ?O99.513: Diseases of the respiratory system complicating ?O99.333: Tobacco use disorder complicating ?O99.013: Anemia complicating Procedures ?55034: Ultrasound, uterus, real time with image documentation, follow up, transabdominal ?approach per fetus HISTORY ----- OB History ? 2. Para 1 MATERNAL ASSESSMENT ----- Physical Exam ? Weight 101 kg. BMI 34.77 kg/m?? METHOD ----- Transabdominal ultrasound examination ----- Abdul . Number of fetuses: 1 DATING ----- LMP on: 08/16/2023 Cycle: LMP date uncertain GA by prior assessment 39 w + 0 d FREEDOM by prior assessment: 05/21/2023 Ultrasound examination on: 05/14/2023 GA by U/S based upon: AC, BPD, Femur, HC GA by U/S 38 w + 4 d FREEDOM by U/S: 05/24/2023 Assigned: based on ultrasound (AC, BPD, EFW, Femur, HC), selected on 02/05/2023 Assigned GA 39 w + 0 d Assigned FREEDOM: 05/21/2023 GENERAL EVALUATION ----- Cardiac activity present. FHR 140 bpm. movements: visualized. Presentation: cephalic Placenta: anterior Umbilical cord: 3 vessel cord Amniotic fluid: MVP 6.0 cm. EMILY 14.8 cm. Q1 0.0 cm, Q2 6.0 cm, Q3 3.8 cm, Q4 5.0 cm BIOMETRY ----- BPD ?95.0 ? mm ?38w 5d ?76% ?Hadlock HC ? 348.5 ?mm ?40w 3d ?73% ?Hadlock AC ? 334.2 ?mm ?37w 2d ?25% ?Hadlock Femur ?74.4 ? mm ?38w 0d ?33% ?Hadlock HC / AC ?1.04 ? 77% ?Nicolaides Weight Calculation: EFW ? 3,374 ? g ? 38w 5d ?45% ?Hadlock EFW (lb,oz) ? 7 lb 7 ?oz EFW by ?Hadlock (IBK-QG-NP-FL) Extremities / Bony Struc Biometry: FL / BPD ?0.78 FL / HC ? 0.21 FL / AC ? 0.22 ANATOMY ----- The following structures appear normal: Head / Neck ? Cranium. Lateral ventricles. Midline falx. Heart / Thorax ?4-chamber view. Abdomen ? Stomach. Kidneys. Bladder. sex: female. IMPRESSION ----- -Single living fetus with a gestational age of 39w 0d based on the reported dates. -cephalic presentation. -The EFW is 3374 g which is at the 45%. The abdominal circumference is at the 25%. -The amniotic fluid is normal for gestational age. (EMILY of 14.8 cm, MVP of 6 cm) - U/S done at [facility] in March with concern of left ventriculomegaly and levi-cisterna magnum. The posterior fossa is not well visualized today. One of the ventricles was visualized and appears normal (right/left side not reported on the scan). Recommend: -Post-corey imaging is recommended. Notify pediatricians after delivery so appropriate follow up may occur. -Further sonogram follow up as clinically indicated Thank you for allowing us to participate in the care of this patient. Procedure Note Rani Del Angel MD - 05/14/2023 [facility] H/S FOLLOW UP GROWTH ----- Pat. Name:HEIDILurdes CARO Date:05/14/2023 1:14pm Pat. NO: [id number] :PAT GREGORY Site:Segundoographer:Zuleyka Mike :2000Age:22 ----- INDICATION ----- Suspected Damage, Drugs Screening for Malformation Maternal Obesity (BMI<40) Complicating Late Care Asthma Complicating Tobacco Use Complicating , Cigarettes Anemia in CODING ----- Diagnoses Z3A.39: Weeks of gestation Z36: Screen for malformation O35.5XX0: Maternal care for (suspected) damage tofetus by drugs O09.33: Supervision of with insufficientantenatal care Z36.3: Encounter for screening formalformations O99.213: Obesity complicating O99.513: Diseases of the respiratory systemcomplicating O99.333: Tobacco use disorder complicatingpregnancy O99.013: Anemia complicating Procedures 06333: Ultrasound, uterus, real time withimage documentation, follow up, transabdominal approach per fetus HISTORY ----- OB History 2. Para 1 MATERNAL ASSESSMENT ----- Physical Exam Weight 101 kg. BMI 34.77 kg/m?? METHOD ----- Transabdominal ultrasound examination ----- Abdul . Number of fetuses: 1 DATING ----- LMP on:08/16/2023 Cycle:LMP date uncertain GA by prior asnaenofeb47 w + 0 d FREEDOM by prior assessment:05/21/2023 Ultrasound examination on:05/14/2023 GA by U/S based upon:AC, BPD, Femur, HC GA by U/S38 w + 4 d FREEDOM by U/S:05/24/2023 Assigned:based on ultrasound (AC, BPD, EFW, Femur, HC), selected on02/05/2023 Assigned GA39 w + 0 d Assigned FREEDOM:05/21/2023 GENERAL EVALUATION ----- Cardiac activity present. FHR 140 bpm. movements: visualized.Presentation: cephalic Placenta: anterior Umbilical cord: 3 vessel cord Amniotic fluid: MVP 6.0 cm. EMILY 14.8 cm. Q1 0.0 cm, Q2 6.0 cm, Q3 3.8 cm,Q4 5.0 cm BIOMETRY ----- BPD 95.0 mm 38w 5d 76%Hadlock HC 348.5 mm 40w 3d 73%Hadlock AC 334.2 mm 37w 2d 25%Hadlock Femur 74.4 mm 38w 0d 33%Hadlock HC / AC 1.04 77%Nicolaides Weight Calculation: EFW 3,374 g 38w 5d45% Hadlock EFW (lb,oz) 7 lb 7 oz EFW by Hadlock (VEA-LH-PF-FL) Extremities / Bony Struc Biometry: FL / BPD 0.78 FL / HC 0.21 FL / AC 0.22 ANATOMY ----- The following structures appear normal: Head / Neck Cranium. Lateral ventricles. Midline falx. Heart / Thorax 4-chamber view. Abdomen Stomach. Kidneys. Bladder. sex: female. IMPRESSION ----- -Single living fetus with a gestational age of 39w 0d based on thereported dates. -cephalic presentation. -The EFW is 3374 g which is at the 45%. The abdominal circumference is atthe 25%. -The amniotic fluid is normal for gestational age. (EMILY of 14.8 cm, MVP of6 cm) - U/S done at [facility] in March with concern of leftventriculomegaly and levi-cisterna magnum. The posterior fossa is not well visualized today. One of the ventricles was visualized and appearsnormal (right/left side not reported on the scan). Recommend: -Post- imaging is recommended. Notify pediatricians after delivery soappropriate follow up may occur. -Further sonogram follow up as clinically indicated Thank you for allowing us to participate in the care of this patient. Pat Villalta DO U S ORDERABLES documented in this encounter Visit Diagnoses Not on filedocumented in this encounter
--- OUTSIDE RECORDS SUMMARY | 2024-08-06 11:51 | XMS_ITS | Continuity of Care Document ---
Author Organization [facility] Address [address] [place] [address] Phone Care Team Providers Care Biomedical Scientist Name Role Phone [place] Emilia TAPIA Unavailable Unavailable Allergies, Adverse Reactions, Alerts Substance Reaction Status Criticality No Known Allergies Active No Inform ation Procedures Procedure Date PSYCH DIAGNOSTIC EVALUATION Completion Of The DLA-20 Assessment OFFICE/OUTPATIENT VISIT, EST ROUTINE VENIPUNCTURE COMPLETE CBC W/AUTO DIFF WBC COMPREHEN METABOLIC PANEL HEPATITIS C AB TEST HIV-1 AG W/HIV-1 & HIV-2 AB PSYCH DIAG EVAL W/MED SRVCS PSYCH DIAGNOSTIC EVALUATION Completion Of The DLA-20 Assessment Advance Directives Directive Yes / No Effective Date File Name No Information Encounters Encounter Description Practice Location Reason(s) For Visit Diagnoses Date Provider Providers Copied on Encounter PSYCH DIAGNOSTIC EVALUATION [facility], [address] [place], [id number], [place] tel:[phone] [facility] Major depressive disorder, recurrent, moderateAmph etamine type substance use disorder, moderate, in early remissionOpi oid Use Disorder, Moderate 3 [place] Emilia. [address] [place], [id number], [place]. tel:[phone] Referring Provider: Emilia Cochran, [address] [facility] [place], [address]. tel:[phone] OFFICE/OUTPA TIENT VISIT, EST [facility], [address] [place], [place], [id number], [place] tel:[phone] [facility] Provider Note- H Leonardo LENS GRINDER-C (chief complaint) AMP (chief complaint) Body mass index (BMI) 30.0-30.9, adultOpioid Use Disorder, ModeratePreg nant state, incidentalEn counter for test, result positiveHome lessnessTran sportation insecurityUn availability and inaccessibil ity of health-care facilities 3 Leonardo Gardiner. [address] [place] [address], [id number] [address] [place] [address], [id number], . tel:[phone] Referring Provider: Zuleyka Patterson, [address] [place] [id number] [place], [address]. tel:[phone] PSYCH DIAG EVAL W/MED SRVCS [facility], [address] [place] [address] [address] [place], [place], [id number], [place] tel:[phone] [facility] Establish Care (chief complaint) Generalized Anxiety DisorderPost -traumatic stress disorder, chronic 0 Beth Calvo. [address] [facility], [id number] [facility] [place] [id number], [place]. tel:[phone] Referring Provider: Umesh Campos, [address] [employer] [id number] [place], [address]. tel:[phone] PSYCH DIAGNOSTIC EVALUATION [facility], [address] [place] [place], [id number], [place] tel:[phone] [facility] Generalized Anxiety DisorderPost -traumatic stress disorder, chronic 0 Dimas Nieto. [address] [place], [id number], . tel:[phone] Referring Provider: Emilia Cochran, [address], [place], [address]. tel:[phone] Family History Family Member Type Diagnosis Age At Onset Paternal grandfather Problem Alcoholism Paternal grandmother Problem malignant n eoplasm of pancreas (Cause Of ) Brother Problem Depression Maternal grandmother Problem Alive and well Paternal grandmother Problem Diabetes mellitus Paternal grandfather Problem Stroke Father Problem Diabetes mellitus Mother Problem clotting disease Father Problem Depression Sister Problem unknown mental health Mother Problem Bipolar disorder Brother Problem Autistic; anger Payers Payer name Insurance type Covered constitution party ID Authoriza marleneblanca(s) [facility] CI [id number] Social History Type Description Quantity Date Captured Comments Alcohol Use Details No Caffeine Use Details Unknown Tobacco Use Status Moderate cigarette smoker (10-19 cigs/day) Smoking Status Heavy tobacco smoker Smoking Tobacco Use Details Cigarette: Age Started: 13 Cigarette: 10 Cigarettes per day Sex Female Sexual Orientation Straight or heterosexual Gender Identity Female Chief Complaint And Reason For Visit No Information Reason For Referral Reason For Referral No Information Plan Of Treatment Date Type Action Status Goal Hepatitis C screening. Due o n due Goal Diabetes screening. Due on O due Goal Td vaccine. Due on due Goal HPV (1st). Due on due Goal Depression screening. Due on due Goal Tdap. Due on due Goal Unhealthy drug u se screening. Due on due Goal PAP. Due on due Goal Influenza vaccine. Due on Oc due Goal Diabetes screening. Due on M ay due Goal Influenza vaccine. Due on Ma y due Goal PAP. Due on due Goal HPV (1st). Due on 3 due Goal Depression screening. Due on due Goal Td vaccine. Due on 23 due Goal Tdap. Due on due Goal Diabetes screening. Due on due Goal Influenza vaccine. Due on due Goal HPV (1st). Due on 0 due Goal Fluoride varnish application. Due on due Goal Depression screening. Due on due Goal Tdap. Due on due Goal Tobacco cessation counseling completed Goal Diabetes screening. Due on due Goal Influenza vaccine. Due on due Goal HPV (1st). Due on 0 due Goal Fluoride varnish application. Due on due Goal Depression screening. Due on due Goal Tdap. Due on due Patient Education buspirone 7.5 mg tablet completed Patient Education Anxiety Disorder: After Your Visit completed History Of Present Illness Encounter Date Complaint History Of Prese nt Illness AMP Provider Note- H Leonardo Carey he patient presents for an admission physical for the Addiction Medication Program. The patient has a history of fentanyl use for 1 year . The patient also admits to using THC . The patient states that she last used 04/26/2022. She reports that she was using 1-1.5 gram per day.. She does deny IV substance use. The patient does report occasional alcohol use, last alcohol use was6 months ago. The patient is a daily smoker, admits to smoking 1/2 ppd.. She has tried treatment before for her substance use disorder including suboxone and inpatient rehab. She reports 4 overdoses. The patient was previously prescribed suboxone 8 mg/2 mg three times a day. The patient reports that she is not having any signs of withdrawal at this time. The patient denies headache, chest pain, palpitations, shortness of breath, nausea, vomiting, diarrhea, constipation, muscle aches, urinary symptoms, tremors, insomnia, mood swings, clammy skin. He is reporting significant cravings. The patient does not have a primary care provider that she sees for her routine healthcare. The patient denies any chronic health issues with the exception of asthma, prediabetes.Patient is currently homeless. Also reports is . LMP was either in July or August. Patient has not sought care with an fat purification worker and has transportation issues. Reports cannot get to an fat purification worker. Does have an ultrasound tomorrow for dating that was ordered by a women's center/ right type of organization. Reports she does take vitamins. Patient has involvement with the Department of child and family services. They have recommended she seek care here for her addiction. Patient has not used any fentanyl for over 8 months. Is not wanting to get on Subutex at this time. Reports she feels she's doing well with that. Denies having any cravings. Would like to get involved in outpatient therapy/counseling for her addiction.Patient started using opiates: .1-2 yearqs agoprevious treatment: suboxone, inpatientlast used: April 26rug used: fentanylmethod of use: snortedhepatitis: Adrian tested :todayPatient's current medications: listedPatient currently getting medication off of street: noPatient is experiencing withdrawal symptoms: . noAny financial problems: . noDry mouth: . noDry nasal mucosa: . noSweaty: . noevasive answers:. noeye contact: . yesRunny nose: . noWatery eyes: . noSlurred Speech: . noLack of energy: . noLack of interest in normal activities: . noNeglected appearance: . noParanoid behavior: . noAbnormal eye movements: . noRambling speech: . noneincrease in energy/behavior: . noNauseous: . noReports depression: . noimpaired judgment: . noinsomnia: . noexperiencing fever and/or chills: . noPatient is clean, speaking in normal speech patterns, acting in normal behavior: . yesPatient complains of:. withdrawal symptoms andNoted side effects of medication: . nocurrent pain level: 0.Patient's report of personal goals: to maintain sobrietyPatient's report of barriers to compliance: . noneAttending counseling: interestedAttending AA/NA: no - recommendedAllergies. no Establish Care [facility] and medication management. Functional Status Date Functional Assessmen t No Information Instructions Date Instruction Additional Infor mation See diagnosis #4 Related to Unav ailability and inaccessibility of health-care facilities See diagnosis #4 Related to Pan sportation insecurity Patient to meet with community outreach services to help arrange transportation issues, help find housing etc. Related to Homelessness Patient to follow up with fat purification worker for management of her Related to state, incidental See diagnosis #2 Related to Enco unter for test, result positive Obtain a urine drug screen in the office today.Obtain a CBC, CMP, HIV and Hepatitis screen in the office today.Urine fentanyl screen obtained in the office today. Narcan/naloxone 1 mg in each nostril x 1 for overdose. May repeat in 3-5 minutes if needed.Return to care 2 weeksEducated patient how program works including the need for negative drug screens with the exception of buprenorphine, meeting with intake, and then following with behavioral health provider/outpatient [facility] services.Patient verbalized understanding and agrees to the plan. Related to Opioid Use Disorder, Moderate Giving encouragement to exercise Related to Body mass index [BMI] 30.0-30.9, adult Dietary needs education Related to Body mass index [BMI] 30.0-30.9, adult Exam findings discus sed with all, questions answeredInformation provided on provider prescription policy of BenzodiazepinesMedications provided: Refill of Prazosin 1 mg nightly x 30 days and buspirone 7.5 mg three times daily x 10 days sent to [facility] to provide relief until she is able to reschedule with a psychiatrist next weekEncouraged patient/caregiver to call the office if symptoms worsen or do not improve and reminded her of the option of going to the hospital if neededDiscussed self-care and how to promote mental well-being during COVID-19Advised that a medical consent would be sent through the [facility] program [facility] be scheduled with a new provider for next week and nursing will call her with detailsPatient verbalized understanding of all instructions and was in agreement with plan Related to Generalized Anxiety Disorder Assessments Type Assessment Date assessment Major depressive disorder, recur rent, moderate assessment Amphetamine type sub stance use disorder, moderate, in early remission assessment Opioid Use Disorder, Moderate Oc Patient Care Teams Name Effective Dates (start - stop) Status Members No Information
--- OUTSIDE RECORDS SUMMARY | 2024-08-06 11:51 | XMS_ITS | Clinical Summary ---
Author Organization [facility] Address [address] [place] [address] Phone Care Team Providers Care Foundry Molder Name Role Phone Unavailable Primary Care Provider Unavailabl e Allergies No known active allergies Medications Medication Sig Dispensed Refills Start Date End Date Status lithium carbonate 300 mg tablet Take 300 mg by mouth 3 times daily. Active nebulizer Length of need 99 months Nebulizer with compressor, Kit: Permanent Nebulizer Kit, 1 per 6 months, filters , areosol mask: Yes. Name of MedicationAlbuterol 1 Each 10/30/2021 0 Active Social History Tobacco Use Types Packs/Day Years [...] Sign Reading Time Taken Comments Blood Pressure 152/86 10/30/2021 8:16 AM CDT Pulse 118 10/30/2021 9:00 AM CDT Temperature 37.2 ??C (99 ??F) 10/30/2021 8:16 AM CDT Respiratory Rate 22 10/30/2021 9:00 AM CDT Oxygen Saturation 100% 10/30/2021 9:00 AM CDT Inhaled Oxygen Concentration - - Weight 97.5 kg (215 lb) 10/30/2021 8:16 AM CDT Height 172.7 cm (5' 8 ) 10/30/2021 8:16 AM CDT Body Mass Index 32.69 10/30/2021 8:16 AM CDT Plan of Treatment Health Maintenance Due Date Last Done Comments PNEUMOCOCCAL VACCINE 0-64 YE ARS (1 of 2 - PCV) 2007 08/15/2003, 05/10/2003, 03/11/2002, Additional history exists HPV VACCINES (2 - 2-dose series) 02/24/2012 08/26/19 12 CHLAMYDIA SCREENING (ANNUAL) 11-24 YEARS 2012 CERVICAL CANCER SCREENING 2022 DTAP/TDAP/TD VACCINES (7 - T d or Tdap) 03/21/2023 03/21/2013, 02/05/2007, 05/10/2003, Additional history exists INFLUENZA VACCINE (#1) 2024 09/21/2020 HEPATITIS B VACCINES Completed 03/11/2002, 2001, 2001
--- OUTSIDE RECORDS SUMMARY | 2024-08-06 11:51 | XMS_ITS | Encounter Summary ---
Author Organization [employer] Address [address] [place] [address] Care Team Providers Care Air Brake Tester Name Role Phone Unavailable Primary Care Provider [...]
--- OUTSIDE RECORDS SUMMARY | 2024-08-06 11:51 | XMS_ITS | Encounter Summary ---
Author Organization [employer] Address [address] [place] [address] Care Team Providers Care Railroad Commissioner Name Role Phone Unavailable Primary Care Provider Unavailabl e Encounter Details Date Type Department Care Team (Late st Contact Info) Description 04/26/2024 External Device Data [facility]CTION Provider, Abstract [...]
--- OUTSIDE RECORDS SUMMARY | 2024-08-06 11:51 | XMS_ITS | Encounter Summary ---
Author Organization [employer] Address [address] [place] [address] Care Team Providers Care Alternative Financing Specialist Name Role Phone Unavailable Primary Care Provider Unavailabl e Encounter Details Date Type Department Care Team (Late st Contact Info) Description 04/06/2024 External Device Data [facility] Provider, Abstract [...]
--- OUTSIDE RECORDS SUMMARY | 2024-08-06 11:51 | XMS_ITS | Encounter Summary ---
Author Organization [employer] Address [address] [place] [address] Care Team Providers Care Abattoir Supervisor Name Role Phone Unavailable Primary Care Provider Unavailabl e Reason for Visit * Reason Comments Shortness of Breath SOB since yesterday * Auth/Cert Specialty Diagnoses / Procedures Referred By Yanet hogue Referred To Contact Emergency Medicine [facility] Emergency Department [address] [place] [address] Referral ID Status Reason Start Date Expiration Date Visits Re quested Visits Authorized [id number] 1 1 Encounter Details Date Type Department Care Team (Late st Contact Info) Description 10/30/2021 8:24 AM CDT - 10/30/2021 10:08 AM CDT Emergency [facility] Emergency Room [address] [place], [place] [id number] Rangel Rose MD [address] [place] [phone] Acute respiratory failure with hypoxia (Primary Dx); Moderate persistent asthma with exacerbation Discharge Disposition: Left Against Medical Advice Social History Tobacco Use Types Packs/Day Years [...] have Coronavirus / COVID-19? No / Unsure 10/30/2021 8:15 AM CDT documented as of this encounter Last [...] Mass Index 32.69 10/30/2021 8:16 AM CDT documented in this encounter Discharge Instructions * Discharge Instructions* Rangel Rose MD - 10/30/2021 10:04 AM CDT Nebulizer treatment at least 4 times a day for the first few days then may decrease as you improve and may take 1 extra treatments once or twice a day if necessary Oral steroid daily with food every morning and take first dose today Antibiotic as written to start today Return if difficulty breathing or worsening symptoms Follow with primary care for recheck Use your inhaler when you are not having severe episodes. I strive to take your health care seriously and provide you with EXCELLENT service as my patient, making it my #1 priority. You may receive a survey after your visit today. If you cannot rate your experience as EXCELLENT, then please let us know how we can do a better job in caring for you and meeting whatever needs you may have. * Attachments The following attachments cannot be sent through Care Everywhere. * Asthma: Adult ([place]) documented in this encounter Medications at Time of Discharge Medication Sig Dispensed Refills Start Date End Date nebulizer Length of need 99 months Nebulizer with compressor, Kit: Permanent Nebulizer Kit, 1 per 6 months, filters , areosol mask: Yes. Name of MedicationAlbuterol 1 Each 10/30/2021 01/16/2030 lithium carbonate 300 mg tablet Take 300 mg by mouth 3 times daily. predniSONE (DELTASONE) 20 mg tablet 3 p.o. daily for 3 days then 2 p.o. daily for 3 days then 1 p.o. daily for 3 days with food in a.m. 18 Tablet 10/30/2021 11/08/2021 albuterol (PROVENTIL,VENTOLIN ) 2.5 mg /3 mL (0.083 %) Solution for Nebulization Take 3 mL (2.5 mg) by inhalation every 6 hours as needed for Shortness of Breath. 30 Each 10/30/2021 11/07/2021 azithromycin (Zithromax Z-Dipesh) 250 mg tablet Take as directed 6 Tablet 10/30/2021 11/04/2021 documented as of this encounter ED Notes * Samantha Rodriguez RN - 10/30/2021 10:07 AM CDT Patient strongly encouraged to remain in ED for her hypoxia. AMA obtained after ERP discussed risksand benefits with patient with opportunites for questions, pt vocalizes understanding and signed AMA. Pt states she has to get home to her young son Pt encouraged to return to ED if they have a medical emergency. * Samantha Rodriguez RN - 10/30/2021 8:15 AM CDT Pt admitted to ED ED03/ED03. Assessment complete. Chief Complaint Patient presents with ??? Shortness of Breath SOB since yesterday Airway patent, trachea midline. Spontaneous labored breathing with equal chest rise and coarse withwheezes heard in lung stokes. No external hemorrhage, radial pulses strong and equal, cap refill brisk, skin pink warm and dry. Pt is A&O x 4, eyes PERRLA @ 4mm, pt moves all extremities and follows commands. Abdomen soft flat and non tender with active bowel sounds. Oral mucous membranes are pi nk and moist. Ra sats upon arrival were 80%. Pt placed on 3L NC and sats increased to 94% * Rangel Rose MD - 10/30/2021 8:10 AM CDTAssociated Order(s): Critical Care Chief Complaint Patient presents with ??? Shortness of Breath SOB since yesterday HISTORY OF PRESENT ILLNESS Verónica Tariq, a 21 y.o. female presents to the ED with a Chief Complaint of Shortness of Breath Subjective HPI Patient with history of asthma and had acute onset of increased dyspnea yesterday. Worse today. Hasinhalers at home but no nebulizer. Has never required oxygen in the past. Non-smoker. Denies . No recent illness or fever or new cough. Initial pulse ox 80. Requiring supplemental oxygen. Diminished breath sounds in prolonged expiratory phase with severe wheezes diffusely. No abdominal pain, nausea or vomiting. REVIEW OF SYSTEMS Review of Systems Constitutional: Positive for fatigue. Negative for chills and fever. HENT: Negative. Eyes: Negative. Respiratory: Positive for shortness of breath and wheezing. Negative for apnea, cough, choking, chest tightness and stridor. Cardiovascular: Negative. Gastrointestinal: Negative. Genitourinary: Negative. Musculoskeletal: Negative. Skin: Negative. Neurological: Negative. Hematological: Negative. Psychiatric/Behavioral: Negative. PAST MEDICAL HISTORY REVIEWED MEDICAL: Patient has a past medical history of Asthma. SURGICAL: Patient has no past surgical history on file. FAMILY: Patient's family history is not on file. SOCIAL: reports that she has been smoking. She has been smoking about 0.50 packs per day. She has never used smokeless tobacco. She reports current alcohol use of about 14.0 standard drinks of alcohol per week. She reports that she does not use drugs. No history on file. Social History Other Topics Concern ??? Attends Daycare/Nursery Not Asked ??? Other Children in Home Not Asked ??? Attends School (Grade in Comment) Not Asked ??? Pets in Home Not Asked ??? Firearms in Home Not Asked ??? Seat Belt/Child Restraint Not Asked ??? Foster Child Not Asked ??? Second Hand Smoke Exposure Not Asked ??? Lives with Biologic Parent Not Asked ??? Wears Bike Helmet Not Asked ??? Multiple Not Asked ALLERGIES Patient has no known allergies. HOME MEDICATIONS Discharge Medication List as of 10/30/2021 10:04 AM START taking these medications Details predniSONE (DELTASONE) 20 mg tablet 3 p.o. daily for 3 days then 2 p.o. daily for 3 days then 1 p.o. daily for 3 days with food in a.m., Disp-18 Tablet, R-0 albuterol (PROVENTIL,VENTOLIN) 2.5 mg /3 mL (0.083 %) Solution for Nebulization Take 3 mL (2.5 mg) by inhalation every 6 hours as needed for Shortness of Breath., Disp-30 Each, R-0 azithromycin (Zithromax Z-Dipesh) 250 mg tablet Take as directed, Disp-6 Tablet, R-0 nebulizer Length of need 99 months Nebulizer with compressor, Kit: Permanent Nebulizer Kit, 1 per 6 months, filters , areosol mask: Yes. Name of MedicationAlbuterol, Disp-1 Each, R-0 CONTINUE these medications which have NOT CHANGED Details lithium carbonate 300 mg tablet Take 300 mg by mouth 3 times daily. Objective PHYSICAL EXAM INITIAL VS BP: (!) 152/86 (10/30/21815), Heart Rate: (!) 109 bpm (10/30/21815), Resp: 22 (10/30/21815), Pulse: (!) 118 (10/30/21 0900), Temp: 99 ??F (37.2 ??C) (10/30/21815), Temp src: Oral (10/30/21815), SpO2: (!) 85 % (10/30/21815), Height: 5' 8 (172.7 cm) (10/30/21815), Weight: 97.5 kg (215 lb) (10/30/21815), BMI (Calculated): 32.7 (10/30/21815) Patient's last menstrual period was 10/16/2021. Physical Exam Vitals and nursing note reviewed. Constitutional: General: She is not in acute distress. Appearance: She is well-developed. She is not ill-appearing, toxic-appearing or diaphoretic. HENT: Head: Normocephalic and atraumatic. Right Ear: External ear normal. Left Ear: External ear normal. Nose: Nose normal. Mouth/Throat: Mouth: Mucous membranes are moist. Eyes: General: No scleral icterus. Right eye: No discharge. Left eye: No discharge. Extraocular Movements: Extraocular movements intact. Conjunctiva/sclera: Conjunctivae normal. Neck: Vascular: No JVD. Cardiovascular: Rate and Rhythm: Normal rate and regular rhythm. Heart sounds: Normal heart sounds. Pulmonary: Effort: Pulmonary effort is normal. No respiratory distress. Breath sounds: Normal breath sounds. No stridor. No wheezing, rhonchi or rales. Chest: Chest wall: No tenderness. Abdominal: General: Bowel sounds are normal. There is no distension. Palpations: Abdomen is soft. Tenderness: There is no abdominal tenderness. Musculoskeletal: General: No tenderness. Normal range of motion. Cervical back: Normal range of motion and neck supple. No rigidity. Right lower leg: No edema. Left lower leg: No edema. Skin: General: Skin is warm and dry. Coloration: Skin is not pale. Findings: No erythema or rash. Neurological: Mental Status: She is alert and oriented to person, place, and time. Motor: No abnormal muscle tone. Coordination: Coordination normal. Psychiatric: Mood and Affect: Mood normal. Behavior: Behavior normal. Thought Content: Thought content normal. DIAGNOSTICS LAB: INFLUENZA A/B AND COVID-19 PCR PANEL - Normal Result Value Influenza A by PCR Not Detected Influenza B by PCR Not Detected COVID-19 PCR Not Detected RADIOLOGY: XR CHEST PA OR AP 1 VW Radiologist Impression IMPRESSION: 1. Patchy right basilar opacities may reflect atelectasis or airspace disease. DICTATION LOCATION: [address] EKG: PROCEDURES Critical Care Performed by: Rangel Rose MD Authorized by: Rangel Rose MD Critical care provider statement: Critical care time (minutes): 35 Critical care time was exclusive of: Teaching time and separately billable procedures and treating other patients Critical care was necessary to treat or prevent imminent or life-threatening deterioration of the following conditions: Respiratory failure (Asthma exacerbation with respiratory failure and hypoxia 80% pulse ox room air) Critical care was time spent personally by me on the following activities: Obtaining history from patient or surrogate, examination of patient, evaluation of patient's response to treatment, orderingand performing treatments and interventions, ordering and review of laboratory studies, ordering and review of radiographic studies, pulse oximetry, re-evaluation of patient's condition and review ofold charts I assumed direction of critical care for this patient from another provider in my specialty: no MEDICAL DECISION MAKING AND PLAN OF CARE MDM I have reviewed previous: notes I have reviewed current: imaging and labs I have reviewed nursing notes related to past medical history, social history, and review of systems and agree, unless otherwise noted. Clinical Course: Wheezing and supplement oxygen required for hypoxia Chest x-ray with some basilar right opacity-atelectasis versus infiltrate No fever or new productive cough Continuous nebulized treatment albuterol 10 mg Atrovent 1 mg given and some tachycardia with that heart rate about 130 and some improvement with still some wheezing as well and pulse ox 94% on 3 L cannula COVID/influenza swab sent At 915 she did have pulse ox down to 91% on room air Moderate diffuse wheezes with prolonged expiratory phase on forced expiration Was feeling some better Patient has a child at home and requesting to leave AMA Discussed concerns for persistent moderately severe wheezes and has no nebulizer at home. She is leaving AGAINST MEDICAL ADVICE and aware of risks and potential hypoxia/. An effort to try to help her prescriptions were sent for nebulizer and prednisone and antibiotic and medication for nebulizer-has enough inhaler at home Urged to return if feeling worse or not improving Medications Administered During the ED Stay from 10/30/2021 0811 to 10/30/2021 1752 Date/Time Order Dose Route Action 10/30/2021 0834 albuterol (PROVENTIL,VENTOLIN) inhalation solution 10 mg 10 mg Inhalation Given 10/30/2021 0834 ipratropium bromide (ATROVENT) 0.02 % nebulizer solution 1 mg 1 mg Inhalation Given 10/30/2021 0830 methylPREDNISolone sodium succinate (SOLU-Medrol) 125 mg in water sterile 2 mL injection 125 mg IV Given Discharge Medication List as of 10/30/2021 10:04 AM START taking these medications Details predniSONE (DELTASONE) 20 mg tablet 3 p.o. daily for 3 days then 2 p.o. daily for 3 days then 1 p.o. daily for 3 days with food in a.m., Disp-18 Tablet, R-0 albuterol (PROVENTIL,VENTOLIN) 2.5 mg /3 mL (0.083 %) Solution for Nebulization Take 3 mL (2.5 mg) by inhalation every 6 hours as needed for Shortness of Breath., Disp-30 Each, R-0 azithromycin (Zithromax Z-Dipesh) 250 mg tablet Take as directed, Disp-6 Tablet, R-0 nebulizer Length of need 99 months Nebulizer with compressor, Kit: Permanent Nebulizer Kit, 1 per 6 months, filters , areosol mask: Yes. Name of MedicationAlbuterol, Disp-1 Each, R-0 CONTINUE these medications which have NOT CHANGED Details lithium carbonate 300 mg tablet Take 300 mg by mouth 3 times daily. LAST VS BP: (!) 152/86 (10/30/21815), Heart Rate: (!) 130 bpm (10/30/21899), Resp: 22 (10/30/21899), Pulse: (!) 118 (10/30/21899), Temp: 99 ??F (37.2 ??C) (10/30/21815), Temp src: Oral (10/30/21815), SpO2: 100 % (10/30/21899) CLINICAL IMPRESSION Final diagnoses: [J45.41] Moderate persistent asthma with exacerbation [J96.01] Acute respiratory failure with hypoxia (Primary) Orders Placed This Encounter ??? CRITICAL CARE ??? XR CHEST PA OR AP 1 VW ??? INFLUENZA A/B AND COVID-19 PCR PANEL ??? albuterol (PROVENTIL,VENTOLIN) inhalation solution 10 mg ??? ipratropium bromide (ATROVENT) 0.02 % nebulizer solution 1 mg ??? methylPREDNISolone sodium succinate (SOLU-Medrol) 125 mg in water sterile 2 mL injection ??? predniSONE (DELTASONE) 20 mg tablet ??? albuterol (PROVENTIL,VENTOLIN) 2.5 mg /3 mL (0.083 %) Solution for Nebulization ??? azithromycin (Zithromax Z-Dipesh) 250 mg tablet ??? nebulizer DISPOSITION, EDUCATION AND MEDICATION RECONCILIATION Medications reconciled. See after visit summary for patient education on discharged patients. ED Disposition ED Disposition Condition User Date/Time Comment Rangel Cobos MD ThuOct 30, 2021 9:59 AM Plan Nebulizer treatment at least 4 times a day for the first few days then may decrease as you improve and may take 1 extra treatments once or twice a day if necessary Oral steroid daily with food every morning and take first dose today Antibiotic as written to start today Return if difficulty breathing or worsening symptoms Follow with primary care for recheck ATTESTATION STATEMENTS documented in this encounter Plan of Treatment Not on file documented as of this encounter Procedures Procedure Name Priority Date/Time Associated Diagnosis Comments INFLUENZA A/B AND COVID-19 PCR PANEL Stat 10/30/2021 9:15 AM CDT XR CHEST PA OR AP 1 VW Stat 10/30/2021 8:45 AM CDT CRITICAL CARE Routine 10/30/2021 8:10 AM CDT documented in this encounter Results * INFLUENZA A/B AND COVID-19 PCR PANEL (10/30/2021 9:15 AM CDT) Influenza A by PCR NOT DETECTED Not Detected 10/30/2021 10:00 AM CDT [facility] Influenza B by PCR NOT DETECTED Not Detected 10/30/2021 10:00 AM CDT [facility] COVID-19 PCR NOT DETECTED Not Detected 10/31/19 10:00 AM CDT [facility] Upper Respiratory ENTIRE NASOPHARYNX / Unknown Collection / Unknown 10/30/2021 9:15 AM CDT 10/30/2021 9:28 AM CDT Narrative [facility] - 10/30/2021 10:00 AM CDT This test has been authorized by the FDA under an Emergency Use Authorization for use by authorized laboratories. ??This test has been validated in accordance with the FDA's guidance regarding Coronavirus Disease-2019 testing. ??Optimum specimen types and timing for peak viral levels during infection have not been determined. ??A negative RT-PCR result does not rule out infection with the 2019-Novel Coronavirus. Rangel Rose MD MICROBIOLOGY - G ENERAL ORDERABLES [facility] CLIA# [id number] [address] [place] [address] * XR CHEST PA OR AP 1 VW (10/30/2021 8:45 AM CDT) Anatomical Region Laterality Modality Chest Computed Radiogr aphy 10/30/2021 8:45 AM CDT Impressions 10/30/2021 8:52 AM CDT IMPRESSION: 1. ??Patchy right basilar opacities may reflect atelectasis or airspace disease. DICTATION LOCATION: [address] Narrative 10/30/2021 8:52 AM CDT CHEST, SINGLE VIEW DATE: 10/30/2021 8:45 AM CLINICAL INDICATION: ??Wheezing COMPARISON: None FINDINGS: ?? Heart size and pulmonary vasculature are unremarkable. Patchy right basilar opacity. No pneumothorax is seen. ?? INCIDENTAL FINDINGS: ??None. Procedure Note Gil Steele MD - 10/30/2021 CHEST, SINGLE VIEW DATE: 10/30/2021 8:45 AM CLINICAL INDICATION: Wheezing COMPARISON: None FINDINGS: Heart size and pulmonary vasculature are unremarkable. Patchy right basilar opacity. No pneumothorax is seen. INCIDENTAL FINDINGS: None. IMPRESSION: 1. Patchy right basilar opacities may reflect atelectasis or airspace disease. DICTATION LOCATION: [address] Rangel Rose MD DIAGNOSTIC IMAGI NG ORDERABLES * Critical Care (10/30/2021 8:10 AM CDT) [facility] - 10/30/2021 8:10 AM CDT Rangel Rose MD ? 10/30/2021 ??5:53 PM Critical Care Performed by: Rangel Rose MD Authorized by: Rangel Rose MD Critical care provider statement: ??Critical care time (minutes): ??35 ??Critical care time was exclusive of: ??Teaching time and separately billable procedures and treating other patients ??Critical care was necessary to treat or prevent imminent or life-threatening deterioration of the following conditions: ??Respiratory failure (Asthma exacerbation with respiratory failure and hypoxia 80% pulse ox room air) ??Critical care was time spent personally by me on the following activities: ??Obtaining history from patient or surrogate, examination of patient, evaluation of patient's response to treatment, ordering and performing treatments and interventions, ordering and review of laboratory studies, ordering and review of radiographic studies, pulse oximetry, re-evaluation of patient's condition and review of old charts ??I assumed direction of critical care for this patient from another provider in my specialty: no ?? Rangel Rose MD PROCEDURE/MINOR SURGICAL ORDERABLES Performing Organization Address [facility]/State/[facility] Co de Phone Number [facility] # [id number] [address] [place], [place] [id number] documented in this encounter Visit Diagnoses Diagnosis Acute respiratory failure with hypoxia- Primary Acute respiratory failure Moderate persistent asthma with exacerbation Unspecified asthma, with exacerbation documented in this encounter Administered Medications Inactive Administered Medications - up to 3 most recent administrations Medication Order MAR Action Action Date Dose Rate Site albuterol (PROVENTIL,VENTOLIN) inhalation solution 10 mg 10 mg, Inhalation, ONE TIME ONLY RESPIRATORY, 1 dose, On Thu10/30/21 at 0830, Stat Given 10/30/2021 8:34 AM CDT 10 mg ipratropium bromide (ATROVENT) 0.02 % nebulizer solution 1 mg 1 mg, Inhalation, ONE TIME ONLY RESPIRATORY, 1 dose, On Thu10/30/21 at 0830, Routine Given 10/30/2021 8:34 AM CDT 1 mg methylPREDNISolone sodium succinate (SOLU-Medrol) 125 mg in water sterile 2 mL injection 125 mg, IV, ONE TIME ONLY, 1 dose, On Thu10/30/21 at 0830, Routine Given 10/30/2021 8:30 AM CDT 125 mg documented in this encounter Active and Recently Administered Medications Times are shown in CDT. Scheduled Medication Order 10/28/2021 10/29/2021 10/30/2021 albuterol (PROVENTIL,VENTOLIN) inhalation solution 10 mg (COMPLETED) 10 mg, Inhalation, ONE TIME ONLY RESPIRATORY, 1 dose, On Thu10/30/21 at 0830, Stat 0834 (Given - Provid er: López Hatch RCP) ipratropium bromide (ATROVENT) 0.02 % nebulizer solution 1 mg (COMPLETED) 1 mg, Inhalation, ONE TIME ONLY RESPIRATORY, 1 dose, On Thu10/30/21 at 0830, Routine 0834 (Given - Provid er: López R Hatch, COMB CAPPER) methylPREDNISolone sodium succinate (SOLU-Medrol) 125 mg in water sterile 2 mL injection (COMPLETED) 125 mg, IV, ONE TIME ONLY, 1 dose, On Thu10/30/21 at 0830, Routine 0830 (Given - Provid er: Samantha Rodriguez RN) documented in this encounter Additional Health Concerns Infection Onset Date Last Indicated Resolved Time R/O COVID-19 10/30/2021 10/30/2021 10/30/2021 10:0 0 AM CDT documented as of this encounter
--- OUTSIDE RECORDS SUMMARY | 2024-08-06 11:51 | XMS_ITS | Encounter Summary ---
Author Organization [employer] Address [address] [place] [address] Care Team Providers Care Data Communications Technician Name Role Phone Unavailable Primary Care Provider Unavailabl e Encounter Details Date Type Department Care Team (Late st Contact Info) Description 01/26/2024 External Device Data [facility]CTION Provider, Abstract [...]
--- OUTSIDE RECORDS SUMMARY | 2024-08-06 11:51 | XMS_ITS | Encounter Summary ---
Author Organization [employer] Address [address] [place] [address] Care Team Providers Care Patient Support Associate Name Role Phone Unavailable Primary Care Provider Unavailabl e Encounter Details Date Type Department Care Team (Late st Contact Info) Description 09/18/2023 External Device Data [facility] Provider, Abstract [...]
--- OUTSIDE RECORDS SUMMARY | 2024-08-06 11:51 | XMS_ITS | Encounter Summary ---
Author Organization [facility] Address [address] [place] [address] Care Team Providers Care Child Psychometrist Name Role Phone Unavailable Primary Care Provider Unavailabl e Encounter Details Date Type Department Care Team (Late st Contact Info) Description 02/10/2023 Abstract [facility]NAL MEDIC[facility] [place] [address] [place] [address] Meka Pepe Social History Tobacco Use Types Packs/Day Years [...]
--- OUTSIDE RECORDS SUMMARY | 2024-08-06 11:51 | XMS_ITS | Encounter Summary ---
Author Organization [employer] Address [address] [place] [address] Care Team Providers Care Geometry Teacher Name Role Phone Unavailable Primary Care Provider Unavailabl e Encounter Details Date Type Department Care Team (Late st Contact Info) Description 10/05/2023 External Device Data [place] Provider, Abstract [...]
--- OUTSIDE RECORDS SUMMARY | 2024-08-06 11:51 | XMS_ITS | Encounter Summary ---
Author Organization [facility] Address [address] [place] [address] Care Team Providers Care Order Caller Name Role Phone Unavailable Primary Care Provider Unavailabl e Encounter Details Date Type Department Care Team (Late st Contact Info) Description 02/10/2023 Orders Only [facility] MATERNAL MEDICINE [place] [address] [place] [address] Meka Murray, [address] [facility] [place] [address] Social History Tobacco Use [...] Procedure Name Priority Date/Time Associated Diagnosis Comments VITAMIN B12 AND FOLATE Routine 02/09/2023 4:01 PM CDT documented in this encounter Results * VITAMIN B12 AND FOLATE (02/09/2023 4:01 PM CDT) Blood Meka Villalta DO C HEMISTRY ORDERABLES [facility] MATERNAL MED [place] [id number] [address] [place] [address] documented in this encounter Visit Diagnoses Not on filedocumented in this encounter
--- OUTSIDE RECORDS SUMMARY | 2024-08-06 11:51 | XMS_ITS | Encounter Summary ---
Author Organization [facility] Address [address] Lange: Epic Prelude ADT [place] [address] Care Team Providers Care Tight Barrel Inspector Name Role Phone Unavailable Primary Care Provider Unavailabl e Encounter Details Date Type Department Care Team (Latest Contact Info) Description 09/20/2021 Travel Social History Tobacco Use Types Packs/Day [...] have Coronavirus / COVID-19? No / Unsure 09/20/2021 7:55 AM SAW MAN documented as of this encounter Plan of Treatment Not on file documented as of this encounter Visit Diagnoses Not on filedocumented in this encounter
--- OUTSIDE RECORDS SUMMARY | 2024-08-06 11:51 | XMS_ITS | Encounter Summary ---
Author Organization [employer] Address [address] [place] [address] Care Team Providers Care Assorter Name Role Phone Unavailable Primary Care Provider [...]
--- OUTSIDE RECORDS SUMMARY | 2024-08-06 11:51 | XMS_ITS | Encounter Summary ---
Author Organization [employer] Address [address] [place] [address] Care Team Providers Care Limehouse Worker Name Role Phone Unavailable Primary Care Provider Unavailabl e Encounter Details Date Type Department Care Team (Late st Contact Info) Description 07/31/2023 External Device Data [facility] ABSTRACTION Provider, Abstract [...]
--- OUTSIDE RECORDS SUMMARY | 2024-08-06 11:51 | XMS_ITS | Encounter Summary ---
Author Organization [facility] Address [address] [place] [address] Care Team Providers Care Rn Post Partum Name Role Phone Unavailable Primary Care Provider Unavailabl e Reason for Visit * Reason Onset Date Comments Needs Appointment 02/23/2023 Encounter Details Date Type Department Care Team (Late st Contact Info) Description 02/23/2023 Telephone [facility] Maternal and Ground Floor [address] [place] [id number] Lory Trevizo RN Needs Appointment Social History Tobacco Use Types Packs/Day Years [...] as of this encounter Progress Notes * Lory Trevizo RN - 02/23/2023 12:50 PM CDT Verónica Tariq has been called three times to schedule OB detailed ultrasound with genetic counseling at [facility] and [facility]. She did not answer the telephone or return our call. The order has been returned to the OB provider to review. The patient's physician was notified to review the order via inbox message documented in this encounter Plan of Treatment Not on file documented as of this encounter Visit Diagnoses Not on filedocumented in this encounter
--- OUTSIDE RECORDS SUMMARY | 2024-08-06 11:51 | XMS_ITS | Encounter Summary ---
Author Organization [employer] Address [address] [place] [address] Care Team Providers Care Server Service Assistant Name Role Phone Unavailable Primary Care Provider Unavailabl e Reason for Visit * Reason Comments Alcohol Problem 21yo F to the ED w/ CC of ETOH withdrawal. Pt reports she feels like her heart is going to explode. Pt reports pain in her muscles like pins and needles. * Auth/Cert Specialty Diagnoses / Procedures Referred By Yanet t Referred To Contact Emergency Medicine [facility] Emergency Department [address] [place] [address] Referral ID Status Reason Start Date Expiration Date Visits Re quested Visits Authorized [id number] 1 1 Encounter Details Date Type Department Care Team (Late st Contact Info) Description 09/20/2021 7:50 AM TRANSONIC ENGINEER - 09/20/2021 8:42 AM TRANSONIC ENGINEER Emergency [facility] Emergency Room [address] [place] [address] [place] [address] [place] [address] Alcohol abuse (Primary Dx) Discharge Disposition: Home or Self Care Social [...] COVID-19? No / Unsure 09/20/2021 7:55 AM TRANSONIC ENGINEER documented as of this encounter Last Filed Vital Signs Vital Sign Reading Time Taken Comments Blood Pressure 133/74 09/20/2021 7:53 AM TRANSONIC ENGINEER Pulse - - Temperature 36.8 ??C (98.2 ??F) 09/20/2021 7:53 AM CS T Respiratory Rate 18 09/20/2021 7:53 AM TRANSONIC ENGINEER Oxygen Saturation 100% 09/20/2021 7:53 AM TRANSONIC ENGINEER Inhaled Oxygen Concentration - - Weight 90.7 kg (200 lb) 09/20/2021 7:53 AM TRANSONIC ENGINEER Height 172.7 cm (5' 8 ) 09/20/2021 7:53 AM TRANSONIC ENGINEER Body Mass Index 30.41 09/20/2021 7:53 AM TRANSONIC ENGINEER documented in this encounter Discharge Instructions * Attachments The following attachments cannot be sent through Care Everywhere. * Alcohol Detoxification and Withdrawal (Cypriot) documented in this encounter Medications at Time of Discharge Medication Sig Dispensed Refills Start Date End Date lithium carbonate 300 mg tablet Take 300 mg by mouth 3 times daily. documented as of this encounter ED Notes * Agustin Orlando RN - 09/20/2021 8:32 AM CST Patient states she is not driving home and that she has a ride. SONIC ENGINEER * Agustin Orlando RN - 09/20/2021 7:59 AM CST Patient is a 21-year-old female who presents to the ED with a chief complaint of alcohol withdrawal. Patient reports her last drink was over 48 hours ago. Patient reports generalized muscle pain. Patient reports she normally drinks fifth of hard alcohol per day. Patient appears to be resting without any delirium tremors at this time. Patient denies any other symptoms of alcohol withdrawal. Patient is alert and oriented and answering questions appropriately at this time. SONIC ENGINEER * Edvin Banegas DO - 09/20/2021 7:46 AM CST Images from the original note were not included. Emergency Department Attending Physician Note Seen in the ED by Dr. Edvin Banegas DO, FACEP History of Present Illness Documented Triage Chief Complaint: Alcohol Problem Subjective Verónica Tariq is a 21 y.o. female with Past Medical History: Diagnosis Date ??? Asthma who presents with reported alcohol withdrawal. Main symptom is fatigue and body aches. Denies hallucinations. Does not complain of nausea or vomiting. Did not complain of headaches.. Has only been drinking heavily for 6 months. Admits to fentanyl use as well. Last drink was over 48 hours ago. No previous inpatient or outpatient treatment. No previous history of withdrawal. Primary Care Doctor: No primary care provider on file. Review of Systems ?? A comprehensive review of systems was completed. All other systems negative except as marked. ?? See HPI for additional ROS Review of Systems Relevant Medical History Past Medical History: Patient Past Medical History: Diagnosis Date ??? Asthma Past Surgical History: Patient No past surgical history on file. Family History: Patient's family history is not on file. Social History: Patient reports that she has been smoking. She has been smoking about 0.50 packs per day. She has never used smokeless tobacco. She reports current alcohol use of about 14.0 standard drinks of alcohol per week. She reports that she does not use drugs. Social History Other Topics Concern ??? Attends [...] Helmet Not Asked ??? Multiple Not Asked Problems List: Patient does not have a problem list on file. Allergies: Patient has no known allergies. Home Medications: Patient's Home Medications Current Home Medications LITHIUM CARBONATE 300 MG TABLET Medications Modified during this Encounter Medications Discontinued during this Encounter Objective Physical Exam BP: 133/74 (09/20/21 0753), Pulse: (not recorded), Resp: 18 (09/20/21 0753), Temp: 98.2 ??F (36.8 ??C) (09/20/21 075), Temp src: Oral (09/20/21752) Nursing note and vitals reviewed. BP 133/74 (BP Location: Left arm, Patient Position (BP): Sitting) Temp 98.2 ??F (36.8 ??C) (Oral) Resp 18 Ht 5' 8 (1.727 m) Wt 90.7 kg (200 lb) SpO2 100% BMI 30.41 kg/m?? No data found. Constitutional: Alert. Appears well-developed and well-nourished. No significant distress HENT: Head: Normocephalic and atraumatic. Right Ear: External ear normal. Left Ear: External ear normal. Nose: Nose normal. No sinus tenderness, nasal deformity or nasal septal hematoma. Mouth/Throat: Oropharynx is clear and moist. Eyes: Pupils are equal and round. Conjunctivae and EOM are normal. No discharge. No scleral icterus. Neck: Normal range of motion. Neck supple. No JVD present. No tracheal deviation present. No thyromegaly present. Cardiovascular: Normal rate, regular rhythm, normal heart sounds and intact distal pulses. Exam reveals no gallop and no friction rub. No murmur heard. Pulmonary/Chest: Effort normal and breath sounds normal. No stridor. No respiratory distress. No wheezes. No rales. No tenderness. Abdominal: Soft. Bowel sounds are normal. No distension and no mass. There is no tenderness. There is no rebound and no guarding. Musculoskeletal: No edema or tenderness. Neurological: Oriented to person, place, and time. Normal muscle tone. Coordination normal. GCS eyesubscore is 4. GCS verbal subscore is 5. GCS motor subscore is 6. Skin: Skin is warm. No rash noted. No diaphoresis. No erythema. No pallor. Psychiatric: Normal mood and affect. Behavior is normal. Judgment and thought content normal. Studies and Interpretation Pulse Oximetry Interpretation: Saturation: SpO2: 100 % (09/20/21752) Oxygen Delivery: room air Interpretation: No hypoxia at this time. Labs: (Reviewed by myself), Significant for: No data to display Imaging (all imaging was independently reviewed by myself): No orders to display EKG Initial Electrocardiogram (independent interpretation by Edvin Banegas DO) Critical Care / Procedures Medical Decision Making and ED Course Further Management Decisions and Complexity --Triage notes and available nursing notes reviewed, vitals reviewed. --Clinical lab tests: ordered and reviewed in detail by myself prior to discharge/admission --Attempted to obtain, review and summarize past medical records: --I reviewed all of the diagnostic tests ordered on the patient. The results of these tests were discussed with the patient/family in detail and all questions were answered to the patient's apparent satisfaction. Calculated CIWA score was 0-1. She is in no appreciable withdrawal. Advised alcohol treatment program. She was given 1 Librium tablet in the ED due to reported anxiety, but her appearance is otherwise quite normal. She does not meet any indicators for outpatient or inpatient withdrawal management. She was provided follow-up resources for further care. Questions answered prior to discharge. Medications Ordered/Given Medications Administered During the ED Stay from 09/20/2021 0747 to 09/20/2021 0831 Date/Time Order Dose Route Action 09/20/2021 0818 chlordiazePOXIDE (LIBRIUM) capsule 25 mg 25 mg Oral Given 09/20/2021 0818 ibuprofen (MOTRIN) tablet 600 mg 600 mg Oral Given New Medications . New Prescriptions for this Encounter Final diagnoses: [F10.10] Alcohol abuse (Primary) Final Disposition Vitals at Disposition: BP 133/74 (BP Location: Left arm, Patient Position (BP): Sitting) Temp 98.2 ??F (36.8 ??C) (Oral) Resp 18 Ht 5' 8 (1.727 m) Wt 90.7 kg (200 lb) SpO2 100% BMI 30.41kg/m?? ED Disposition ED Disposition Condition Comment Discharge Stable Note: This H+P was created with the aid of dictation software, thus there may be erroneous word substitutions or errors. SONIC ENGINEER documented in this encounter Plan of Treatment Not on file documented as of this encounter Visit Diagnoses Diagnosis Alcohol abuse- Primary Alcohol abuse, unspecified documented in this encounter Administered Medications Inactive Administered Medications - up to 3 most recent administrations Medication Order MAR Action Action Date Dose Rate Site chlordiazePOXIDE (LIBRIUM) capsule 25 mg 25 mg, Oral, ONE TIME ONLY, 1 dose, On Thu09/20/21 at 0815, Routine Given 09/20/2021 8:18 AM TRANSONIC ENGINEER 25 mg ibuprofen (MOTRIN) tablet 600 mg 600 mg, Oral, ONE TIME ONLY, 1 dose, On Thu09/20/21 at 0815, Routine Given 09/20/2021 8:18 AM TRANSONIC ENGINEER 600 mg documented in this encounter Active and Recently Administered Medications Times are shown in TRANSONIC ENGINEER. Scheduled Medication Order 09/18/2021 09/19/2021 09/20/2021 chlordiazePOXIDE (LIBRIUM) capsule 25 mg (COMPLETED) 25 mg, Oral, ONE TIME ONLY, 1 dose, On Thu09/20/21 at 0815, Routine 0818 (Given - Provid er: Agustin Orlando RN) ibuprofen (MOTRIN) tablet 600 mg (COMPLETED) 600 mg, Oral, ONE TIME ONLY, 1 dose, On Thu09/20/21 at 0815, Routine 0818 (Given - Provid er: Agustin Orlando RN) documented in this encounter
--- OUTSIDE RECORDS SUMMARY | 2024-08-06 11:51 | XMS_ITS | Encounter Summary ---
Author Organization [facility] Address [address] Lange: Epic Prelude ADT [place]Y [place]EN [address] Care Team Providers Care Bottom Presser Name Role Phone Unavailable Primary Care Provider Unavailabl e Encounter Details Date Type Department Care Team (Latest Contact Info) Description 10/30/2021 Travel Social History Tobacco Use Types Packs/Day [...] AM CDT documented as of this encounter Plan of Treatment Not on file documented as of this encounter Visit Diagnoses Not on filedocumented in this encounter Additional Health Concerns Infection Onset Date Last Indicated Resolved Time R/O COVID-19 10/30/2021 10/30/2021 10/30/2021 10:0 0 AM CDT documented as of this encounter
--- OUTSIDE RECORDS SUMMARY | 2024-08-06 11:51 | XMS_ITS | Encounter Summary ---
Author Organization [employer] Address [address] [place] [address] Care Team Providers Care Rn Wound Name Role Phone Unavailable Primary Care Provider Unavailabl e Encounter Details Date Type Department Care Team (Late st Contact Info) Description 09/16/2023 External Device Data [facility] ABSTRACTION Provider, Abstract [...]
--- OUTSIDE RECORDS SUMMARY | 2024-08-06 11:51 | XMS_ITS | Encounter Summary ---
Author Organization [employer] [facility] Address [address] [place] [address] Care Team Providers Care Laboratory Helper Name Role Phone Jewels Chappell MD Primary Care Provider [phone] Reason for Visit * Reason Comments Sore Throat started yesterday * Auth/Cert Specialty Diagnoses / Procedures Referred By Yanet hogue Referred To Contact Urgent Care [facility] Care [address] [place] [address] Referral ID Status Reason Start Date Expiration Date Visits Re quested Visits Authorized [id number] 1 1 Encounter Details Date Type Department Care Team (Latest Contact Info) Description 10/30/2018 9:13 AM CDT - 10/30/2018 10:22 AM CDT Hospital Encounter [facility] [address] [place] [address] [phone] Sore throat (Primary Dx) Discharge Disposition: Home or Self Care Social History Tobacco Use Types Packs/Day Years Used Date Smoking Tobacco: Never Smokeless Tobacco: Never Sex and Gender Information Value Date Recorded Sex Assigned at Not on file Gender Identity Not on file Sexual Orientation Not on file documented as of this encounter Last Filed Vital Signs Vital Sign Reading Time Taken Comments Blood Pressure 132/74 10/30/2018 10:18 AM CDT Pulse 67 10/30/2018 10:18 AM CDT Temperature 36.4 ??C (97.5 ??F) 10/30/2018 10:18 AM C DT Respiratory Rate 16 10/30/2018 10:18 AM CDT Oxygen Saturation 98% 10/30/2018 10:18 AM CDT Inhaled Oxygen Concentration - - Weight 111.1 kg (245 lb) 10/30/2018 10:18 AM CDT Height - - Body Mass Index - - documented in this encounter Discharge Instructions * Discharge Instructions* Noemi Lara NP - 10/30/2018 9:25 AM CDT Rapid strep test negative. Throat cx pending. At this time, continue symptomatic care including butnot limited to teas, broth or honey, cold popsicles, water, Gatorade for hydration. You may try to take an antihistamine such as Cetirizine (Zyrtec) to alleviate post nasal drainage and allergy symptoms. Rest, fluids, rest, humidification (ie: showers, humidifier or vaporizer). You may ALTERNATE Acetaminophe (Tylenol) with ibuprofen (which is also known at Motrin or Advil) every 3 to 4 hours, making sure NOT to take more than 4 doses of either tylenol or motrin in a 24 hourperiod. That schedule gives the same medication no sooner than every 6 hours. * Attachments The following attachments cannot be sent through Care Everywhere. * Sore Throat (Slovenian) documented in this encounter Medications at Time of Discharge Medication Sig Dispensed Refills Start Date End Date lithium carbonate 300 mg tablet Take 300 mg by mouth 3 times daily. documented as of this encounter ED Notes * Noemi Lara NP - 10/30/2018 9:11 AM CDT HISTORY OF PRESENT ILLNESS Verónica Tariq, a 18 y.o. female presents with a Chief Complaint of Sore Throat (started yesterday) Subjective 18-year-old female presents with her dad for complaint of sore throat, headache and feeling feverish since yesterday. Patient has been taking ibuprofen and using throat lozenges without relief. She reports I get strep every year. Patient denies difficulty swallowing, drooling. No abdominal pain, nausea, vomiting or diarrhea. Afebrile today. Last LMP 1 week ago. History provided by: The patient Arrived by: Private vehicle Arrived from: Home REVIEW OF SYSTEMS Review of Systems Constitutional: Positive for fever (not documented). Negative for activity change, appetite change and fatigue. HENT: Positive for sore throat. Negative for congestion, drooling, ear pain and trouble swallowing. Eyes: Negative for pain. Respiratory: Negative for cough, chest tightness and shortness of breath. Cardiovascular: Negative for chest pain and palpitations. Gastrointestinal: Negative for abdominal pain, nausea and vomiting. Genitourinary: Negative for dysuria. Musculoskeletal: Negative for arthralgias and myalgias. Skin: Negative for color change and wound. Neurological: Positive for headaches. Negative for dizziness and light-headedness. Psychiatric/Behavioral: Negative for agitation. The patient is not nervous/anxious. PAST MEDICAL HISTORY REVIEWED MEDICAL: Patient has a past medical history of Asthma. SURGICAL: Patient has no past surgical history on file. FAMILY: Patient's family history is not on file. SOCIAL: reports that she has never smoked. She has never used smokeless tobacco. No history on file. Social History Other Topics Concern ??? Not on file PROBLEM LIST: Patient does not have a problem list on file. ALLERGIES Patient has no known allergies. HOME MEDICATIONS There are no discharge medications for this patient. Objective PHYSICAL EXAM INITIAL VS BP: (!) 132/74 (10/30/18 1018), Heart Rate: (not recorded), Pulse: 67 (10/30/18 1018), Resp: 16 (10/30/18 1018), Temp: 97.5 ??F (36.4 ??C) (10/30/18 1018), Temp src: Oral (10/30/18 1018), SpO2: 98 % (10/30/18 1018), Pain Score: (not recorded), Height: (not recorded), Weight: 111.1 kg (245 lb) (10/30/18 1018), BMI (Calculated): (not recorded) Patient's last menstrual period was 10/23/2018 (exact date). Physical Exam Constitutional: She is oriented to person, place, and time. She appears well- developed and well-nourished. No distress. HENT: Head: Normocephalic and atraumatic. Nose: Right sinus exhibits no maxillary sinus tenderness and no frontal sinus tenderness. Left sinus exhibits no maxillary sinus tenderness and no frontal sinus tenderness. Mouth/Throat: Uvula is midline. Posterior oropharyngeal edema and posterior oropharyngeal erythema present. Tonsils are 2+ on the right. Tonsils are 2+ on the left. No tonsillar exudate. Bilateral cerumen impaction to bilateral ear canals, unable to visualize TMs. Pt denies decreased hearing. Neck: Normal range of motion. Neck supple. Cardiovascular: Normal rate, regular rhythm and normal pulses. Pulmonary/Chest: Effort normal and breath sounds normal. Lymphadenopathy: Head (right side): No tonsillar adenopathy present. Head (left side): No tonsillar adenopathy present. She has no cervical adenopathy. Neurological: She is alert and oriented to person, place, and time. Skin: Skin is warm, dry and intact. Capillary refill takes less than 2 seconds. Psychiatric: She has a normal mood and affect. Her behavior is normal. Nursing note and vitals reviewed. DIAGNOSTICS LAB: RADIOLOGY: No orders to display No orders to display EKG: PROCEDURES Procedures MEDICAL DECISION MAKING AND PLAN OF CARE REEVALUATION CASE DISCUSSED There are no discharge medications for this patient. LAST VS BP: (!) 132/74 (10/30/18 1018), Heart Rate: (not recorded), Pulse: 67 (10/30/18 1018), Resp: 16 (10/30/18 1018), Temp: 97.5 ??F (36.4 ??C) (10/30/18 1018), Temp src: Oral (10/30/18 1018), SpO2: 98 % (10/30/18 1018), Pain Score: (not recorded) CLINICAL IMPRESSION Final diagnoses: [J02.9] Sore throat (Primary) Continue supportive care. Throat cx pending. Return to ED with new or worsening symptoms. CODING MDM Coding Reviewed: vitals Interpretation: labs I have reviewed nursing notes and agree unless otherwise mentioned. DISPOSITION, EDUCATION AND MEDICATION RECONCILIATION Medications reconciled. See after visit summary for patient education on discharged patients. documented in this encounter Plan of Treatment Not on file documented as of this encounter Procedures Procedure Name Priority Date/Time Associated Diagnosis Comments POC RAPID STREP A ANTIGEN Stat 10/30/2018 11:25 AM CDT STREPTOCOCCUS GROUP A CULTURE Stat 10/30/2018 10:30 AM CDT documented in this encounter Results * POC RAPID STREP A (10/30/2018 11:25 AM CDT) RAPID STREP A ANTIGEN POC negative [facility] Upper respiratory specimen (specimen) SPECIMEN FROM THROAT / Unknown Noemi aLra NP POINT OF CARE TE [facility] CLIA # [id number] [address] [place] [id number] * STREPTOCOCCUS GROUP A CULTURE (10/30/2018 10:30 AM CDT) CULTURE No Streptococcus Group A, C, or G isolated 11/02/2018 8:15 AM CDT [facility] Upper respiratory specimen (specimen) SPECIMEN FROM THROAT / Unknown Collection / Unknown 10/30/2018 10:30 AM CDT 10/30/2018 3:12 PM CDT Noemi Lara NP MICROBIOLOGY - G ENERAL ORDERABLES Performing Organization Address City/[facility]/ZIP Co de Phone Number [facility] CLIA# [id number] [address] [place] [address] documented in this encounter Visit Diagnoses Diagnosis Sore throat- Primary Acute pharyngitis documented in this encounter Care Teams Laboratory Helper Relationship Specialty Start Date End Date Jewels Chappell MD PCP - General Family Practice 10/30/18 09/19/21 documented as of this encounter
--- OUTSIDE RECORDS SUMMARY | 2024-08-06 11:51 | XMS_ITS | Continuity of Care Document ---
Author Organization [facility] Address [address] [place] [address] Phone Care Team Providers Care 3Rd Pressman Name Role Phone [place] Emilia TAPIA Unavailable Unavailable Allergies, Adverse Reactions, [...] Healthcare, [address] [place], [id number], [place] tel:[phone] [facility] Major depressive disorder, recurrent, moderateAmph etamine type substance use disorder, moderate, in early remissionOpi oid Use Disorder, Moderate 3 [place] Emilia. [address] [place], [id number], [place]. tel:[phone] Referring Provider: Emilia Cochran, [address] [facility] [place], [address]. tel:[phone] OFFICE/OUTPA TIENT VISIT, EST [facility], [address] [place], [place], [id number], [place] tel:[phone] [facility] Provider Note- H Leonardo COMMUNITY RELATIONS DIRECTOR-C (chief complaint) AMP (chief complaint) Body mass index (BMI) 30.0-30.9, adultOpioid Use Disorder, ModeratePreg nant state, incidentalEn counter for test, result positiveHome lessnessTran sportation insecurityUn availability and inaccessibil ity of health-care facilities 3 Leonardo Gardiner. [address] [place] [address], [id number] [address] [place] [address], [id number], . tel:[phone] Referring Provider: Zuleyka Patterson, [address] [place] [address] 212 [id number] [place], [address]. tel:[phone] PSYCH DIAG EVAL W/MED SRVCS [facility], [address] [place] [address] [place], [place], [id number], [place] tel:[phone] [facility] Establish Care (chief complaint) Generalized Anxiety DisorderPost -traumatic stress disorder, chronic 0 Beth Calvo. [address] [employer] [facility], [id number] [facility] [place], [id number], [place]. tel:[phone] Referring Provider: Umesh Campos, [address] [id number] [place], [address]. tel:[phone] PSYCH DIAGNOSTIC EVALUATION [facility], [address] [facility] [place], [id number], [place] tel:[phone] [facility] Generalized Anxiety DisorderPost -traumatic stress disorder, chronic 0 Dimas Nieto. [address] [place], [id number], . tel:[phone] Referring Provider: Emilia Cochran, [address], [place], [address]. tel:[phone] Family History Family Member Type Diagnosis Age [...] type Covered constitution party ID Authoriza marleneblanca(s) [facility] CI [id number] Social History Type Description Quantity Date Captured [...] Patient has not sought care with an hotel and dining room cashier and has transportation issues. Reports cannot get to an hotel and dining room cashier. Does have an ultrasound tomorrow for dating [...] recommendedAllergies. no Establish Care Establish Care w [facility] provider and medication management. Functional Status Date Functional Assessmen t No Information Instructions Date Instruction Additional Infor mation See diagnosis #4 Related to Unav ailability and inaccessibility of health-care facilities Patient to meet with community outreach services to help arrange transportation issues, help find housing etc. Related to Homelessness See diagnosis #4 Related to Pan sportation insecurity Patient to follow up with hotel and dining room cashier for management of her Related to state, [...] medical consent would be sent through the [facility] program [facility] new [...]
--- OUTSIDE RECORDS SUMMARY | 2024-08-06 11:51 | XMS_ITS | Encounter Summary ---
Author Organization [employer] Address [address] [place] [address] Care Team Providers Care Microsoft Access Developer Name Role Phone Unavailable Primary Care Provider Unavailabl e Encounter Details Date Type Department Care Team (Late st Contact Info) Description 12/08/2023 External Device Data STL ABSTRACTION Provider, Abstract [...]
--- OUTSIDE RECORDS SUMMARY | 2024-08-06 11:51 | XMS_ITS | Encounter Summary ---
Author Organization [employer] Address [address] [place] [address] Care Team Providers Care Other Sales Support Worker Name Role Phone Unavailable Primary Care Provider Unavailabl e Reason for Referral * Radiology Services (Routine) - Closed Specialty Diagnoses / Procedures Referred By Contac t Referred To Contact Radiology Diagnoses History of drug use disorder PTSD (post-traumatic stress disorder) Borderline personality disorder Bipolar affective disorder, remission status unspecified History of gestational diabetes mellitus (GDM) Asthma, unspecified asthma severity, unspecified whether complicated, unspecified whether persistent Procedures US OB DETAIL SINGLE GEST [facility] [address] [place] [address] [place] [address] [facility] [address] [place] [address] Referral ID Status Reason Start Date Expiration Date Visits Re quested Visits Authorized [id number] Closed 02/13/2023 03/15/2024 1 1 Reason for Visit * Radiology Services (Routine) - Closed Specialty Diagnoses / Procedures Referred By Contac t Referred To Contact Radiology Diagnoses History of drug use disorder PTSD (post-traumatic stress disorder) Borderline personality disorder Bipolar affective disorder, remission status unspecified History of gestational diabetes mellitus (GDM) Asthma, unspecified asthma severity, unspecified whether complicated, unspecified whether persistent Procedures US OB DETAIL SINGLE GEST Meka Murray [address] [place] [address] [place] [address] [facility] Fl [address] [place] [address] Referral ID Status Reason Start Date Expiration Date Visits Re quested Visits Authorized [id number] Closed 02/13/2023 03/15/2024 1 1 Encounter Details Date Type Department Care Team (Latest Contact Info) Description 04/07/2023 3:00 PM CDT - 04/07/2023 11:59 PM CDT Hospital Encounter [facility] [place] [address] [place] [address] Meka Murray, [address] [place] [address] [place] [address] Discharge Disposition: Home or Self Care Social [...] times daily. documented as of this encounter Plan of Treatment Not on file documented as of this encounter Procedures Procedure Name Priority Date/Time Associated Diagnosis Comments US OB DETAIL SINGLE GEST Routine 04/07/2023 4:00 PM CDT History of drug use disorder PTSD (post-traumatic stress disorder) Borderline personality disorder Bipolar affective disorder, remission status unspecified History of gestational diabetes mellitus (GDM) Asthma, unspecified asthma severity, unspecified whether complicated, unspecified whether persistent documented in this encounter Results * US OB DETAIL SINGLE GEST (04/07/2023 4:00 PM CDT) Anatomical Region Laterality Modality Pelvis Ultrasound 04/07/2023 3:18 PM CDT Narrative 04/07/2023 4:35 PM CDT STL COMP ----- Pat. Name: VERÓNICA GORDON Study Date: 04/07/2023 3:18pm Pat. NO: [id number] Referring ??MD: MEKA BUSTOS DO Site: [facility] Rn Internship: Monica Cummings RDMS : 2000 Age: 22 ----- INDICATION ----- Known / Suspected, Anomalies ? suspected abnormal brain Personal History of Gestational Diabetes Late Care Maternal Obesity (BMI<40) Complicating MATERNAL ASSESSMENT ----- Physical Exam ? Weight 98 kg. BMI 32.69 kg/m?? METHOD ----- Transabdominal ultrasound examination ----- Abdul . Number of fetuses: 1 DATING ----- Method of dating: based on stated FREEDOM GA by prior assessment 33 w + 5 d FREEDOM by prior assessment: 05/21/2023 Ultrasound examination on: 04/07/2023 GA by U/S based upon: AC, BPD, EFW, Femur, HC GA by U/S 34 w + 1 d FREEDOM by U/S: 05/18/2023 Assigned: based on stated FREEDOM, selected on 04/07/2023 Assigned GA 33 w + 5 d Assigned FREEDOM: 05/21/2023 BIOMETRY ----- BPD ?87.4 ? mm ? 35w 2d ? 87% ?Hadlock OFD ?117.3 ?mm ? -/- ? >99% ?Moira HC ? 329.6 ?mm ? 37w 4d ? 95% ?Hadlock Cerebellum tr ?44.7 ? mm ? 35w 3d ? 93% ?Sanchez AC ? 285.2 ?mm ? 32w 4d ? 20% ?Hadlock Femur ?62.5 ? mm ? 32w 3d ? 11% ?Hadlock HC / AC ?1.16 ?97% ? Nicolaides Weight Calculation: EFW ? 2,144 ? g ? 32w 6d ?29% ?Hadlock EFW (lb,oz) ? 4 lb 12 ? oz EFW by ?Hadlock ([id number]) Head / Face / Neck Biometry: Cephalic index ? 0.75 ? 5% ? Nicolaides Va ? 10.4 ?mm School Bus Attendant ? 9.3 ? mm CM ? 13.6 ?mm Extremities / Bony Struc Biometry: FL / BPD ?0.72 FL / HC ? 0.19 FL / AC ? 0.22 GENERAL EVALUATION ----- Cardiac activity present. FHR 126 bpm. movements: present. Presentation: cephalic Placenta: anterior Umbilical cord: Cord vessels: 3 vessel cord. Insertion site: placental insertion: normal Amniotic fluid: Amount of AF: normal amount. MVP 3.4 cm. EMILY 11.5 cm. Q1 3.4 cm, Q2 2.5 cm, Q3 2.3 cm, Q4 3.2 cm ANATOMY ----- Face ?Lips: previously seen. Profile: previously seen. Nose: previously seen. Palate: previously seen. Ears: ?previously seen. Orbits: previously seen. Heart / Thorax ?4-chamber view: previously seen. RVOT view: previously seen. Bicaval view: previously seen. Ductal arch ?view: previously seen. High short axis view: previously seen. Abdomen ? Abdominal wall: previously seen. Extremities / ? Right arm: previously seen. Right hand: previously seen. Left hand: previously seen. Right foot: Skeleton ?previously seen. Left foot: previously seen. The following structures appear abnormal: Head / Neck ? Left lateral ventricle. Cisterna magna. The following structures appear normal: Head / Neck ? Cranium. Right lateral ventricle. Choroid plexus. Midline falx. Cavum septi pellucidi. Cerebellum. ?Thalami. Heart / Thorax ?LVOT view. 3-vessel view. 9-guomok-vzsyhgh view. Situs. Aortic arch view. Cardiac rhythm. ?Diaphragm. Abdomen ? Stomach. Kidneys. Bladder. Spine ? Cervical spine. Thoracic spine. Lumbar spine. Sacral spine. Extremities / ? Arms. Legs. Skeleton MATERNAL STRUCTURES ----- Cervix ?Visualized ?Approach - Transabdominal Right Ovary ? Not examined Left Ovary ?Not examined GROWTH OVERVIEW ----- Exam date ? GA ?BPD (mm) ? HC (mm) ?AC (mm) ? FL (mm) ?HL (mm) ?EFW (g) 04/07/2023 ?33w 5d ?87.4 ?87% ?329.6 ? 95% ?285.2 ?20% ?62.5 ?11% ? 2,144 ?29% COMMENT ----- Patient's name and date of were verified by the group account director before the exam IMPRESSION ----- 1. Single living fetus with a gestational age of 33w 5d based on the reported clinical dates. 2. Current growth parameters are consistent with the stated EDC. The fetus is appropriate for gestational age in size at the 29% (2144 g). 3. Detailed anatomic survey is unremarkable with the exception of the observed levi cisterna magna (1.69cm) and unilateral (left) borderline ventriculomegaly (LLV 10.4mm). The CSP is visualized. 4. Amniotic fluid volume is normal for gestational age. 5. The right and left ovary are not examined. 6. Placenta is anterior. No previa/not low-lying. The placenta cord insertion is normal. Comments: Isolated enlargement of the cisterna magna, when noted with otherwise normal cerebellar architecture, has been reported to be associated with aneuploidy and has also been reported to be a normal variant. However, in prior studies of cisterna magna enlargement, however, those fetuses with abnormal chromosomes have had other sonographic abnormalities in addition to a large cisterna magna. More recent radiological studies suggest that isolated enlargement of the cisterna magna to more than 10 mm is associated with normal and outcome. In general, the clinical significance of isolated levi cisterna magna is not clear and most of the studies have reported a good prognosis. Marianela et al reported an overall normal cognitive function in adults but inferior score in some parameters of memory and verbal fluency compared to controls. Post-corey MRI is recommended along with follow-up with pediatric neurology and neuro-developmental evaluation as indicated based routine pediatric screening. Ventriculomegaly (VM) is defined as the diameter of one or both lateral ventricles measuring 10?mm or larger. VM is further divided according to the severity of the dilation; in borderline or mild VM, the lateral ventricles measure 10-12?mm; in moderate VM, 12.1-14.9?mm, and in severe VM, ?15?mm. They may be symmetric or asymmetric. The overall incidence of VM is 1?:?1000 to 2?:?1000 births. However, the reported incidence of borderline or mild VM ranges from 1.11/999 births in the low-risk population to births in the high-risk population. The pathogenesis of isolated mild VM has not been clearly elucidated and often remains unknown. It most likely is multifactorial and frequently associated with other brain anomalies, chromosomal aneuploidy, or infections. The differential diagnosis for ventriculomegaly includes Open spina bifida, early hydrocephaly, agenesis of the corpus callosum and normal variant. Associated structural and/or chromosomal malformation are present in about about 41% of cases, most notably Trisomy 21 (the most common), followed by trisomies 18 and 13. Additionally, extracranial abnormalities have been noted to occur in approximately 30% of cases, with chromosomal aberrations being found in approximately 10-15%. Lastly, vaginal delivery is not contraindicated in cases of mild VM. delivery for routine obstetric indications. However, each case needs to be individualized, especially those with associated malformations. The option of genetic testing was discussed and reviewed. Recommendations: - Recommend interval survey in 4 weeks. - Recommend post- imaging. - Enroll in T to arrange for best non-urgent post corey follow-up. - No contraindication to vaginal delivery at this time. No barriers to local delivery. - Recommend post- genetic testing. Thank you for allowing us to participate in the care of this patient. Procedure Note Joy Barnes MD - 04/07/2023 STL COMP ----- Pat. Name:Lurdes GORDON Date:04/07/2023 3:18pm Pat. NO: [id number] MD:MEKA BUSTOS, DO [facility]Mon[facility] Cummings RDMS :2000Age:22 ----- INDICATION ----- Known / Suspected, Anomalies suspected abnormalbrain Personal History of Gestational Diabetes Late Care Maternal Obesity (BMI<40) Complicating MATERNAL ASSESSMENT ----- Physical Exam Weight 98 kg. BMI 32.69 kg/m?? METHOD ----- Transabdominal ultrasound examination ----- Abdul . Number of fetuses: 1 DATING ----- Method of dating:based on stated FREEDOM GA by prior [id number] w + 5 d FREEDOM by prior assessment:05/21/2023 Ultrasound examination on:04/07/2023 GA by U/S based upon:AC, BPD, EFW, Femur, HC GA by U/4 w + 1 d FREEDOM by U/S:05/18/2023 Assigned:based on stated FREEDOM, selected on 04/07/2023 Assigned GA33 w + 5 d Assigned FREEDOM:05/21/2023 BIOMETRY ----- BPD 87.4 mm 35w 2d87% Hadlock OFD 117.3 mm -/->99% Moira HC 329.6 mm 37w 4d95% Hadlock Cerebellum tr 44.7 mm 35w 3d93% Daniel AC 285.2 mm 32w 4d20% Hadlock Femur 62.5 mm 32w 3d11% Hadlock HC / AC 1.16 97%Nicolaides Weight Calculation: EFW 2,144 g 32w 6d29% Hadlock EFW (lb,oz) 4 lb 12 oz EFW by Hadlock ([id number]) Head / Face / Neck Biometry: Cephalic index 0.75 5%Nicolaides Va 10.4 mm School Bus Attendant 9.3 mm CM 13.6 mm Extremities / Bony Struc Biometry: FL / BPD 0.72 FL / HC 0.19 FL / AC 0.22 GENERAL EVALUATION ----- Cardiac activity present. FHR 126 bpm. movements: present.Presentation: cephalic Placenta: anterior Umbilical cord: Cord vessels: 3 vessel cord. Insertion site: placentalinsertion: normal Amniotic fluid: Amount of AF: normal amount. MVP 3.4 cm. EMILY 11.5 cm. Q13.4 cm, Q2 2.5 cm, Q3 2.3 cm, Q4 3.2 cm ANATOMY ----- Face Lips: previously seen. Profile: previously seen.Nose: previously seen. Palate: previously seen. Ears: previously seen. Orbits: previously seen. Heart / Thorax 4-chamber view: previously seen. RVOT view:previously seen. Bicaval view: previously seen. Ductal arch view: previously seen. High short axis view:previously seen. Abdomen Abdominal wall: previously seen. Extremities / Right arm: previously seen. Right hand: previouslyseen. Left hand: previously seen. Right foot: Skeleton previously seen. Left foot: previously seen. The following structures appear abnormal: Head / Neck Left lateral ventricle. Cisterna magna. The following structures appear normal: Head / Neck Cranium. Right lateral ventricle. Choroid plexus.Midline falx. Cavum septi pellucidi. Cerebellum. Thalami. Heart / Thorax LVOT view. 3-vessel view. 8-hxjsbk-dmrifbl view.Situs. Aortic arch view. Cardiac rhythm. Diaphragm. Abdomen Stomach. Kidneys. Bladder. Spine Cervical spine. Thoracic spine. Lumbar spine.Sacral spine. Extremities / Arms. Legs. Skeleton MATERNAL STRUCTURES ----- Cervix Visualized Approach - Transabdominal Right Ovary Not examined Left Ovary Not examined GROWTH OVERVIEW ----- Exam date GA BPD (mm) HC (mm) AC (mm) FL(mm) HL (mm) EFW (g) 04/07/2023 33w 5d 87.4 87% 329.6 95% 285.2 20%62.5 11% 2,144 29% COMMENT ----- Patient's name and date of were verified by the group account director beforethe exam IMPRESSION ----- 1. Single living fetus with a gestational age of 33w 5d based on thereported clinical dates. 2. Current growth parameters are consistent with the stated EDC. The fetusis appropriate for gestational age in size at the 29% (2144 g). 3. Detailed anatomic survey is unremarkable with the exception ofthe observed levi cisterna magna (1.69cm) and unilateral (left) borderline ventriculomegaly (LLV 10.4mm). The CSP is visualized. 4. Amniotic fluid volume is normal for gestational age. 5. The right and left ovary are not examined. 6. Placenta is anterior. No previa/not low-lying. The placenta cordinsertion is normal. Comments: Isolated enlargement of the cisterna magna, when noted with otherwisenormal cerebellar architecture, has been reported to be associated with aneuploidy and has also been reported to be a normalvariant. However, in prior studies of cisterna magna enlargement, however, those fetuses with abnormal chromosomes have hadother sonographic abnormalities in addition to a large cisterna magna. More recent radiological studies suggest that isolatedenlargement of the cisterna magna to more than 10 mm is associated with normal and outcome. In general, theclinical significance of isolated levi cisterna magna is not clear and most of the studies have reported a good prognosis. Juvenal al reported an overall normal cognitive function in adults but inferior score in some parameters of memory and verbal fluencycompared to controls. Post- MRI is recommended along with follow-up with pediatric neurology and neuro-developmentalevaluation as indicated based routine pediatric screening. Ventriculomegaly (VM) is defined as the diameter of one or both lateralventricles measuring 10?mm or larger. VM is further divided according to the severity of the dilation; in borderline or mildVM, the lateral ventricles measure 10-12?mm; in moderate VM, 12.1-14.9?mm, and in severe VM, ?15?mm. They may be symmetric orasymmetric. The overall incidence of VM is 1?:?1000 to 2?:?1000 births. However, the reported incidence of borderline or mild VMranges from 1.11/999 births in the low-risk population to births in the high-risk population. The pathogenesis ofisolated mild VM has not been clearly elucidated and often remains unknown. It most likely is multifactorial and frequentlyassociated with other brain anomalies, chromosomal aneuploidy, or infections. The differential diagnosis for ventriculomegalyincludes Open spina bifida, early hydrocephaly, agenesis of the corpus callosum and normal variant. Associated structural and/orchromosomal malformation are present in about about 41% of cases, most notably Trisomy 21 (the most common), followed by trisomies 18and 13. Additionally, extracranial abnormalities have been noted to occur in approximately 30% of cases, with chromosomalaberrations being found in approximately 10-15%. Lastly, vaginal delivery is not contraindicated in cases of mild VM. Cesareandelivery for routine obstetric indications. However, each case needs to be individualized, especially those with associatedmalformations. The option of genetic testing was discussed and reviewed. Recommendations: - Recommend interval survey in 4 weeks. - Recommend post-corey imaging. - Enroll in T to arrange for best non-urgent post corey follow-up. - No contraindication to vaginal delivery at this time. No barriers tolocal delivery. - Recommend post-corey genetic testing. Thank you for allowing us to participate in the care of this patient. Meka Villalta DO U S ORDERABLES documented in this encounter Visit Diagnoses Diagnosis History of drug use disorder PTSD (post-traumatic stress disorder) Posttraumatic stress disorder Borderline personality disorder Bipolar affective disorder, remission status unspecified History of gestational diabetes mellitus (GDM) Asthma, unspecified asthma severity, unspecified whether complicated, unspecified whether persistent documented in this encounter
== END 2024-08-03 14:34 | disposition home or self-care (01) | DRG 445 ==
LOC: ANHED 07:09 → ANH3MEDSUR 07:55
PROVIDERS: Internal Medicine Gastroenterology; Nurse Practitioner Family; Admitting Provider Internal Medicine; Emergency Provider Student in an Organized Health Care Education/Training Program; Visit Provider Internal Medicine
PROC: 0FC98ZZ Extirpation of Matter from Common Bile Duct, Via Natural or Artificial Opening Endoscopic (ICD-10-PCS; CPT 43260; principal; 2024-08-02 12:00)
DX: K80.50 Calculus of bile duct without cholangitis or cholecystitis without obstruction (principal); N39.0 Urinary tract infection, site not specified; K83.8 Other specified diseases of biliary tract; K31.9 Disease of stomach and duodenum, unspecified; B96.20 Unspecified Escherichia coli [E. coli] as the cause of diseases classified elsewhere; R16.1 Splenomegaly, not elsewhere classified; D64.9 Anemia, unspecified; Z90.49 Acquired absence of other specified parts of digestive tract; E66.01 Morbid (severe) obesity due to excess calories; Z68.35 Body mass index [BMI] 35.0-35.9, adult; Z87.891 Personal history of nicotine dependence
CPT/HCPCS: 36415; 74177; 74183; 74329; 76376; 80053; 80074; 81001; 81025; 82607; 82728; 82746; 83540; 83550; 83605; 83690; 83735; 85025; 85055; 85610; 85730; 86308; 86850; 86900; 86901; 87086; 87186; 96361; 96365; 96375; 96376; 99285; A9270; A9577; J0330; J0696; J1171; J1630; J2003; J2704; J7120; Q9966; Q9967

== ENCOUNTER 2025-02-15 07:51 | Emergency (ER) | payer BC, MEDICAID, SELFPAY ==
--- OUTSIDE RECORDS SUMMARY | 2025-02-15 07:55 | XMS_ITS | Continuity of Care Document ---
Author Organization [facility] Address [address] [place] [address] Phone Care Team Providers Care Field Crops Harvest Machine Operator Name Role Phone Dimas Emilia TAPIA Unavailable Unavailable Allergies, Adverse Reactions, [...] Healthcare, [address] [place], [id number], [place] tel:[phone] [facility] Major depressive disorder, recurrent, moderateAmph etamine type substance use disorder, moderate, in early remissionOpi oid Use Disorder, Moderate 3 Dimas Emilia. [address] [place], [id number], [place]. tel:[phone] Referring Provider: Emilia Cochran, [address] [facility] [place], [address]. tel:[phone] OFFICE/OUTPA TIENT VISIT, EST [facility], [address] [place], [place], [id number], [place] tel:[phone] [facility] Provider Note- H Leonardo EQUITY STRUCTURER-C (chief complaint) AMP (chief complaint) Body mass index (BMI) 30.0-30.9, adultOpioid Use Disorder, ModeratePreg nant state, incidentalEn counter for test, result positiveHome lessnessTran sportation insecurityUn availability and inaccessibil ity of health-care facilities 3 Leonardo Gardiner. [address] [place] [address], [id number] [address] [place] [address], [id number], . tel:[phone] Referring Provider: Zuleyka Patterson, [address] [place] [address] 212 [id number] [place], [address]. tel:[phone] PSYCH DIAG EVAL W/MED SRVCS [facility], [address] [place] [address] [place] [place], [place], [id number], [place] tel:[phone] [facility] Establish Care (chief complaint) Generalized Anxiety DisorderPost -traumatic stress disorder, chronic 0 Beth Calvo. [address] [employer] [facility], [id number] [facility] [place] [id number]. tel:[phone] Referring Provider: Umesh Campos, [address] [employer] [id number] [place], [address]. tel:[phone] PSYCH DIAGNOSTIC EVALUATION [facility], [address] [facility] [place], [id number], [place] tel:[phone] [facility] Generalized Anxiety DisorderPost -traumatic stress disorder, chronic 0 Dimas Nieto. [address] [place], [id number], . tel:[phone] Referring Provider: Emilia Cochran, [address], [place], [address]. tel:[phone] Family History Family Member Type Diagnosis Age [...] anger Payers Payer name Insurance type Covered libertarian ID Authoriza marleneblanca(s) [facility] CI [id number] Social History Type Description Quantity Date Captured [...] Of Treatment Date Type Action Status Goal Influenza vaccine. Due on Oc due Goal PAP. Due on due Goal Unhealthy drug u se screening. Due on due Goal Tdap. Due on due Goal Depression screening. Due on due Goal HPV (1st). Due on due Goal Td vaccine. Due on due Goal Diabetes screening. Due on O ct due Goal Hepatitis C screening. Due o n due Goal PAP. Due on due Goal Influenza vaccine. Due on Ma due Goal Diabetes screening. Due on due Goal Tdap. Due on due Goal Depression screening. Due on due Goal Td vaccine. Due on 23 due Goal HPV (1st). Due on 3 due Goal Diabetes screening. Due on due Goal Influenza vaccine. Due on due Goal Fluoride varnish application. Due on due Goal Tdap. Due on due Goal Depression screening. Due on due Goal HPV (1st). Due on 0 due Goal Tobacco cessation counseling completed Goal Tdap. Due on due Goal Depression screening. Due on due Goal Fluoride varnish application. Due on due Goal HPV (1st). Due on 0 due Goal Influenza vaccine. Due on due Goal Diabetes screening. Due on due Patient Education buspirone 7.5 [...] Patient has not sought care with an laboratory administrative director and has transportation issues. Reports cannot get to an laboratory administrative director. Does have an ultrasound tomorrow for dating [...] recommendedAllergies. no Establish Care Establish Care w [facility] provider and medication management. Functional Status Date Functional Assessmen t No Information Instructions Date Instruction Additional Infor mation See diagnosis #4 Related to Unav ailability and inaccessibility of health-care facilities Patient to meet with community outreach services to help arrange transportation issues, help find housing etc. Related to Homelessness See diagnosis #4 Related to Pan sportation insecurity Patient to follow up with laboratory administrative director for management of her Related to state, [...] medical consent would be sent through the [employer] program [facility] [...]
--- OUTSIDE RECORDS SUMMARY | 2025-02-15 07:55 | XMS_ITS | Clinical Summary ---
Author Organization [facility] Address [address] [place] [address] Phone Care Team Providers Care Belt Repairer Name Role Phone Unavailable Primary Care Provider Unavailabl e Allergies No known active allergies Medications lithium carbonate 300 mg tablet Take 300 mg by mouth 3 times daily. Active nebulizer Length of need 99 months Nebulizer with compressor, Kit: Permanent Nebulizer Kit, 1 per 6 months, filters , areosol mask: Yes. Name of MedicationAlbuterol 1 Each 10/31/19 22 030 Active Social History Tobacco Use Types Packs/Day Years Used Date Smoking Tobacco: Every Day Cigarettes Smokeless Tobacco: Never Alcohol Use Standard Drinks/Week Comments Yes 14 (1 standard drink = 0.6 oz pu re alcohol) Comments Unknown Sex and Gender Information Value Date Recorded Sex Assigned at Not on file Legal Sex Female 9:11 AM CDT Gender Identity Not on file Sexual Orientation Not on file Last Filed Vital Signs Vital Sign Reading Time Taken Comments Blood Pressure 152/86 10/30/2021 8:16 AM CDT Pulse 118 10/30/2021 9:00 AM CDT Temperature 37.2 C (99 F) 10/30/2021 8:16 AM CDT Respiratory Rate 22 10/30/2021 9:00 AM CDT Oxygen Saturation 100% 10/30/2021 9:00 AM CDT Inhaled Oxygen Concentration - - Weight 97.5 kg (215 lb) 10/30/2021 8:16 AM CDT Height 172.7 cm (5' 8) 10/30/2021 8:16 AM CDT Body Mass Index 32.69 10/30/2021 8:16 AM CDT Plan of Treatment Health Maintenance Due Date Last Done Comments HPV VACCINES (2 - 2-dose series) 02/24/2012 08/26/19 12 CHLAMYDIA SCREENING (ANNUAL) 11-24 YEARS 2012 CERVICAL CANCER SCREENING 2022 HPV/Cotest (21-29) 2022 PAP SMEAR 2022 DTAP/TDAP/TD VACCINES (7 - T d or Tdap) 03/21/2023 03/21/2013, 02/05/2007, 05/10/2003, Additional history exists INFLUENZA VACCINE (#1) 2025 09/21/2020 HEPATITIS B VACCINES Completed 03/11/2002, 2001, 2001 Insurance [facility] [id number]
--- OUTSIDE RECORDS SUMMARY | 2025-02-15 07:55 | XMS_ITS | Clinical Summary ---
Author Organization [facility] Address [address] [place] [address] Care Team Providers Care Book Trimmer Name Role Phone Mamie Hill MD Primary Care Provider [phone] Chrissie Dos Santos RN Unavailable Unavailable Source Comments [facility],non-owned Affiliates and Associated Physician Practices is amultiple site organization consisting of ambulatory clinics and hospital sitesin [place], [place], [place] and [place]. This disclosure is being madepursuant to the Care Everywhere program and may not contain all information available regarding this patient. Last updated 18.[facility] [employer] Allergies No known active allergies Medications * Be aware that medications may not be up to date on this document. Alwaysverify current medications with the patient. Vit-DSS-Fe Cbn-FA ( AD PO) Act kinga MV-Min-Fe Fum-FA-DHA ( MULTIVITAMIN PLUS DHA) 27-0.8-250 MG CAPSIndications:A bsence of menstruation Take 1 tablet by mouth once daily 90 capsule 3 09/21/2020 Active Calcium Carb-Cholecalcife rol (CALCIUM-VITAMIN D) 500-400 MG-UNITIndication s:Absence of menstruation Take 1 tablet by mouth once daily 90 tablet 2 09/21/2020 Active aspirin (ASPIRIN) 81 MG chew tablet Take 1 (one) tablet by mouth once daily 100 tablet 4 10/19/2020 Active Active Problems Problem Noted Date Diagnosed Date Screening, , for anatomic survey 12/14/2020 Obesity affecting , antepartum 03/05/20 21 Supervision of normal first , antekrys m 10/19/2020 Immunizations Immunization Administration Dates Next Due DTaP VACCINE IM (6wk-6yrs) 02/05/2007,,03/11/2002,01/12,2001 HEP A PEDS 2 DOSE 02/05/2007,09/27/2003 HEP B VACCINE, PED/ADOL 03/11/2002,2001, HIB VACCINE 03/11/2002,01/12/2002,2001 Human Papilloma Virus Clay valent Vaccine 08/26/2011 INFLUENZA VACCINE 08/15/2003 INFLUENZA VACCINE, QUADR. (F LUZONE; FLULAVAL; FLUARIX; AFLURIA QUADRIVALENT; 6MO+), 0.5 ML (IIV4) 09/21/2020 MENINGOCOCCAL ACWY (MCV4P) VAC IM 03/21/2013 MMR 02/05/2007,09/13/2002 PNEUMOCOCCAL PCV7 CONJ, PEDS [...] Used Date Smoking Tobacco: Former Cigarettes 0.5 10.7 S tarted: 06/2014 Smokeless Tobacco: Never Tobacco Cessation:Ready to Q uit: No; Counseling Given: Yes Comments:quit with Alcohol Use Standard Drinks/Week Comments No 0 (1 standard drink = 0.6 oz pur e alcohol) PHQ-2 Answer Date Recorded PHQ2 TOTAL SCORE 0 12/14/2020 Comments No Sex and Gender Information Value Date Recorded Sex Assigned at Not on file Legal Sex Female 4:39 AM INTERIOR PANELER Gender Identity Not on file Sexual Orientation Not on file Last Filed Vital Signs Vital Sign Reading Time Taken Comments Blood Pressure 122/70 12/14/2020 3:47 PM CDT Pulse 78 04/15/2019 7:16 AM CDT Temperature 36.4 C (97.5 F) 09/11/2020 1:12 PM INTERIOR PANELER Respiratory Rate - - Oxygen Saturation 98% 04/15/2019 7:16 AM CDT Inhaled Oxygen Concentration - - Weight 111.1 kg (245 lb) 12/14/2020 3:47 PM CDT Height 170.2 cm (5' 7) 12/14/2020 3:47 PM CDT Body Mass Index 38.37 12/14/2020 3:47 PM CDT Plan of Treatment Health Maintenance Due Date Last Done Comments HPV VACCINE (2 - 2-dose series) 02/24/2012 08/26/2011 MENINGOCOCCAL (Group B) VACCINE SHARED DECISION-MAKING (1 of 2 - Standard) 2017 CHLAMYDIA/GONORRHEA SCREENING 09/21/2021 09/21/2020, 12/09/2018 PAP SMEAR 2022 DTAP/TDAP/TD VACCINES (7 - Td or Tdap) 03/21/2023 03/21/2013, 02/05/2007, 05/10/2003, Additional history exists COVID-19 VACCINE ( - 2023- season) 2024 DEPRESSION SCREENING 08/17/2024 INFLUENZA VACCINE (Season Ended) 2025 09/21/2020, 08/15/2003 ZOSTER VACCINE (1 of 2) 2051 HEPATITIS B VACCINE Completed 03/11/2002, 2001, 2001 HIB VACCINE Aged Out 03/11/2002, 12/16, 2001 No longer eligible based on patient's age to complete this topic PNEUMOCOCCAL VACCINE Completed 08/15/2003, 05/10/2003, 03/11/2002, Additional history exists MENINGOCOCCAL GROUPS A/C/Y/W VACCINE Aged Out 03/21/2013 No longer eligible based on patient's age to complete this topic HEPATITIS C SCREENING Completed 09/21/2020 HIV SCREENING Completed 09/21/2020 Procedures Procedure Name Priority Date/Time Associated Diagnosis Comments CHLAMYDIA + GC + TRICH DNA AMPL Routine 09/21/2020 2:26 PM INTERIOR PANELER Absence of menstruation HEPATITIS C ANTIBODY Routine 09/21/2020 11:45 AM INTERIOR PANELER Absence of menstruation PROFILE W T PALLIDUM W HIV Routine 09/21/2020 11:45 AM INTERIOR PANELER Absence of menstruation from Last 3 Months or Most Recently Relevant to Health Maintenance Results * CHLAMYDIA + GC + TRICH DNA AMPL (09/21/2020 2:26 PM INTERIOR PANELER) Chlamydia trachomatis AFSHAN Negative Negative [facility] INSURANCE BILL GC DNA Probe Negative Negative [facility] INSURANCE BILL Trichomonas vaginalis by AFSHAN Negative Negative [facility] INSURANCE BILL Microbiology URINE / Unknown 09/21/2020 2 :26 PM INTERIOR PANELER 09/21/2020 Narrative Resulting Agency Comment Lab Testing performed at: [facility] [id number] Hilary Brizuela DO LAB - MICROBIOLOGY ORDERABLES Fi nal Result [facility] INSURANCE BILL [address] [place] [address] * (ABNORMAL) PROFILE W T PALLIDUM W HIV (09/21/2020 11:45 AM INTERIOR PANELER) Hepatitis B Virus Surface Antigen Negative Negative [facility] INSURANCE BILL T pallidum Antibody (TP-PA) Non Reactive Non Reactive [facility] INSURANCE BILL Rubella Antibody 2.42 Immune >0.99 index [facility] INSURANCE BILL Comment: Non-immune <0.90 Equivocal 0.90 - 0.99 Immune >0.99 ABO O [facility] INSURANCE BILL Rh [...] BLOOD SPECIMEN / Unknown 09/21/2020 11:45 AM INTERIOR PANELER 09/21/2020 Narrative Resulting Agency Comment [facility]: [facility] [address] [facility] [phone] [place] Hilary Brizuela DO LAB - SEROLOGY ORDERABLES Final Result [facility] INSURANCE BILL [address] [facility] [facility] [place] [address] * HEPATITIS C ANTIBODY (09/21/2020 11:45 AM INTERIOR PANELER) Hepatitis C Antibody Non Reactive Non Reactive [facility] INSURANCE BILL Comment: Non Reactive - Antibodies to Hepatitis C virus (HCV) were no t detected, result does not exclude early acute HCV infection. Blood BLOOD SPECIMEN / Unknown 09/21/2020 11:45 AM INTERIOR PANELER 09/21/2020 Narrative Resulting Agency Comment Lab Testing performed at: [facility] [address] [phone] [place] Hilary Brizuela DO LAB - CHEMISTRY ORDERABLES Final Result [facility] INSURANCE BILL [address] [place] [address] from Last 3 Months or Most Recently Relevant to Health Maintenance Insurance [employer] BC/BLUE [place] MEDICAID - [place] SELF PAY NO INSURANCE Member Subscriber Plan / Payer (Ef fective for All Dates) Name:Verónica Gordon Member ID:Not on file Relation to Subscriber:Not on file Name:VERÓNICA GORDON Subscriber ID:Not on file (Home) Address: [address] [place] [id number] Payer ID:Not on file Group ID:Not on file Type:Self Pay Address: [facility] [employer] ANTHEM * Guarantor: VERÓNICA GORDON Account Type Relation to Patient Date of Phone Billing Address Personal/Family [address] [place] [address] Care Teams Book Trimmer Relationship Specialty Start Date End Date Mamie Hill MD [address] [place] [phone] PCP - General Family Medicine 12/09/18 Chrissie Dos Santos, RN Registered Nurse 04/15/19
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
--- OUTSIDE RECORDS SUMMARY | 2025-02-15 07:55 | XMS_ITS | Data Portability ---
Author Organization [facility] Address [address] [place] [place] [address] [place] [address] Assessment No assessment recorded. Plan of Treatment Reminders Order Date Submit Date Provider Last Modified By Organization Details Last Modified Time Details Appointments None recorded. Lab urinalysis, dipstick 2023 024 [facility], [address], [place], [address], 4 16:29:57 CMP, serum or plasma 2023 024 [facility] (Lab), [address], [place], [address], 4 07:08:59 lipid panel, blood 2023 024 [facility] (Lab), [address], [place], [address], 4 07:08:59 HbA1c (hemoglobin A1c), blood 2023 024 [facility] (Lab), [address] [place], [address], 4 07:08:58 CBC w/ auto diff 2023 024 [facility] (Lab), [address] [place], [address], 4 07:08:58 TSH, serum or plasma 2023 024 [facility] (Lab), [address] [facility], [place], [address], 4 07:09:00 25-hydroxyv itamin D2 + 25-hydroxyv itamin D3, QN, serum or plasma 2023 024 [facility] (Lab), [address], [place], [address], 4 07:09:00 Referral psychiatris t referral 2023 [facility], [address], [facility] [address], [place], [address], 5 05:01:40 Procedures None recorded. Surgeries None recorded. Imaging non-stress test [address], [facility] [address], [place], [address], 1 20:47:29 non-stress test [address], [facility] [address], [place], [address], 1 18:09:01 Medication Orders Macrobid 100 mg capsule 2023 024 [facility] [id number], [place], [address], 4 16:34:11 Slynd 4 mg (28) tablet 2023 [facility] [address], [place], [address], 4 16:33:34 Loestrin Fe 1/20 (28-Day) 1 mg-20 mcg (21)/75 mg (7) tablet 2020 021 [email or web address] [id number], [address], [place], [place], [id number], 16:01:03 Patient TargetsNo targets recorded. Patient InstructionsNo instructions recorded. Reason for Referral Psychiatrist Referral for Ramesh rderline personality disorder Referring Physician: Anca Sadler, SHALE PROCESSING TECHNICIAN, Encounter Date: 03/01/2024 Results Created Date Observation Date Name Description Value Unit Range Abnormal Flag Note LastModifiedBy Organization Detail LastModifiedTime 04/04/20 21 04/04/2021 CULTU RE: GROUP B STREP SCREE N, REFLE X SUSCE PTIBI LITY result report SEE RESULT S BELOW Test: Cultu re: Group B Strep , Refle x Susce ptibi lity ([facility] ) Speci men Sourc e: Vagin a/Rec chanda Speci men Type: Vagin al/Re ctal Speci men Date: 2020 1:12 PM Resul t Date: 2020 1:35 PM Resul t Statu s: Final resul t Abnor mal: No Resul ting Lab: [facility] [address] [facility] [address] Tel: CULTU RE ----- ----- ----- --- No Group B strep isola alex at 2 days (cassie ctive broth enhan cemen t) Not Available [facility] (Lab) [address], [place], [address], 04/08/2021 14:38:11 03/01/20 24 03/01/2024 urina lysis , dipst ick Leukocytes ++ Not Available [facility] [address], [place], [address], 03/01/2024 16:26:03 03/01/20 24 03/01/2024 urina lysis , dipst ick Nitrite negati ve Not Available [address], [place], [address], 03/01/2024 16:26:03 03/01/20 24 03/01/2024 urina lysis , dipst ick Urobilinogen normal Not Available [facility], [place], [address], 03/01/2024 16:26:03 03/01/20 24 03/01/2024 urina lysis , dipst ick Protein negati ve Not Available [facility] [address], [place], [address], 03/01/2024 16:26:03 03/01/20 24 03/01/2024 urina lysis , dipst ick pH 5 Not Available [facility] [address], [place], [address], 03/01/2024 16:26:03 03/01/20 24 03/01/2024 urina lysis , dipst ick Specific [place] 1.025 [facility] Available [facility] [address], [place], [address], 03/01/2024 16:26:03 03/01/20 24 03/01/2024 urina lysis , dipst ick Ketone negati ve Not Available [facility] [address], [place], [address], 03/01/2024 16:26:03 03/01/20 24 03/01/2024 urina lysis , dipst ick Bilirubin negati ve Not Available [facility] [address], [place], [address], 03/01/2024 16:26:03 03/01/20 24 03/01/2024 urina lysis , dipst ick Glucose normal Not Available [facility] [address], [place], [address], 03/01/2024 16:26:03 03/08/20 24 03/08/2024 CBC W/DIF F WBC 8.0 10'3/ uL 3.5-10 .5 Not Available [facility] (Lab) [address] , [place], [address], 03/09/2024 07:08:58 03/08/20 24 03/08/2024 CBC W/DIF F RBC 4.28 10'6/ uL (based on docume nted legal sex) 3.80-5 .20 Not Available [facility] (Lab) [address], [place], [address], 03/09/2024 07:08:58 03/08/20 24 03/08/2024 CBC W/DIF F HGB 11.1 g/dL (based on docume nted legal sex) 11.6-1 5.4 low Not Available [facility] (Lab) [address], [place], [address], 03/09/2024 07:08:58 03/08/20 24 03/08/2024 CBC W/DIF F HCT 36.6 % (based on docume nted legal sex) 34.0-4 5.0 Not Available [facility] (Lab) [address], [place], [address], 03/09/2024 07:08:58 03/08/20 24 03/08/2024 CBC W/DIF F MCV 85.5 fL 80.0-9 9.0 Not Available [facility] (Lab) [address], [place], [address], 03/09/2024 07:08:58 03/08/20 24 03/08/2024 CBC W/DIF F MCH 25.9 pg 27.0-3 4.0 low Not Available [facility] (Lab) [address] [facility], [place], [address], 03/09/2024 07:08:58 03/08/20 24 03/08/2024 CBC W/DIF F MCHC 30.3 g/dL 32.0-3 5.5 low Not Available [facility] (Lab) [address] [facility], [place], [address], 03/09/2024 07:08:58 03/08/20 24 03/08/2024 CBC W/DIF F RDW 14.6 % 11.0-1 5.0 Not Available [facility] (Lab) [address] [facility], [place], [address], 03/09/2024 07:08:58 03/08/20 24 03/08/2024 CBC W/DIF F plt 350 10'3/ uL 150-40 0 Not Available [facility] (Lab) [address] [facility], [place], [address], 03/09/2024 07:08:58 03/08/20 24 03/08/2024 CBC W/DIF F MPV 12.8 fL 8.8-12 .1 high Not Available [facility] (Lab) [address] [facility], [place], [address], 03/09/2024 07:08:58 03/08/20 24 03/08/2024 CBC W/DIF F NRBC's 0.0 % 0.0 Not Available [facility] (Lab) [address] [facility], [place], [address], 03/09/2024 07:08:58 03/08/20 24 03/08/2024 CBC W/DIF F absolute NRBCs 0.0 10'3/ uL no refere nce range establ ished Not Available [facility] (Lab) [address] [facility], [place], [address], 03/09/2024 07:08:58 03/08/20 24 03/08/2024 CBC W/DIF F neutrophils 58.6 % 34.0-7 3.0 Not Available [facility] (Lab) [address] [place], [address], 03/09/2024 07:08:58 03/08/20 24 03/08/2024 CBC W/DIF F lymphocytes 32.5 % 15.0-5 0.0 Not Available [facility] (Lab) [address] [facility], [place], [address], 03/09/2024 07:08:58 03/08/20 24 03/08/2024 CBC W/DIF F monocytes 5.2 % 1.0-15 .0 Not Available [facility] (Lab) [address], [place], [address], 03/09/2024 07:08:58 03/08/20 24 03/08/2024 CBC W/DIF F eosinophils 2.0 % 0.0-8. 0 Not Available [facility] (Lab) [address], [place], [address], 03/09/2024 07:08:58 03/08/20 24 03/08/2024 CBC W/DIF F basophils 0.7 % 0.0-2. 0 Not Available [facility] (Lab) [address], [place], [address], 03/09/2024 07:08:58 03/08/20 24 03/08/2024 CBC W/DIF F immature granulocytes 1.0 % no define d refere nce range Not Available [facility] (Lab) [address], [place], [address], 03/09/2024 07:08:58 03/08/20 24 03/08/2024 CBC W/DIF F absolute neutrophils 4.7 10'3/ uL 1.5-8. 0 Not Available [facility] (Lab) [address] [facility], [place], [address], 03/09/2024 07:08:58 03/08/20 24 03/08/2024 CBC W/DIF F absolute lymphocytes 2.6 10'3/ uL 1.0-4. 0 Not Available [facility] (Lab) [address], [place], [address], 03/09/2024 07:08:58 03/08/20 24 03/08/2024 CBC W/DIF F absolute monocytes 0.4 10'3/ uL 0.2-1. 0 Not Available [facility] (Lab) [address] [facility], [place], [address], 03/09/2024 07:08:58 03/08/20 24 03/08/2024 CBC W/DIF F absolute eosinophils 0.2 10'3/ uL 0.0-0. 6 Not Available [facility] (Lab) [address] [facility] [address], [place], [address], 03/09/2024 07:08:58 03/08/20 24 03/08/2024 CBC W/DIF F absolute basophils 0.1 10'3/ uL 0.0-0. 3 Not Available [facility] (Lab) [address] [facility] [address], [place], [address], 03/09/2024 07:08:58 03/08/20 24 03/08/2024 CBC W/DIF [...] resul ts are expec alex. Not Available [facility] (Lab) [address], [place], [address], 03/09/2024 07:08:58 03/08/20 24 03/08/2024 HEMOG LOBIN [...] <7.0% Goal of thera py >8.0% Actio pramod carroll sted Not Available [facility] (Lab) [address], [place], [address], 03/09/2024 07:08:58 03/08/20 24 03/08/2024 LIPID PANEL ,AMA (LDL- CALC) total cholesterol 118 mg/dL 0-199 Not Available [facility] (Lab) [address] [place], [address], 03/09/2024 07:08:59 03/08/20 24 03/08/2024 LIPID PANEL ,AMA (LDL- CALC) triglyceride s 65 mg/dL 0-150 NCEP Refer ence Value s for Trigl yceri larry: Symone l: <150 mg/dL Borde rline High: 150 - 199 mg/dL High: 200 - 499 mg/dL Very High: >/= 500 mg/dL Not Available [facility] (Lab) [address], [place], [address], 03/09/2024 07:08:59 03/08/20 24 03/08/2024 LIPID PANEL ,AMA (LDL- CALC) HDL cholesterol 33 mg/dL >40 low Not Available [facility] (Lab) [address] [place], [address], 03/09/2024 07:08:59 03/08/2003/08/2024 LIPID PANEL ,AMA (LDL- CALC) LDL cholesterol 71 mg/dL 0-99 Cutof f value s recom fernando d by the Natshasha nal Huong stero l Educa tion Progr am: REGAN ABLE: Huong stero l <200 mg/dL LDL <100 mg/dL BORDE RLINE : Huong stero l 200-2 39 mg/dL LDL 101-1 59 mg/dL HIGHE R RISK: Huong stero l >240 mg/dL LDL >160 mg/dL , HDL <40 mg/dL Not Available [facility] (Lab) [address], [place], [address], 03/09/2024 07:08:59 03/08/2003/08/2024 LIPID PANEL ,AMA (LDL- CALC) non-HDL cholesterol 85 mg/dL no refere nce range A reaso nable goal for non-H DL huong stero l is one that is 30 mg/dL highe r than the LDL huong stero l goal. Not Available [facility] (Lab) [address], [place], [address], 03/09/2024 07:08:59 03/08/2003/08/2024 LIPID PANEL ,AMA (LDL- CALC) chol/HDL ratio 3.6 . 0.0-5. 0 On December 09, 2022, [facility] labor atori es palma ed the equat ion for calcu latin g estim ated low-d ensit y lipop rotei n-cho leste rol (LDL- C) from the Fried sultana equat ion to the Lashonda n/Hop kins equat ion. This new equat ion is only valid for lipid panel s with trigl yceri larry < 400 mg/dL . Sheebai es sai ghotra ed that this new equat ion will impro ve the accur acy of LDL-C , espec ially in scena yun when LDL-C ayaan ntrat ions are relat ively low (< 100 mg/dL ), trigl yceri larry are eleva alex, or patie nt is non-f astin g. Refer ences : - Lashonda benavidez, Lenny Oliva, Dav Crain , [facility], Romario Santiago, Romario henry, Prabhakar foote , and Chris Camacho . 2013. Comp ariso n of a Novel Metho d vs the Fried sultana Equat ion for Estim ating Low-D ensit y Lipop rotei n Huong stero l Level s from the Stand eileen Lipid Profi le. CHELSIE: The Journ al of the Ameri can Medic al Assoc iatio n 310 (19): 2060- . - Jimmy mcfarland V, Cheli J, Suzette mcfarland A, Ari M, Rosales e R, Arin mcfarland E, Dalton foote RS, Doug SR, Lashonda n SS. Fast ing Versu s Nonfa sting and Low-D ensit y Lipop rotei n Huong stero l Accur acy. Circu latio n. 2017Aug 18;137 (1):1 0-19. Not Available [facility] (Lab) [address], [place], [address], 03/09/2024 07:08:59 03/08/20 24 03/08/2024 CMP(C OMPRE HENSI VE METAB OLIC PANEL ) sodium 138 mmol/ L 133-14 6 Not Available [facility] (Lab) [address] [place], [address], 03/09/2024 07:08:59 03/08/20 24 03/08/2024 CMP(C OMPRE HENSI VE METAB OLIC PANEL ) potassium 4.0 mmol/ L 3.5-5. 1 Not Available [facility] (Lab) [address] [place], [address], 03/09/2024 07:08:59 03/08/20 24 03/08/2024 CMP(C OMPRE HENSI VE METAB OLIC PANEL ) chloride 104 mmol/ L 98-107 Not Available [facility] (Lab) [address] [place], [address], 03/09/2024 07:08:59 03/08/20 24 03/08/2024 CMP(C OMPRE HENSI VE METAB OLIC PANEL ) carbon dioxide 28 mmol/ L 21-31 Not Available [facility] (Lab) [address] [place], [address], 03/09/2024 07:08:59 03/08/20 24 03/08/2024 CMP(C OMPRE HENSI VE METAB OLIC PANEL ) anion gap 6 mmol/ L 4-13 Not Available [facility] (Lab) [address] [facility], [place], [address], 03/09/2024 07:08:59 03/08/20 24 03/08/2024 CMP(C OMPRE HENSI VE METAB OLIC PANEL ) blood urea nitrogen 9 mg/dL 7-25 Not Available [facility] (Lab) [address], [place], [address], 03/09/2024 07:08:59 03/08/20 24 03/08/2024 CMP(C OMPRE HENSI VE METAB OLIC PANEL ) creatinine 0.73 mg/dL 0.60-1 .30 Not Available [facility] (Lab) [address], [place], [address], 03/09/2024 07:08:59 03/08/20 24 03/08/2024 CMP(C OMPRE HENSI VE METAB OLIC PANEL ) egfrcr (CKD-epi 2020) >90 mL/mi n/1.7 3_m2 >=60 Not Available [facility] (Lab) [address], [place], [address], 03/09/2024 07:08:59 03/08/20 24 03/08/2024 CMP(C OMPRE HENSI VE METAB OLIC PANEL ) calcium 9.1 mg/dL 8.3-10 .5 Not Available [facility] (Lab) [address], [place], [address], 03/09/2024 07:08:59 03/08/20 24 03/08/2024 CMP(C OMPRE HENSI VE METAB OLIC PANEL ) glucose 99 mg/dL 70-100 Not Available [facility] (Lab) [address] [place], [address], 03/09/2024 07:08:59 03/08/20 24 03/08/2024 CMP(C OMPRE HENSI VE METAB OLIC PANEL ) protein, total 6.9 g/dL 6.4-8. 3 Not Available [facility] (Lab) [address] [facility], [place], [address], 03/09/2024 07:08:59 03/08/20 24 03/08/2024 CMP(C OMPRE HENSI VE METAB OLIC PANEL ) albumin 3.8 g/dL 3.5-5. 0 Not Available [facility] (Lab) [address], [place], [address], 03/09/2024 07:08:59 03/08/20 24 03/08/2024 CMP(C OMPRE HENSI VE METAB OLIC PANEL ) ALT 8 units /L 9-43 low Not Available [facility] (Lab) [address], [place], [address], 03/09/2024 07:08:59 03/08/20 24 03/08/2024 CMP(C OMPRE HENSI VE METAB OLIC PANEL ) alkaline phosphatase 64 units /L 34-104 Not Available [facility] (Lab) [address], [place], [address], 03/09/2024 07:08:59 03/08/20 24 03/08/2024 CMP(C OMPRE HENSI VE METAB OLIC PANEL ) AST 10 units /L 13-39 low Not Available [facility] (Lab) [address] [place], [address], 03/09/2024 07:08:59 03/08/20 24 03/08/2024 CMP(C OMPRE HENSI VE METAB OLIC PANEL ) bilirubin, total 0.3 mg/dL 0.2-1. 2 Not Available [facility] (Lab) [address] [place], [address], 03/09/2024 07:08:59 03/08/20 24 03/08/2024 TSH, REFLE X FREE T4 TSH 1.73 uIU/m L 0.30-5 .33 Not Available [facility] (Lab) [address] [place], [address], 03/09/2024 07:08:59 03/08/20 24 03/08/2024 VITAM IN D, 25-OH (TOTA L D2/D3 ) vitamin D, 25-hydroxy, total 22.7 NG/mL 30.0-1 00.0 low Sugge stive of Defic iency : <20 ng/mL Sugge stive of Insuf ficie ncy: 20-29 ng/mL Sugge stive of Suffi cienc y: 30-10 0 ng/mL Sugge stive of Toxic ity: >150 ng/mL Not Available [facility] (Lab) [address], [place], [address], 03/09/2024 07:09:00 03/18/20 21 03/18/2021 non-s tress test No observ ation record ed. kailee [facility] [address], [place], [address], 03/18/2021 10:56:27 03/21/20 21 03/21/2021 non-s tress test No observ ation record ed. kailee [place] [address], [place], [address], 03/21/2021 11:08:59 03/25/20 21 03/25/2021 non-s tress test No observ ation record ed. kailee [facility] [address], [place], [address], 03/25/2021 11:05:45 03/29/20 21 03/29/2021 non-s tress test No observ ation record ed. kailee [facility] [address], [place], [address], 03/29/2021 12:16:21 04/01/20 21 04/01/2021 non-s tress test No observ ation record ed. kailee [facility] [address], [place], [address], 04/01/2021 11:22:58 04/04/20 21 04/04/2021 non-s tress test No observ ation record ed. kailee [facility] [address], [place], [address], 04/04/2021 11:52:23 04/04/20 21 04/04/2021 US, obste tric, follo w-up No observ ation record ed. [email or web address] [facility] [address], [place], [address], 04/04/2021 15:43:28 04/04/20 21 04/04/2021 US, obste tric, follo w-up No observ ation record ed. [email or web address] [address], [facility], [place], [address], 04/05/2021 10:42:18 04/08/20 21 04/08/2021 non-s tress test No observ ation record ed. [email or web address] [address], [place], [address], 04/08/2021 17:49:17 04/11/20 21 04/11/2021 non-s tress test No observ ation record ed. [email or web address] [address] [address], [place], [address], 04/12/2021 09:03:51 04/15/20 21 04/15/2021 non-s tress test No observ ation record ed. kailee [facility] [address], [place], [address], 04/15/2021 12:06:23 04/18/20 21 04/18/2021 non-s tress test No observ ation record ed. kailee [facility] [address], [place], [address], 04/18/2021 12:02:09 04/22/20 21 04/22/2021 non-s tress test No observ ation record ed. [email or web address] [facility] [address], [place], [address], 04/24/2021 09:53:57 Result Notes None recorded. Problems Name Problem SNOMED Code Status Onset Date Resolution Date Notes Provider Name and Address Organization Details Recorded Time Pregnanc y 77348543 Completed 202005/06/2021 Breonnavishal Sánchez ehl null, [facility] 16:55:42 Asthma [id number] Completed Rescue mdi only 4x/wk Breonna Sánchez ehl null, [facility] 16:55:38 Gestatio nal diabetes mellitus 06041853 Completed 32wk ante testing Breonna Bohnensti ehl null, [facility] 16:55:38 Gestatio nal diabetes mellitus 63220571 Active 32wk ante testing Breonna Bohnensti ehl null, [facility] 16:55:38 Maternal obesity complica ting pregnanc y, childbir th and the puerperi um, antepart 75352264940 7 Active Breonna Bohnensti ehl null, [facility] 16:55:38 Asthma 531993078 Active Rescue mdi only 4x/wk Breonna Bohnensti ehl null, [facility] 16:55:38 Maternal obesity complica ting pregnanc y, childbir th and the puerperi , antepart 80541087013 7 Completed Breonna Bohnensti ehl null, [facility] 16:55:38 Problem Notes None recorded. Medical Equipment None Reported. [...] Updated DateTime 03/01/2024 170.18 cm 34.3 kg/m2 11563.73 g 132 mm[Hg] 87 mm[Hg] Terri Ansari [facility] 4 16:00:36 Date Recorded Systolic blood pressure Diastolic blood pressure Provider Name and Address Organization Details Last Updated DateTime 04/15/2021 137 mm[Hg] 74 mm[Hg] Monroe Ramesh [facility] 04/15/2021 11:39:50 Date Recorded Body height Body mass index (BMI) [Percentile] Per age and sex Body mass index (BMI) Body weight Systolic blood pressure Diastolic blood pressure Provider Name and Address Organization Details Last Updated DateTime 170.18 cm 99 % 43.9 kg/m2 572710. 8636 g 135 mm[Hg] 83 mm[Hg] Mona Cornejo [facility] 1 12:03:19 Date Recorded Body height Body mass index (BMI) [Percentile] Per age and sex Body mass index (BMI) Body weight Systolic blood pressure Diastolic blood pressure Provider Name and Address Organization Details Last Updated DateTime 1 170.18 cm 98 % 37.6 kg/m2 965235. 17 g 133 mm[Hg] 84 mm[Hg] Shirley Burks [facility] 1 11:55:16 Social History Question Answer Notes LastModified by Organizat ion Details LastModified Time Tobacco Smoking Status Never Smoker Catrachita Baker dao, [facility] 07/09/2021 11:49:06 Do You Have An Advance Directive? No Information n ot available 03/07/2021 Are You Blind Or Do [...] Or The Highest Degree You Have Received? [id number] Information not available 03/07/2021 Are There Any [...] IV Drugs? No Information not available 03/07/2021 Do You Have Difficulty Walking Or Climbing Stairs? No [email or web address] Information not available 02/29/2024 Sex: Unknown Functional Status Question Answer Note LastModified by Organizat ion Details LastModified Time Do you use any illicit or recreational drugs? No Information not available 03/07/2021 What is your level of alcohol consumption? None Information not available 03/07/2021 Are you able to walk? YESWOREST Information not available 03/07/2021 Are you able to care for yourself? Yes [email or web address] Information n ot available 02/29/2024 Do you have difficulty dressing or bathing? No [email or web address] Information not available 02/29/2024 What is your exercise level? Occasional Information not available 03/07/2021 Mental Status Question Answer Note LastModified by Organization D etails LastModified Time Do you feel stressed (tense, restless, nervous, or anxious, or unable to sleep at night)? [id number] Information not available 03/07/2021 Family History Relationship Description Onset Age of this Age Resolved Age Notes LastModified by Organization Details LastModified Time Mother Anemia Not available 02/15/2021 15:54:50 Mother Hypertensive disorder Not available 2020 15:55:20 Mother Mental disorder Not available 2020 15:58:01 Mother Pulmonary embolism [email or web address] Not available 2020 11:49:05 Father Diabetes mellitus Not available 2020 15:55:04 Father Hypertensive disorder [email or web address] Not available 2020 15:55:20 Father Mental disorder [email or web address] Not available 2020 15:58:01 Sister Mental disorder Not available 2020 15:58:01 Brother Mental disorder [email or web address] Not available 2020 15:58:01 Medical History Condition [...] Diagnosis/Indication Diagnosis SNOMED-CT Code Diagnosis ICD10 Code Diagnosis Note [id number] Alejandro Gaston MD [facility] [address] [address] 02/15/2021 14:55:38 02/19/2021 14:59:57 Routine care [id number] Z34.03 [id number] Alejandro Gaston MD [facility] [address] [address] 02/28/2021 09:49:07 02/28/2021 12:14:16 Gestational diabetes mellitus class A1 [id number] O24.410 Pt here for diet teaching. Went over ideal ranges for FBS and pp BS. Went over carb counting and carb ranges for each meal/snack . Gave ideas for foods to eat for meals/snac ks. Discussed drink options and to avoid soda and juice. Pt brought in a large gas station powerade to appointmen t and told pt she would need to switch to powerade zero so there are no sugars. Pt also drinks whole milk. Told pt she would need to switch to skim or 1% milk and will need to measure out serving size of just 8 oz or less and will have to include those carbs to her total carb for that meal or snack. Told pt she can go online to [employer] for meal options or to look up low carb meal recipes online for ideas as well. Pt hasn't picked up glucometer yet, but will pickle cutter tomorrow when she gets paid. Demonstrat ed to pt how to check BS and to check QID and goal ranges for BS. Pt aware if sugars aren't controlled by diet we would discuss starting insulin. Went over NST schedule with pt and importance of keeping these appts and checking BS for her and baby's health. Pt will bring in BS to NST on 03/04. Pts questions were answered and pt verbalized understand ing. EDUARDO reyes [id number] Alejandro Gaston MD [facility] [address],[place] [address] 03/04/2021 10:28:14 03/04/2021 11:33:20 Gestational diabetes mellitus class A1 [id number] O24.410 Pt here for diet teaching. Went over ideal ranges for FBS and pp BS. Went over carb counting and carb ranges for each meal/snack . Gave ideas for foods to eat for meals/snac ks. Discussed drink options and to avoid soda and juice. Pt brought in a large gas station powerade to appointmen t and told pt she would need to switch to powerade zero so there are no sugars. Pt also drinks whole milk. Told pt she would need to switch to skim or 1% milk and will need to measure out serving size of just 8 oz or less and will have to include those carbs to her total carb for that meal or snack. Told pt she can go online to ADA for meal options or to look up low carb meal recipes online for ideas as well. Pt hasn't picked up glucometer yet, but will pickle cutter tomorrow when she gets paid. Demonstrat ed to pt how to check BS and to check QID and goal ranges for BS. Pt aware if sugars aren't controlled by diet we would discuss starting insulin. Went over NST schedule with pt and importance of keeping these appts and checking BS for her and baby's health. Pt will bring in BS to NST on 03/04. Pts questions were answered and pt verbalized understand ing. EDUARDO reyes [id number] Alejandro Gaston MD [facility] [address],[place] [address] 03/07/2021 10:35:31 03/07/2021 11:55:20 Gestational diabetes mellitus [id number] O24.410 O36.8330 Z3A.32 [id number] Alejandro Gaston MD [facility] [address],[place] [address] 03/07/2021 10:35:56 03/07/2021 12:56:12 Routine care [id number] Z34.03 [id number] Alejandro Gaston MD [facility] [address],[place] [address] 03/07/2021 10:36:39 03/07/2021 11:29:25 Gestational diabetes mellitus class A1 [id number] O24.410 Pt here for diet teaching. Went over ideal ranges for FBS and pp BS. Went over carb counting and carb ranges for each meal/snack . Gave ideas for foods to eat for meals/snac ks. Discussed drink options and to avoid soda and juice. Pt brought in a large gas station powerade to [facility] t and told pt she would need to switch to powerade zero so there are no sugars. Pt also drinks whole milk. Told pt she would need to switch to skim or 1% milk and will need to measure out serving size of just 8 oz or less and will have to include those carbs to her total carb for that meal or snack. Told pt she can go online to ADA for meal options or to look up low carb meal recipes online for ideas as well. Pt hasn't picked up glucometer yet, but will pickle cutter tomorrow when she gets paid. Demonstrat ed to pt how to check BS and to check QID and goal ranges for BS. Pt aware if sugars aren't controlled by diet we would discuss starting insulin. Went over NST schedule with pt and importance of keeping these appts and checking BS for her and baby's health. Pt will bring in BS to NST on 03/04. Pts questions were answered and pt verbalized understand ing. EDUARDO reyes [id number] Alejandro Gaston MD [facility] [address],[place] [address] 03/11/2021 10:41:56 03/11/2021 11:17:11 Gestational diabetes mellitus class A1 [id number] O24.410 Pt here for diet teaching. Went over ideal ranges for FBS and pp BS. Went over carb counting and carb ranges for each meal/snack . Gave ideas for foods to eat for meals/snac ks. Discussed drink options and to avoid soda and juice. Pt brought in a large gas station powerade to appointmen t and told pt she would need to switch to powerade zero so there are no sugars. Pt also drinks whole milk. Told pt she would need to switch to skim or 1% milk and will need to measure out serving size of just 8 oz or less and will have to include those carbs to her total carb for that meal or snack. Told pt she can go online to ADA for meal options or to look up low carb meal recipes online for ideas as well. Pt hasn't picked up glucometer yet, but will pickle cutter tomorrow when she gets paid. Demonstrat ed to pt how to check BS and to check QID and goal ranges for BS. Pt aware if sugars aren't controlled by diet we would discuss starting insulin. Went over NST schedule with pt and importance of keeping these appts and checking BS for her and baby's health. Pt will bring in BS to NST on 03/04. Pts questions were answered and pt verbalized understand ing. EDUARDO reyes [id number] Alejandro Gaston MD [facility] [address] [address] 03/14/2021 10:34:22 03/14/2021 11:17:36 Gestational diabetes mellitus class A1 [id number] O24.410 Pt here for diet teaching. Went over ideal ranges for FBS and pp BS. Went over carb counting and carb ranges for each meal/snack . Gave ideas for foods to eat for meals/snac ks. Discussed drink options and to avoid soda and juice. Pt brought in a large gas station powerade to appointmen t and told pt she would need to switch to powerade zero so there are no sugars. Pt also drinks whole milk. Told pt she would need to switch to skim or 1% milk and will need to measure out serving size of just 8 oz or less and will have to include those carbs to her total carb for that meal or snack. Told pt she can go online to ADA for meal options or to look up low carb meal recipes online for ideas as well. Pt hasn't picked up glucometer yet, but will pickle cutter tomorrow when she gets paid. Demonstrat ed to pt how to check BS and to check QID and goal ranges for BS. Pt aware if sugars aren't controlled by diet we would discuss starting insulin. Went over NST schedule with pt and importance of keeping these appts and checking BS for her and baby's health. Pt will bring in BS to NST on 03/04. Pts questions were answered and pt verbalized understand ing. EDUARDO reyes [id number] Alejandro Gaston MD [facility] [address],[facility] [place] [address] 03/14/2021 10:34:40 03/14/2021 12:00:57 Routine care [id number] Z34.03 [id number] Alejandro Gaston MD [facility] [address],[facility] [place] [address] 03/18/2021 10:23:03 03/18/2021 16:09:46 Gestational diabetes mellitus class A1 [id number] O24.410 Pt here for diet teaching. Went over ideal ranges for FBS and pp BS. Went over carb counting and carb ranges for each meal/snack . Gave ideas for foods to eat for meals/snac ks. Discussed drink options and to avoid soda and juice. [facility] told pt she would need to switch to powerade zero so there are no sugars. Pt also drinks whole milk. Told pt she would need to switch to skim or 1% milk and will need to measure out serving size of just 8 oz or less and will have to include those carbs to her total carb for that meal or snack. Told pt she can go online to ADA for meal options or to look up low carb meal recipes online for ideas as well. Pt hasn't picked up glucometer yet, but will pickle cutter tomorrow when she gets paid. Demonstrat ed to pt how to check BS and to check QID and goal ranges for BS. Pt aware if sugars aren't controlled by diet we would discuss starting insulin. Went over NST schedule with pt and importance of keeping these appts and checking BS for her and baby's health. Pt will bring in BS to NST on 03/04. Pts questions were answered and pt verbalized understand ing. EDUARDO reyes [id number] Alejandro Gaston MD [facility] [address],[place] [address] 03/21/2021 10:26:46 03/21/2021 12:49:11 Gestational diabetes mellitus class A1 [id number] O24.410 Pt here for diet teaching. Went over ideal ranges for FBS and pp BS. Went over carb counting and carb ranges for each meal/snack . Gave ideas for foods to eat for meals/snac ks. Discussed drink options and to avoid soda and juice. Pt brought in a large gas station powerade to [place]ema [place] and told pt she would need to switch to powerade zero so there are no sugars. Pt also drinks whole milk. Told pt she would need to switch to skim or 1% milk and will need to measure out serving size of just 8 oz or less and will have to include those carbs to her total carb for that meal or snack. Told pt she can go online to ADA for meal options or to look up low carb meal recipes online for ideas as well. Pt hasn't picked up glucometer yet, but will pickle cutter tomorrow when she gets paid. Demonstrat ed to pt how to check BS and to check QID and goal ranges for BS. Pt aware if sugars aren't controlled by diet we would discuss starting insulin. Went over NST schedule with pt and importance of keeping these appts and checking BS for her and baby's health. Pt will bring in BS to NST on 03/04. Pts questions were answered and pt verbalized understand ing. EDUARDO reyes [id number] Alejandro Gaston MD [facility] [address],[place] [address] 03/21/2021 10:27:36 03/22/2021 10:00:19 Routine care [id number] Z34.03 [id number] MD Henrique Foster [address],[place] [address] 03/25/2021 10:30:41 03/25/2021 11:31:01 Gestational diabetes mellitus class A1 [id number] O24.410 Pt here for diet teaching. Went over ideal ranges for FBS and pp BS. Went over carb counting and carb ranges for each meal/snack . Gave ideas for foods to eat for meals/snac ks. Discussed drink options and to avoid soda and juice. Pt brought in a large gas station powerade to appointmen t and told pt she would need to switch to powerade zero so there are no sugars. Pt also drinks whole milk. Told pt she would need to switch to skim or 1% milk and will need to measure out serving size of just 8 oz or less and will have to include those carbs to her total carb for that meal or snack. Told pt she can go online to ADA for meal options or to look up low carb meal recipes online for ideas as well. Pt hasn't picked up glucometer yet, but will pickle cutter tomorrow when she gets paid. Demonstrat ed to pt how to check BS and to check QID and goal ranges for BS. Pt aware if sugars aren't controlled by diet we would discuss starting insulin. Went over NST schedule with pt and importance of keeping these appts and checking BS for her and baby's health. Pt will bring in BS to NST on 03/04. Pts questions were answered and pt verbalized understand ing. EDUARDO reyes [id number] Karen Ayers MD [facility] [address],[place] [address] 03/29/2021 11:25:42 03/29/2021 12:24:00 Gestational diabetes mellitus class A1 [id number] O24.410 [id number] Karen Ayers MD [facility] [address],[place] [address] 03/29/2021 11:26:51 03/29/2021 13:24:25 Gestational diabetes mellitus 55740684 O24.410 Maternal o besity complicating , childbirth and the puerperium, antepartum [id number] 07 O99.213 Asthma 468553332 J45.90 9 [id number] Alejandro Gaston MD [facility] [address],[place] [address] 04/01/2021 10:26:47 04/01/2021 11:25:20 Gestational diabetes mellitus class A1 [id number] O24.410 Pt here for diet teaching. Went over ideal ranges for FBS and pp BS. Went over carb counting and carb ranges for each meal/snack . Gave ideas for foods to eat for meals/snac ks. Discussed drink options and to avoid soda and juice. Pt brought in a large gas station powerade to appointmen t and told pt she would need to switch to powerade zero so there are no sugars. Pt also drinks whole milk. Told pt she would need to switch to skim or 1% milk and will need to measure out serving size of just 8 oz or less and will have to include those carbs to her total carb for that meal or snack. Told pt she can go online to ADA for meal options or to look up low carb meal recipes online for ideas as well. Pt hasn't picked up glucometer yet, but will pickle cutter tomorrow when she gets paid. Demonstrat ed to pt how to check BS and to check QID and goal ranges for BS. Pt aware if sugars aren't controlled by diet we would discuss starting insulin. Went over NST schedule with pt and importance of keeping these appts and checking BS for her and baby's health. Pt will bring in BS to NST on 03/04. Pts questions were answered and pt verbalized understand ing. EDUARDO reyes [id number] [facility] [address],[facility] [place] [address] 04/04/2021 11:23:40 04/04/2021 12:50:36 Routine care [id number] Z34.93 [id number] Alejandro Gaston MD [facility] [address],[facility] [place] [address] 04/04/2021 11:21:54 04/04/2021 12:03:10 Gestational diabetes mellitus class A1 [id number] O24.410 Pt here for diet teaching. Went over ideal ranges for FBS and pp BS. Went over carb counting and carb ranges for each meal/snack . Gave ideas for foods to eat for meals/snac ks. Discussed drink options and to avoid soda and juice. Pt brought in a large gas station powerade to appointmen t and told pt she would need to switch to powerade zero so there are no sugars. Pt also drinks whole milk. Told pt she would need to switch to skim or 1% milk and will need to measure out serving size of just 8 oz or less and will have to include those carbs to her total carb for that meal or snack. Told pt she can go online to ADA for meal options or to look up low carb meal recipes online for ideas as well. Pt hasn't picked up glucometer yet, but will pickle cutter tomorrow when she gets paid. Demonstrat ed to pt how to check BS and to check QID and goal ranges for BS. Pt aware if sugars aren't controlled by diet we would discuss starting insulin. Went over NST schedule with pt and importance of keeping these appts and checking BS for her and baby's health. Pt will bring in BS to NST on 03/04. Pts questions were answered [place] [id number] Alejandro Gaston MD [facility] [address],[place] [address] 04/04/2021 11:23:15 04/04/2021 12:14:18 Gestational diabetes mellitus class A1 [id number] O24.410 Z3A.36 Pt here for diet teaching. Went over ideal ranges for FBS and pp BS. Went over carb counting and carb ranges for each meal/snack . Gave ideas for foods to eat for meals/snac ks. Discussed drink options and to avoid soda and juice. Pt brought in a large gas station powerade to appointmen t and told pt she would need to switch to powerade zero so there are no sugars. Pt also drinks whole milk. Told pt she would need to switch to skim or 1% milk and will need to measure out serving size of just 8 oz or less and will have to include those carbs to her total carb for that meal or snack. Told pt she can go online to ADA for meal options or to look up low carb meal recipes online for ideas as well. Pt hasn't picked up glucometer yet, but will pickle cutter tomorrow when she gets paid. Demonstrat ed to pt how to check BS and to check QID and goal ranges for BS. Pt aware if sugars aren't controlled by diet we would discuss starting insulin. Went over NST schedule with pt and importance of keeping these appts and checking BS for her and baby's health. Pt will bring in BS to NST on 03/04. Pts questions were answered and pt verbalized understand ing. EDUARDO reyes [id number] MD Henrique Foster [address],[place] [address] 04/08/2021 17:08:52 04/08/2021 18:18:04 Gestational diabetes mellitus class A2 [id number] O24.414 [id number] MD Henrique Foster [address],[place] [address] 04/08/2021 18:01:04 04/09/2021 22:56:13 Gestational diabetes mellitus class A2 13258407 O24.414 Pt here for NST and brought in BS since she didn't bring them in with OB appt on 04/04. 3/5 fastings are elevated and almost all pp sugars are elevated. Pt states no change in diet and is following carb counts. Reviewed with SB and pt needs to start on 10u NPH @ HS & 10u @ AM. [facility] [place]. Discussed insulin teaching with pt. Demonstrat ed to pt how to draw up 10u insulin and where to inj. Pt properly demonstrat ed back to me how to draw up 10u and more if we need to increase insulin in the future. Pts questions were answered and pt verbalized understand ing. EDUARDO reyes [id number] MD Henrique Foster [address],[place] [address] 04/11/2021 11:26:34 04/11/2021 14:05:15 Gestational diabetes mellitus 61260710 O24.410 [id number] MD Henrique Foster [address],[place] [address] 04/11/2021 11:28:05 04/11/2021 14:06:17 Routine care 185814078 Z34.03 [id number] MD Henrique Foster [address],[place] [address] 04/15/2021 11:28:34 04/15/2021 12:08:40 Gestational diabetes mellitus class A2 15228820 O24.414 Pt here for NST and brought in BS since she didn't bring them in with OB appt on 04/04. 3/5 fastings are elevated and almost all pp sugars are elevated. Pt states no change in diet and is following carb counts. Reviewed with SB and pt needs to start on 10u NPH @ HS & 10u @ AM. Rx called into [facility] in [place]. Discussed insulin teaching with pt. Demonstrat ed to pt how to draw up 10u insulin and where to inj. Pt properly demonstrat ed back to me how to draw up 10u and more if we need to increase insulin in the future. Pts questions were answered and pt verbalized understand ing. EDUARDO reyes [id number] Britt Olivier [facility] [address],[place] [address] 04/18/2021 11:29:59 04/22/2021 22:28:40 Routine care 106871069 Z34.93 [id number] Alejandro Gaston MD [facility] [address],[place] [address] 04/18/2021 11:27:31 04/18/2021 12:05:03 Gestational diabetes mellitus class A2 61623095 O24.414 Pt here for NST and brought in BS since she didn't bring them in with OB appt on 04/04. 3/5 fastings are elevated and almost all pp sugars are elevated. Pt states no change in diet and is following carb counts. Reviewed with SB and pt needs to start on 10u NPH @ HS & 10u @ AM. Rx called into [facility] in [place]. Discussed insulin teaching with pt. Demonstrat ed to pt how to draw up 10u insulin and where to inj. Pt properly demonstrat ed back to me how to draw up 10u and more if we need to increase insulin in the future. Pts questions were answered [place] [id number] Alejandro Gaston MD [facility] [address],[place] [address] 07/09/2021 11:48:45 07/09/2021 12:53:31 care 202662363 Z39.2 This patient is a 20-year-ol d female who presents for follow-up. She scored over the threshold on her the EPDS depression screening. Patient has a history of major depressive disorder. She does not want treatment at this time. She has follow-up with her psychiatri st and a counselor. She was given precaution s and instructio ns to contact us For worsening of her condition. She is bottle feeding. She has had sex but used a condom. She was counseled on oral contracept kinga pill use. She is going to start oral contracept kinga pills. Her bleeding is stopped. She states that her baby is doing very well. She will follow-up in 3 months for well-woman exam. [id number] DAVID Peterson [facility] [address],[place] [address] 03/01/2024 15:38:58 03/01/2024 18:12:16 Urinary symptoms 635160086 R39.9 urine cx sentrx sent for UTI - r/b/a reviewed Borderline personality disorder 52884259 F60.3 Medical hx discussed in-depthre commended f/u with psychiatri st for further medical management . She would like referral to new psychiatri st - referral placed. Informatio n given on [facility] urgent care, recommende d being seen there until she has an appointmen t with psychiatri st.naomi elizalde answered, precaution s discussed (if thoughts of harming self or others occur call 911 immediatel y) Contracept ion care management 061308159 Z30.9 Discussed all control options in great detail. Pt would like to start POP. She is aware of the risks and benefits.P t will start her pills on the first day following the start of her period. She is aware it is not effective for control the first month. She is also aware of the importance of taking at the same time every day. Encouraged use of condoms as the pill does not protect against STD's. Will return in 3 months for med check. Consent was read and signed. Pt verbalized understand ing. Adult heal th examination 378004901 Z00.00 fasting labs ordered per pt requestmed check/WWE in 3 months Time spent in visit is a total of 45 mins with at least 50% of visit consisting of counseling and review of plan of care. Health Concerns Section Related Observation LastModified by Organization Detai ls LastModified Time None Recorded Concern Status LastModified by Organization Details LastModified Time None Recorded Advance Directives Directive N: Payers Insurance Date Sequence Insurance Name Policy Number Policy Echevarria Covered Member ID Echevarria Member ID Guarantor Name 03/01/2024 1 [place] [id number] Philip Eldridgeid [id number] Verónica Tariq 03/01/2024 2 [facility] - DOS ON OR AFTER 21 (MEDICAID REPLACEMENT - HMO) Verónica Eldridgeid [id number] Verónica Eldridgeid 04/05/2024 PAYMENT PLAN Verónica Eldridgeid 03/01/2024 1 *SELF PAY* Jhoan Eldridgeid 03/01/2024 1 [facility] Alvina Rendoncaid [id number] Verónica Rendoncaid 02/01/2024 1 [facility] - [employer] (POS II) [id number] Philip Eldridgeid [id number] Verónica Eldridgeid Notes Date Note Type Note Provider Name [...] exam. Alejandro Gaston MD [address], [place], [address], [facility] 07/09/2021 12:37:15 03/01/2024 text/html 23yo [id number] 05/2023 presents to discuss multiple topicsurinary symptoms [...] past, none currently (last 07/2023) DAVID Peterson [address], [place], [address], [facility] 03/01/2024 17:48:49 OBGyn Episode Ob Episode Information Episode Created Date Number of Fetuses Patient Bloodtype Patient rh Status Prepregnancy Weight lbs Domestic Partner Domestic Partner Phone Father Name Cloth Piecer Status 02/16/20 21 1 CLOSED Fetus Data First Name Last Name Admitted to NICU Weight (g) Sex Living Outcome Pediatric Complications Fetus ID Race Codes Race Delivery Type 3430.28 95 M true Full Term [id number] Vaginal Delivery Problems Problem Notes records reviewed 03/05 JG Problem Name Start Date End Date Resolution Snomed Code Not e Gestational diabetes mellitus 39343926 32wk ante testi ng Asthma 485542423 Rescue mdi only 4x/wk Maternal obesity complicating , childbirth and the puerperium, antepartum 502446923476 Rashard Calculation Initial Rashard Date Initial Exam Date Initial Exam Provider Initial Ultrasound Date Last Menstrual Period Date Ultra Sound Weeks Gestation 05/03/2021 02/15/2021 09/21/2020 07/27/2020 8 Eighteen To Twenty Week Rashard Update Ultra Sound Date Fundal Height At Umbil Quickening Date Ultra Sound Latest Weeks Gestation Final Rashard Confirmed By Final Rashard Confirmed Date Final Rashard Date Ultra Sound Latest Days Gestation 0 [email or web address] 02/15/2021 04/30/20 21 0 Pre- Flowsheet Flowsheet Date 02/15/2021 Lopez Score Blood Edema Fundus Height Fundus Units Glucose Ketones Leukocytes Nitrite Labor Signs Protein Cervic Dilation Cervic Effacement Cervic Station 31 Type Weight in lbs Pre/Post Dialysis Refused Weight 267.966045053339 BP Diastolic BP Location Tested BP Systolic [...] Weight in lbs Pre/Post Dialysis Refused Weight 271.314891897245 BP Diastolic BP Location Tested BP Systolic BP Type 84 R arm 157 sitting 77 L arm 134 sitting 80 L arm 139 sitting Fetus Heart Rate Present A 145 Fetus Movement A Yes Comments Reviewed blood sugars, papo franco about oral medication, patient has severe phobia [...] Weight in lbs Pre/Post Dialysis Refused Weight 271.012825218589 BP Diastolic BP Location Tested BP Systolic [...] Weight in lbs Pre/Post Dialysis Refused Weight 271.313981842115 BP Diastolic BP Location Tested BP Systolic [...] Weight in lbs Pre/Post Dialysis Refused Weight 273.933278910810 BP Diastolic BP Location Tested BP Systolic [...] Weight in lbs Pre/Post Dialysis Refused Weight 279.011034627494 BP Diastolic BP Location Tested BP Systolic [...] Weight in lbs Pre/Post Dialysis Refused Weight 281.599714264647 BP Diastolic BP Location Tested BP Systolic [...] Weight in lbs Pre/Post Dialysis Refused Weight 278.954169676034 BP Diastolic BP Location Tested BP Systolic [...] Weight in lbs Pre/Post Dialysis Refused Weight 280.41931877765 BP Diastolic BP Location Tested BP Systolic [...] Estim ated Date of Delivery false Thalassemia (Belarusian, Polish, Mediterranean, Or Background): MCV < 80 false Neural Tube Defect (Meningomyelocele, Spina Bifi da, Or Anencephaly) false Congenital Heart Defect false Down Syndrome false Tereso-Sachs (eg, Spiritism, Cajun, Lao-Dutchess) f alse Sue Disease false Sickle Cell Disease Or Trait () false Hemophilia Or Other Blood Disorders false Muscular Dystrophy false Cystic Fibrosis false [place]'s Chorea false Intellectual Disability/Autism false If Yes, [...] Comments 1 Induce d Regional-Ep idural 39.2 false Alejandro Gaston MD GDM R Labial Tear Discharge Information Feeding Method Contraceptive Method Maternal HG B and HCT Levels Ob Episode Information Episode Created Date Number of Fetuses Patient Bloodtype Patient rh Status Prepregnancy Weight lbs Domestic Partner Domestic Partner Phone Father Name Cloth Piecer Status 03/01/20 24 1 CLOSED Fetus Data First Name Last Name Admitted to NICU Weight (g) Sex Living Outcome Pediatric Complications Fetus ID Race Codes Race Delivery Type Full Term [id number] Vaginal Delivery Rashard Calculation Initial Rashard Date Initial Exam Date Initial Exam Provider Initial Ultrasound Date Last Menstrual Period Date Ultra Sound Weeks Gestation 0 Eighteen To Twenty Week Rashard Update [...]
--- OUTSIDE RECORDS SUMMARY | 2025-02-15 07:55 | XMS_ITS | Patient Health Record ---
Author Organization [facility] [employer] [facility] Address [address] [place] [address] Care Team Providers Care Pharmacy Clinical Coordinator Name Role Phone Hermelinda Costa Unavailable [phone] Anca Baer Unavailable Unavailable Piper Paul Unavailable [phone] Odilia Michaels Unavailable [phone] Lakia Noble Unavailable [phone] Allergies No Known Allergies Results Component Value Reference Range Notes UDT Reviewed date:05/04/2024 02:34:38 PM Interpretation: Performing Lab: Notes/Report: THC P 0 - 50 ng/ml Cocaine N 0 - 300 ng/ml Amphetamine N 0 - 1000 ng/ml Buprenorphine (BUP) N 0 - 10 ng/ml Secobarbital (Bar) N 0 - 300 ng/ml Oxazepam (BZO) N 0 - 300 ng/ml 9-ocjjrnsvfi-0,1-hakjvyfr-6,3-diphenylpyrrolidine (FREEDOM P) N 0 - 300 ng/ml Methamphetamine (MET) N 0 - 1000 ng/ml Methylenedioxymethamphetamine (MDMA) N 0 - 500 ng/ml Morphine (MOP 300/[id number]) N 0 - 300 ng/ml Methadone (MTD) N 0 - 300 ng/ml Phencyclidine (PCP) N 0 - 25 ng/ml Nortriptyline (TCA) N 0 - 1000 ng/ml Oxycodone N 0 - 300 ng/ml x N 0 - 300 ng/ml Reason For Referral No Information Social History Tobacco Use: Social History Observation [...] week (3 points) Section Notes: Lives in [place] with [employer]. has 2 children (age 1 and 3). grew up [facility], has 3 siblings. Education/employment: high school grad. [facility] [place] [facility] [employer] [facility]. has 2 children (age 1 and 3). [facility], has 3 siblings. Education/employment: high school grad. Lives in [place] with [employer]. has 2 children (age 1 and 3). grew [facility], has 3 siblings. Education/employment: high school grad. Lives in [place] with [employer]. has 2 children (age 1 and 3). grew up [facility], has 3 siblings. Education/employment: high school grad. Lives in [place] with [employer]. has 2 children (age 1 and 3). grew [facility], has 3 siblings. Education/employment: high school grad. Lives in [place] with [employer]. has 2 children (age 1 and 3). grew up [facility], has 3 siblings. Education/employment: high school grad. Lives in [place] with [employer]. has 2 children (age 1 and 3). [facility], has 3 siblings. Education/employment: high school grad. Lives in [place] with [employer]. has 2 children (age 1 and 3). [facility], has 3 siblings. Education/employment: high school grad. Lives in [place] with gran dparents. has 2 children (age 1 and 3). grew up [facility], has 3 siblings. Education/employment: high school grad. Lives in [place] with gran dparents. has 2 children (age 1 and 3). grew up [facility], has 3 siblings. Education/employment: high school grad. Lives in [place] with gran dparents. has 2 children (age 1 and 3). grew up [facility], has 3 siblings. Education/employment: high school grad. Lives in [place] with gran dparents. has 2 children (age 1 and 3). grew up [facility], has 3 siblings. Education/employment: high school grad. Lives in [place] with gran dparents. has 2 children (age 1 and 3). grew up [facility], has 3 siblings. Education/employment: high school grad. Lives in [place] with gran dparents. has 2 children (age 1 and 3). grew up [facility], has 3 siblings. Education/employment: high school grad. Lives in [place] with gran dparents. has 2 children (age 1 and 3). grew up [facility], has 3 siblings. Education/employment: high school grad. Lives in [place] with gran dparents. has 2 children (age 1 and 3). grew up [facility], has 3 siblings. Education/employment: high school grad. Lives in [place] with gran dparents. has 2 children (age 1 and 3). grew up [facility], has 3 siblings. Education/employment: high school grad. Lives in [place] with gran dparents. has 2 children (age 1 and 3). grew up [facility], has 3 siblings. Education/employment: high school grad. Lives in [place] with gran dparents. has 2 children (age 1 and 3). grew up [facility], has 3 siblings. Education/employment: high school grad. Lives in [place] with gran dparents. has 2 children (age 1 and 3). grew up [facility], has 3 siblings. Education/employment: high school grad. Problems Problem Type SNOMED Code ICD Code Onset Dates Problem Status W/U Status Risk Notes Problem Moderate recurrent major depression (51099329) Major depressive disorder, recurrent, moderate (F33.1) Active confirmed Problem Generalized anxiety disorder (01813329) Generalized anxiety disorder (F41.1) Active confirmed Problem Borderline personality disorder (01449830) Borderline personality disorder (F60.3) Active confirmed Problem Chronic post-traumatic stress disorder (798295511) Chronic posttraumatic stress disorder (F43.12) Active confirmed Problem History of substance abuse (F19.11) Active confirmed Problem Panic disorder (109995953) Panic attacks (F41.0) Active confirmed Problem Marijuana user (585708758) Marijuana user (F12.90) Active confirmed Vital Signs Heart Rate 110 /min 02/07/2025 Height-cm 170.18 cm 02/07/2025 Blood pressure diastolic 66 mm Hg 02/07/2025 Weight-kg 114.76 kg 02/07/2025 Height 67 in 02/07/2025 Blood pressure systolic 137 mm Hg 02/07/2025 Weight 253 lbs 02/07/2025 BMI 39.62 kg/m2 02/07/2025 Encounters Encounter Location Date Provider Diagnosis [facility] [employer] [place] [id number] [facility] [address] [address] 03/24/2024 Odilia Michaels [facility] [place] [place] [address] [facility] [address] [address] 05/04/2024 Odilia Michaels Severe recurrent major depression without psychotic features F33.2 ; Chronic posttraumatic stress disorder F43.12 ; Generalized anxiety disorder F41.1 ; Insomnia related to another mental disorder F51.05 ; Polysubstance use disorder F19.90 ; Panic attacks F41.0 and Borderline personality disorder F60.3 [facility] [place] [id number] [facility] [address] [address] 05/25/2024 Odilia Michaels Severe recurrent major depression without psychotic features F33.2 ; Chronic posttraumatic stress disorder F43.12 ; Generalized anxiety disorder F41.1 ; Insomnia related to another mental disorder F51.05 ; Polysubstance use disorder F19.90 ; Panic attacks F41.0 and Borderline personality disorder F60.3 [facility] [employer] [place] [address] [facility] [address] [address] 06/08/2024 Piper Peres Severe recurrent major depression without psychotic features F33.2 ; Chronic posttraumatic stress disorder F43.12 ; Panic attacks F41.0 and Borderline personality disorder F60.3 [facility] [employer] [place] [address] [facility] [address] [address] 06/15/2024 Piper Peres Severe recurrent major depression without psychotic features F33.2 ; Chronic posttraumatic stress disorder F43.12 ; Generalized anxiety disorder F41.1 and Borderline personality disorder F60.3 [facility] [address] [place] [address] 08/04/2024 Piper Peres Generalized anxiety disorder F41.1 ; Severe recurrent major depression without psychotic features F33.2 ; Borderline personality disorder F60.3 and Chronic posttraumatic stress disorder F43.12 [facility] [address] [place] [address] 08/16/2024 Hermelinda Costa Severe recurrent major depression without psychotic features F33.2 ; Chronic posttraumatic stress disorder F43.12 ; Generalized anxiety disorder F41.1 ; Panic attacks F41.0 ; Insomnia related to another mental disorder F51.05 ; Marijuana user F12.90 and History of substance abuse F19.11 [facility] [address] [place] [address] 08/18/2024 Piper Peres Severe recurrent major depression without psychotic features F33.2 ; Generalized anxiety disorder F41.1 ; Chronic posttraumatic stress disorder F43.12 and Borderline personality disorder F60.3 [facility] [address] [place] [address] 08/31/2024 Piper Peres Borderline personality disorder F60.3 ; Severe recurrent major depression without psychotic features F33.2 ; Generalized anxiety disorder F41.1 and Chronic posttraumatic stress disorder F43.12 [facility] [address] [place] [address] 09/14/2024 Piper Peres Generalized anxiety disorder F41.1 ; Severe recurrent major depression without psychotic features F33.2 and Chronic posttraumatic stress disorder F43.12 [facility] [address] [place] [address] 09/27/2024 Hermelinda Costa Severe recurrent major depression without psychotic features F33.2 ; Chronic posttraumatic stress disorder F43.12 ; Generalized anxiety disorder F41.1 ; Panic attacks F41.0 ; Borderline personality disorder F60.3 ; Insomnia related to another mental disorder F51.05 ; Marijuana user F12.90 and History of substance abuse F19.11 [facility] [address] [place] [address] 10/12/2024 Piper Peres Generalized anxiety disorder F41.1 ; Severe recurrent major depression without psychotic features F33.2 ; Borderline personality disorder F60.3 and Chronic posttraumatic stress disorder F43.12 [facility] [address] [facility] [address] [place] [address] 11/11/2024 Piper Peres Generalized anxiety disorder F41.1 ; Severe recurrent major depression without psychotic features F33.2 ; Borderline personality disorder F60.3 ; Chronic posttraumatic stress disorder F43.12 and Encounter for screening for depression Z13.31 [facility] [address] [facility] [address] [place] [address] 11/22/2024 Hermelinda Costa Major depressive disorder, recurrent, moderate F33.1 ; Chronic posttraumatic stress disorder F43.12 ; Generalized anxiety disorder F41.1 ; Borderline personality disorder F60.3 ; Insomnia related to another mental disorder F51.05 ; Encounter for screening for cardiovascular disorders Z13.6 ; Encounter for screening for depression Z13.31 and Marijuana user F12.90 [facility] [address] [facility] [address] [place] [address] 11/23/2024 Piper Peres Severe recurrent major depression without psychotic features F33.2 ; Chronic posttraumatic stress disorder F43.12 and Generalized anxiety disorder F41.1 [facility] [address] [address] 12/07/2024 Piper Peres Chronic posttraumati c stress disorder F43.12 ; Major depressive disorder, recurrent, moderate F33.1 ; Generalized anxiety disorder F41.1 ; Borderline personality disorder F60.3 and Encounter for screening for depression Z13.31 [facility] [address] [place] [address] 12/27/2024 Piper Peres Severe recurrent major depression without psychotic features F33.2 ; Chronic posttraumatic stress disorder F43.12 ; Borderline personality disorder F60.3 and Encounter for screening for depression Z13.31 [facility] [address] [place] [address] 01/03/2025 Hermelinda Costa Chronic posttraumati c stress disorder F43.12 ; Major depressive disorder, recurrent, moderate F33.1 ; Generalized anxiety disorder F41.1 ; Borderline personality disorder F60.3 ; Insomnia related to another mental disorder F51.05 ; Encounter for screening for depression Z13.31 and Encounter for screening for cardiovascular disorders Z13.6 [place] [address] [facility] [address] [place] [address] 01/18/2025 Piper Peres Severe recurrent major depression without psychotic features F33.2 ; Chronic posttraumatic stress disorder F43.12 ; Generalized anxiety disorder F41.1 ; Borderline personality disorder F60.3 and Encounter for screening for depression Z13.[address] [facility] [address] [place] [address] 01/31/2025 Piper Peres Chronic posttraumati c stress disorder F43.12 ; Severe recurrent major depression without psychotic features F33.2 ; Borderline personality disorder F60.3 ; Generalized anxiety disorder F41.1 and Encounter for screening for depression Z13.[address] [address] 02/07/2025 Hermelinda Costa Major depressive disorder, recurrent, moderate F33.1 ; Generalized anxiety disorder F41.1 ; Borderline personality disorder F60.3 ; Chronic posttraumatic stress disorder F43.12 ; History of substance abuse F19.11 ; Nicotine use Z72.0 ; Encounter for screening for depression Z13.31 and Encounter for screening for cardiovascular disorders Z13.6 [facility] [address] [facility] [address] [address] 02/08/2025 Lakia Noble [place] [id number] [facility] [address] [facility] [address] [place] [address] 02/14/2025 Piper Peres Major depressive disorder, recurrent, moderate F33.1 ; Chronic posttraumatic stress disorder F43.12 ; Generalized anxiety disorder F41.1 ; Borderline personality disorder F60.3 and Encounter for screening for depression Z13.31 [place] [address] [facility] [address] [facility] [address] [place] [address] 05/04/2024 Odilia Michaels [address] [facility] [address] [place] [address] 12/27/2024 Hermelinda Costa [facility] [address] [place] [address] 02/09/2025 Hermelinda Costa Assessments Encounter Date Diagnosis (ICD Code) Assessment [...] cannabis, and why does some online NA meetings-continue refer here for therapy, office will contact; review no show policy. Also option to go to walk-in clinic if urgent need f/u 2-3 wks, earlier if concerns 05/04/2024 Chronic posttraumatic stress disorder (ICD-10 - F43.12) with nightmares/ insomnia/ir ritable start prazosin 1mg qhs meds, therapy as [...] a 23 year old female, presents for [facility] Initial Assessment. She is a current pt of Odilia Michaels, psychological stress evaluator at [facility]. Pt has a dx of Severe Recurrent Depression, CPTSD, ZOYA, BPD, and hx of Polysubstance Abuse. She is currently taking Lexapro and Prazosin for nightmares. I feel every emotion with intensity. Wearing a drug patch that detects drug use vis sweat. PLAN: DBT, IFS, Anxiety Curriculum. Family Origin (/children ): Pt is from [place], [place]. She graduated HS from [employer]. Parents before she was born. She has 1 biological brother who is 2 years older. She is estranged from her brother. Her mother has 2 younger children with second , now . Pt talks with her sister's sometimes. At 17 years old, Verónica started dating [...] kept both children in [place] vs filing [facility] paperwork. Pt's mother/step-mothe r/father/grandpar ents are [...] the telephone. She and her mother text sometimes. Paternal grandmother was like a mom to me but she from cancer in 2019. Trauma/PTSD: See above Education and Occupation: Works at [employer] in [place]. HS graduate from [employer] school. : No Support System: Maternal grandparents are the most helpful but they don't believe in mental health. Current boyfriend has never been on drugs. He works at [employer]. Drug/ETOH use/Pattern of use/treatment? Smoking mj and [...] possession. 1.5 year old went into custody. [place] she was 8 weeks . Got sober and delivered in May. Baby went into custody. Relapsed on both Fentanyl and Methamphetamine since both kids in custody, PPD. Arrested in July 2023. Went to long-term and has been sober since that time. The patient has had three rehab stays in July 2021, September-October 2021, and April 2022 at different facilities. Medical: Vitamin D deficiency, anemia, asthma. Spirituality: I believe in God but I do not attend [employer]. Other family members with mental illness or substance abuse/addiction issues: Mom used to drink ETOH on weekends. Paternal grandfather is alcoholic. Maternal grandfather is 40 years sober, alcoholic. Legal: [facility] [employer] has custody of 2 children. Has a welfare service aide in [place] who reports to industrial relations officer in [place] due to past possession charges. Went to long-term from July 2023 to Aug. 06/15/2024 Severe [...] effects or changes in mental health status. [place] Setting and Communication Skills - Assessment: She [...] a corresponding plan for treatment and support. 08/16/2024 Chronic posttraumatic stress disorder (ICD-10 - F43.12) Assessment and Plan: Discussed options, has tried many SSRIs in the past. Will try Luvox, partial response adjunct Abilify vs. other, has done seroquel in past and helped with sleep. possibly try mood stabiliizer if SSRI not tolerated/ineffec tive Luvox shown to be beneficial in depression, ZOYA, Panic disorder, PTSD. Depression - Plan: - Discontinue escitalopram (Lexapro) due to being ineffective and side effects- feeling like a zombie. - Initiate fluvoxamine (Luvox), take at bedtime. 4-6 weeks, titrate up dose as needed - Monitor for improvement in mood, energy, sleep, and motivation PTSD Plan: - Continue prazosin 1 mg at night for nightmares - Consider increasing dose to 2 mg if nightmares persist or worsen - Start Luvox as discussed. Anxiety and Panic Attacks Plan: - Initiate fluvoxamine (Luvox) as discussed. - Monitor for improvement in anxiety levels and frequency of panic attacks - Patient encouraged to continue avoiding caffeine and other stimulants Insomnia Plan: - Initiate fluvoxamine (Luvox) at night, can be sedating over other SSRIs - Encourage patient to maintain good sleep hygiene practices Substance Use (Marijuana) Plan: - Discuss potential risks of marijuana use on mental health and treatment - Consider reduction and abstinence. - Sober from other drugs and alcohol, maintain sobriety Continue therapy with Piper. Follow-up in 4-6 weeks to assess overall progress, adjust medication dosages as needed, call sooner if concerns arise 08/16/2024 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) Assessment and Plan: Discussed options, has tried many SSRIs in the past. Will try Luvox, partial response adjunct Abilify vs. other, has done seroquel in past and helped with sleep. possibly try mood stabiliizer if SSRI not tolerated/ineffec tive Luvox shown to be beneficial in depression, ZOYA, Panic disorder, PTSD. Depression - Plan: - Discontinue escitalopram (Lexapro) due to being ineffective and side effects- feeling like a zombie. - Initiate fluvoxamine (Luvox), take at bedtime. 4-6 weeks, titrate up dose as needed - Monitor for improvement in mood, energy, sleep, and motivation PTSD Plan: - Continue prazosin 1 mg at night for nightmares - Consider increasing dose to 2 mg if nightmares persist or worsen - Start Luvox as discussed. Anxiety and Panic Attacks Plan: - Initiate fluvoxamine (Luvox) as discussed. - Monitor for improvement in anxiety levels and frequency of panic attacks - Patient encouraged to continue avoiding caffeine and other stimulants Insomnia Plan: - Initiate fluvoxamine (Luvox) at night, can be sedating over other SSRIs - Encourage patient to maintain good sleep hygiene practices Substance Use (Marijuana) Plan: - Discuss potential risks of marijuana use on mental health and treatment - Consider reduction and abstinence. - Sober from other drugs and alcohol, maintain sobriety Continue therapy with Piper. Follow-up in 4-6 weeks to assess overall progress, adjust medication dosages as needed, call sooner if concerns arise 08/18/2024 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) Family and Legal Issues - Assessment: The patient is facing family and legal issues related to her children. - Plan: - Continue working with a senior business broker to navigate the court system and advocate for the patient's interests regarding her children. - Encourage maintaining open communication with the local hazmat driver and explore options for children's placement with family members. - Provide resources and support to cope with the stress and emotional impact of the ongoing legal process. - Discuss the possibility of family housing at [email or web address] if the patient pursues higher education, potentially including her children. Unhealthy Relationship Patterns - Assessment: The patient has a history of unhealthy relationship patterns. - Plan: - Engage in individual therapy to address past traumas and their impact on relationship choices. - Assist in identifying and setting healthy boundaries and standards for future relationships. - Encourage building a support network of mature and positive individuals. - Help develop criteria for potential partners, including employment, education, and absence of criminal history. Low Self-Esteem and Negative Self-Talk - Assessment: The patient experiences low self-esteem and engages in negative self-talk. - Plan: - Implement cognitive-behavio ral techniques to identify and challenge negative thought patterns. - Encourage practicing self-compassion and self-care. - Assist in setting and achieving small, attainable goals to build confidence and self-worth. - Work on changing internal dialogue and addressing people-pleasing tendencies. Alcohol Misuse - Assessment: The patient has issues with alcohol misuse, including a history of blackouts and potentially dangerous situations while intoxicated. - Plan: - Discuss the risks and consequences of excessive alcohol consumption. - Encourage exploring healthier coping mechanisms and consider abstaining from alcohol. - Provide resources for support groups or treatment programs if needed. - Address the history of blackouts and potentially dangerous situations while intoxicated. Unemployment and Financial Instability - Assessment: The patient is experiencing unemployment and financial instability. - Plan: - Assist in identifying potential job opportunities that align with skills and interests. - Encourage applying for positions and provide support throughout the job search process. - Discuss the possibility of pursuing higher education to increase earning potential and career options. - Help explore job opportunities in the service industry, such as at [employer], which could provide better income through tips. Housing and Potential Relocation - Assessment: The patient is facing housing issues and potential relocation. - Plan: - Explore options for family housing at [email or web address] if pursuing higher education. - Provide resources and support to research and secure stable housing, independently or with family members. - Assist in creating a plan for relocation if necessary, considering the impact on children and support network. - Discuss potential benefits and challenges of living with grandparents or other family members. Each section addresses a specific problem area and outlines a corresponding plan for support and intervention. 08/31/2024 Borderline personality disorder (ICD-10 - F60.3) Medication Management - Assessment: Patient reports not taking prescribed medication for depression (Luvox). Patient is taking medication for nightmares (possibly prazosin). - Plan: capital project engineer notified Legal Obligations - Assessment: Patient has upcoming community service hours and appointments with industrial relations officer. Mental Health Evaluation - Assessment: Patient expresses interest in being tested for ADHD. Family Dynamics - Assessment: Patient recently confronted mother about emotional neglect in childhood. Patient's grandmother has been supportive of patient in family conflicts. Employment Challenges - Assessment: Patient reports difficulty finding employment due to criminal record. 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 Interpersonal Relationships - Assessment: Patient mentions having difficulty establishing healthy relationships and attracting good people. 08/31/2024 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) Medication Management - Assessment: Patient reports not taking prescribed medication for depression (Luvox). Patient is taking medication for nightmares (possibly prazosin). - Plan: capital project engineer notified Legal Obligations - Assessment: Patient has upcoming community service hours and appointments with industrial relations officer. Mental Health Evaluation - Assessment: Patient expresses interest in being tested for ADHD. Family Dynamics - Assessment: Patient recently confronted mother about emotional neglect in childhood. Patient's grandmother has been supportive of patient in family conflicts. Employment Challenges - Assessment: Patient reports difficulty finding employment due to criminal record. 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 Interpersonal Relationships - Assessment: Patient mentions having difficulty establishing healthy relationships and attracting good people. 09/14/2024 Generalized anxiety disorder (ICD-10 - F41.1) 09/27/2024 Chronic posttraumatic stress disorder (ICD-10 - F43.12) Major Depressive Disorder - Patient did not scrap picker new medication, prefers to manage without due to side effects and delayed onset - Recent depressive episode, currently back to baseline Plan: - Continue therapy with [facility] - No medication changes at this time - Reassess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
[2025-02-15 08:00] VITALS: BP 124/73; PULSE 72; RESP 18; TEMP 36.5; O2SAT 100
--- OUTSIDE RECORDS SUMMARY | 2025-02-15 08:17 | XMS_ITS | Clinical Summary ---
Author Organization [facility] Address [address] [place] [address] Phone Care Team Providers Care Assistant Credit Manager Name Role Phone Unavailable Primary Care Provider [...] B VACCINES Completed 03/11/2002, 2001, 2001 Insurance [facility] [id number]
--- OUTSIDE RECORDS SUMMARY | 2025-02-15 08:17 | XMS_ITS | Continuity of Care Document ---
Author Organization [facility] Address [address] [place] [address] Phone Care Team Providers Care Industrial Electrician Name Role Phone Dimas Emilia TAPIA Unavailable [...] Healthcare, [address] [place], [id number], [place] tel:[phone] [facility] Major depressive disorder, recurrent, moderateAmph etamine type substance use disorder, moderate, in early remissionOpi oid Use Disorder, Moderate 3 Dimas Emilia. [address] [place], [id number], [place]. tel:[phone] Referring Provider: Emilia Cochran, [address] [facility] [place], [address]. tel:[phone] OFFICE/OUTPA TIENT VISIT, EST [facility], [address] [place], [place], [id number], [place] tel:[phone] [facility] Provider Note- H Leonardo JACK OF ALL TRADES-C (chief complaint) AMP (chief complaint) Body mass index (BMI) 30.0-30.9, adultOpioid Use Disorder, ModeratePreg nant state, incidentalEn counter for test, result positiveHome lessnessTran sportation insecurityUn availability and inaccessibil ity of health-care facilities 3 Leonardo Gardiner. [address] [place] [address], [id number] [address] [place] [address], [id number], . tel:[phone] Referring Provider: Zuleyka Patterson, [address] [place] [address] 212 [id number] [place], [address]. tel:[phone] PSYCH DIAG EVAL W/MED [facility], [address] [place] [address] [place] [place], [place], [id number], [place] tel:[phone] [facility] Establish Care (chief complaint) Generalized Anxiety DisorderPost -traumatic stress disorder, chronic 0 Beth Calvo. [address] [employer] [facility], [id number] [facility] [place], [id number], [place]. tel:[phone] Referring Provider: Umesh Campos, [address] [employer] [id number] [place], [address]. tel:[phone] PSYCH DIAGNOSTIC EVALUATION [facility], [address] [facility] [place] [place], [id number], [place] tel:[phone] [facility] Generalized Anxiety DisorderPost -traumatic stress disorder, chronic 0 Dimas Nieto. [address] [place], [id number], . tel:[phone] Referring Provider: Emilia Cochran, [address], [place], [address]. tel:[phone] Family History Family Member Type Diagnosis Age [...] name Insurance type Covered constitution party ID Authorrashmia marleneblanca(s) [facility] CI [id number] Social History Type Description Quantity Date Captured [...] Influenza vaccine. Due on [place]c due Goal Td vaccine. Due on due Goal Depression screening. Due on due Goal Tdap. Due on due Goal Diabetes screening. Due on due Goal Influenza vaccine. Due on due Goal PAP. Due on [...] Patient has not sought care with an supervisor dehydrogenation and has transportation issues. Reports cannot get to an supervisor dehydrogenation. Does have an ultrasound tomorrow for dating [...] recommendedAllergies. no Establish Care Establish Care w [facility] provider and medication management. Functional Status Date Functional Assessmen t No Information Instructions Date Instruction Additional Infor mation See diagnosis #4 Related to Unav ailability and inaccessibility of health-care facilities Patient to meet with community outreach services to help arrange transportation issues, help find housing etc. Related to Homelessness See diagnosis #4 Related to Pan sportation insecurity Patient to follow up with supervisor dehydrogenation for management of her Related to state, [...] medical consent would be sent through the [employer] program [facility] [...]
--- OUTSIDE RECORDS SUMMARY | 2025-02-15 08:17 | XMS_ITS | Clinical Summary ---
Author Organization [facility] Address [address] [facility] [place] [address] Care Team Providers Care Geospatial Analyst Name Role Phone Mamie Hill MD Primary Care Provider [phone] Chrissie Dos Santos RN Unavailable Unavailable Source Comments [facility],non-owned Affiliates and Associated Physician Practices is amultiple site organization consisting of ambulatory clinics and hospital sitesin [place], [place], [place] and [place]. This disclosure is being madepursuant to the Care Everywhere program and may not contain all information available regarding this patient. Last updated 18.[facility] [employer] Allergies No known active allergies Medications * [...] on file Legal Sex Female 4:39 AM [employer] Gender Identity Not on file Sexual Orientation Not on file Last Filed Vital Signs Vital Sign Reading Time Taken Comments Blood Pressure 122/70 12/14/2020 3:47 PM CDT Pulse 78 04/15/2019 7:16 AM CDT Temperature 36.4 C (97.5 F) 09/11/2020 1:12 PM [employer] Respiratory Rate - - Oxygen Saturation 98% [...] TRICH DNA AMPL Routine 09/21/2020 2:26 PM [employer] Absence of menstruation HEPATITIS C ANTIBODY Routine 09/21/2020 11:45 AM [employer] Absence of menstruation PROFILE W T PALLIDUM W HIV Routine 09/21/2020 11:45 AM [employer] Absence of menstruation from Last 3 Months or Most Recently Relevant to Health Maintenance Results * CHLAMYDIA + GC + TRICH DNA AMPL (09/21/2020 2:26 PM [employer]) Chlamydia trachomatis AFSHAN Negative Negative [facility] INSURANCE BILL GC DNA Probe Negative Negative [facility] INSURANCE BILL Trichomonas vaginalis by AFSHAN Negative Negative [facility] INSURANCE BILL Microbiology URINE / Unknown 09/21/2020 2 :26 PM [employer] 09/21/2020 Narrative Resulting Agency Comment Lab Testing performed at: [facility] [id number] Hilary Brizuela DO LAB - MICROBIOLOGY ORDERABLES Fi nal Result [facility] INSURANCE BILL [address] [place] [address] * (ABNORMAL) PROFILE W T PALLIDUM W HIV (09/21/2020 11:45 AM [employer]) Hepatitis B Virus Surface Antigen Negative Negative [...] BLOOD SPECIMEN / Unknown 09/21/2020 11:45 AM [employer] 09/21/2020 Narrative Resulting Agency Comment [facility] [address] [facility] [id number] [place] Hilary Brizuela DO LAB - SEROLOGY ORDERABLES Final Result [facility] INSURANCE BILL [address] [facility] [place] [address] * HEPATITIS C ANTIBODY (09/21/2020 11:45 AM [employer]) Hepatitis C Antibody Non Reactive Non Reactive [facility] INSURANCE BILL Comment: Non Reactive - Antibodies to Hepatitis C virus (HCV) were no t detected, result does not exclude early acute HCV infection. Blood BLOOD SPECIMEN / Unknown 09/21/2020 11:45 AM [employer] 09/21/2020 Narrative Resulting Agency Comment Lab Testing performed at: [facility] [address] [facility] [phone] [place] Hilary Brizuela DO LAB - CHEMISTRY ORDERABLES Final Result [facility] INSURANCE BILL [address] [place] [address] from Last 3 Months or Most Recently Relevant to Health Maintenance Insurance [employer] BC/BLUE [facility] MEDICAID - [place] SELF PAY NO INSURANCE Member Subscriber Plan / Payer (Ef fective for All Dates) Name:Verónica Gordon Member ID:Not on file Relation to Subscriber:Not on file Name:VERÓNICA GORDON Subscriber ID:Not on file (Home) Address: [address] [place] [id number] Payer ID:Not on file Group ID:Not on file Type:Self Pay Address: [facility] [employer] ANTHEM * Guarantor: VERÓNICA GORDON Account Type Relation to Patient Date of Phone Billing Address Personal/Family [address] [place] [address] Care Teams Geospatial Analyst Relationship Specialty Start Date End Date Mamie Hill MD [address] [place] [id number] PCP - General Family Medicine 12/09/18 Chrissie Dos Santos, RN Registered Nurse 04/15/19
[2025-02-15] MEDS: SODIUM CHLORIDE 0.9% IV 1,000 ML 999 ML IV CONT (08:20)
[2025-02-15] MEDS: KETOROLAC 30 MG/ML VIAL (*BKC) IV PUSH (08:21)
[2025-02-15] MEDS: METOCLOPRAMIDE HCL INJ 10 MG/2 ML VIAL IV PUSH (08:23)
--- NOTE | 2025-02-15 08:24 | ED_ITS ---
HPI - Headache General Chief Complaint: Headache Stated Complaint: BRUNSON x1wk N/V Time Seen by Provider: 02/15/25 07:59 History of Present Illness HPI Narrative: Patient is a 24-year-old female who presents ER with a headache over last week. She has history of migraines. She has been taking Tylenol and ibuprofen without improvement. Headache worsened overnight. Headache is throbbing and sharp. Right-sided behind the eye and back of the head. She is having photophobia. Mild nausea. She also reports sinus congestion with sore throat and cough. She feels warm but has not documented any fevers. No trauma to the head. She has a lot of stress related to a child custody scruggs. Related Data Allergies Allergy/AdvReac Type Severity Reaction Status Date / Time No Known Allergies Allergy Mild Verified 02/15/25 08:28 Review of Systems 2 Review of Systems: All systems reviewed & are unremarkable except as noted in HPI and below Constitutional: Constitutional: Reports no additional constitutional complaints ENT: Reports system reviewed and no additional complaints, except as documented Gastrointestinal: Gastrointestinal: Reports no additional gastrointestinal complaints Genitourinary: Genitourinary: Reports no additional female genitourinary complaints Neurologic: Reports system reviewed and no additional complaints, except as documented [facility] Past Medical History Medical History (Updated 02/15/25 @ 09:41 by Figueroa Dean MD) Obesity Intrauterine Surgical History Surgical History History of laparoscopic cholecystectomy 07/13/[address] Vanessa Maynard No pertinent past surgical history Family History Family History Father Type 2 diabetes mellitus Mother Anemia Grandparent Type 2 diabetes mellitus Chronic obstructive pulmonary disease Pancreatic cancer Social History Social History Smoking status: Former smoker Second hand tobacco smoke exposure: Yes Additional smoking assessment comments: quit smoking cigarettes; vapes daily Alcohol intake: current Drinks per week: 6 Substance use: never Do You Feel Safe in your Home?: Yes Lack of Transportation: No Lack of Food: Never True Current Housing: I Have Housing Concerned About Future Housing: No Difficulty Paying Gas/Electric Bills: No Difficulty Paying for Meds: No Currently Unemployed: No Education: High School Diploma/GED Difficulty w/ Childcare or Family Care: No Spiritual care concerns: No Exam 2 Narrative: GENERAL: Uncomfortable appearing, wearing sunglasses, well-nourished, and in no acute distress. HEAD: Normocephalic, atraumatic. ENT: Mucous membranes moist. CHEST: Clear to auscultation. No respiratory distress. HEART: Regular rate and rhythm. Normal peripheral pulses. EXTREMITIES: Normal range of motion. No edema. SKIN: Warm, dry, no rash. NEURO: Alert and oriented x3. PSYCH: Normal mood and affect. Course Course Emergency Course: Patient received 1 L IV fluid, Toradol/Reglan/Benadryl, she has significant improvement in her headache and feels comfortable discharge home. Lab work unremarkable. Did not provide a urine it was also asymptomatic. Vital Signs Vital signs: Vital Signs Temperature 97.7 F 02/15/25 08:00 Pulse Rate 72 02/15/25 08:00 Respiratory Rate 18 02/15/25 08:00 Blood Pressure 124/73 02/15/25 08:00 Pulse Oximetry 100 02/15/25 08:00 Oxygen Delivery Room Air 02/15/25 08:00 Temperature 97.7 F 02/15/25 08:00 Pulse Rate 64 02/15/25 09:10 Respiratory Rate 15 02/15/25 09:10 Blood Pressure 134/79 02/15/25 09:10 Pulse Oximetry 100 02/15/25 09:10 Oxygen Delivery Room Air 02/15/25 08:00 MDM - Headache Lab Data 02/15/25 08:32 02/15/25 08:32 Labs: Lab Results 02/15/25 02/15/25 Range/Units 08:24 08:32 WBC 11.0 H (4.5-10.0) K/mm3 RBC 4.19 L (4.2-5.4) M/mm3 Hgb 11.6 L (12.0-15.0) g/dL Hct 37.6 (37.0-47.0) % MCV 89.7 (80-100) fl MCH 27.7 (26-34) pg MCHC 30.9 L (32-36) g/dl RDW 14.4 (11.5-14.5) % Plt Count 290 (150-375) k/mm3 MPV 11.8 H (7.4-10.4) fl Immature Gran % (Auto) 0.5 (0-0.5) % Neut % (Auto) 75.5 H (45.5-73.1) % Lymph % (Auto) 17.3 L (18.3-44.2) % [place] % (Auto) 5.3 (2.6-8.5) % Eos % (Auto) 1.0 (0-4.4) % Baso % (Auto) 0.4 (0.2-1.2) % Lymph # (Auto) 1.91 (0.9-3.2) K/mm3 [place] # (Auto) 0.6 (0.1-0.6) K/mm3 Eos # (Auto) 0.1 (0-0.3) K/mm3 Baso # (Auto) 0.0 (0.0-0.1) K/mm3 Abs Immat Gran (auto) 0.05 H (0.00-0.031) K/mm3 Absolute Neuts (auto) 8.3 H (1.3-6.7) K/mm3 Absolute Nucleated RBC 0.000 (0.0-0.012) K/mm3 Nucleated RBC % 0.0 (0.0-0.2) % Sodium 137 (137-145) mmol/L Potassium 4.3 (3.4-5.0) mmol/L Chloride 104 (98-107) mmol/L Carbon Dioxide 23 (22-30) mmol/L Anion Gap 10 (4-12) mmol/L BUN 12 D (7-17) mg/dL Creatinine 0.77 (0.7-1.0) mg/dL Estim Creat Clear Calc 129 ml/min Estimated GFR > 60 (59 - ) Glucose 122 H (65-110) mg/dL Calcium 9.2 (8.4-10.2) mg/dL Total Bilirubin 0.3 (0.2-1.3) mg/dL AST 30 (14-36) U/L ALT 20 (6-35) U/L Alkaline Phosphatase 59 (38-126) U/L Total Protein 8.0 (6.3-8.2) g/dL Albumin 4.2 (3.5-5.1) g/dL Influenza A (RT-PCR) Negative (Negative) Influenza B (RT-PCR) Negative (Negative) RSV (RT-PCR) Negative (Negative) SARS-CoV-2 RNA (RT-PCR) Negative (Negative) Discharge Plan Discharge Clinical Impression: Headache, migraine Patient Disposition: Home Condition: Stable Instructions: Migraine Headache (ED) Additional Instructions: Try to stay well hydrated at home. Please return to the emergency department if you develop worsening of your headache or a new headache which is severe, associated with vision changes, associated with neck stiffness or fever, or if it is different from any other headache that you have had before. Return to the emergency department if you develop numbness, weakness or tingling or problems with coordination, or if you develop severe nausea and vomiting and are unable to keep down fluids at home. Patient Language: French Prescriptions: New naproxen 375 mg tablet 375 mg PO BID Qty: 14 0RF No Action ferrous sulfate 325 mg (65 mg iron) tablet 325 mg PO DAILY Qty: 30 0RF Follow-up/Referrals: PHYSICIAN,SALES TRAINER [Primary Care Provider] - Arturo Rangel MD [Physician] - 1 Week
[2025-02-15 08:40] LABS: Hematocrit 37.6 % (37.0-47.0); Hemoglobin 11.6 g/dL (12.0-15.0); Immature Granulocyte Percent A 0.5 % (0-0.5); Lymphocytes Absolute Auto 1.91 K/mm3 (0.9-3.2); Mean Corpuscular HGB Conc 30.9 g/dl (32-36); Mean Corpuscular Hemoglobin 27.7 pg (26-34); Mean Corpuscular Volume 89.7 fl (80-100); Nucleated Red Blood Cells Absolute Auto 0.000 K/mm3 (0.0-0.012); Nucleated Red Blood Cells Perc 0.0 % (0.0-0.2); Platelet Count Result 290 k/mm3 (150-375); Red Blood Count 4.19 M/mm3 (4.2-5.4); White Blood Count 11.0 K/mm3 (4.5-10.0)
[2025-02-15 08:53] LABS: Alanine Aminotransferase 20 U/L (6-35); Albumin Level 4.2 g/dL (3.5-5.1); Alkaline Phosphatase 59 U/L (38-126); Anion Gap 10 mmol/L (4-12); Aspartate Amino Transferase 30 U/L (14-36); Bilirubin,Total 0.3 mg/dL (0.2-1.3); Blood Urea Nitrogen 12 mg/dL (7-17); Calcium 9.2 mg/dL (8.4-10.2); Carbon Dioxide 23 mmol/L (22-30); Chloride 104 mmol/L (98-107); Estimated CRCL calculation 129 ml/min; Estimated Glomerular Filt Rate > 60; Glucose 122 mg/dL (65-110); Potassium 4.3 mmol/L (3.4-5.0); Sodium 137 mmol/L (137-145); Total Protein 8.0 g/dL (6.3-8.2)
[2025-02-15 09:09] LABS: Influenza A QL RT-PCR Negative (Negative); Influenza B QL RT-PCR Negative (Negative); RSV RNA, RT-PCR Negative (Negative); SARS-CoV-2 RNA PCR Negative (Negative)
[2025-02-15 09:10] VITALS: BP 134/79; PULSE 64; RESP 15; O2SAT 100
== END 2025-02-15 11:03 | disposition home or self-care (01) ==
PROVIDERS: Emergency Provider Emergency Medicine
DX: G43.909 Migraine, unspecified, not intractable, without status migrainosus (principal); Z20.822 Contact with and (suspected) exposure to COVID-19; E66.9 Obesity, unspecified; Z68.39 Body mass index [BMI] 39.0-39.9, adult; F17.290 Nicotine dependence, other tobacco product, uncomplicated; Z90.49 Acquired absence of other specified parts of digestive tract
CPT/HCPCS: 36415; 80053; 85025; 87637; 96361; 96374; 96375; 99284; J1200; J1885; J2765; J7030

== ENCOUNTER 2025-03-20 13:31 | Emergency (ER) | payer BC, MEDICAID, SELFPAY ==
--- NOTE | 2025-03-20 13:37 | ED.URI ---
HPI - URI/Sore Throat General Chief Complaint: Upper Respiratory Infection Stated Complaint: flu symptoms Time Seen by Provider: 03/20/25 13:37 Source: patient Mode of arrival: ambulatory Limitations: no limitations History of Present Illness HPI Narrative: Cira is a 24-year-old female patient presenting to the clinic today with complaints of flu-like symptoms. She reports she has runny nose, cough, body aches, chills, sore throat, and congestion x2 days. Has been taking ibuprofen and Mucinex for her symptoms. Denies any chest pain or shortness of breath. Related Data Home Medications ?Medication ?Instructions ?Recorded ?Confirmed ?Last Taken ?Type No Home Medications 03/20/25 03/20/25 Unknown History Allergies Allergy/AdvReac Type Severity Reaction Status Date / Time No Known Allergies Allergy Mild Verified 02/15/25 08:28 Review of Systems Review of Systems: Pertinent positives per HPI. Patient denies any fever, chills, rash, headache, visual changes, dizziness, shortness of breath, chest pain, palpitations, nausea, vomiting, diarrhea, constipation, abdominal pain, or any urinary issues. [facility] Past Medical History Medical History (Updated 03/20/25 @ 14:03 by Usman Albrecht APRN) Obesity Intrauterine Surgical History Surgical History History of laparoscopic cholecystectomy 07/13/[address] Vanessa Maynard No pertinent past surgical history Family History Family History Father Type 2 diabetes mellitus Mother Anemia Grandparent Type 2 diabetes mellitus Chronic obstructive pulmonary disease Pancreatic cancer Social History Social History Smoking status: Former smoker Second hand tobacco smoke exposure: Yes Additional smoking assessment comments: quit smoking cigarettes; vapes daily Alcohol intake: current Drinks per week: 6 Substance use: never Do You Feel Safe in your Home?: Yes Lack of Transportation: No Lack of Food: Never True Current Housing: I Have Housing Concerned About Future Housing: No Difficulty Paying Gas/Electric Bills: No Difficulty Paying for Meds: No Currently Unemployed: No Education: High School Diploma/GED Difficulty w/ Childcare or Family Care: No Spiritual care concerns: No Comments At the time of my signature, I reviewed and agree with the nursing past medical, surgical, social, and family history. There is no relevant family history pertinent to the patient complaint. Exam Narrative: General: Well-developed, morbidly obese, in no apparent distress Head: Normocephalic, atraumatic Eyes: Pupils equally round and reactive to light bilaterally, EOM intact, sclera and conjunctive clear, no discharge, lids normal Ears: TMs intact and congested, ear canals clear, no drainage, grossly hearing normal. Nose: Nares patent, clear nasal discharge, mild inflammation, no sinus tenderness. Mouth: Oral pharynx red without lesions or masses, good dentition, MMM. Neck: Supple, trachea midline, no enlargement of anterior or posterior cervical nodes, no thyroid masses or goiter palpable. Cardio: Regular rate and rhythm, s1 and s2 normal, no murmur appreciated. Resp: Clear to auscultation bilaterally, no rhonchi, rales, wheezing or rubs Course Course Emergency Course: Portions of this record may have been created with voice recognition software. Level of Care: Express Care Visit Vital Signs Vital signs: Vital Signs Temperature 36.7 C 03/20/25 13:49 Pulse Rate 79 03/20/25 13:49 Respiratory Rate 16 03/20/25 13:49 Blood Pressure 133/79 03/20/25 13:49 Pulse Oximetry 100 03/20/25 13:49 Oxygen Delivery Room Air 03/20/25 13:49 Temperature 36.7 C 03/20/25 13:49 Pulse Rate 79 03/20/25 13:49 Respiratory Rate 16 03/20/25 13:49 Blood Pressure 133/79 03/20/25 13:49 Pulse Oximetry 100 03/20/25 13:49 Oxygen Delivery Room Air 03/20/25 13:49 Vital signs reviewed MDM - URI/Sore Throat MDM Narrative Medical decision making narrative: At the time of visit patient is resting comfortably on the exam table. Patient appears to be nontoxic. complaints of flu-like symptoms. She reports she has runny nose, cough, body aches, chills, sore throat, and congestion x2 days. Has been taking ibuprofen and Mucinex for her symptoms. Denies any chest pain or shortness of breath. COVID, influenza, and strep test were ordered. Labs: COVID testing is positive in the clinic today. Influenza and strep test were negative. We will send strep for culture. Plan: I suspect patient has COVID. Work note was given. Supportive measures were discussed with the patient and they voiced understanding discharge instructions and agrees to treatment plan. Return precautions reviewed Differential Diagnosis Differential diagnosis: Likely upper respiratory infection, otitis media, sinusitis, viral infection, bronchitis (COVID), influenza, pharyngitis and other Lab Data Labs: Lab Results 03/20/25 Range/Units 13:58 POC Influenza A Ag Negative (Negative) POC Influenza B Ag Negative (Negative) POC SARS CoV-2 Ag Positive (Negative) POC Grp A Strep Screen Negative (Negative) Discharge Plan Discharge Clinical Impression: COVID-19 Patient Disposition: Home Condition: Stable Instructions: Antibiotic Form, How to Recover from COVID-19 at Home (ED) Additional Instructions: COVID testing was positive in the clinic today. Influenza and strep test were negative. We will send strep for culture if this comes back positive we will contact you and place you on antibiotics at that time May take DayQuil/NyQuil for cold/flu symptoms per bottle instructions Increase fluids and stay well hydrated Tylenol/motrin for pain/fever per bottle instructions Flonase and OTC antihistamines such as Zyrtec or Claritin 10 mg daily as directed Vicks vapor rub to open sinuses Sinus rinses for congestion Cepacol spray, cough drops, throat lozenges, warm tea with honey/lemon, gargle salt water to soothe throat BRAT diet for diarrhea Clear liquids x 24 hours then advance as tolerated for nausea/vomiting Go to the ED if you develop a worsening in your condition- high fever not controlled by Tylenol or Motrin, dehydration, weakness, lethargy, shortness of breath, or chest pain. Follow up with your PCP in 3-5 days if symptoms persist. Patient Language: Luxembourger Prescriptions: No Action No Home Medications Follow-up/Referrals: UNKNOWN,DOCTOR [Non-Staff] - Stand Alone Forms: Work/School Release IP Time of Disposition: 14:02 Quality NIHSS Nursing Documentation ED NIHSS nursing documentation: reviewed/agree
[2025-03-20 13:49] VITALS: BP 133/79; PULSE 79; RESP 16; TEMP 36.7; O2SAT 100
[2025-03-20 14:06] LABS: EDCOVIDSCREEN Positive (Negative); EDINFLUASCREEN Negative (Negative); EDINFLUBSCREEN Negative (Negative); EDSTREPNEGPOS1 Negative (Negative)
--- NOTE | 2025-03-23 13:28 | PC.NURSE ---
Provider Monica Garcia NP spoke with patient at 1235 and informed her of positive Beta Strep group A Cx. Called in Amoxicillin to [facility] in [place].
== END 2025-03-20 14:12 | disposition home or self-care (01) ==
PROVIDERS: Emergency Provider Nurse Practitioner Family
DX: U07.1 COVID-19 (principal); J02.0 Streptococcal pharyngitis; F17.290 Nicotine dependence, other tobacco product, uncomplicated; E66.9 Obesity, unspecified; Z68.39 Body mass index [BMI] 39.0-39.9, adult
CPT/HCPCS: 87081; 87426; 87804; 87880; 99213; G0463

== ENCOUNTER 2025-03-28 12:25 | Emergency (ER) | payer BC, MEDICAID, SELFPAY ==
[2025-03-28 12:39] VITALS: BP 139/60; PULSE 106; RESP 20; TEMP 37.2; O2SAT 99
[2025-03-28 12:57] LABS: EDCOVIDSCREEN Negative (Negative)
--- NOTE | 2025-03-28 13:32 | ED.GENADULT ---
HPI - General Adult General Chief complaint: Upper Respiratory Infection Stated complaint: retest for covid Source: patient Mode of arrival: ambulatory Limitations: no limitations History of Present Illness HPI narrative: Patient presents requesting a note to allow her to return to work. She tested positive for COVID on 03/20/2025 and has been off work. She states her employer requires a negative test for her to return to work. The symptoms that she reported at her visit here on 03/20/25 have resolved. She also tested positive for strep. She took her antibiotics as directed. Related Data Allergies Allergy/AdvReac Type Severity Reaction Status Date / Time No Known Allergies Allergy Mild Verified 03/28/25 12:26 Review of Systems Review of Systems: CONSTITUTIONAL: Denies fever, chills, or sweats. EYES: Denies visual changes, redness, or discharge. ENT: Denies rhinorrhea, congestion, sore throat, or otalgia. CARDIOVASCULAR: Denies chest pain, palpitations, or edema. RESPIRATORY: Denies cough or dyspnea. GASTROINTESTINAL: Denies abdominal pain, nausea, vomiting, or diarrhea. GENITOURINARY: Denies dysuria or hematuria. SKIN: Denies rash or itching. MUSCULOSKELETAL: Denies back pain, joint pain, or myalgia. NEUROLOGIC: Denies headache, numbness, dizziness, or weakness. PSYCHIATRIC: Denies anxiety or depression. [facility] Past Medical History Medical History Obesity Intrauterine Surgical History Surgical History History of laparoscopic cholecystectomy 07/13/[address] Vanessa Maynard No pertinent past surgical history Family History Family History Father Type 2 diabetes mellitus Mother Anemia Grandparent Type 2 diabetes mellitus Chronic obstructive pulmonary disease Pancreatic cancer Social History Social History (Updated 03/28/25 @ 13:34 by JOSE LUIS GalloP, ) Smoking packs per day: 1 Smoking cigarettes per day: 20.0 Smoking status: Current every day smoker Second hand tobacco smoke exposure: Yes Additional smoking assessment comments: quit smoking cigarettes; vapes daily Alcohol intake: current Drinks per week: 6 Substance use: never Do You Feel Safe in your Home?: Yes Lack of Transportation: No Lack of Food: Never True Current Housing: I Have Housing Concerned About Future Housing: No Difficulty Paying Gas/Electric Bills: No Difficulty Paying for Meds: No Currently Unemployed: No Education: High School Diploma/GED Difficulty w/ Childcare or Family Care: No Spiritual care concerns: No Exam Narrative: GENERAL: Well-appearing, well-nourished, and in no acute distress. HEAD: Normocephalic, atraumatic. EYES: PERRLA and EOMI. ENT: Nares clear, no rhinorrhea or epistaxis. Mucous membranes moist. Oropharynx without tonsillar hypertrophy exudate or other lesions. Bilateral TMs pearly panchal nonbulging NECK: Supple. No adenopathy or masses. No carotid bruits or JVD CHEST: Clear to auscultation. No respiratory distress. No wheezes rales or rhonchi HEART: Regular rate and rhythm. No murmur heard. Normal peripheral pulses. ABDOMEN: Soft, nontender, nondistended, normal active bowel sounds. EXTREMITIES: Normal range of motion. No edema. SKIN: Warm, dry, no rash. NEURO: No focal deficits. Alert and oriented x3. PSYCH: Normal mood and affect. Course Course Emergency Course: This is a 24-year-old female who presented requested a note to allow her to return to work. Her COVID test here today is negative. She was provided with requested work note. She should follow up with primary care and go to the ER for recurrent or worsening symptoms. Pt in agreement with plan of care. Level of Care: Express Care Visit Vital Signs Vital signs: Vital Signs Temperature 37.2 C 03/28/25 12:39 Pulse Rate 106 H 03/28/25 12:39 Respiratory Rate 20 03/28/25 12:39 Blood Pressure 139/60 03/28/25 12:39 Pulse Oximetry 99 03/28/25 12:39 Oxygen Delivery Room Air 03/28/25 12:39 Temperature 37.2 C 03/28/25 12:39 Pulse Rate 106 H 03/28/25 12:39 Respiratory Rate 20 03/28/25 12:39 Blood Pressure 139/60 03/28/25 12:39 Pulse Oximetry 99 03/28/25 12:39 Oxygen Delivery Room Air 03/28/25 12:39 Medical Decision Making Vital Signs Vital Signs: Vital Signs Temperature 37.2 C 03/28/25 12:39 Pulse Rate 106 H 03/28/25 12:39 Respiratory Rate 20 03/28/25 12:39 Blood Pressure 139/60 03/28/25 12:39 Pulse Oximetry 99 03/28/25 12:39 Oxygen Delivery Room Air 03/28/25 12:39 Temperature 37.2 C 03/28/25 12:39 Pulse Rate 106 H 03/28/25 12:39 Respiratory Rate 20 03/28/25 12:39 Blood Pressure 139/60 03/28/25 12:39 Pulse Oximetry 99 03/28/25 12:39 Oxygen Delivery Room Air 03/28/25 12:39 Lab Data Labs: Lab Results 03/28/25 Range/Units 12:35 POC SARS CoV-2 Ag Negative (Negative) Discharge Plan Discharge Clinical Impression: History of COVID-19, Return to work evaluation Patient Disposition: Home Condition: Stable Instructions: Antibiotic Form, COVID-19 (Coronavirus Disease 2019) (ED) Patient Language: Faroese Follow-up/Referrals: Arturo Rangel MD [Physician] - Stand Alone Forms: Work/School Release IP Time of Disposition: 12:57
== END 2025-03-28 13:00 | disposition home or self-care (01) ==
PROVIDERS: Emergency Provider Nurse Practitioner
DX: Z20.822 Contact with and (suspected) exposure to COVID-19 (principal); F17.210 Nicotine dependence, cigarettes, uncomplicated
CPT/HCPCS: 87426; 99213; G0463